=== PATIENT | female | born 1990 | race Caucasian/White ===

== ENCOUNTER 2016-11-21 14:09 | Emergency (ER) | payer OTHER ==
[~2016-11-21] VITALS: Ht 162.6 cm; Wt 59.0 kg
[~2016-11-21 14:09] MED LIST: CLIN1CAP6 PO; Hydrocodone/Acetaminophen PO; TYLE500T PO
[2016-11-21 14:12] VITALS: BP 118/70; PULSE 90; RESP 16; TEMP 97.9; O2SAT 98
--- NOTE | 2016-11-21 15:43 | PD ---
HPI Chief Complaint: [employer]viculture [employer]ster Problem/Complaint Time Seen by Provider: 15:13 Travel History International Travel<30 days: No Contact w/Intl Traveler<30days: No Traveled to known affect area: No History of Present Illness HPI The patient is a 26-year-old female who presents to the emergency department for evaluation of heart tones. The patient states she is currently , is unsure of the exact date of her last menstrual cycle as she has a history of irregular menstrual cycles. The patient denies any abdominal pain, nausea, vomiting, vaginal bleeding, or vaginal discharge. She does complain of pain located over the left aspect of the jaw with minimal swelling, but denies any fever, chills, or sweats. The patient is concerned because she uses Dilaudid and crack cocaine, is concerned about the health of her fetus. The patient denies any current physical complaints except for left jaw pain. PFSH Past Medical History Autoimmune Disease: No Blood Disorders: No Anxiety: Yes Depression: No Heart Rhythm Problems: No Cancer: No Cardiovascular Problems: No High Cholesterol: No Chest Pain: No Congestive Heart Failure: No Diminished Hearing: No Endocrine: No Gastrointestinal Disorders: No (FREQUENT UTI'S) Genitourinary: No Hypertension: No Immune Disorder: No Implanted Vascular Access Dvce: No Musculoskeletal: No Neurologic: No Psychiatric: Yes Reproductive: No Respiratory: No Immunizations Current: No ?: : 2 Para: 1 : 1 Past Surgical History AICD: No Arteriovenous Shunt: No Gynecologic Surgery: Yes () Insulin Pump: No Joint Replacement: No Pacemaker: No Other Surgery: Yes (cellulitis) Social History Alcohol Use: Yes (SOCIALLY) Tobacco Use: Yes (1PPD) Substance Use: Yes (dilaudid) Allergies-Medications (Allergen,Severity, Reaction): Coded Allergies: Penicillin (Verified Allergy, Intermediate, hives, 11/19/14) *MDRO Multi-Drug Resistant Organism (Verified Adverse Reaction, Unknown, ) MRSA (breast wound) - 04/30/16 Reported Meds & Prescriptions Reported Meds & Active Scripts Active Clindamycin Hcl (Clindamycin HCl) 300 Mg Cap 300 Mg PO Q8HR [Hydrocodone/Acetaminophen] 1 TAB Tab 1 Tab PO Q6H PRN Acetaminophen 500 Mg Cplt 500 Mg PO Q6H PRN 30 Days Review of Systems Except as stated in HPI: all other systems reviewed are Neg General / Constitutional: No: Fever HENT: Positive: Other, No: Lightheadedness Cardiovascular: No: Chest Pain or Discomfort Respiratory: No: Shortness of Breath Gastrointestinal: No: Nausea, Vomiting, Abdominal Pain Genitourinary: Positive: Other (), No: Urgency, Frequency, Dysuria, Hematuria, Pelvic Pain, Flank Pain, Discharge, Vaginal Bleeding Neurologic: No: Dizziness Physical Exam Narrative GENERAL: Awake, alert, nontoxic-appearing 26-year-old female who appears her stated age and is in no acute respiratory distress. SKIN: Warm and dry. HEAD: Atraumatic. Normocephalic. EYES: Pupils equal and round. No scleral icterus. No injection or drainage. ENT: No nasal bleeding or discharge. Mucous membranes pink and moist. No tenderness over the upper or lower teeth upon palpation. No palpable abscess along the upper or lower gumline. Left tympanic membranes translucent and left EAC has small amount of wax, otherwise unremarkable. Patient has tenderness over the left TMJ. NECK: Trachea midline. No JVD. CARDIOVASCULAR: Regular rate and rhythm. No murmur appreciated. RESPIRATORY: No accessory muscle use. Clear to auscultation. Breath sounds equal bilaterally. GASTROINTESTINAL: Abdomen soft, gravid inferior to the umbilicus. No rebound tenderness. MUSCULOSKELETAL: No obvious deformities. No clubbing. No cyanosis. No edema. NEUROLOGICAL: Awake and alert. No obvious cranial nerve deficits. Motor grossly within normal limits. Normal speech. PSYCHIATRIC: Appropriate mood and affect; insight and judgment normal. Data Data Last Documented VS Vital Signs Date Time Temp Pulse Resp B/P Pulse Ox O2 Delivery O2 Flow Rate FiO2 11/21/16 14:12 97.9 90 16 118/70 98 Orders Ed Poc Ultrasound (11/21/16 ) [facility] Medical Decision Making Medical Screen Exam Complete: Yes Emergency Medical Condition: Yes Medical Record Reviewed: Yes Differential Diagnosis Differential diagnosis includes , UTI, polysubstance abuse, TMJ, otitis media, serous otitis, dental abscess, odontalgia. Narrative Course The patient's physical examination is consistent with TMJ, she has tenderness over the left TMJ. No evidence of inflammation of the parotid gland or gingival abscess. No infection within the external ear canal or otitis media. Bedside ultrasound was performed which reveals a fetus within the uterus with positive heart tones. The patient was shown the ultrasound was performed real-time. The patient is advised to abstain from Dilaudid and crack and a follow-up with an head screen worker. She is also advised to take her vitamin daily. Return if symptoms worsen or progress. Diagnosis Primary Impression: Intrauterine Additional Impression: Substance abuse Patient Instructions: General Instructions Additional Instructions: Follow-up with an head screen worker. Take her vitamin daily. Stop using Dilaudid and crack cocaine. Drink plenty of fluids to stay hydrated. Return if symptoms worsen or progress. Med/Other Pt SpecificInfo: Other (take a vitamin daily) Disposition: 01 DISCHARGE HOME Condition: Stable Robinson Kraus MD Nov 21, 2016 15:43
[2016-11-21] MEDS ORDERED: BUPR100CR PO (15:47)
== END 2016-11-21 16:16 | disposition home or self-care (01) ==
LOC: NEPE 14:09
DX: O99.331 Smoking (tobacco) complicating pregnancy, first trimester (principal); F17.210 Nicotine dependence, cigarettes, uncomplicated; F19.10 Other psychoactive substance abuse, uncomplicated
CPT/HCPCS: 99283

== ENCOUNTER 2017-03-06 01:34 | Inpatient (IN) | payer OTHER, MEDICAID ==
[~2017-03-06] VITALS: Ht 162.6 cm; Wt 50.0 kg
[2017-03-06] VITALS (114 sets, daily range): BP systolic 50–108; BP diastolic 20–83; PULSE 42–151; RESP 16–31; TEMP 97.6–98.4; O2SAT 89–100
[~2017-03-06 01:34] MED LIST changes: +BUPR100CR PO; -CLIN1CAP6 PO; -Hydrocodone/Acetaminophen PO; -TYLE500T PO
[2017-03-06] MEDS ORDERED: MAGNESIUM SULFATE 40 GM PREMIX 1,000 ML ONE (02:45)
[2017-03-06] MEDS ORDERED: MAGNESIUM SULFATE 40 GM PREMIX 1,000 ML IV SCH (02:49)
[2017-03-06] MEDS ORDERED: TERBUTALINE INJ 1 MG/ML AMP ONE (02:58)
[2017-03-06] MEDS ORDERED: CALCIUM GLUCONATE 10% 1 GM/10 ML VIAL IV PRN (03:00)
[2017-03-06] MEDS ORDERED: MAGNESIUM SULFATE 4 GM PREMIX 100 ML IV ONE (03:00)
[2017-03-06] MEDS ORDERED: TERBUTALINE INJ 1 MG/ML AMP SQ PRN (03:00)
[2017-03-06] MEDS ORDERED: SODIUM CHLORIDE 0.9% FLUSH 10 ML FLUSH IV FLUSH PRN ×2 (03:00→08:15)
[2017-03-06 03:10] LABS: AUTOMATED NEUTROPHIL # 10.7 TH/MM3 (1.8-7.7); BASOPHIL % 0.1 % (0.0-2.0); EOSINOPHIL # 0.2 TH/MM3 (0-0.4); EOSINOPHIL % 1.4 % (0.0-4.0); LYMPH % 10.6 % (9.0-44.0); LYMPHOCYTE # 1.4 TH/MM3 (1.0-4.8); MEAN CELL VOLUME 85.4 FL (80.0-100.0); MEAN CORPUSCULAR HEMOGLOBIN 28.9 PG (27.0-34.0); MEAN CORPUSCULAR HGB CONC 33.8 % (32.0-36.0); MONO % 4.6 % (0.0-8.0); NEUT % 83.3 % (16.0-70.0); PLATELET COUNT 41 TH/MM3 (150-450); RED BLOOD COUNT 2.42 MIL/MM3 (4.00-5.30); WHITE BLOOD COUNT 12.9 TH/MM3 (4.0-11.0)
[2017-03-06] MEDS: LACTATED RINGER'S 1000 ML INJ 1,000 ML IV SCH ×2 (03:17→10:49)
[2017-03-06 03:18] LABS: HEMO FLAGS AUTO DIFF
[2017-03-06] MEDS: VANCOMYCIN INJ 1,000 MG in SODIUM CHLOR 0.9% 250 ML INJ 250 ML IV SCH (03:18)
[2017-03-06] MEDS: BETAMETHASONE SOD PHOS/ACETATE SUSP 30 MG/5 ML VIAL IM SCH ×2 (03:18→11:31)
[2017-03-06 03:19] LABS: HEMATOCRIT 20.7 % (35.0-46.0)
--- NOTE | 2017-03-06 03:21 | PD ---
HPI Chief Complaint Pain Date Seen: Mar 06, 2017 Time Seen: 02:30 Travel History International Travel<30 Days: No Contact w/Intl Traveler<30Days: No Known Affected Area: No History of Present Illness HPI 26-year-old 3 para 1 AB 1 at 32-5/7 week gestation with an EDC of 04/28 that she claims was given based on an ultrasound in the local obstetrical office approximately one month ago. She does not have any recollection of her last menstrual period. She has had no care other than the physical ultrasound was obtained. She was to follow up in another office and failed to keep that appointment. The patient reports tonight with generalized discomfort and swelling of her legs for the past 5 days. She reports having used 4 mg of Suboxone at 11:30 PM. She also admits to 8 mg of Dilaudid per day and proximally $20 of cocaine per day with the most recent use of both of these in the last 12 hours. She reports that her legs began to swell proximal 5 days ago. She denies any headache, visual changes or abdominal pain until this evening. She now has intermittent abdominal pain coinciding with contractions on the monitor. Para: 1 : 3 Miscarriage: 1 History Past Medical History Narrative Medical Penicillin allergy which leads to hives Polysubstance abuse with opiates, cocaine and tobacco. History of MRSA skin abscess earlier this year. Obstetric History Obstetric History One prior term vaginal delivery 4 years ago. One prior miscarriage Past Surgical History Narrative Surgical Skin abscesses Family History Family History: Negative Social History Alcohol Use: Yes Tobacco Use: Yes Substance Abuse: Yes (cocaine, Dilaudid, Suboxone) Allergies-Medications (Allergen,Severity, Reaction): Coded Allergies: Penicillin (Verified Allergy, Intermediate, hives, 11/21/16) *MDRO Multi-Drug Resistant Organism (Verified Adverse Reaction, Unknown, ) MRSA (breast wound) - 04/30/16 Home Meds Discontinued Reported Medications Bupropion HCl ER 12 HR (Wellbutrin SR 12 HR)100 Mg [id number] Mg PO Q12HR Ref 0 11/21/16 Review of Systems ROS Limitations: Intoxication, Altered Mental Status Except as stated in HPI: all other systems reviewed are Neg Physical Exam Narrative GENERAL: Sluggish, intoxicated, then white female, well-developed patient. SKIN: Clammy. HEAD: Normocephalic and atraumatic. EYES: No scleral icterus. No injection or drainage. Contracted pupils ENT: No nasal drainage noted. Mucous membranes pink. Airway patent. NECK: Supple, trachea midline. No JVD. CARDIOVASCULAR: Regular rate and rhythm without murmurs, gallops, or rubs. RESPIRATORY: Breath sounds equal bilaterally. No accessory muscle use. ABDOMEN/GI: Abdomen soft, non-tender, bowel sounds present, no rebound, no guarding Gravid to [-] weeks size Fundal Height: [28-] GENITOURINARY: External Genitalia: intact and normal in appearance BUS glands: [-Negative] Cervix: [Clean-] Dilatation: [-2] Effacement: [100-] Station: [+1-] Presentation: [Vertex-] Membranes: [intact ] Uterine Contractions: [Every 5-] FHT's: Category: [2-] Baseline: [-140] Reactive: [-] Variability: [Moderate-] Decels: [Variable-] EXTREMITIES: No cyanosis, 2+ lower extremity edema without tenderness or cords BACK: Nontender without obvious deformity. No CVA tenderness. NEUROLOGICAL: Awake and sluggish. Motor and sensory grossly within normal limits. Five out of 5 muscle strength in all muscle groups. Slurred speech. Data Data Orders Ob (2e) Additional Admit Info (03/06/17 02:45) Magnesium Sulfate 40 Gm Premix (Magnesiu (03/06/17 02:45) Rubella Immune Status (03/06/17 02:49) Hepatitis Profile (03/06/17 02:49) Rapid Plasma Regin (Rpr) W Ttr (03/06/17 02:49) Type And Screen (03/06/17 02:49) Complete Blood Count With Diff (03/06/17 02:49) No Care Spec Serology (03/06/17 02:49) Special Serology (03/06/17 02:49) Admit To Inpatient (03/06/17 ) Vital Signs (Adult) Q4H (03/06/17 02:49) Activity Bed Rest (03/06/17 02:49) Intake + Output VALERY.QSHIFT (03/06/17 02:49) Heart CONTINUOUS (03/06/17 02:49) Lactated Ringer's 1000 Ml Inj (Lr 1000 M (03/06/17 02:49) Sodium Chloride 0.9% Flush (Ns Flush) (03/06/17 03:00) Sodium Chloride 0.9% Flush (Ns Flush) (03/06/17 09:00) Magnesium Sulfate 40 Gm Premix (Magnesiu (03/06/17 02:49) Betamethasone Inj (Celestone Soluspan In (03/06/17 03:00) Calcium Gluconate Inj (Calcium Gluconate (03/06/17 03:00) Magnesium Sulfate 4 Gm Premix (Magnesium (03/06/17 03:00) Drug Screen, Random Urine (03/06/17 02:49) Vancomycin Inj (Vancomycin Inj) (03/06/17 03:00) Terbutaline Inj (Brethine Inj) (03/06/17 03:00) Inpatient Certification (03/06/17 ) Terbutaline Inj (Brethine Inj) (03/06/17 02:58) Vital Signs (Adult) .ON ADMISSION (03/06/17 03:03) ^ Labor Status (03/06/17 03:03) Urinalysis - C+S If Indicated (03/06/17 03:03) Comprehensive Metabolic Panel (03/06/17 03:03) Fibronectin (03/06/17 03:03) Wet Prep Profile (03/06/17 03:03) Gc And Chlamydia Pcr (03/06/17 03:03) Group B Beta Strep Scrn (Gbs) (03/06/17 03:03) Specimen To Be Collected PRN (03/06/17 03:03) Hiv Antibody Screen (03/06/17 03:03) MDM Medical Record Reviewed: Yes Narrative Course / MDM Assessment: 26-year-old female reportedly at 32-5/7 week gestation with no care who presents in labor complicated by polysubstance abuse. Admission laboratory analysis results are remarkable for platelets of 47,000 and hematocrit of 20%. Plan: labs Terbutaline for labor. Due to maternal hypotension I'm unable to administer Procardia. Magnesium sulfate for neuro protection and betamethasone. Transfusion of packed red blood cells and platelets. Further laboratory results are pending regarding possibility of underlying evidence of preeclampsia. Patient has significant lower extremity edema but none elsewhere and her blood pressure is low. Vancomycin 1 g is GBS prophylaxis due to severe penicillin allergy. MRSA swab. Neel Schumacher MD Mar 06, 2017 03:20
--- NOTE | 2017-03-06 03:39 | HHI.HP ---
History & Physical H&P Patient Name: Blossom Moreno Unit Number: [id number] Date of : 1990 Patient Status: Admitted Inpatient Attending Doctor: Neel Schumacher MD HPI HPI Chief Complaint Pain Date Seen: Mar 06, 2017 Time Seen: 02:30 Travel History International Travel<30 Days: No Contact w/Intl Traveler<30Days: No Known Affected Area: No History of Present Illness HPI 26-year-old 3 para 1 AB 1 at 32-5/7 week gestation with an EDC of 04/28 that she claims was given based on an ultrasound in the local obstetrical office approximately one month ago. She does not have any recollection of her last menstrual period. She has had no care other than the physical ultrasound was obtained. She was to follow up in another office and failed to keep that appointment. The patient reports tonight with generalized discomfort and swelling of her legs for the past 5 days. She reports having used 4 mg of Suboxone at 11:30 PM. She also admits to 8 mg of Dilaudid per day and proximally $20 of cocaine per day with the most recent use of both of these in the last 12 hours. She reports that her legs began to swell proximal 5 days ago. She denies any headache, visual changes or abdominal pain until this evening. She now has intermittent abdominal pain coinciding with contractions on the monitor. Para: 1 : 3 Miscarriage: 1 History (Limited) History Past Medical History Narrative Medical Penicillin allergy which leads to hives Polysubstance abuse with opiates, cocaine and tobacco. History of MRSA skin abscess earlier this year. History of hepatitis C Obstetric History Obstetric History One prior term vaginal delivery 4 years ago. One prior miscarriage Past Surgical History Narrative Surgical Skin abscesses Family History Family History: Negative Social History Alcohol Use: Yes Tobacco Use: Yes Substance Abuse: Yes (cocaine, Dilaudid, Suboxone) Allergies-Medications Allergies-Medications (Allergen,Severity, Reaction): Coded Allergies: Penicillin (Verified Allergy, Intermediate, hives, 11/21/16) *MDRO Multi-Drug Resistant Organism (Verified Adverse Reaction, Unknown, ) MRSA (breast wound) - 04/30/16 Home Meds Discontinued Reported Medications Bupropion HCl ER 12 HR (Wellbutrin SR 12 HR)100 Mg [id number] Mg PO Q12HR Ref 0 11/21/16 ROS Review of Systems ROS Limitations: Intoxication, Altered Mental Status Except as stated in HPI: all other systems reviewed are Neg Physical Exam Physical Exam Narrative GENERAL: Sluggish, intoxicated, then white female, well-developed patient. SKIN: Clammy. HEAD: Normocephalic and atraumatic. EYES: No scleral icterus. No injection or drainage. Contracted pupils ENT: No nasal drainage noted. Mucous membranes pink. Airway patent. NECK: Supple, trachea midline. No JVD. CARDIOVASCULAR: Regular rate and rhythm without murmurs, gallops, or rubs. RESPIRATORY: Breath sounds equal bilaterally. No accessory muscle use. ABDOMEN/GI: Abdomen soft, non-tender, bowel sounds present, no rebound, no guarding Gravid to [-] weeks size Fundal Height: [28-] GENITOURINARY: External Genitalia: intact and normal in appearance BUS glands: [-Negative] Cervix: [Clean-] Dilatation: [-2] Effacement: [100-] Station: [+1-] Presentation: [Vertex-] Membranes: [intact ] Uterine Contractions: [Every 5-] FHT's: Category: [2-] Baseline: [-140] Reactive: [-] Variability: [Moderate-] Decels: [Variable-] EXTREMITIES: No cyanosis, 2+ lower extremity edema without tenderness or cords BACK: Nontender without obvious deformity. No CVA tenderness. NEUROLOGICAL: Awake and sluggish. Motor and sensory grossly within normal limits. Five out of 5 muscle strength in all muscle groups. Slurred speech. Data Data Data Orders Ob (2e) Additional Admit Info (03/06/17 02:45) Magnesium Sulfate 40 Gm Premix (Magnesiu (03/06/17 02:45) Rubella Immune Status (03/06/17 02:49) Hepatitis Profile (03/06/17 02:49) Rapid Plasma Regin (Rpr) W Ttr (03/06/17 02:49) Type And Screen (03/06/17 02:49) Complete Blood Count With Diff (03/06/17 02:49) No Care Spec Serology (03/06/17 02:49) Special Serology (03/06/17 02:49) Admit To Inpatient (03/06/17 ) Vital Signs (Adult) Q4H (03/06/17 02:49) Activity Bed Rest (03/06/17 02:49) Intake + Output VALERY.QSHIFT (03/06/17 02:49) Heart CONTINUOUS (03/06/17 02:49) Lactated Ringer's 1000 Ml Inj (Lr 1000 M (03/06/17 02:49) Sodium Chloride 0.9% Flush (Ns Flush) (03/06/17 03:00) Sodium Chloride 0.9% Flush (Ns Flush) (03/06/17 09:00) Magnesium Sulfate 40 Gm Premix (Magnesiu (03/06/17 02:49) Betamethasone Inj (Celestone Soluspan In (03/06/17 03:00) Calcium Gluconate Inj (Calcium Gluconate (03/06/17 03:00) Magnesium Sulfate 4 Gm Premix (Magnesium (03/06/17 03:00) Drug Screen, Random Urine (03/06/17 02:49) Vancomycin Inj (Vancomycin Inj) (03/06/17 03:00) Terbutaline Inj (Brethine Inj) (03/06/17 03:00) Inpatient Certification (03/06/17 ) Terbutaline Inj (Brethine Inj) (03/06/17 02:58) Vital Signs (Adult) .ON ADMISSION (03/06/17 03:03) ^ Labor Status (03/06/17 03:03) Urinalysis - C+S If Indicated (03/06/17 03:03) Comprehensive Metabolic Panel (03/06/17 03:03) Fibronectin (03/06/17 03:03) Wet Prep Profile (03/06/17 03:03) Gc And Chlamydia Pcr (03/06/17 03:03) Group B Beta Strep Scrn (Gbs) (03/06/17 03:03) Specimen To Be Collected PRN (03/06/17 03:03) Hiv Antibody Screen (03/06/17 03:03) MDM MDM Medical Record Reviewed: Yes Narrative Course / MDM Assessment: 26-year-old female reportedly at 32-5/7 week gestation with no care who presents in labor complicated by polysubstance abuse. Admission laboratory analysis results are remarkable for platelets of 47,000 and hematocrit of 20%. Plan: labs Terbutaline for labor. Due to maternal hypotension I'm unable to administer Procardia. Magnesium sulfate for neuro protection and betamethasone. Transfusion of packed red blood cells and platelets. Further laboratory results are pending regarding possibility of underlying evidence of preeclampsia. Patient has significant lower extremity edema but none elsewhere and her blood pressure is low. Vancomycin 1 g is GBS prophylaxis due to severe penicillin allergy. MRSA swab. Neel Schumacher MD Mar 06, 2017 03:20 Neel Schumacher MD Mar 06, 2017 03:38
[2017-03-06 03:46] LABS: RUBELLA IGG ANTIBODY 161.1 IU/mL (10.0-500.0); RUBELLA STATUS IMMUNE (IMMUNE)
[2017-03-06] MEDS ORDERED: LIDOCAINE 2% JELLY 30 ML TUBE ONE (03:49)
[2017-03-06 03:50] LABS: BANDS 17 % (0-6); CORRECTED NUCLEATED RBC 1 /100 WBC (0-0); METAMYELOCYTES 3 % (0-1); NEUTROPHIL # MANUAL DIFF 11.7 TH/MM3 (1.8-7.7); POLYS (SEG NEUTROPHILS) 71 % (16-70); WBC DIFF SAMPLE 100
[2017-03-06 03:52] LABS: PLATELET ESTIMATE SMEAR LOW (NORMAL); PLATELET MORPHOLOGY NORMAL (NORMAL); SCAN/DIFF FINAL DIFF MANUAL
[2017-03-06 03:55] LABS: ALKALINE PHOSPHATASE 190 U/L (45-117); ALT (GPT) 9 U/L (10-53); TOTAL BILIRUBIN ADULT 0.6 MG/DL (0.2-1.0)
[2017-03-06 04:04] LABS: ANION GAP 12 MEQ/L (5-15); AST (GOT) 36 U/L (15-37); BICARBONATE 24.2 MEQ/L (21.0-32.0); BLOOD UREA NITROGEN 27 MG/DL (7-18); CHLORIDE 98 MEQ/L (98-107); GLOMERULAR FILTRATION RATE 45 ML/MIN (>89); SODIUM (NA) 134 MEQ/L (136-145)
[2017-03-06 04:07] LABS: POTASSIUM 3.1 MEQ/L (3.5-5.1)
[2017-03-06 04:09] LABS: AMPHETAMINE, URINE NEG (NEG); BARBITURATES, URINE NEG (NEG)
[2017-03-06 04:14] LABS: BACTERIA, URINE MANY /hpf; BLOOD, URINE MOD (NEG); COCAINE, URINE POS (NEG); GLUCOSE,URINE NEG (NEG); HYALINE CAST, URINE 25 /lpf (RARE); KETONE, URINE NEG (NEG); MUCUS URINE FEW /lpf (OCC); NITRITE,URINE NEG (NEG); SQUAMOUS EPITHELIAL CELL URINE 21 /hpf (0-5); URINE COLOR DARK-YELLOW (YELLW/STRAW)
[2017-03-06 04:16] LABS: COMMENT (UR) CULTURE INDICATED; CULTURE IF INDICATED CULTURE INDICATED
--- NOTE | 2017-03-06 05:00 | PD.LABORPN ---
Subjective Subjective The patient reports continued contractions. Notes leakage of vaginal fluid. Objective Objective Pelvic Exam: Cervix: [-] Dilatation: [3-] Effacement: [-100] Station: [+1-] Presentation: [-Vertex] Membranes: [ruptured] Uterine Contractions: [Irregular-] FHT's: Category: [2] Baseline: [140s-] Reactive: [-] Variability: [Moderate-] Decels: [Variable-] Examination consistent with rupture membranes Laboratory analysis demonstrates a protein creatinine ratio 0.47 Assessment/Plan Assessment and Plan Assessment: 32+ week intrauterine , labor with now rupture membranes, thrombocytopenia with proteinuria, significant anemia Plan: 1 unit of platelets, 2 units packed red blood cells Discontinue terbutaline Continue magnesium for neuro protection due to uncertain estimated gestational age and also possible atypical preeclampsia in this patient with significant edema, thrombocytopenia and proteinuria Neel Schumacher MD Mar 06, 2017 05:00
[2017-03-06 05:16] LABS: MRSA PCR NEGATIVE (NEGATIVE); STAPH AUREUS PCR NEGATIVE (NEGATIVE)
[2017-03-06 05:39] LABS: CHLAMYDIA PCR NOT DETECTED (NOT DETECT); NEISSERIA PCR NOT DETECTED (NOT DETECT)
[2017-03-06] MEDS ORDERED: OXYTOCIN 30 UNITS-500ML PREMIX 500 ML ONE (08:01)
[2017-03-06] MEDS ORDERED: BENZOCAINE 20% TOPICAL SPRAY 60 ML CAN TOPICAL PRN (08:15)
[2017-03-06] MEDS ORDERED: ONDANSETRON ODT 4 MG TAB PO PRN (08:15)
[2017-03-06] MEDS ORDERED: WITCH HAZEL 50%/GLYCERIN 12.5% 40 PAD JAR TOPICAL PRN (08:15)
[2017-03-06] MEDS ORDERED: ALUMINUM/MAGNESIUM/SIMETH 30 ML CUP PO PRN (08:15)
[2017-03-06] MEDS ORDERED: IBUPROFEN 600 MG TAB PO PRN (08:15)
[2017-03-06] MEDS ORDERED: DOCUSATE SODIUM 50 MG/SENNA 8.6 MG TAB PO PRN (08:15)
[2017-03-06] MEDS ORDERED: ZOLPIDEM TARTRATE 5 MG TAB PO PRN (08:15)
--- NOTE | 2017-03-06 08:34 | PD.OB.DELI ---
Delivery Date: Mar 06, 2017 Anesthesia: None Episiotomy: None Vaginal Delivery: Normal Presentation: Occiput anterior Nuchal Cord: None Delayed cord clamping (45 sec): Yes : Female One Minute : 8 Five Minute : 9 Weight: 1600g Placenta: Spontaneous delivery, Intact, 3 vessel cord, Other (Evidence of chronic abruption with dark adherent clot. ) Additional Information Delivery performed by Dr. Porter, supervised by Dr. Schumacher EBL 250cc (Génesis Cornejo MD R2) Additional Information I personally attended and assisted with this delivery. (Neel Schumacher MD) Génesis Cornejo MD R2 Mar 06, 2017 08:34 Neel Schumacher MD Mar 06, 2017 08:39
[2017-03-06] MEDS ORDERED: BISACODYL 10 MG SUPP RECTAL PRN ×2 (09:00→13:30)
[2017-03-06] MEDS ORDERED: SODIUM CHLORIDE 0.9% FLUSH 10 ML FLUSH IV FLUSH SCH ×2 (09:00)
[2017-03-06 09:16] LABS: BLOOD GAS BASE EXCESS -3.1 mmol/L (-2-2); BLOOD GAS O2 HGB SATURATION 17 % (90-100); CORD BLOOD GAS HCO3 23 mmol/L (21-29); CORD BLOOD GAS PCO2 58 mmHG (34-78); CORD BLOOD GAS PH 7.23 (7.14-7.42)
[2017-03-06 09:17] LABS: CORD BLOOD GAS PO2 13 mmHG (3.0-40.0); DRAW SITE CORD BLOOD; STAT NO
--- NOTE | 2017-03-06 10:08 | RADRPT ---
EXAM DATE/TIME: 03/06/2017 09:09 [facility] COMPARISON: No previous studies available for comparison. INDICATIONS : Bilateral leg pain and pitting edema. MEDICAL HISTORY : Hepatitis C. MRSA. Substance use. SURGICAL HISTORY : Skin abscesses. ENCOUNTER: Initial ACUITY: 4 - 6 days PAIN SCORE: 9/10 LOCATION: Bilateral legs. TECHNIQUE: Venous ultrasound of the left and right leg was performed from the inguinal ligament to the proximal calf. Real-time, color Doppler and spectral tracing, compression and augmentation techniques were us ed. FINDINGS: RIGHT LEG: There is normal compressibility of the deep venous system from the inguinal region to the proximal ca lf. No echogenic clot is seen in the lumen of the common femoral, femoral, popliteal, and posterior tibial veins. There is a normal response of the venous system to proximal and distal augmentation an d respiration. LEFT LEG: There is normal compressibility of the deep venous system from the inguinal region to the proximal ca lf. No echogenic clot is seen in the lumen of the common femoral, femoral, popliteal, and posterior tibial veins. There is a normal response of the venous system to proximal and distal augmentation an d respiration. CONCLUSION: Normal examination. Eddie Boykin MD on March 06, 2017 at 10:06 Board Certified Radiologist. This report was verified electronically.
[2017-03-06] MEDS ORDERED: SODIUM PHOSPHATE INJ 30 MMOL in SODIUM CHLOR 0.9% 250 ML INJ 240 ML IV PRN ×2 (11:00→13:30)
[2017-03-06] MEDS ORDERED: POTASSIUM PHOSPHATE MONOBASIC 500 MG TAB PO/TUBE PRN ×2 (11:00→13:30)
[2017-03-06] MEDS ORDERED: POTASSIUM CHLOR 20 MEQ PREMIX 100 ML IV PRN ×3 (11:00→13:30)
[2017-03-06] MEDS ORDERED: MAGNESIUM SULFATE INJ 4 GM in SODIUM CHLORIDE 0.9% INJ 92 ML IV PRN ×2 (11:00→13:30)
[2017-03-06] MEDS ORDERED: POTASSIUM PHOSPHATE MONOBASIC 500 MG TAB PO PRN ×2 (11:00→13:30)
[2017-03-06] MEDS ORDERED: POTASSIUM CHLOR 40 MEQ PREMIX 100 ML IV PRN ×4 (11:00→13:30)
[2017-03-06] MEDS ORDERED: POTASSIUM CHLORIDE 25 MEQ EFFERVESCENT TAB PO PRN ×2 (11:00→13:30)
[2017-03-06] MEDS ORDERED: Vancomycin Consult Pharmacy 1 EA OTHER SCH (11:00)
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
--- NOTE | 2017-03-06 11:30 | RADRPT ---
EXAM DATE/TIME: 03/06/2017 11:00 [place] COMPARISON: CHEST SINGLE AP, November 20, 2014, 4:33. INDICATIONS : Shortness of breath and whole body pain. MEDICAL HISTORY : Hepatitis C. MRSA. Substance use. SURGICAL HISTORY : Skin abcesses. ENCOUNTER: Initial ACUITY: 1 day PAIN SCORE: 10/10 LOCATION: Bilateral chest FINDINGS: There is patchy bilateral airspace disease and cardiomegaly. This is increased from previous. No effu sions. Osseous structures are intact. CONCLUSION: Bilateral airspace disease and cardiomegaly. Eddie Boykin MD on March 06, 2017 at 11:28 Board Certified Radiologist. This report was verified electronically.
[2017-03-06] MEDS: SODIUM CHLOR 0.9% 1000 ML INJ 1,000 ML IV SCH (13:29)
[2017-03-06] MEDS ORDERED: MISCELLANEOUS NURSING INFORMATION XX SCH (13:30)
[2017-03-06] MEDS ORDERED: SENNOSIDES 8.6 MG TAB PO PRN (13:30)
[2017-03-06] MEDS ORDERED: MAGNESIUM OXIDE 400 MG TAB PO PRN (13:30)
[2017-03-06] MEDS ORDERED: MAGNESIUM SULFATE INJ 2 GM in SODIUM CHLORIDE 0.9% INJ 96 ML IV PRN (13:30)
[2017-03-06] MEDS ORDERED: ONDANSETRON HCL 4 MG/2 ML VIAL IV PRN (13:30)
[2017-03-06] MEDS ORDERED: CHLORHEXIDINE GLUCONATE 2 % 1 PACK (2 CLOTHS) TOP PRN (13:30)
[2017-03-06] MEDS: oxyCODONE/ACETAMINOPHEN 5 MG/325 MG TAB PO PRN (13:34)
[2017-03-06] MEDS: PIPERACIL-TAZO 3.375 GM PREMIX 50 ML IV SCH ×3 (13:37→22:55)
[2017-03-06] MEDS: AZTREONAM INJ 2,000 MG in SODIUM CHLORIDE 0.9% INJ 100 ML IV SCH ×2 (14:05→20:10)
[2017-03-06] MEDS: ACETAMINOPHEN 1000 MG/100 ML VIAL IV SCH ×2 (14:58→20:10)
[2017-03-06] MEDS ORDERED: PILL SPLITTER OTHER PRN (15:00)
--- NOTE | 2017-03-06 15:13 | PD.CONS ---
[facility] Service Critical Care Medicine Consult Requested By Neel Hampton M.D. OB-ACOUSTICS TEACHER Reason for Consult Sepsis Primary Care Physician Nita Dawn MD History of Present Illness 26-year-old 3 para 1 AB 1 at 32-5/7 week gestation with an EDC of 04/28 that she claims was given based on an ultrasound in the local obstetrical office approximately one month ago. She does not have any recollection of her last menstrual period. She has had no care other than the physical ultrasound was obtained. She was to follow up in another office and failed to keep that appointment. The patient reports tonight with generalized discomfort and swelling of her legs for the past 5 days. She reports having used 4 mg of Suboxone at 11:30 PM on 02/02/17. She also admits to 8 mg of Dilaudid per day and proximally $20 of cocaine per day with the most recent use of both of these in the last 12 hours prior to admission to the hospital.She reports that her legs began to swell proximal 5 days ago. She denies any headache, visual changes or abdominal pain. The patient was noted to be in preeclampsia with a protein creatinine ratio 0.47, urine protein 117. The patient was also noted to have leukocytosis , and febrile. The patient was placed on a magnesium infusion. The patient subsequently had a spontaneous vaginal delivery without general or regional anesthesia. Critical care medicine was consulted for management. Upon entering the room the patient was noted to be writhing in pain complaining of left hip left leg pain, BP 90/68 with magnesium infusing. Para: 1 : 3 Miscarriage: 1 History (Limited) History Past Medical History Narrative Medical Penicillin allergy which leads to hives Polysubstance abuse with opiates, cocaine and tobacco. History of MRSA skin abscess earlier this year. History of hepatitis C Obstetric History Obstetric History One prior term vaginal delivery 4 years ago. One prior miscarriage Past Surgical History Narrative Surgical Skin abscesses Family History Family History: Negative Social History Alcohol Use: Yes Tobacco Use: Yes Substance Abuse: Yes (cocaine, Dilaudid, Suboxone) Allergies-Medications Allergies-Medications (Allergen,Severity, Reaction): Coded Allergies: Penicillin (Verified Allergy, Intermediate, hives, 11/21/16) *MDRO Multi-Drug Resistant Organism (Verified Adverse Reaction, Unknown, ) MRSA (breast wound) - 04/30/16 Home Meds Discontinued Reported Medications Bupropion HCl ER 12 HR (Wellbutrin SR 12 HR)100 Mg [id number] Mg PO Q12HR Ref 0 11/21/16 ROS Review of Systems ROS Limitations: Intoxication, Altered Mental Status Except as stated in HPI: all other systems reviewed are Neg Physical Exam Vital Signs Vital Signs Date Time Temp Pulse Resp B/P Pulse Ox O2 Delivery O2 Flow Rate FiO2 03/06/17 12:25 79 100 03/06/17 12:20 82 100 03/06/17 12:15 81 03/06/17 12:15 82 101/64 100 03/06/17 12:10 81 99 03/06/17 12:05 82 100 03/06/17 12:00 83 94/61 99 03/06/17 12:00 83 03/06/17 11:55 82 99 03/06/17 11:50 83 98 03/06/17 11:45 81 95/62 98 03/06/17 11:45 81 03/06/17 11:40 81 98 03/06/17 11:35 78 99 03/06/17 11:30 79 03/06/17 11:30 81 17 93/58 98 03/06/17 11:25 83 99 03/06/17 11:20 87 94 03/06/17 11:15 83 17 95 03/06/17 11:10 82 03/06/17 11:10 81 96/59 98 03/06/17 11:05 81 91/58 99 03/06/17 11:05 80 03/06/17 11:00 18 03/06/17 11:00 82 03/06/17 11:00 80 95/53 98 03/06/17 10:55 81 103/57 03/06/17 10:55 79 03/06/17 10:55 99 03/06/17 10:50 82 87/60 03/06/17 10:50 100 03/06/17 10:50 81 03/06/17 10:45 79 91/59 03/06/17 10:45 82 03/06/17 10:45 100 03/06/17 10:40 80 97/57 99 03/06/17 10:40 80 03/06/17 10:35 80 94/60 99 03/06/17 10:35 81 03/06/17 10:30 81 03/06/17 10:30 79 96/58 100 03/06/17 10:30 17 03/06/17 10:25 85 03/06/17 10:25 83 108/83 99 03/06/17 10:20 77 03/06/17 10:20 81 100/65 100 03/06/17 10:15 81 89/60 03/06/17 10:10 82 90/70 03/06/17 10:05 81 100 03/06/17 10:05 82 17 91/66 03/06/17 10:00 85 87/73 03/06/17 09:55 97.8 79 16 91/51 100 03/06/17 09:55 84 03/06/17 09:50 78 88/53 100 03/06/17 09:50 79 03/06/17 09:45 80 03/06/17 09:45 79 85/51 100 03/06/17 09:44 98.0 03/06/17 09:44 17 03/06/17 09:42 79 78/34 03/06/17 09:41 77 52/35 03/06/17 09:40 95 97 03/06/17 09:35 78 03/06/17 09:35 80 90/50 96 03/06/17 09:33 77 85/48 03/06/17 09:30 79 82/44 100 03/06/17 09:30 78 03/06/17 09:30 98.0 18 03/06/17 09:25 80 100 03/06/17 09:20 96 91 03/06/17 09:15 78 03/06/17 09:15 80 98/60 100 03/06/17 09:10 87 89 03/06/17 09:05 80 100 03/06/17 09:00 17 03/06/17 09:00 76 03/06/17 09:00 77 84/50 100 03/06/17 08:55 77 100 03/06/17 08:50 77 100 03/06/17 08:45 89 82/67 03/06/17 08:30 83 108/72 03/06/17 08:20 100 03/06/17 08:20 82 03/06/17 08:16 87 93/76 03/06/17 08:15 18 03/06/17 08:10 90 96 03/06/17 08:10 52 03/06/17 08:05 88 100 03/06/17 08:05 90 03/06/17 08:00 71 03/06/17 08:00 92 03/06/17 08:00 93 107/69 97 03/06/17 07:55 151 03/06/17 07:50 63 03/06/17 07:45 87 93/56 100 03/06/17 07:45 61 03/06/17 07:45 87 03/06/17 07:40 100 03/06/17 07:40 85 03/06/17 07:40 84 03/06/17 07:35 85 03/06/17 07:35 43 03/06/17 07:35 100 03/06/17 07:31 90 89/55 03/06/17 07:30 100 03/06/17 07:30 87 03/06/17 07:30 86 03/06/17 07:29 87 82/45 03/06/17 07:25 52 03/06/17 07:20 47 03/06/17 07:15 82 03/06/17 07:05 94 03/06/17 07:02 94 102/52 03/06/17 07:01 94 69/41 03/06/17 07:00 94 03/06/17 06:40 91 03/06/17 06:35 53 03/06/17 06:30 93 94/50 03/06/17 06:30 92 03/06/17 06:30 20 03/06/17 06:25 47 03/06/17 06:21 95 73/39 03/06/17 06:20 95 03/06/17 06:15 94 96/39 03/06/17 06:15 94 03/06/17 06:05 94 95/49 03/06/17 06:05 92 03/06/17 06:00 97.8 95 20 98/53 03/06/17 06:00 116 03/06/17 05:55 94 03/06/17 05:55 94 95/51 03/06/17 05:52 93 96/51 03/06/17 05:50 93 03/06/17 05:45 94 03/06/17 05:10 93 03/06/17 05:05 92 03/06/17 05:04 95 91/47 03/06/17 05:00 94 03/06/17 05:00 96 90/49 03/06/17 04:56 93 94/47 03/06/17 04:55 96 03/06/17 04:50 94 03/06/17 04:45 51 03/06/17 04:15 20 03/06/17 04:10 42 03/06/17 04:05 98 03/06/17 04:02 75 88/20 03/06/17 04:01 123 50/31 03/06/17 04:00 98 03/06/17 03:25 52 03/06/17 03:20 101 03/06/17 03:16 102 85/48 03/06/17 03:15 103 03/06/17 03:11 90 89/63 03/06/17 03:10 100 03/06/17 03:07 99 93/32 03/06/17 03:05 97 03/06/17 03:00 104 76/59 03/06/17 03:00 99 03/06/17 02:57 104 79/40 03/06/17 02:55 107 Physical Exam GENERAL: Medically ill-appearing young female in severe distress, complaints of pain, status post . SKIN: Warm and dry. HEAD: Atraumatic. Normocephalic. EYES: Pupils equal and round. No scleral icterus. No injection or drainage. ENT: No nasal bleeding or discharge. Mucous membranes pink and moist. Airway patent. Uvula midline , currently on nasal cannula NECK: Trachea midline. No JVD. CARDIOVASCULAR: Normal rate, regular rhythm. RESPIRATORY: No accessory muscle use. Clear to auscultation. Breath sounds equal bilaterally. GASTROINTESTINAL: Abdomen soft, non-tender, nondistended. No guarding. Fundal height at the level of T10 MUSCULOSKELETAL: Extremities without clubbing, or cyanosis. No obvious deformities. Peripheral edema bilateral extremities NEUROLOGICAL: Awake and alert. RASS 0. No gross focal/sensory deficits. Follows commands in all 4 extremities. Laboratory Laboratory Tests Test 03/06/17 03/06/17 03/06/17 03/06/17 02:00 02:40 02:45 03:20 Urine Color DARK-YELLOW Urine Turbidity CLOUDY Urine pH 5.0 Urine Specific Amonate 1.030 Urine Protein 30 Urine Glucose (UA) NEG Urine Ketones NEG Urine Occult Blood MOD Urine Nitrite NEG Urine Bilirubin NEG Urine Urobilinogen 4.0 Urine Leukocyte Esterase SMALL Urine RBC 5 Urine WBC 19 Urine Squamous Epithelial 21 Cells Urine Bacteria MANY Urine Hyaline Casts 25 Urine Mucus FEW Microscopic Urinalysis Comment CULTURE INDICATED Urine Random Creatinine 250 Urine Random Total Protein 117 Urine Protein/Creatinine Ratio 0.47 Urine Opiates Screen POS Urine Barbiturates Screen NEG Urine Amphetamines Screen NEG Urine Benzodiazepines Screen POS Urine Cocaine Screen POS Urine Cannabinoids Screen NEG Chlamydia trachomatis DNA NOT DETECTED (PCR) Neisseria gonorrhoeae DNA NOT DETECTED (PCR) White Blood Count 12.9 Red Blood Count 2.42 Hemoglobin 7.0 Hematocrit 20.7 Mean Corpuscular Volume 85.4 Mean Corpuscular Hemoglobin 28.9 Mean Corpuscular Hemoglobin 33.8 Concent Red Cell Distribution Width 15.0 Platelet Count 41 Mean Platelet Volume 8.8 Neutrophils (%) (Auto) 83.3 Lymphocytes (%) (Auto) 10.6 Monocytes (%) (Auto) 4.6 Eosinophils (%) (Auto) 1.4 Basophils (%) (Auto) 0.1 Neutrophils # (Auto) 10.7 Lymphocytes # (Auto) 1.4 Monocytes # (Auto) 0.6 Eosinophils # (Auto) 0.2 Basophils # (Auto) 0.0 CBC Comment AUTO DIFF Differential Total Cells 100 Counted Neutrophils % (Manual) 71 Band Neutrophils % 17 Lymphocytes % 5 Monocytes % 4 Neutrophils # (Manual) 11.7 Metamyelocytes 3 Nucleated Red Blood Cells 1 Differential Comment FINAL DIFF MANUAL Atypical Lymphocytes Platelet Estimate LOW Platelet Morphology Comment NORMAL Blood Smear Pathologist Review Fibronectin POSITIVE Sodium Level 134 Potassium Level 3.1 Chloride Level 98 Carbon Dioxide Level 24.2 Anion Gap 12 Blood Urea Nitrogen 27 Creatinine 1.43 Estimat Glomerular Filtration 45 Rate Random Glucose 93 Calcium Level 7.9 Total Bilirubin 0.6 Aspartate Amino Transf 36 (AST/SGOT) Alanine Aminotransferase 9 (ALT/SGPT) Alkaline Phosphatase 190 Total Protein 6.8 Albumin 1.7 HIV (1&2) Antibody NEGATIVE Rubella Immunity Screen IMMUNE Rubella Antibody, Quantitative 161.1 Blood Type O POSITIVE Antibody Screen NEGATIVE Group B Streptococcus (PCR) NEGATIVE Clue Cells (Wet Prep) NONE SEEN Vaginal Trichomonas (Wet Prep) NONE SEEN Vaginal Yeast (Wet Prep) NONE SEEN Test 4/03/06/17 03/06/17 03:45 04:06 08:00 Nasal Screen MRSA (PCR) NEGATIVE Staphylococcus aureus NEGATIVE (PCR)(LAB) Crossmatch Leukocyte-Reduced Red Blood Cells Blood Bank Comment Blood Gas Puncture Site CORD BLOOD Blood Gas Base Excess -3.1 Blood Gas Oxygen Saturation 17 Cord Blood HCO3 23 Cord Arterial Blood pH 7.23 Cord Arterial Blood PCO2 58 Cord Arterial Blood PO2 13 Date/Time Procedure Status Source Growth 03/06/17 02:45 Group B Streptococcus Screen Received Genital Genital Region Pending 03/06/17 02:45 Cancelled Genital Genital Region 03/06/17 02:00 Urine Culture Received Urine Clean Catch Pending Result Diagram: 03/06/17 0240 03/06/17 0240 Imaging Last 24 hours Impressions Lower Extremity Ultrasound 03/06/17 0849 Signed Impressions: Service Date/Time: Monday, March 06, 2017 09:09 - CONCLUSION: Normal examination. Eddie Boykin MD Chest X-Ray 03/06/17 0000 Signed Impressions: Service Date/Time: Monday, March 06, 2017 11:00 - CONCLUSION: Bilateral airspace disease and cardiomegaly. Eddie Boykin MD Septic Shock Reassessment Heart: Regular rate and rhythm Skin: Warm, Moist Peripheral Pulses: Bounding Right Radial Bounding Left Radial Bounding Right Dorsalis Pedis Bounding Left Dorsalis Pedis Capillary Refill: Brisk Assessment and Plan Assessment and Plan Plan by systems: Neurologic: Pain IVDA Benzodiazepine dependence Metabolic encephalopathy Upon admission to hospital positive urine tox screen-opiates, benzodiazepines, cocaine Neurochecks every 2 hours per ICU protocol Ativan 1 mg every 4 hours PRN Seizure precautions-in the setting of preeclampsia, and benzodiazepine dependence Dr. Erica Pérez consulted for Suboxone management-Suboxone for 4mg SL every 6 hrs scheduled Monitor magnesium levels every 6 hours-avoid mag toxicity, maintain level 6-7 , monitor deep tendon reflexes, visual changes Dilaudid 1 mg every 4 hours when necessary for pain Respiratory: Tobaccoism Maintain O2 sat greater than 92%, O2 via nasal cannula 14 liters, wean as tolerated Incentive spirometry, encourage use every hour while awake Consider nicotine patch medium dose Patient counseled on smoking cessation Bronchodilators every 4 hours when necessary Cardiovascular: Hypertension secondary to Preeclampsia Obtain baseline EKG Maintain MAP greater than 65 mmHg Metoprolol 2.5 mg every 6 hours when necessary for systolic blood pressure greater than 160 mmHg Renal: Renal insufficiency , proteinuria secondary to preeclampsia Maintain Felix Creatinine 1.4 Protein creatinine ratio 0.47, urine protein 117-continue to monitor -- Strict I/Os FEN/GI: Hepatitis C HELLP syndrome Hyponatremia Hypokalemia Normal saline at 84 cc/hour Obtain repeat BMP-initial sodium level 134 Monitor magnesium levels every 6 hours Maintain nothing by mouth status for now, will advance to clear liquid diet if tolerated Follow-up hepatitis panel Heme/ID: Thrombocytopenia secondary to HELLP syndrome Anemia secondary to acute blood loss Bandemia Sepsis Initial platelet count 41, hemoglobin 7.3-patient received 2 units of packed cells, and 1 unit of platelets prior to delivery Repeat CBC postdelivery every 6 hours-transfuse for platelet count less than 50, 000 Consider liver ultrasound if hemoglobin continues to decrease, rule out hepatic rupture Obtain PT/INR, CMP Obtain blood cultures Follow-up RPR, cultures Follow up lactate level Empiric antibiotics initiated- Zosyn, vancomycin, Atrezonam Endocrine: Glucose monitoring per ICU protocol -- SSI Prophylaxis: GI Prophylaxis Protonix DVT Prophylaxis -- SCDs No pharmacological DVT prophylaxis in the setting of thrombocytopenia and elevated INR Lines: Peripheral IVs 2 Dispo: This patient remains critically ill with one or more organ systems which are or may become a threat to life. I have spent in excess of 60 minutes discontinuously in the care and management of this patient. This time is exclusive of procedures, and includes, but is not limited to, evaluation of the patient, review of the medical record, discussions with family, consultants, nursing staff, or respiratory therapy, and documentation in the medical record. Code Status Full Discussed Condition With Dr. Mireles and SURVEY COMPILER at bedside. Andree Moore MD Mar 06, 2017 15:13
[2017-03-06] MEDS ORDERED: METOPROLOL TARTRATE 5 MG/5 ML VIAL IV PUSH PRN (15:15)
[2017-03-06 15:22] LABS: AUTOMATED NEUTROPHIL # 16.2 TH/MM3 (1.8-7.7); BASOPHIL # 0.1 TH/MM3 (0-0.2); BASOPHIL % 0.3 % (0.0-2.0); EOSINOPHIL # 0.1 TH/MM3 (0-0.4); EOSINOPHIL % 0.8 % (0.0-4.0); HEMATOCRIT 23.7 % (35.0-46.0); LYMPH % 11.1 % (9.0-44.0); LYMPHOCYTE # 2.1 TH/MM3 (1.0-4.8); MEAN CELL VOLUME 84.5 FL (80.0-100.0); MEAN CORPUSCULAR HEMOGLOBIN 28.4 PG (27.0-34.0); MEAN CORPUSCULAR HGB CONC 33.6 % (32.0-36.0); MONO % 2.8 % (0.0-8.0); PLATELET COUNT 37 TH/MM3 (150-450); RED BLOOD COUNT 2.81 MIL/MM3 (4.00-5.30); RED CELL DISTRIBUTION WIDTH 15.1 % (11.6-17.2); WHITE BLOOD COUNT 19.1 TH/MM3 (4.0-11.0)
[2017-03-06 15:26] LABS: HEMO FLAGS AUTO DIFF
[2017-03-06 15:31] LABS: APTT (PATIENT) 29.4 SEC (24.3-30.1); PROTHROMBIN TIME - PATIENT 11.1 SEC (9.8-11.6)
[2017-03-06] MEDS ORDERED: DIPHTH/TETANUS/ACEL PERTUSSIS (BOOSTER) 0.5 ML VIAL/PFS IM ONE (16:00)
[2017-03-06] MEDS ORDERED: MEASLES, MUMPS, RUBELLA VACCINE 0.5 ML VIAL SQ ONE (16:00)
[2017-03-06 16:02] LABS: BANDS 20 % (0-6); METAMYELOCYTES 2 % (0-1); MYELOCYTES 3 % (0-0); NEUTROPHIL # MANUAL DIFF 17.2 TH/MM3 (1.8-7.7); POLYS (SEG NEUTROPHILS) 65 % (16-70); WBC DIFF SAMPLE 100
[2017-03-06 16:03] LABS: PLATELET ESTIMATE SMEAR LOW (NORMAL); PLATELET MORPHOLOGY NORMAL (NORMAL); SCAN/DIFF FINAL DIFF MANUAL
[2017-03-06 16:04] LABS: BICARBONATE 23.4 MEQ/L (21.0-32.0); CALCIUM-PROTEIN CORRECTED 7.7 MG/DL (8.5-10.1); POTASSIUM 3.2 MEQ/L (3.5-5.1); TOTAL BILIRUBIN ADULT 0.5 MG/DL (0.2-1.0)
[2017-03-06] MEDS: HYDROmorphone HCL PF 1 MG/ML VIAL IV PRN ×2 (16:41→20:44)
[2017-03-06 17:11] LABS: LACTIC ACID GHOST NOT REPORTABLE
[2017-03-06] MEDS: BUPRENORPHINE HCL 8 MG SUBLINGUAL TAB SL SCH ×2 (17:56→22:54)
[2017-03-06 18:58] LABS: PROTHROMBIN TIME - PATIENT 11.1 SEC (9.8-11.6)
--- NOTE | 2017-03-06 19:35 | EKG ---
Date Performed: 03/06/2017 Time Performed: 15:50:09 PTAGE: 26 years EKG: Sinus rhythm NORMAL ECG PREVIOUS TRACING : 11/20/2014 05.19 Compared to prior tracing no significant change DOCTOR: Kyler Baker Interpretating Date/Time 03/06/2017 19:35:11
[2017-03-06] MEDS: POTASSIUM CHLOR 20 MEQ PREMIX 100 ML IV PRN ×2 (20:11→20:13)
[2017-03-06] MEDS: SODIUM CHLORIDE 0.9% FLUSH 10 ML FLUSH IV FLUSH SCH (20:12)
[2017-03-06] MEDS: DOCUSATE SODIUM 50 MG/SENNA 8.6 MG TAB PO SCH (20:12)
[2017-03-07] VITALS (18 sets, daily range): BP systolic 96–121; BP diastolic 50–78; PULSE 86–108; RESP 22–41; TEMP 97.6–98.7; O2SAT 89–99
[2017-03-07] MEDS: HYDROmorphone HCL PF 1 MG/ML VIAL IV PRN ×2 (00:58→06:24)
[2017-03-07] MEDS: ACETAMINOPHEN 1000 MG/100 ML VIAL IV SCH ×3 (00:58→13:56)
[2017-03-07] MEDS: VANCOMYCIN INJ 1,000 MG in SODIUM CHLOR 0.9% 250 ML INJ 250 ML IV SCH (02:49)
[2017-03-07 03:04] LABS: HEMATOCRIT 22.9 % (35.0-46.0); MEAN CELL VOLUME 83.5 FL (80.0-100.0); MEAN CORPUSCULAR HEMOGLOBIN 28.9 PG (27.0-34.0); MEAN CORPUSCULAR HGB CONC 34.6 % (32.0-36.0); PLATELET COUNT 30 TH/MM3 (150-450); RED BLOOD COUNT 2.75 MIL/MM3 (4.00-5.30); RED CELL DISTRIBUTION WIDTH 15.2 % (11.6-17.2); WHITE BLOOD COUNT 12.5 TH/MM3 (4.0-11.0)
[2017-03-07 03:08] LABS: REVIEW FLAG FINAL
[2017-03-07 03:13] LABS: PROTHROMBIN TIME - PATIENT 10.9 SEC (9.8-11.6)
[2017-03-07] MEDS: CHLORHEXIDINE GLUCONATE 2 % 1 PACK (2 CLOTHS) TOP SCH (04:00)
[2017-03-07] MEDS: AZTREONAM INJ 2,000 MG in SODIUM CHLORIDE 0.9% INJ 100 ML IV SCH ×3 (04:06→20:43)
[2017-03-07] MEDS: SODIUM CHLOR 0.9% 1000 ML INJ 1,000 ML IV SCH ×2 (05:00→20:46)
[2017-03-07] MEDS: BUPRENORPHINE HCL 8 MG SUBLINGUAL TAB SL SCH ×3 (05:01→18:00)
[2017-03-07] MEDS: PIPERACIL-TAZO 3.375 GM PREMIX 50 ML IV SCH ×3 (05:01→18:35)
[2017-03-07] MEDS ORDERED: SODIUM CHLOR 0.9% 250 ML INJ 250 ML IV ONE ×2 (08:15→08:30)
[2017-03-07] MEDS: SODIUM CHLORIDE 0.9% FLUSH 10 ML FLUSH IV FLUSH SCH ×2 (08:23→20:44)
[2017-03-07] MEDS: PANTOPRAZOLE SODIUM 40 MG VIAL IV SCH (08:23)
--- NOTE | 2017-03-07 08:46 | HHI.OB ---
Subjective Post Day: 1 Remarks Ms. Moreno was tachypneic to RR 38 and required placement on nonrebreather to maintain saturations overnight; other vitals stable. Patient reports significant abdominal pain and persistent shortness of breath today; she requests pain medication. Patient denies vaginal bleeding overnight. (Daniel Porter MD R2) Remarks Patient seen and evaluated with resident under direct supervision, agree with assessment and plan. (Neel Schumacher MD) Objective Vitals/I&O Vital Signs Date Time Temp Pulse Resp B/P Pulse Ox O2 Delivery O2 Flow Rate FiO2 03/07/17 06:00 102 03/07/17 05:00 93 Non-Rebreather 03/07/17 04:45 94 Non-Rebreather 15.00 100 03/07/17 04:00 98.7 100 41 111/60 89 03/07/17 04:00 100 03/07/17 02:00 108 03/07/17 00:00 98.7 88 22 109/73 93 03/07/17 00:00 88 03/06/17 23:00 91 Nasal Cannula 4.00 03/06/17 20:04 93 Nasal Cannula 4.00 03/06/17 20:00 98.4 78 28 100/59 93 03/06/17 20:00 82 03/06/17 19:00 91 Nasal Cannula 3.00 03/06/17 18:00 80 03/06/17 16:00 89 03/06/17 16:00 97.6 84 31 104/63 92 03/06/17 14:00 86 03/06/17 12:25 79 100 03/06/17 12:20 82 100 03/06/17 12:15 81 03/06/17 12:15 82 101/64 100 03/06/17 12:10 81 99 03/06/17 12:05 82 100 03/06/17 12:00 83 94/61 99 03/06/17 12:00 83 03/06/17 11:55 82 99 03/06/17 11:50 83 98 03/06/17 11:45 81 95/62 98 03/06/17 11:45 81 03/06/17 11:40 81 98 03/06/17 11:35 78 99 03/06/17 11:30 79 03/06/17 11:30 81 17 93/58 98 03/06/17 11:25 83 99 03/06/17 11:20 87 94 03/06/17 11:15 83 17 95 03/06/17 11:10 82 03/06/17 11:10 81 96/59 98 03/06/17 11:05 81 91/58 99 03/06/17 11:05 80 03/06/17 11:00 18 03/06/17 11:00 82 03/06/17 11:00 80 95/53 98 03/06/17 10:55 81 103/57 03/06/17 10:55 79 03/06/17 10:55 99 03/06/17 10:50 82 87/60 03/06/17 10:50 100 03/06/17 10:50 81 03/06/17 10:45 79 91/59 03/06/17 10:45 82 03/06/17 10:45 100 03/06/17 10:40 80 97/57 99 03/06/17 10:40 80 03/06/17 10:35 80 94/60 99 03/06/17 10:35 81 03/06/17 10:30 81 03/06/17 10:30 79 96/58 100 03/06/17 10:30 17 03/06/17 10:25 85 03/06/17 10:25 83 108/83 99 03/06/17 10:20 77 03/06/17 10:20 81 100/65 100 03/06/17 10:15 81 89/60 03/06/17 10:10 82 90/70 03/06/17 10:05 81 100 03/06/17 10:05 82 17 91/66 03/06/17 10:00 85 87/73 03/06/17 09:55 97.8 79 16 91/51 100 03/06/17 09:55 84 03/06/17 09:50 78 88/53 100 03/06/17 09:50 79 03/06/17 09:45 80 03/06/17 09:45 79 85/51 100 03/06/17 09:44 98.0 03/06/17 09:44 17 03/06/17 09:42 79 78/34 03/06/17 09:41 77 52/35 03/06/17 09:40 95 97 4/29/17 09:35 78 03/06/17 09:35 80 90/50 96 03/06/17 09:33 77 85/48 03/06/17 09:30 79 82/44 100 03/06/17 09:30 78 03/06/17 09:30 98.0 18 03/06/17 09:25 80 100 03/06/17 09:20 96 91 03/06/17 09:15 78 03/06/17 09:15 80 98/60 100 03/06/17 09:10 87 89 03/06/17 09:05 80 100 03/06/17 09:00 17 03/06/17 09:00 76 03/06/17 09:00 77 84/50 100 03/06/17 08:55 77 100 03/06/17 08:50 77 100 03/06/17 08:45 89 82/67 03/06/17 08:30 83 108/72 Intake & Output 03/07/17 03/07/17 07:00 19:00 Intake Total 3033 ml Output Total 1450 ml Balance 1583 ml Intake Oral 480 ml IV Total 2553 ml Output Urine Total 1450 ml Stool Total 0 ml # Sanitary Pads 1 Pads 0 Pads 1 Pads Objective Remarks GENERAL:Patient appears to be in mild distress in regards to resp Skin: pale. nails pained. Tattoos CARDIOVASCULAR: Regular rate and rhythm; no audible murmur RESPIRATORY: Tachypneic. Clear bilaterally. On nonrebreather ABDOMEN/GI: Uterus firm at umbilicus. Distension and tenderness of abdomen, but no obvious rebound tenderness. GENITOURINARY: Light to moderate bleeding. EXTREMITIES: Bilateral extensive pitting LE edema; no upper extremity edema NEURO: Patient awake, alert. Grossly normal CN and motor/sensory function. DTR' s not assessed Medications and IVs Current Medications Medications (Trade) Dose Ordered Sig/Benitez Route Start Time Stop Time Status Last Admin (Magnesium Sulfate 40 Gm Premix) 1,000 ml @ 25 mls/hr Q24H IV 03/06/17 02:49 03/06/17 02:49 Calcium Gluconate 1 gm 1 gm ONCE PRN IV 03/06/17 03:00 (Vancomycin Inj/ NS 250 ml Inj) 250 ml @ 250 mls/hr Q24H IV 03/06/17 03:00 03/07/17 02:49 (Brethine Inj) 0.25 mg ONCE PRN SQ 03/06/17 03:00 (Tylenol) 650 mg Q4H PRN PO 03/06/17 08:15 (Percocet 5-325 Mg) 1 tab Q4H PRN PO 03/06/17 08:15 03/06/17 13:34 (Percocet 5-325 Mg) 2 tab Q4H PRN PO 03/06/17 08:15 (Americaine 20% Top Spr) 1 spray Q4H PRN TOPICAL 03/06/17 08:15 (Tucks Pads) 1 applic QID PRN TOPICAL 03/06/17 08:15 (Ambien) 5 mg HS PRN PO 03/06/17 08:15 03/06/17 22:36 Al Hydrox/Mg Hydrox/ Simethicone 15 ml 15 ml Q8H PRN PO 03/06/17 08:15 Piperacillin Sod/ Tazobactam Sod 50 ml @ 100 mls/hr Q6H IV 03/06/17 12:00 03/07/17 05:01 Pharmacy Profile Note 0 ml @ 0 mls/hr UNSCH OTHER 03/06/17 11:00 Aztreonam 2000 mg/ Sodium Chloride 100 ml @ 200 mls/hr Q8H IV 03/06/17 12:00 03/07/17 04:06 (NS 1000 ml Inj) 1,000 ml @ 84 mls/hr [id number] IV 03/06/17 13:29 03/07/17 05:00 (NS Flush) 2 ml UNSCH PRN IV FLUSH 03/06/17 13:30 (NS Flush) 2 ml BID IV FLUSH 03/06/17 21:00 03/07/17 08:23 (Dilaudid Pf Inj) 1 mg Q4H PRN IV 03/06/17 13:30 03/07/17 06:24 (Protonix Inj) 40 mg DAILY IV 03/07/17 09:00 03/07/17 08:23 (Zofran Inj) 4 mg Q6H PRN IV 03/06/17 13:30 (Latosha-Colace) 2 tab BID PO 03/06/17 21:00 03/06/17 20:12 (Dulcolax Supp) 10 mg DAILY PRN RECTAL 03/06/17 13:30 (Senokot) 17.2 mg Q12H PRN PO 03/06/17 13:30 Miscellaneous Information 1 Q361D XX 03/06/17 13:30 (Chlorhexidine 2% Cloth) 3 pack Taper DAILY@04 TOP 03/07/17 04:00 03/03/18 03:59 03/07/17 04:00 Chlorhexidine Gluconate 3 pack 3 pack UNSCH PRN TOP 03/06/17 13:30 Potassium Chloride 100 ml @ 50 mls/hr Q2H PRN IV 03/06/17 13:30 (KCl 20 Meq Premix Inj) 100 ml @ 50 mls/hr Q2H PRN IV 03/06/17 13:30 03/06/17 20:13 Potassium Bicarb/ Potassium Chloride 50 meq 50 meq UNSCH PRN PO 03/06/17 13:30 Potassium Chloride 100 ml @ 25 mls/hr UNSCH PRN IV 03/06/17 13:30 Potassium Chloride 100 ml @ 50 mls/hr Q2H PRN IV 03/06/17 13:30 (Magnesium Sulfate Inj/NS Inj) 100 ml @ 50 mls/hr UNSCH PRN IV 03/06/17 13:30 Magnesium Oxide 800 mg 800 mg UNSCH PRN PO 03/06/17 13:30 (Magnesium Sulfate Inj/NS Inj) 100 ml @ 50 mls/hr UNSCH PRN IV 03/06/17 13:30 Potassium Phosphate 2000 mg 2,000 mg Q4H PRN PO 03/06/17 13:30 (Sodium Phosphate Inj/NS 250 ml Inj) 250 ml @ 42 mls/hr UNSCH PRN IV 03/06/17 13:30 (K-Phos) 2,000 mg UNSCH PRN PO/TUBE 03/06/17 13:30 (Ofirmev Inj) 1,000 mg Q6H IV 03/06/17 14:00 03/07/17 14:00 03/07/17 08:23 (Buprenorphine) 4 mg Q6HR SL 03/06/17 18:00 03/06/17 17:56 (Pill Splitter) 1 ea UNSCH PRN OTHER 03/06/17 15:00 Miscellaneous Information SPECIFIC LAB TO BE KLEVER... ONCE ONCE .XX 03/09/17 02:45 03/09/17 02:46 (Ativan Inj) 1 mg Q4H PRN IV PUSH 03/06/17 15:15 Metoprolol Tartrate 2.5 mg 2.5 mg Q6H PRN IV PUSH 03/06/17 15:15 Sodium Chloride 250 ml @ 15 mls/hr ONCE ONCE IV 03/07/17 08:15 03/08/17 00:54 (NS 250 ml Inj) 250 ml @ 15 mls/hr ONCE ONCE IV 03/07/17 08:30 03/08/17 01:09 (Daniel Porter MD R2) Assessment/Plan Problem List: (1) Renal injury (2) Hypoxia (3) Thrombocytopenia (4) Anemia (5) care and examination (6) Substance abuse (7) IV drug abuse Assessment and Plan 26 yo F who is PPD1 from vaginal delivery 03/06: Heme: Anemia Impression: Stable; Hgb 7.9 (03/07) after receiving 2 U pRBC. Mild vaginal bleeding on exam. Unclear etiology. Normocytic. Seemingly acute as 11.8 in 2016 -Monitor vaginal bleeding -Will plan to order additional 2 U pRBC to have available as anticipate need for further transfusion Thrombocytopenia Impression: PLT count 30 (03/07) <- 41 (03/06). S/P 1 U PLT 03/06. BILI <1.2, AST not elevated; HELLP unlikely. Patient with IVDU. Fibrinogen, Coag profile wnl -Will transfuse 2 U PLT stat per Dr. Moore -Coagulation profile and fibrinogen ordered -Continue to monitor for blood loss ID Impression: Reported recent fevers. MAP 70's, with strong concern for sepsis. Regarding patient's hypoxia, concern for septic emboli present due to IVDU. Also, UA demonstrated strong suspicion for UTI. Lactic acid 2.5 -Blood cultures pending -Urine culture pending -Continue empiric antibiotics -Zosyn -Vancomycin -Aztreonam Respiratory Impression: Persistent hypoxia; currently tachypneic on nonrebreather. IVDU history. Leg swelling; US w/o evidence of DVT. CXR 03/06 with bilateral airspace disease and cardiomegaly -Will repeat CXR -Titrate saturations as needed -Intubation if needed -Ativan for anxiety -Albuterol nebs -ABG pending -Recommend CT chest assuming Cr improvement Cardiovascular Impression: No evidence of murmur on exam. MAP in 70's -Continue maintenance NS -Recommend echo when stable Renal Impression: Cr 1.4 on admission; suspect acute etiology. In association with bilateral leg swelling. UA with 30 protein. Protein/Cr ratio 0.47 -Will continue IVF -Will recheck Cr -Continue to monitor output with Felix Recent -Will continue Mg for 24 hours for possible PREE -Fundus appears at umbilicus and firm. Abdomen distended; suspect ascites (Daniel Porter MD R2) Remarks ABG this morning demonstrated pH 7.43. Due to RR elevation despite nonrebreather , suspect impending respiratory decompensation as patient fatigues -Patient intubated; CXR subsequently confirmed adequate placement Per discussion between CC and with OB attendings, Mg discontinued this morning ( Daniel Porter MD R2) Daniel Porter MD R2 Mar 07, 2017 08:46 Neel Schumacher MD March 08, 2017 09:15
[2017-03-07 09:01] LABS: BLOOD GAS BASE EXCESS 0.2 mmol/L (-2-2); BLOOD GAS CARBOXYHEMOGLOBIN 1.5 % (0-4); BLOOD GAS HCO3 24 mmol/L (22-26); BLOOD GAS METHEMOGLOBIN 0.8 % (0-2); BLOOD GAS O2 HGB SATURATION 96 % (90-100); BLOOD GAS OXYGEN CONTENT 13.2 Vol % (12.0-20.0); BLOOD GAS PCO2 37 mmHg (38-42); BLOOD GAS PO2 129 mmHg (61-120); BLOOD GAS TOTAL HGB 9.6 G/DL (12.0-16.0); CRITICAL VALUE NO; DRAW SITE RT RADIAL; FIO2 100 %; LITER FLOW 15 L/M; NUMBER OF ARTERIAL PUNCTURES 1; OXYGEN DEVICE NRB MASK; STAT YES; TEMP CORR TO 98.6; ULNAR PULSE PRESENT
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
[2017-03-07] MEDS ORDERED: PROPOFOL 1000 MG/100 ML INJ 100 ML IV SCH (09:45)
[2017-03-07] MEDS ORDERED: PROPOFOL 200 MG/20 ML AMP IV ONE (09:45)
[2017-03-07] MEDS ORDERED: ROCURONIUM INJ 50 MG/5 ML VIAL IV ONE (09:45)
[2017-03-07] MEDS ORDERED: fentaNYL CITRATE 250 MCG/5 ML AMP IV PUSH ONE (10:00)
--- NOTE | 2017-03-07 10:00 | RADRPT ---
EXAM DATE/TIME: 03/07/2017 09:02 [facility] COMPARISON: CHEST SINGLE AP, March 06, 2017, 11:00. INDICATIONS : Shortness of breath. MEDICAL HISTORY : None. SURGICAL HISTORY : None. ENCOUNTER: Initial ACUITY: 1 day PAIN SCORE: Non-responsive. LOCATION: Bilateral chest FINDINGS: Single AP view of the chest. Moderate severity symmetric bilateral pulmonary parenchymal opacity with lower lung zone predominance. Cardiac silhouette enlargement unchanged. No evidence of pleural effus ion or pneumothorax. CONCLUSION: No significant interval change with persistent symmetric bilateral pulmonary parenchymal opacity. Cole Witt MD on March 07, 2017 at 9:58 Board Certified Radiologist. This report was verified electronically.
[2017-03-07] MEDS ORDERED: RESP: ALBUTEROL 2.5 MG/IPRATROPIUM 0.5 MG NEB (PRN) NEB (10:30)
--- NOTE | 2017-03-07 10:39 | PD.PROCEDR ---
Procedure Note Procedure Endotracheal Intubation Diagnosis: Respiratory failure, sepsis Indications: Same Consent: Emergent Anesthesia: see MAR Description of the Procedure: The patient was positioned in the sniffing position. Pre-oxygenation was performed using a BVM 100%. Anesthesia was induced via rapid sequence. A Glidescope 3was used for laryngoscopy and a Grade 1 view was obtained. A 7.5 cuffed endotracheal tube was inserted atraumatically through the vocal cords. Confirmation of correct endotracheal tube placement was made by equal and bilateral breath sounds and colorimetric CO2 detection. The endotracheal tube was secured at 23 cm at the teeth. There were no immediate complications noted. The patient remained hemodynamically stable throughout the procedure. A chest x-ray has been ordered. I personally performed the procedure. Andere Moore MD Mar 07, 2017 10:38
[2017-03-07 11:27] LABS: HEMATOCRIT 25.3 % (35.0-46.0)
[2017-03-07 11:33] LABS: PROTHROMBIN TIME - PATIENT 10.9 SEC (9.8-11.6)
[2017-03-07 11:37] LABS: REVIEW FLAG FINAL
[2017-03-07] MEDS: fentaNYL DRIP 250 ML IV SCH ×2 (11:45→22:05)
[2017-03-07 11:55] LABS: BICARBONATE 24.9 MEQ/L (21.0-32.0); POTASSIUM 4.2 MEQ/L (3.5-5.1); TOTAL BILIRUBIN ADULT 0.6 MG/DL (0.2-1.0)
--- NOTE | 2017-03-07 12:05 | RADRPT ---
EXAM DATE/TIME: 03/07/2017 10:58 [facility] COMPARISON: CHEST SINGLE AP, March 07, 2017, 9:02. INDICATIONS : Intubation. MEDICAL HISTORY : None. SURGICAL HISTORY : None. ENCOUNTER: Subsequent ACUITY: 1 day PAIN SCORE: 0/10 LOCATION: Bilateral chest FINDINGS: Single AP view of the chest. Endotracheal tube is in place with the tip 1.7 cm above the jose l. Naso gastric tube is in place with the tip below the field of view of the radiograph. Bilateral diffuse pu lmonary opacity with lower lung zone predominance unchanged. No evidence of pleural effusion or pneum othorax. CONCLUSION: 1. Persistent prominent bilateral diffuse pulmonary opacity. Differential diagnosis is pulmonary jerod a versus infection. 2. Endotracheal tube and nasogastric tube now in place. Cole Witt MD on March 07, 2017 at 12:02 Board Certified Radiologist. This report was verified electronically.
[2017-03-07 12:35] LABS: BLOOD GAS CARBOXYHEMOGLOBIN 1.2 % (0-4); BLOOD GAS HCO3 24 mmol/L (22-26); BLOOD GAS METHEMOGLOBIN 0.9 % (0-2); BLOOD GAS O2 HGB SATURATION 97 % (90-100); BLOOD GAS OXYGEN CONTENT 15.9 Vol % (12.0-20.0); BLOOD GAS PCO2 41 mmHg (38-42); BLOOD GAS PO2 146 mmHg (61-120); BLOOD GAS TOTAL HGB 11.5 G/DL (12.0-16.0); CRITICAL VALUE NO; DRAW SITE RT RADIAL; FIO2 100 %; NUMBER OF ARTERIAL PUNCTURES 1; OXYGEN DEVICE VENTILATOR; STAT NO; TEMP CORR TO 98.6; ULNAR PULSE PRESENT; VENT SETTINGS PRVC/AC
[2017-03-07 13:15] LABS: LACTIC ACID GHOST NOT REPORTABLE
--- NOTE | 2017-03-07 13:20 | PD.PROCEDR ---
Central Line Procedure REASON FOR PROCEDURE Central venous access PROCEDURE PERFORMED Central line placement: Left Subclavian CONSENT Informed consent for procedure was obtained mother Arabella Guerrero. The risks and benefits of the procedure were discussed to include but limited to bleeding, clot formation, infection, and even . ANESTHESIA Local injection of 1% Lidocaine DESCRIPTION OF THE PROCEDURE The patient was placed in supine, mild Trendelenburg position. The area was exposed and cleansed with ChloraPrep, times two. Large sterile drape was used to cover the patient, with the site exposed, under sterile conditions including cap, face mask, sterile gown, and sterile gloves. On single attempt, the introducer needle was inserted with negative pressure in syringe and venous flash was obtained. The guide wire was then advanced without any restriction and the needle was removed. The dilator was used without any complications. Using Seldinger technique the 7F catheter was advanced over the guide wire to a depth of 19centimeters. The guide wire was removed. All ports were aspirated with dark venous blood return and flushed easily with sterile saline. All ports were capped. Antibiotic disc was placed around central line at puncture site. The central line was secured to the skin with two interrupted 2.0 silk sutures. The area was bandaged with sterile see-through central line bandage. COMPLICATIONS: No apparent complications ESTIMATED BLOOD LOSS: Less than 1 cc. Andree Moore MD Mar 07, 2017 13:20
[2017-03-07] MEDS: MIDAZOLAM 100 MG/ML INJ 100 ML IV SCH (13:57)
[2017-03-07] MEDS ORDERED: CALCIUM GLUCONATE INJ 2 GM in DEXTROSE 5% IN WATER 100ML INJ 100 ML IV ONE ×2 (14:00)
--- NOTE | 2017-03-07 14:28 | RADRPT ---
EXAM DATE/TIME: 03/07/2017 13:27 [facility] COMPARISON: CHEST SINGLE AP, March 07, 2017, 10:58. INDICATIONS : Central line placement and ET tube reposition. MEDICAL HISTORY : None. SURGICAL HISTORY : None. ENCOUNTER: Initial ACUITY: 1 day PAIN SCORE: Non-responsive. LOCATION: Bilateral chest FINDINGS: Single AP view of the chest. Endotracheal tube tip is 4 cm above the jose l. Nasogastric tube remains in place. Left subclavian central venous catheter is in place with the tip at the cavoatrial junctio n. No evidence of pneumothorax. Diffuse bilateral pulmonary opacity unchanged. CONCLUSION: No change in bilateral diffuse pulmonary opacity. Left subclavian central venous catheter now in plac e with the tip at the cavoatrial junction. No evidence of pneumothorax. Endotracheal tube tip now 4 c m above the jose l. Cole Witt MD on March 07, 2017 at 14:24 Board Certified Radiologist. This report was verified electronically.
--- NOTE | 2017-03-07 17:31 | PD.CONS ---
HPI Service Cardiology Consult Requested By ICU Reason for Consult IE Primary Care Physician Nita Dawn MD History of Present Illness 26-year-old pmx significant for gravid and polysubstance abuse with opiates, cocaine and tobacco, that presented to the hospital with generalized discomfort and swelling of her legs for the past 5 days. She was found to be in preeclampsia, leukocytosis, and febrile. The patient was placed on a magnesium infusion. She had a spontaneous vaginal delivery. Today blood cultures revealed gram-positive cocci and in AM she became tachypnic for which she was emergently intubated. Echocardiogram reveals a hyperdynamic LV, mitral valve vegetation and an echogenic mass in the RV suggestive of a thrombus. Cardiology has been consulted for LAURIE. Review of Systems ROS Limitations: Intubated, Unresponsive Past Family Social History Allergies: Coded Allergies: Penicillin (Verified Allergy, Intermediate, hives, 11/21/16) *MDRO Multi-Drug Resistant Organism (Verified Adverse Reaction, Unknown, ) ESBL (urine)-03/17/17 MRSA (breast wound) - 04/30/16 MRSA screens NEGATIVE 03/06/17 & 03/13/17 Past Medical History Polysubstance abuse with opiates, cocaine and tobacco. History of MRSA skin abscess earlier this year. History of hepatitis C Skin abscesses Reported Medications Reported Meds & Active Scripts Active Active Ordered Medications Current Medications Medications (Trade) Dose Ordered Sig/Benitez Route Start Time Stop Time Status Last Admin (Vancomycin Inj/ NS 250 ml Inj) 250 ml @ 250 mls/hr Q24H IV 03/06/17 03:00 03/07/17 02:49 (Brethine Inj) 0.25 mg ONCE PRN SQ 03/06/17 03:00 (Tylenol) 650 mg Q4H PRN PO 03/06/17 08:15 (Percocet 5-325 Mg) 1 tab Q4H PRN PO 03/06/17 08:15 03/06/17 13:34 (Percocet 5-325 Mg) 2 tab Q4H PRN PO 03/06/17 08:15 (Americaine 20% Top Spr) 1 spray Q4H PRN TOPICAL 03/06/17 08:15 (Tucks Pads) 1 applic QID PRN TOPICAL 03/06/17 08:15 Al Hydrox/Mg Hydrox/ Simethicone 15 ml 15 ml Q8H PRN PO 03/06/17 08:15 Piperacillin Sod/ Tazobactam Sod 50 ml @ 100 mls/hr Q6H IV 03/06/17 12:00 03/07/17 11:46 Pharmacy Profile Note 0 ml @ 0 mls/hr UNSCH OTHER 03/06/17 11:00 Aztreonam 2000 mg/ Sodium Chloride 100 ml @ 200 mls/hr Q8H IV 03/06/17 12:00 03/07/17 11:45 (NS 1000 ml Inj) 1,000 ml @ 30 mls/hr Q24H IV 03/06/17 13:29 03/07/17 05:00 (NS Flush) 2 ml UNSCH PRN IV FLUSH 03/06/17 13:30 (NS Flush) 2 ml BID IV FLUSH 03/06/17 21:00 03/07/17 08:23 (Dilaudid Pf Inj) 1 mg Q4H PRN IV 03/06/17 13:30 03/07/17 06:24 (Protonix Inj) 40 mg DAILY IV 03/07/17 09:00 03/07/17 08:23 (Zofran Inj) 4 mg Q6H PRN IV 03/06/17 13:30 (Latosha-Colace) 2 tab BID PO 03/06/17 21:00 03/06/17 20:12 (Dulcolax Supp) 10 mg DAILY PRN RECTAL 03/06/17 13:30 (Senokot) 17.2 mg Q12H PRN PO 03/06/17 13:30 Miscellaneous Information 1 Q361D XX 03/06/17 13:30 (Chlorhexidine 2% Cloth) 3 pack Taper DAILY@04 TOP 03/07/17 04:00 03/03/18 03:59 03/07/17 04:00 Chlorhexidine Gluconate 3 pack 3 pack UNSCH PRN TOP 03/06/17 13:30 Potassium Chloride 100 ml @ 50 mls/hr Q2H PRN IV 03/06/17 13:30 (KCl 20 Meq Premix Inj) 100 ml @ 50 mls/hr Q2H PRN IV 03/06/17 13:30 03/06/17 20:13 Potassium Bicarb/ Potassium Chloride 50 meq 50 meq UNSCH PRN PO 03/06/17 13:30 Potassium Chloride 100 ml @ 25 mls/hr UNSCH PRN IV 03/06/17 13:30 Potassium Chloride 100 ml @ 50 mls/hr Q2H PRN IV 03/06/17 13:30 (Magnesium Sulfate Inj/NS Inj) 100 ml @ 50 mls/hr UNSCH PRN IV 03/06/17 13:30 Magnesium Oxide 800 mg 800 mg UNSCH PRN PO 03/06/17 13:30 (Magnesium Sulfate Inj/NS Inj) 100 ml @ 50 mls/hr UNSCH PRN IV 03/06/17 13:30 Potassium Phosphate 2000 mg 2,000 mg Q4H PRN PO 03/06/17 13:30 (Sodium Phosphate Inj/NS 250 ml Inj) 250 ml @ 42 mls/hr UNSCH PRN IV 03/06/17 13:30 (K-Phos) 2,000 mg UNSCH PRN PO/TUBE 03/06/17 13:30 (Buprenorphine) 4 mg Q6HR SL 03/06/17 18:00 03/06/17 17:56 (Pill Splitter) 1 ea UNSCH PRN OTHER 03/06/17 15:00 Miscellaneous Information SPECIFIC LAB TO BE KLEVER... ONCE ONCE .XX 03/09/17 02:45 03/09/17 02:46 (Ativan Inj) 1 mg Q4H PRN IV PUSH 03/06/17 15:15 Metoprolol Tartrate 2.5 mg 2.5 mg Q6H PRN IV PUSH 03/06/17 15:15 Sodium Chloride 250 ml @ 15 mls/hr ONCE ONCE IV 03/07/17 08:15 03/08/17 00:54 Sodium Chloride 250 ml @ 15 mls/hr ONCE ONCE IV 03/07/17 08:30 03/08/17 01:09 (fentaNYL DRIP) 250 ml @ 0 mls/hr TITRATE IV 03/07/17 10:30 03/07/17 11:45 Chlorhexidine Gluconate 15 ml 15 ml BID@08,20 MT 03/07/17 20:00 (Versed Inj) 100 ml @ 0 mls/hr TITRATE IV 03/07/17 13:30 03/07/17 13:57 Family History Noncontributory Social History Alcohol Use: Yes Tobacco Use: Yes Substance Abuse: Yes (cocaine, Dilaudid, Suboxone) Physical Exam Vital Signs Vital Signs Date Time Temp Pulse Resp B/P Pulse Ox O2 Delivery O2 Flow Rate FiO2 03/07/17 14:00 86 03/07/17 12:00 100 03/07/17 12:00 97.6 100 25 121/78 98 03/07/17 10:20 98 100 03/07/17 10:00 98 03/07/17 08:00 98 03/07/17 08:00 97.6 98 38 116/70 97 03/07/17 07:00 97 Non-Rebreather 03/07/17 06:00 102 03/07/17 05:00 93 Non-Rebreather 03/07/17 04:45 94 Non-Rebreather 15.00 100 03/07/17 04:00 98.7 100 41 111/60 89 03/07/17 04:00 100 03/07/17 02:00 108 03/07/17 00:00 98.7 88 22 109/73 93 03/07/17 00:00 88 03/06/17 23:00 91 Nasal Cannula 4.00 03/06/17 20:04 93 Nasal Cannula 4.00 03/06/17 20:00 98.4 78 28 100/59 93 03/06/17 20:00 82 03/06/17 19:00 91 Nasal Cannula 3.00 03/06/17 18:00 80 Physical Exam GENERAL: Sedated, intubated SKIN: Warm and dry. HEAD: Normocephalic. EYES: No scleral icterus. No injection or drainage. NECK: Supple, trachea midline. No JVD or lymphadenopathy. CARDIOVASCULAR: Tachycardic no murmurs, gallops, or rubs. RESPIRATORY: Vented, poor inspiratory effort GASTROINTESTINAL: Distended. EXTREMITIES: No cyanosis, or +2 edema. Laboratory Laboratory Tests Test 03/06/17 03/06/17 03/06/17 03/07/17 17:34 18:21 19:44 02:43 Lactic Acid Level 2.5 Prothrombin Time 11.1 10.9 Prothromb Time International 1.0 1.0 Ratio Magnesium Level 6.9 6.2 White Blood Count 12.5 Red Blood Count 2.75 Hemoglobin 7.9 Hematocrit 22.9 Mean Corpuscular Volume 83.5 Mean Corpuscular Hemoglobin 28.9 Mean Corpuscular Hemoglobin 34.6 Concent Red Cell Distribution Width 15.2 Platelet Count 30 Mean Platelet Volume 8.3 Test 03/07/17 03/07/17 03/07/17 03/07/17 08:28 08:45 11:00 12:22 Blood Bank Comment Blood Gas Puncture Site RT RADIAL RT RADIAL Blood Gas Patient Temperature 98.6 98.6 Blood Gas HCO3 24 24 Blood Gas Base Excess 0.2 -1.0 Blood Gas Oxygen Saturation 96 97 Arterial Blood pH 7.43 7.38 Arterial Blood Partial 37 41 Pressure CO2 Arterial Blood Partial 129 146 Pressure O2 Arterial Blood Oxygen Content 13.2 15.9 Arterial Blood 1.5 1.2 Carboxyhemoglobin Arterial Blood Methemoglobin 0.8 0.9 Blood Gas Hemoglobin 9.6 11.5 Oxygen Delivery Device NRB MASK VENTILATOR Blood Gas Liter Flow 15 Blood Gas Inspired Oxygen 100 100 Hemoglobin 8.3 Hematocrit 25.3 Prothrombin Time 10.9 Prothromb Time International 1.0 Ratio Sodium Level 132 Potassium Level 4.2 Chloride Level 100 Carbon Dioxide Level 24.9 Anion Gap 7 Blood Urea Nitrogen 21 Creatinine 0.85 Estimat Glomerular Filtration 82 Rate Random Glucose 120 Lactic Acid Level 2.2 Calcium Level 6.6 Protein Corrected Calcium 7.0 Magnesium Level 6.6 Total Bilirubin 0.6 Aspartate Amino Transf 32 (AST/SGOT) Alanine Aminotransferase 11 (ALT/SGPT) Alkaline Phosphatase 250 Total Protein 6.3 Albumin 1.6 Blood Gas Ventilator Setting PRVC/AC Date/Time Procedure Status Source Growth 03/06/17 14:59 Aerobic Blood Culture - Preliminary Resulted Blood Peripheral Gram Positive Cocci 03/06/17 14:59 Anaerobic Blood Culture - Preliminary Resulted Blood Peripheral NO GROWTH IN 1 DAY 03/06/17 02:45 Group B Streptococcus Screen - Preliminary Resulted Genital Genital Region RESULTS PENDING 03/06/17 02:45 Cancelled Genital Genital Region 03/06/17 02:00 Urine Culture - Preliminary Resulted Urine Clean Catch IMMATURE GROWTH - REINCUBATE 03/06/17 02:00 Cancelled Urine Catheterized Urine Result Diagram: 03/07/17 1100 03/07/17 1100 Imaging Last Impressions Chest X-Ray 03/07/17 0000 Signed Impressions: Service Date/Time: Tuesday, March 07, 2017 13:27 - CONCLUSION: No change in bilateral diffuse pulmonary opacity. Left subclavian central venous catheter now in place with the tip at the cavoatrial junction. No evidence of pneumothorax. Endotracheal tube tip now 4 cm above the jose l. Cole Witt MD Lower Extremity Ultrasound 03/06/17 0849 Signed Impressions: Service Date/Time: Monday, March 06, 2017 09:09 - CONCLUSION: Normal examination. Eddie Boykin MD Assessment and Plan Problem List: (1) Infective endocarditis Assessment and Plan: 26 y/o lady critically ill with bacteremia, IE, RV thrombus and acute respiratory failure in the setting of polysubstance abuse and recent . Echocardiogram, reviewed by me, reveals an echogenic mobile mass in the mitral valve consistent with a vegetation. Also there is thrombus in the right ventricle. Preserved LV systolic function. Given TTE findings there is no need to pursue a LAURIE, which would not exchange mechanic. Recommendations: 1. Continue supportive therapy 2. ID consult 3. CT surgery consult 4. Telemetry monitoring 5. IV Anticoagulation 6. Consider Chest CTA Thank you for the opportunity to participate in the care of this patient Case discuss with Dr. Moore and Family (2) IV drug user (3) Hypoxia (4) Substance abuse Nik Rodriguez MD Mar 07, 2017 17:31
[2017-03-07 18:11] LABS: HEMATOCRIT 24.9 % (35.0-46.0)
[2017-03-07 18:12] LABS: REVIEW FLAG FINAL
[2017-03-07] MEDS ORDERED: HEPARIN-D5W INJ 250 ML IV SCH (18:45)
[2017-03-07] MEDS ORDERED: MISCELLANEOUS PHARMACY INFORMATION XX ONE (19:00)
--- NOTE | 2017-03-07 19:02 | EC ---
Study Study Date:03/07/2017 STUDY CONCLUSIONS SUMMARY - Left ventricle: The cavity size was normal. Wall thickness was normal. Systolic function was at the lower limits of normal. The estimated ejection fraction was 50%. Wall motion was normal; there were no regional wall motion abnormalities. - Mitral valve: Mild regurgitation. - Right ventricle: The cavity size was dilated. Large densityfilling the distal RV cavity, cannot exclude large RV thrombus. - Tricuspid valve: Moderate regurgitation. - Pulmonary arteries: Systolic pressure was mildly increased. PA peak pressure: 41mm Hg (S). If LV function is below 40, please consider prescribing an ACEI or ARB or document rationale for non-use. PROCEDURE DATA STUDY STATUS: Elective. Procedure: Transthoracic echocardiography. Image quality was good. Scanning was performed from the parasternal, apical, and subcostal acoustic windows. Study completion: The patient tolerated the procedure well. Transthoracic echocardiography. M-mode, complete 2D, complete spectral Doppler, and color Doppler. Patient status: Inpatient. CARDIAC ANATOMY LEFT VENTRICLE: The cavity size was normal. Wall thickness was normal. Systolic function was at the lower limits of normal. The estimated ejection fraction was 50%. Wall motion was normal; there were no regional wall motion abnormalities. AORTIC VALVE: Trileaflet; normal thickness leaflets. Doppler: Transvalvular velocity was within the normal range. There was no stenosis. No regurgitation. AORTA: Aortic root: The aortic root was normal in size. MITRAL VALVE: Structurally normal valve. Doppler: Transvalvular velocity was within the normal range. There was no evidence for stenosis. Mild regurgitation. LEFT ATRIUM: The atrium was normal in size. RIGHT VENTRICLE: The cavity size was dilated. Large densityfilling the distal RV cavity, cannot exclude large RV thrombus. PULMONIC VALVE: Doppler: Transvalvular velocity was within the normal range. There was no evidence for stenosis. No regurgitation. TRICUSPID VALVE: Structurally normal valve. Doppler: Transvalvular velocity was within the normal range. Moderate regurgitation. PULMONARY ARTERY: The main pulmonary artery was normal-sized. Systolic pressure was mildly increased. RIGHT ATRIUM: The atrium was normal in size. PERICARDIUM: There was no pericardial effusion. SYSTEMIC VEINS: Inferior vena cava: The vessel was normal in size. BASIC MEASUREMENTS ADULT NORMAL Left ventricle LV internal dimension, ED, chordal level, 47.4 mm 43-52 PLAX LV internal dimension, ES, chordal level, 37 mm 23-38 PLAX Fractional shortening, chordal level, PLAX *22 % >29 LV posterior wall thickness, ED 8.16 mm IVS/LVPW ratio, ED 0.86 <1.3 Ventricular septum Septal thickness, ED 7.02 mm Aorta Root diameter, ED 20 mm Left atrium Anterior-posterior dimension 22 mm Right ventricle RV internal dimension, ED, PLAX 23.9 mm 19-38 DOPPLER MEASUREMENTS ADULT NORMAL Main pulmonary artery Pressure, S *41 mm Hg =30 Tricuspid valve Regurgitant peak velocity 278 cm/s Peak RV-RA gradient, S 31 mm Hg Maximal regurgitant velocity 278 cm/s Systemic veins Estimated CVP 10 mm Hg Right ventricle RV pressure, S *41 mm Hg <30 LEGEND: Mean values are shown as u=mean value. Asterisk (*) díaz values outside specified normal range. Prepared and signed by Kyler Baker [id number]
--- NOTE | 2017-03-07 19:03 | HHI.PR ---
Subjective Remarks Patient has a large RV thrombus and requires full anticoagulation. Due to risks associated with using heparin in face of thrombocytopenia, I will start argatroban therapy. Liver function is acceptable. I will use the standard argatroban algorithm. Simon Hamm M.D. Track Service Person Objective Vital Signs Date Time Temp Pulse Resp B/P Pulse Ox O2 Delivery O2 Flow Rate FiO2 03/07/17 18:14 97.6 100 25 121/78 98 03/07/17 18:11 97.6 95 36 109/61 98 03/07/17 18:00 101 03/07/17 17:30 100 03/07/17 16:00 97.7 100 32 116/69 94 03/07/17 16:00 60 03/07/17 16:00 100 03/07/17 14:00 86 03/07/17 12:00 60 03/07/17 12:00 100 03/07/17 12:00 97.6 100 25 121/78 98 03/07/17 10:20 98 100 03/07/17 10:20 100 03/07/17 10:00 98 03/07/17 08:00 98 03/07/17 08:00 97.6 98 38 116/70 97 03/07/17 07:00 97 Non-Rebreather 03/07/17 06:00 102 03/07/17 05:00 93 Non-Rebreather 03/07/17 04:45 94 Non-Rebreather 15.00 100 03/07/17 04:00 98.7 100 41 111/60 89 03/07/17 04:00 100 03/07/17 02:00 108 03/07/17 00:00 98.7 88 22 109/73 93 03/07/17 00:00 88 03/06/17 23:00 91 Nasal Cannula 4.00 03/06/17 20:04 93 Nasal Cannula 4.00 03/06/17 20:00 98.4 78 28 100/59 93 03/06/17 20:00 82 I/O 03/06/17 03/06/17 03/06/17 03/07/17 03/07/17 03/07/17 07:00 15:00 23:00 07:00 15:00 23:00 Intake Total 1387 ml 1646 ml 1707 ml Output Total 375 ml 800 ml 650 ml 500 ml Balance -375 ml 587 ml 996 ml 1207 ml Intake Oral 240 ml 240 ml 0 ml IV Total 1147 ml 1406 ml 1132 ml Platelets 575 ml Output Urine Total 375 ml 800 ml 650 ml 500 ml Stool Total 0 ml 0 ml # Sanitary Pads 2 Pads 2 Pads 1 Pads 0 Pads 0 Pads 2 Pads 0 Pads 0 Pads 0 Pads 1 Pads 0 Pads 0 Pads 0 Pads 0 Pads 0 Pads Result Diagram: 03/07/17 1736 03/07/17 1100 Lj Hamm MD Mar 07, 2017 19:03
[2017-03-07 19:34] LABS: APTT (PATIENT) 27.4 SEC (24.3-30.1)
[2017-03-07] MEDS: CHLORHEXIDINE 0.12% (ORAL KIT) 15 ML CUP MT SCH (20:43)
[2017-03-07] MEDS: DOCUSATE SODIUM 50 MG/SENNA 8.6 MG TAB PO SCH (20:43)
[2017-03-07] MEDS ORDERED: NS IV SCH (21:00)
[2017-03-07] MEDS ORDERED: ARGATROBAN IV SCH (21:00)
[2017-03-07] MEDS: ARGATROBAN INJ 250 MG in SODIUM CHLOR 0.9% 250 ML INJ 250 ML IV SCH (21:43)
[2017-03-07] MEDS: RESP: ALBUTEROL 2.5 MG/IPRATROPIUM 0.5 MG NEB (SCH) NEB (22:25)
[2017-03-07 22:31] LABS: APTT (PATIENT) 35.9 SEC (24.3-30.1)
[2017-03-07] MEDS ORDERED: IOHEXOL 350 MG/ML 10 ML VIAL (for RAD DIAG) IV ONE (22:56)
--- NOTE | 2017-03-07 23:09 | RADRPT ---
EXAM DATE/TIME: 03/07/2017 22:54 [facility] COMPARISON: No previous studies available for comparison. INDICATIONS : Respiratory distress. Evaluate for embolism. IV CONTRAST: 75 cc Omnipaque 350 (iohexol) IV RADIATION DOSE: 4.70 CTDIvol (mGy) MEDICAL HISTORY : Substance abuse. SURGICAL HISTORY : None. ENCOUNTER: Initial ACUITY: 1 day PAIN SCALE: Non-responsive LOCATION: chest TECHNIQUE: Volumetric scanning of the chest was performed using a pulmonary embolism protocol MIP images were re constructed. Using automated exposure control and adjustment of the mA and/or kV according to patien t size, radiation dose was kept as low as reasonably achievable to obtain optimal diagnostic quality images. FINDINGS: Examination of the pulmonary vasculature demonstrates good filling of the main, lobar and segmental b ranches. There are no filling defects to suggest pulmonary embolism. Multiplanar reconstructions are also unremarkable. There is patchy alveolar disease bilaterally compatible with edema or pneumonia. There are also nodul ar densities demonstrating cavitation bilaterally which may reflect septic emboli. Small effusions an d bibasilar atelectasis is present. CONCLUSION: 1. No evidence of pulmonary embolism. 2. Diffuse alveolar disease as well as cavitary nodules which may reflect septic emboli. Bertrand Adhikari MD on March 07, 2017 at 23:03 Board Certified Radiologist. This report was verified electronically.
[2017-03-08] VITALS (22 sets, daily range): BP systolic 89–109; BP diastolic 51–60; PULSE 86–106; RESP 26–30; TEMP 98.3–99.8; O2SAT 92–100
[2017-03-08] MEDS: MIDAZOLAM 100 MG/ML INJ 100 ML IV SCH ×2 (00:50→15:48)
[2017-03-08] MEDS: PIPERACIL-TAZO 3.375 GM PREMIX 50 ML IV SCH ×2 (00:51→06:06)
[2017-03-08] MEDS: SODIUM CHLOR 0.9% 1000 ML INJ 1,000 ML IV SCH ×2 (00:51→10:26)
[2017-03-08 01:01] LABS: APTT (PATIENT) 55.5 SEC (24.3-30.1)
--- NOTE | 2017-03-08 03:14 | RADRPT ---
EXAM DATE/TIME: 03/08/2017 02:07 [facility] COMPARISON: CHEST SINGLE AP, March 07, 2017, 13:27. INDICATIONS : Shortness of breath, possible pulmonary disease. MEDICAL HISTORY : Substance abuse SURGICAL HISTORY : None. ENCOUNTER: Subsequent ACUITY: 2 days PAIN SCORE: Non-responsive. LOCATION: Bilateral chest FINDINGS: The cardiac silhouette is enlarged in transverse diameter. Support lines and tubes are in satisfactor y position. There is patchy alveolar disease bilaterally compatible with edema or pneumonia. CONCLUSION: 1. Patchy alveolar disease characteristic of edema or pneumonia. There has been no significant jimenez e when compared to the prior exam. Bertrand Adhikari MD on March 08, 2017 at 3:12 Board Certified Radiologist. This report was verified electronically.
[2017-03-08] MEDS: VANCOMYCIN INJ 1,000 MG in SODIUM CHLOR 0.9% 250 ML INJ 250 ML IV SCH (03:50)
[2017-03-08] MEDS: RESP: ALBUTEROL 2.5 MG/IPRATROPIUM 0.5 MG NEB (SCH) NEB ×4 (04:42→21:37)
[2017-03-08] MEDS ORDERED: FUROSEMIDE 20 MG/2 ML VIAL IV PUSH ONE (04:45)
[2017-03-08] MEDS: AZTREONAM INJ 2,000 MG in SODIUM CHLORIDE 0.9% INJ 100 ML IV SCH (04:53)
[2017-03-08] MEDS: CHLORHEXIDINE GLUCONATE 2 % 1 PACK (2 CLOTHS) TOP SCH (04:53)
[2017-03-08] MEDS ORDERED: TERBUTALINE INJ 1 MG/ML AMP SQ PRN (05:15)
[2017-03-08 05:23] LABS: AUTOMATED NEUTROPHIL # 10.8 TH/MM3 (1.8-7.7); BASOPHIL % 0.2 % (0.0-2.0); EOSINOPHIL % 0.3 % (0.0-4.0); HEMATOCRIT 21.1 % (35.0-46.0); LYMPH % 13.7 % (9.0-44.0); LYMPHOCYTE # 1.8 TH/MM3 (1.0-4.8); MEAN CELL VOLUME 85.5 FL (80.0-100.0); MEAN CORPUSCULAR HEMOGLOBIN 27.8 PG (27.0-34.0); MEAN CORPUSCULAR HGB CONC 32.6 % (32.0-36.0); MONO % 3.8 % (0.0-8.0); PLATELET COUNT 42 TH/MM3 (150-450); RED BLOOD COUNT 2.47 MIL/MM3 (4.00-5.30); RED CELL DISTRIBUTION WIDTH 15.4 % (11.6-17.2); WHITE BLOOD COUNT 13.2 TH/MM3 (4.0-11.0)
[2017-03-08 05:23] LABS: BLOOD GAS BASE EXCESS -0.9 mmol/L (-2-2); BLOOD GAS CARBOXYHEMOGLOBIN 1.5 % (0-4); BLOOD GAS HCO3 23 mmol/L (22-26); BLOOD GAS O2 HGB SATURATION 94 % (90-100); BLOOD GAS PCO2 37 mmHg (38-42); BLOOD GAS PO2 88 mmHg (61-120); BLOOD GAS TOTAL HGB 7.4 G/DL (12.0-16.0); CRITICAL VALUE NO; OXYGEN DEVICE VENTILATOR; TEMP CORR TO 98.6
[2017-03-08 05:24] LABS: HEMO FLAGS AUTO DIFF
[2017-03-08 05:24] LABS: DRAW SITE RT PEDAL; FIO2 50 %; NUMBER OF ARTERIAL PUNCTURES 1; STAT NO; VENT SETTINGS PRVC/AC
[2017-03-08 05:49] LABS: APTT (PATIENT) 81.4 SEC (24.3-30.1)
[2017-03-08 05:55] LABS: BICARBONATE 25.5 MEQ/L (21.0-32.0); MAGNESIUM 4.6 MG/DL (1.5-2.5); POTASSIUM 4.3 MEQ/L (3.5-5.1)
[2017-03-08] MEDS: BUPRENORPHINE HCL 8 MG SUBLINGUAL TAB SL SCH ×5 (06:00→22:12)
[2017-03-08] MEDS ORDERED: PHENYLEPHRINE INJ 40 MG in DEXTROSE 5% IN WATE 500 ML INJ 496 ML IV SCH ×2 (06:15)
[2017-03-08 06:18] LABS: CALCIUM-PROTEIN CORRECTED 7.3 MG/DL (8.5-10.1)
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
[2017-03-08] MEDS ORDERED: CALCIUM GLUCONATE INJ 2 GM in DEXTROSE 5% IN WATER 100ML INJ 100 ML IV ONE ×2 (06:45)
[2017-03-08 07:01] LABS: BANDS 11 % (0-6); EOSINOPHILS 2 % (0-4); METAMYELOCYTES 3 % (0-1); NEUTROPHIL # MANUAL DIFF 11.7 TH/MM3 (1.8-7.7); PLATELET ESTIMATE SMEAR LOW (NORMAL); PLATELET MORPHOLOGY NORMAL (NORMAL); POLYS (SEG NEUTROPHILS) 74 % (16-70); PROMYELOCYTES 1 % (0-0); SCAN/DIFF FINAL DIFF MANUAL; WBC DIFF SAMPLE 100
[2017-03-08 07:02] LABS: DOHLE BODIES PRESENT (NONE SEEN)
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
[2017-03-08 09:30] LABS: RAPID PLASMA REAGIN SCREEN NON-REACTIVE (NON-REACTVE)
--- NOTE | 2017-03-08 09:44 | RADRPT ---
EXAM DATE/TIME: 03/08/2017 08:41 [facility] COMPARISON: No previous studies available for comparison. INDICATIONS : Abnormal labs. MEDICAL HISTORY : Severe preeclampsia. Substance use. SURGICAL HISTORY : . ENCOUNTER: Initial ACUITY: 1 day PAIN SCORE: Nonresponsive. LOCATION: Bilateral upper quadrant MEASUREMENTS: LIVER: 24.1 cm length COMMON DUCT: 2 mm RIGHT KIDNEY: 12.8 x 4.0 x 6.9 cm SPLEEN: 19.6 cm length FINDINGS: LIVER: Moderately enlarged. No evidence of mass or biliary ductal dilatation. COMMON DUCT: No intraluminal mass or stone visualized. GALLBLADDER: Mild diffuse wall thickening. Filled with sludge. Minimal pericholecystic fluid PANCREAS: The visualized portions are within normal limits. RIGHT KIDNEY: Slight perinephric fluid. No hydronephrosis mass or stone SPLEEN: Markedly enlarged without focal mass CONCLUSION: Hepatosplenomegaly. Gallbladder filled with sludge. Mild wall thickening and pericholecystic fluid. Minimal nonspecific perinephric fluid on the right Ricky Wilson MD on March 08, 2017 at 9:39 Board Certified Radiologist. This report was verified electronically.
[2017-03-08 10:08] LABS: BASOPHIL % 0.2 % (0.0-2.0); EOSINOPHIL # 0.1 TH/MM3 (0-0.4); EOSINOPHIL % 0.4 % (0.0-4.0); HEMATOCRIT 22.8 % (35.0-46.0); LYMPH % 14.2 % (9.0-44.0); LYMPHOCYTE # 2.1 TH/MM3 (1.0-4.8); MEAN CELL VOLUME 85.7 FL (80.0-100.0); MEAN CORPUSCULAR HGB CONC 33.8 % (32.0-36.0); MONO % 3.2 % (0.0-8.0); PLATELET COUNT 49 TH/MM3 (150-450); RED BLOOD COUNT 2.66 MIL/MM3 (4.00-5.30); RED CELL DISTRIBUTION WIDTH 15.6 % (11.6-17.2); WHITE BLOOD COUNT 14.6 TH/MM3 (4.0-11.0)
[2017-03-08] MEDS: fentaNYL DRIP 250 ML IV SCH ×2 (10:09→22:12)
[2017-03-08 10:11] LABS: HEMO FLAGS AUTO DIFF
[2017-03-08 10:19] LABS: APTT (PATIENT) 67.1 SEC (24.3-30.1)
[2017-03-08] MEDS: PANTOPRAZOLE SODIUM 40 MG VIAL IV SCH (10:25)
[2017-03-08] MEDS: DOCUSATE SODIUM 50 MG/SENNA 8.6 MG TAB PO SCH ×2 (10:25→21:14)
[2017-03-08] MEDS: SODIUM CHLORIDE 0.9% FLUSH 10 ML FLUSH IV FLUSH SCH ×2 (10:25→21:13)
[2017-03-08] MEDS: CHLORHEXIDINE 0.12% (ORAL KIT) 15 ML CUP MT SCH ×2 (10:26→21:13)
[2017-03-08 10:42] LABS: BANDS 21 % (0-6); CORRECTED NUCLEATED RBC 2 /100 WBC (0-0); EOSINOPHILS 1 % (0-4); NEUTROPHIL # MANUAL DIFF 13.6 TH/MM3 (1.8-7.7); PLATELET ESTIMATE SMEAR LOW (NORMAL); PLATELET MORPHOLOGY NORMAL (NORMAL); POLYS (SEG NEUTROPHILS) 72 % (16-70); SCAN/DIFF FINAL DIFF MANUAL; WBC DIFF SAMPLE 100
[2017-03-08 10:45] LABS: TOXIC VACUOLATION PRESENT (NONE SEEN)
--- NOTE | 2017-03-08 10:45 | PD.ID.CON ---
History of Present Illness Service ID Consult Requested By Reason for Consult Evaluation and Mment of staph endocarditis Primary Care Physician Nita Dawn MD Diagnoses: History of Present Illness is a 26-year-old 3 para 1 AB 1 at 32-5/7 week gestation with an EDC of 04/28 but was delivered prematurely due to PROM per Ob notes on . Patients mom was in the room at time of my visit and provided me with history and Dad confirmed these findings. 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 Patient admitted to use of Dilaudid and Cocaine per day. The patient incidentally was found to have this . She has had a miscarriage before. Patient currently has 2 active boyfriends according to Mom. She is the only child. 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 She denied any headache, visual changes or abdominal pain. The patient was noted to be in preeclampsia with a protein creatinine ratio 0.47, urine protein 117. The patient was also noted to have leukocytosis, and febrile. The patient was placed on a magnesium infusion. 03/07: Afebrile. Noted bacteremia showing gram-positive cocci. On 03/07/17 patient become tachypneic with respiratory rate high 30s-40, on nonrebreather . Chest x-ray was performed, and ABG showing hypoxemia, PaO2 129 on 100%. Plan for emergent intubation. Suboxone was initiated yesterday, magnesium level has been titrated to parameter of 6-7. The patient was noted to be thrombocytopenic today secondary to HELLP syndrome. The patient was emergently intubated for hypoxemia on 03/07/2017. Of note the patient also has a history of a chemical lung injury and had been seen intermittently by hot metal charger. An echo was performed showing mitral valve vegetation, and a large thrombus in the right ventricle, and full anticoagulation was initiated last night with Argatroban in the setting of thrombocytopenia. CVT has been consulted and recommends medical management. The patient was placed on empiric antibiotics,WBC count increasing, ID was consulted for Sepsis and Staph endocarditis. Review of Systems ROS Limitations: Intubated Past Family Social History Allergies: Coded Allergies: Penicillin (Verified Allergy, Intermediate, hives, 11/21/16) *MDRO Multi-Drug Resistant Organism (Verified Adverse Reaction, Unknown, ) MRSA (breast wound) - 04/30/16 Past Medical History MRSA abscesses by history Prior miscarriage Drug abuse history History of inpatient rehab. Past Surgical History Abscesses drained. Reported Medications Reported Meds & Active Scripts Active Active Ordered Medications Current Medications Medications (Trade) Dose Ordered Sig/Benitez Route Start Time Stop Time Status Last Admin (Vancomycin Inj/ NS 250 ml Inj) 250 ml @ 250 mls/hr Q24H IV 03/06/17 03:00 03/08/17 03:50 (Brethine Inj) 0.25 mg ONCE PRN SQ 03/06/17 03:00 (Tylenol) 650 mg Q4H PRN PO 03/06/17 08:15 (Percocet 5-325 Mg) 1 tab Q4H PRN PO 03/06/17 08:15 03/06/17 13:34 (Percocet 5-325 Mg) 2 tab Q4H PRN PO 03/06/17 08:15 (Americaine 20% Top Spr) 1 spray Q4H PRN TOPICAL 03/06/17 08:15 (Tucks Pads) 1 applic QID PRN TOPICAL 03/06/17 08:15 Al Hydrox/Mg Hydrox/ Simethicone 15 ml 15 ml Q8H PRN PO 03/06/17 08:15 Pharmacy Profile Note 0 ml @ 0 mls/hr UNSCH OTHER 03/06/17 11:00 (NS 1000 ml Inj) 1,000 ml @ 84 mls/hr [id number] IV 03/06/17 13:29 03/08/17 10:26 (NS Flush) 2 ml UNSCH PRN IV FLUSH 03/06/17 13:30 (NS Flush) 2 ml BID IV FLUSH 03/06/17 21:00 03/08/17 10:25 (Dilaudid Pf Inj) 1 mg Q4H PRN IV 03/06/17 13:30 03/07/17 06:24 (Protonix Inj) 40 mg DAILY IV 03/07/17 09:00 03/08/17 10:25 (Zofran Inj) 4 mg Q6H PRN IV 03/06/17 13:30 (Latosha-Colace) 2 tab BID PO 03/06/17 21:00 03/08/17 10:25 (Dulcolax Supp) 10 mg DAILY PRN RECTAL 03/06/17 13:30 (Senokot) 17.2 mg Q12H PRN PO 03/06/17 13:30 Miscellaneous Information 1 Q361D XX 03/06/17 13:30 03/07/17 20:46 (Chlorhexidine 2% Cloth) 3 pack Taper DAILY@04 TOP 03/07/17 04:00 03/03/18 03:59 03/08/17 04:53 Chlorhexidine Gluconate 3 pack 3 pack UNSCH PRN TOP 03/06/17 13:30 Potassium Chloride 100 ml @ 50 mls/hr Q2H PRN IV 03/06/17 13:30 (KCl 20 Meq Premix Inj) 100 ml @ 50 mls/hr Q2H PRN IV 03/06/17 13:30 03/06/17 20:13 Potassium Bicarb/ Potassium Chloride 50 meq 50 meq UNSCH PRN PO 03/06/17 13:30 Potassium Chloride 100 ml @ 25 mls/hr UNSCH PRN IV 03/06/17 13:30 Potassium Chloride 100 ml @ 50 mls/hr Q2H PRN IV 03/06/17 13:30 (Magnesium Sulfate Inj/NS Inj) 100 ml @ 50 mls/hr UNSCH PRN IV 03/06/17 13:30 Magnesium Oxide 800 mg 800 mg UNSCH PRN PO 03/06/17 13:30 (Magnesium Sulfate Inj/NS Inj) 100 ml @ 50 mls/hr UNSCH PRN IV 03/06/17 13:30 Potassium Phosphate 2000 mg 2,000 mg Q4H PRN PO 03/06/17 13:30 (Sodium Phosphate Inj/NS 250 ml Inj) 250 ml @ 42 mls/hr UNSCH PRN IV 03/06/17 13:30 (K-Phos) 2,000 mg UNSCH PRN PO/TUBE 03/06/17 13:30 (Buprenorphine) 4 mg Q6HR SL 03/06/17 18:00 03/08/17 11:13 (Pill Splitter) 1 ea UNSCH PRN OTHER 03/06/17 15:00 Miscellaneous Information SPECIFIC LAB TO BE KLEVER... ONCE ONCE .XX 03/09/17 02:45 03/09/17 02:46 (Ativan Inj) 1 mg Q4H PRN IV PUSH 03/06/17 15:15 Metoprolol Tartrate 2.5 mg 2.5 mg Q6H PRN IV PUSH 03/06/17 15:15 (fentaNYL DRIP) 250 ml @ 0 mls/hr TITRATE IV 03/07/17 10:30 03/08/17 10:09 Chlorhexidine Gluconate 15 ml 15 ml BID@08,20 MT 03/07/17 20:00 03/08/17 10:26 Midazolam HCl 100 ml @ 0 mls/hr TITRATE IV 03/07/17 13:30 03/08/17 15:48 Argatroban 250 mg/ Sodium Chloride 252.5 ml @ 0 mls/hr TITRATE IV 03/07/17 21:00 03/07/17 21:43 (Neosynephrine Inj/D5W 500 ml Inj) 500 ml @ 0 mls/hr TITRATE IV 03/08/17 06:15 Terbutaline Sulfate 1 mg 1 mg UNSCH PRN SQ 03/08/17 05:15 (Ancef 2 Gm Premix) 50 ml @ 100 mls/hr Q8H IV 03/08/17 11:00 03/08/17 11:14 Family History Reviewed. All members of family had exposure to chlorine gas used for pools in an accident of a pool [facility] in past. Social History reviewed. IVDA 2 boyfriends Uses cocaine, dilaudid. Physical Exam Vital Signs Vital Signs Date Time Temp Pulse Resp B/P Pulse Ox O2 Delivery O2 Flow Rate FiO2 03/08/17 08:28 99 50 03/08/17 08:00 50 03/08/17 08:00 86 03/08/17 08:00 98.5 86 30 100/60 97 03/08/17 07:00 97 Mechanical Ventilator 50 03/08/17 07:00 99.1 86 26 96/54 97 03/08/17 06:42 96 50 03/08/17 06:30 99.1 86 26 96/54 97 03/08/17 06:15 99.1 88 29 94/53 97 03/08/17 06:15 99.1 88 29 94/53 97 03/08/17 06:00 88 03/08/17 04:42 98 50 03/08/17 04:00 80 03/08/17 04:00 94 03/08/17 04:00 98.3 93 26 92/54 98 03/08/17 02:21 100 80 03/08/17 02:00 95 03/08/17 00:00 99.0 102 30 89/53 100 03/08/17 00:00 102 03/08/17 00:00 80 03/07/17 22:40 98 100 03/07/17 22:25 98 80 03/07/17 22:00 106 03/07/17 20:00 104 03/07/17 20:00 98.4 104 34 96/50 99 03/07/17 20:00 100 03/07/17 19:00 99 Mechanical Ventilator 100 03/07/17 18:14 97.6 100 25 121/78 98 03/07/17 18:11 97.6 95 36 109/61 98 03/07/17 18:00 101 03/07/17 17:30 100 03/07/17 16:00 97.7 100 32 116/69 94 03/07/17 16:00 60 03/07/17 16:00 100 03/07/17 14:00 86 03/07/17 12:00 60 03/07/17 12:00 100 03/07/17 12:00 97.6 100 25 121/78 98 Physical Exam GENERAL: This is a well-nourished, well-developed patient, in no apparent distress. SKIN: No rashes, ecchymoses or lesions. Cool and dry. HEAD: Atraumatic. Normocephalic. No temporal or scalp tenderness. EYES: Pupils equal round and reactive. Extraocular motions intact. No scleral icterus. No injection or drainage. ENT: Intubated. NECK: Trachea midline.Supple, nontender, no meningeal signs. CARDIOVASCULAR: RRR, ? systolic murmur. RESPIRATORY: Clear to auscultation. Breath sounds equal bilaterally. No wheezes , rales, or rhonchi. GASTROINTESTINAL: Abdomen soft, non-tender, nondistended. MUSCULOSKELETAL: Extremities without clubbing, cyanosis. 2-3 plus pedal edema. NEUROLOGICAL: Sedated gets agitated off sedation easily. Psych: could not be assessed. Laboratory Laboratory Tests Test 03/07/17 03/07/17 03/07/17/30/17 11:00 12:22 17:36 17:46 Hemoglobin 8.3 8.1 Hematocrit 25.3 24.9 Prothrombin Time 10.9 11.0 Prothromb Time International 1.0 1.0 Ratio Sodium Level 132 Potassium Level 4.2 Chloride Level 100 Carbon Dioxide Level 24.9 Anion Gap 7 Blood Urea Nitrogen 21 Creatinine 0.85 Estimat Glomerular Filtration 82 Rate Random Glucose 120 Lactic Acid Level 2.2 3.3 Calcium Level 6.6 Protein Corrected Calcium 7.0 Magnesium Level 6.6 5.4 Total Bilirubin 0.6 Aspartate Amino Transf 32 (AST/SGOT) Alanine Aminotransferase 11 (ALT/SGPT) Alkaline Phosphatase 250 Total Protein 6.3 Albumin 1.6 Blood Gas Puncture Site RT RADIAL Blood Gas Patient Temperature 98.6 Blood Gas HCO3 24 Blood Gas Base Excess -1.0 Blood Gas Oxygen Saturation 97 Arterial Blood pH 7.38 Arterial Blood Partial 41 Pressure CO2 Arterial Blood Partial 146 Pressure O2 Arterial Blood Oxygen Content 15.9 Arterial Blood 1.2 Carboxyhemoglobin Arterial Blood Methemoglobin 0.9 Blood Gas Hemoglobin 11.5 Oxygen Delivery Device VENTILATOR Blood Gas Ventilator Setting PRVC/AC Blood Gas Inspired Oxygen 100 Test 03/07/17 03/07/17 03/08/17 03/08/17 18:55 22:11 00:30 05:00 Platelet Count 55 42 Activated Partial 27.4 35.9 55.5 81.4 Thromboplast Time White Blood Count 13.2 Red Blood Count 2.47 Hemoglobin 6.9 Hematocrit 21.1 Mean Corpuscular Volume 85.5 Mean Corpuscular Hemoglobin 27.8 Mean Corpuscular Hemoglobin 32.6 Concent Red Cell Distribution Width 15.4 Mean Platelet Volume 9.2 Neutrophils (%) (Auto) 82.0 Lymphocytes (%) (Auto) 13.7 Monocytes (%) (Auto) 3.8 Eosinophils (%) (Auto) 0.3 Basophils (%) (Auto) 0.2 Neutrophils # (Auto) 10.8 Lymphocytes # (Auto) 1.8 Monocytes # (Auto) 0.5 Eosinophils # (Auto) 0.0 Basophils # (Auto) 0.0 CBC Comment AUTO DIFF Differential Total Cells 100 Counted Neutrophils % (Manual) 74 Band Neutrophils % 11 Lymphocytes % 6 Monocytes % 3 Eosinophils % 2 Neutrophils # (Manual) 11.7 Metamyelocytes 3 Promyelocytes 1 Differential Comment FINAL DIFF MANUAL Dohle Bodies PRESENT Platelet Estimate LOW Platelet Morphology Comment NORMAL Fibrinogen 179 Sodium Level 136 Potassium Level 4.3 Chloride Level 102 Carbon Dioxide Level 25.5 Anion Gap 9 Blood Urea Nitrogen 33 Creatinine 1.11 Estimat Glomerular Filtration 60 Rate Random Glucose 81 Calcium Level 6.8 Protein Corrected Calcium 7.3 Phosphorus Level 5.4 Magnesium Level 4.6 Total Protein 6.1 Test 03/08/17 03/08/17 03/08/17 05:14 05:38 09:50 Blood Gas Puncture Site RT PEDAL Blood Gas Patient Temperature 98.6 Blood Gas HCO3 23 Blood Gas Base Excess -0.9 Blood Gas Oxygen Saturation 94 Arterial Blood pH 7.41 Arterial Blood Partial 37 Pressure CO2 Arterial Blood Partial 88 Pressure O2 Arterial Blood Oxygen Content 10.0 Arterial Blood 1.5 Carboxyhemoglobin Arterial Blood Methemoglobin 1.0 Blood Gas Hemoglobin 7.4 Oxygen Delivery Device VENTILATOR Blood Gas Ventilator Setting PRVC/AC Blood Gas Inspired Oxygen 50 Blood Type O POSITIVE Crossmatch Leukocyte-Reduced Red Blood Cells Blood Bank Comment White Blood Count 14.6 Red Blood Count 2.66 Hemoglobin 7.7 Hematocrit 22.8 Mean Corpuscular Volume 85.7 Mean Corpuscular Hemoglobin 29.0 Mean Corpuscular Hemoglobin 33.8 Concent Red Cell Distribution Width 15.6 Platelet Count 49 Mean Platelet Volume 9.0 Neutrophils (%) (Auto) 82.0 Lymphocytes (%) (Auto) 14.2 Monocytes (%) (Auto) 3.2 Eosinophils (%) (Auto) 0.4 Basophils (%) (Auto) 0.2 Neutrophils # (Auto) 12.0 Lymphocytes # (Auto) 2.1 Monocytes # (Auto) 0.5 Eosinophils # (Auto) 0.1 Basophils # (Auto) 0.0 CBC Comment AUTO DIFF Activated Partial 67.1 Thromboplast Time Date/Time Procedure Status Source Growth 03/06/17 14:59 Aerobic Blood Culture - Final Resulted Blood Peripheral Staphylococcus Aureus 03/06/17 14:59 Anaerobic Blood Culture - Preliminary Resulted Blood Peripheral NO GROWTH IN 1 DAY 03/06/17 14:52 Aerobic Blood Culture - Preliminary Resulted Blood Peripheral Staphylococcus Aureus 03/06/17 14:52 Anaerobic Blood Culture - Preliminary Resulted Blood Peripheral NO GROWTH IN 1 DAY 03/06/17 02:45 Group B Streptococcus Screen - Preliminary Resulted Genital Genital Region RESULTS PENDING 03/06/17 02:45 Cancelled Genital Genital Region 03/06/17 02:00 Urine Culture - Final Complete Urine Clean Catch 50-100,000 CFU/ML MIXED GRAM POSITIVE... 03/06/17 02:00 Cancelled Urine Catheterized Urine Result Diagram: 03/08/17 0950 03/08/17 0500 Imaging Last Impressions Chest X-Ray 03/08/17 0600 Signed Impressions: Service Date/Time: Wednesday, March 08, 2017 02:07 - CONCLUSION: 1. Patchy alveolar disease characteristic of edema or pneumonia. There has been no significant change when compared to the prior exam. Bertrand Adhikari MD Liver Ultrasound 03/08/17 0000 Signed Impressions: Service Date/Time: Wednesday, March 08, 2017 08:41 - CONCLUSION: Hepatosplenomegaly. Gallbladder filled with sludge. Mild wall thickening and pericholecystic fluid. Minimal nonspecific perinephric fluid on the right Ricky Wilson MD CT Angiography 03/07/17 0000 Signed Impressions: Service Date/Time: Tuesday, March 07, 2017 22:54 - CONCLUSION: 1. No evidence of pulmonary embolism. 2. Diffuse alveolar disease as well as cavitary nodules which may reflect septic emboli. Bertrand Adhikari MD Lower Extremity Ultrasound 03/06/17 0849 Signed Impressions: Service Date/Time: Monday, March 06, 2017 09:09 - CONCLUSION: Normal examination. Eddie Boykin MD Assessment and Plan Assessment and Plan Severe Sepsis Gram positive bacteremia Mitral valve endocarditis, Atrial large thrombus. Pulm Septic emboli. Fetus at risk for infection: recommend sepsis workup in child. Acute metabolic encephalopathy: sepsis, medication withdrawal, at risk for meningitis (will reassess based on follow up clinical exam) ? HELLP syndrome. Platelets could have been low from Sepsis, hep C as well. Post at risk for endometritis. Hepatitis C positive. Recs DC Zosyn IV DC Azactam IV Start Ancef IV Continue Vanco IV (target 15-20. At present only verigene showing possible MSSA , pt in severe sepsis will wait another day before deescalating) Await CTS recs/ If persistent bacteremia despite change in regimen may need 2nd agent such as Genta. Allergies reviewed with family: PCN allergy as child had ? hives. Has tolerated Keflex in past. d.w refurbish technician Dr.John carmen. Nicky Rios MD March 08, 2017 10:45
[2017-03-08] MEDS: ceFAZolin 2 GM PREMIX 50 ML IV SCH ×2 (11:14→18:02)
[2017-03-08] MEDS ORDERED: ROCURONIUM INJ 50 MG/5 ML VIAL ONE (13:04)
--- NOTE | 2017-03-08 16:04 | MB ---
cc: WLILARD PAULSON MD, SOHIT K. MD DATE OF CONSULTATION: 03/08/2017 DATE OF : 1990 HISTORY OF PRESENT ILLNESS A 26-year-old female, 3, para 1, AB 1 at 32 weeks gestation with estimated date of confinement 04/28/2017. No prior care, who presented to the emergency room with generalized discomfort and swelling of her legs for five days prior. She has a history of IV drug use. Apparent per the ED notes admitted to 8 mg of Dilaudid per day, 20 dollars worth of cocaine per day, and was recent within 12 hours of admissions. She was noted to have preeclampsia with a protein ratio 0.47, urine protein 117, also leukocytosis. She subsequently had a spontaneous vaginal delivery of a female, five minute of 9. On 03/07/2016 the patient's blood culture showed some bacteremia, gram-positive cocci. The patient then became very tachypneic and high respiratory rate in the 30s to 40s on a non-rebreather. She had a PO2 of 129 and 100%. She was admitted emergently, intubated and started on Suboxone the day before secondary to her long-term IV drug use, and also was on magnesium drip. The patient was found also to be significantly thrombocytopenic secondary to HELLP syndrome and had two units of platelets infused. The patient had an echocardiogram which revealed hyperdynamic left ventricle, mitral valve vegetation and an echogenic mass on the right ventricle suggestive of thrombus. We were consulted due to this echogenic mobile mass and mitral valve possible vegetation. PAST MEDICAL HISTORY 1. 3, para 2, miscarriage 1. 2. Polysubstance abuse with opiates and cocaine. 3. History of MRSA skin abscess. 4. History of hepatitis C. PAST SURGICAL HISTORY No past surgical history. ALLERGIES PENICILLIN. MEDICATIONS Home medications include Wellbutrin 100 q.12h. FAMILY HISTORY Noncontributory. SOCIAL HISTORY Positive for drug abuse. Lives with her mother and 4-year-old at home. REVIEW OF SYSTEMS Unobtainable. PHYSICAL EXAMINATION GENERAL: A very ill-appearing female. VITAL SIGNS: Blood pressure 100/60, heart rate 86. She is on 50% FIO2 on the ventilator. She is orally intubated. She is sedated on Versed and fentanyl. HEENT: Pupils are approximately 2 mm, midline, sluggish. Orally intubated. NECK: Supple. No JVD. HEART: Heart sounds S1, S2. Regular rate and rhythm. No audible rubs, murmurs or gallops. LUNGS: She has some coarse breath sounds on the right and the left upper chest wall. ABDOMEN: Slightly distended. Positive bowel sounds. She has an NG tube in place. EXTREMITIES: Pitting edema of both lower extremities. No edema in the upper extremities. LABORATORY Hemoglobin 7.7, hematocrit 23, white cell count 14,000, platelet count 49. Sodium 136, potassium 4.3, BUN 33, creatinine 1.1, protein corrected calcium 7.3, magnesium 4.6. CRP 16. INR 67. Fibrinogen 179. Urine drug screen positive for opiates, benzos, cocaine. MRSA screen negative. Hepatitis C reactive positive. Hepatitis B negative. Microbiology shows Staphylococcus aureus in both aerobic blood cultures. IMAGING CTA of the chest showed no evidence of pulmonary emboli, however, diffuse alveolar disease, cavitary nodule, concern for septic emboli. IMPRESSION 1. IV drug abuse, benzodiazepine dependence. 2. Acute hypoxic respiratory failure, possible multilobar pneumonia versus septic emboli. 3. Infective mitral valve endocarditis, right ventricular thrombus. RECOMMENDATIONS At this time no surgical intervention is warranted with her active drug use. Recommend continued treatment with antibiotic therapy, ventilator assistance, critical care management. Further discussion or plan per Dr. Aliza Silvestre. Dictated by: FLORENCE Watson Tito GOLDSTEIN /2:43 PM /4:01 PM
[2017-03-08 16:53] LABS: APTT (PATIENT) 57.8 SEC (24.3-30.1)
--- NOTE | 2017-03-08 22:41 | EKG ---
Date Performed: 03/08/2017 Time Performed: 05:36:04 PTAGE: 26 years EKG: Sinus tachycardia. rSr'(V1) - probable normal variant Anteroseptal T wave changes are nonsp ecific Borderline ECG PREVIOUS TRACING : 03/06/2017 15.50 Compared to prior tracing no significant change DOCTOR: Antoni Baird Interpretating Date/Time 03/08/2017 22:40:55
[2017-03-09] VITALS (18 sets, daily range): BP systolic 110–132; BP diastolic 57–83; PULSE 88–122; RESP 26–32; TEMP 98.8–101.4; O2SAT 95–100
[2017-03-09] MEDS: SODIUM CHLOR 0.9% 1000 ML INJ 1,000 ML IV SCH ×3 (01:15→23:49)
[2017-03-09] MEDS: MIDAZOLAM 100 MG/ML INJ 100 ML IV SCH ×3 (01:37→20:35)
[2017-03-09] MEDS: ceFAZolin 2 GM PREMIX 50 ML IV SCH ×3 (01:38→20:35)
[2017-03-09] MEDS ORDERED: PHARMACY ORDERED LAB ONE (02:45)
[2017-03-09 03:27] LABS: BASOPHIL % 0.3 % (0.0-2.0); EOSINOPHIL % 0.3 % (0.0-4.0); LYMPH % 13.9 % (9.0-44.0); LYMPHOCYTE # 2.2 TH/MM3 (1.0-4.8); MEAN CELL VOLUME 85.7 FL (80.0-100.0); MEAN CORPUSCULAR HEMOGLOBIN 28.6 PG (27.0-34.0); MEAN CORPUSCULAR HGB CONC 33.4 % (32.0-36.0); NEUT % 80.5 % (16.0-70.0); PLATELET COUNT 74 TH/MM3 (150-450); RED BLOOD COUNT 2.32 MIL/MM3 (4.00-5.30); RED CELL DISTRIBUTION WIDTH 15.3 % (11.6-17.2); WHITE BLOOD COUNT 16.1 TH/MM3 (4.0-11.0)
[2017-03-09 03:33] LABS: HEMO FLAGS AUTO DIFF
[2017-03-09 03:38] LABS: HEMATOCRIT 19.9 % (35.0-46.0)
[2017-03-09 03:41] LABS: APTT (PATIENT) 55.6 SEC (24.3-30.1)
[2017-03-09 04:05] LABS: BANDS 3 % (0-6); CORRECTED NUCLEATED RBC 1 /100 WBC (0-0); MYELOCYTES 2 % (0-0); PLATELET ESTIMATE SMEAR LOW (NORMAL); PLATELET MORPHOLOGY NORMAL (NORMAL); POLYS (SEG NEUTROPHILS) 76 % (16-70); SCAN/DIFF FINAL DIFF MANUAL; WBC DIFF SAMPLE 100
[2017-03-09 04:08] LABS: DOHLE BODIES PRESENT (NONE SEEN)
[2017-03-09 04:13] LABS: ACANTHOCYTES OCC (NORMAL)
[2017-03-09 04:17] LABS: BICARBONATE 25.3 MEQ/L (21.0-32.0); CALCIUM-PROTEIN CORRECTED 7.5 MG/DL (8.5-10.1); INDIRECT BILIRUBIN 0.4 MG/DL (0.0-0.8); MAGNESIUM 3.5 MG/DL (1.5-2.5); POTASSIUM 4.1 MEQ/L (3.5-5.1); TOTAL BILIRUBIN ADULT 0.8 MG/DL (0.2-1.0)
[2017-03-09 04:36] LABS: VANCOMYCIN TROUGH 4.4 MCG/ML (5.0-10.0)
[2017-03-09] MEDS: CHLORHEXIDINE GLUCONATE 2 % 1 PACK (2 CLOTHS) TOP SCH (04:44)
[2017-03-09] MEDS: BUPRENORPHINE HCL 8 MG SUBLINGUAL TAB SL SCH ×4 (04:44→23:48)
[2017-03-09] MEDS: VANCOMYCIN INJ 1,000 MG in SODIUM CHLOR 0.9% 250 ML INJ 250 ML IV SCH (04:44)
[2017-03-09] MEDS ORDERED: ACETAMINOPHEN 1000 MG/100 ML VIAL IV PRN (05:00)
--- NOTE | 2017-03-09 06:28 | RADRPT ---
EXAM DATE/TIME: 03/09/2017 04:42 [facility] COMPARISON: CHEST SINGLE AP, March 08, 2017, 2:07. INDICATIONS : Shortness of breath. MEDICAL HISTORY : Substance abuse. SURGICAL HISTORY : None. ENCOUNTER: Subsequent ACUITY: 3 days PAIN SCORE: Non-responsive. LOCATION: Bilateral chest FINDINGS: The cardiac silhouette is enlarged in transverse diameter. Support lines and tubes are in satisfactor y position. There is patchy alveolar disease bilaterally compatible with edema or pneumonia. The find ings are improved when compared with the prior exam. CONCLUSION: 1. Improving diffuse edema versus pneumonia Bertrand Adhikari MD on March 09, 2017 at 6:26 Board Certified Radiologist. This report was verified electronically.
[2017-03-09 06:34] LABS: BLOOD GAS BASE EXCESS -3.3 mmol/L (-2-2); BLOOD GAS HCO3 21 mmol/L (22-26); BLOOD GAS METHEMOGLOBIN 1.1 % (0-2); BLOOD GAS O2 HGB SATURATION 95 % (90-100); BLOOD GAS OXYGEN CONTENT 7.4 Vol % (12.0-20.0); BLOOD GAS PCO2 35 mmHg (38-42); BLOOD GAS PO2 103 mmHg (61-120); BLOOD GAS TOTAL HGB 5.4 G/DL (12.0-16.0); TEMP CORR TO 98.6
[2017-03-09 06:36] LABS: CRITICAL VALUE YES; OXYGEN DEVICE VENTILATOR
[2017-03-09 06:38] LABS: DRAW SITE RT RADIAL; FIO2 50 %; NUMBER OF ARTERIAL PUNCTURES 1; STAT NO; ULNAR PULSE PRESENT; VENT SETTINGS PRVC
--- NOTE | 2017-03-09 07:28 | MB ---
cc: RAFFI BERGMAN DATE OF CONSULTATION March 08, 2017 DATE OF 1990. REASON FOR CONSULTATION The patient with acute thrombocytopenia and anemia. CHIEF COMPLAINT The patient is currently intubated and on mechanical ventilation. HISTORY OF PRESENT ILLNESS Ms. Moreno is a 26-year-old female who is 3, para 1, AB 1 who was at 32.5 weeks gestation with expected delivery of April 28 but delivered prematurely on 03/06/2017. After delivery the patient decompensated and became hypoxic and went into respiratory failure. She was intubated and is currently in the intensive care unit. The patient has a known history of IV drug abuse. Her UDS was positive for opiates, benzodiazepine and cocaine. The patient is currently on IV antibiotics. She has gram-positive cocci bacteriemia. She had an echocardiogram which revealed a hyperdynamic dynamic left ventricle, mitral valve vegetation and echogenic mass in the right ventricle suggestive of a thrombus. She is currently being seen by Infectious Disease and Cardiology. The patient had a CT angiogram on 03/07/2017 which did not show any evidence of pulmonary embolism. There was diffuse alveolar disease as well as cavitary nodules reflecting septic emboli. She has had a liver ultrasound which shows hepatosplenomegaly. The liver is moderately enlarged and the spleen size is 19.6 cm. She had Doppler ultrasound of lower extremities which did not show any DVT. On admission the patient was found to be anemic with a hemoglobin of 7. She had a platelet count of 41,000. She has required blood and platelet transfusions during the course of her admission. A total of 2 units of packed red blood cells and 3 units of platelets have been given to the patient. Her liver function tests have been normal. Her kidney functions were normal on admission. I have been consulted to make recommendations in this patient who has severe anemia and thrombocytopenia in the setting of a recent . REVIEW OF SYSTEMS Unable to be obtained due to the patient's clinical status. She is currently intubated and sedated. PAST MEDICAL HISTORY 1. History of IV drug abuse. 2. History of MRSA skin abscesses. 3. History of hepatitis C. PAST SURGICAL HISTORY Skin abscesses requiring I&D. FAMILY HISTORY Unable to be obtained. SOCIAL HISTORY History of cocaine abuse. Tobacco abuse. Alcohol abuse. Taking Dilaudid MEDICATIONS Reviewed in the EMR. ALLERGIES She is allergic to PENICILLIN. PHYSICAL EXAMINATION VITAL SIGNS: The patient is currently on mechanical ventilation. Blood pressure is 109/56, pulse is 100, respiratory rate is 26, temperature is 99.8, O2 sats are 98%. GENERAL: Critically ill patient, appears to be thin and cachectic. HEENT: Pupils are pinpoint and sluggish. NECK: Without any lymphadenopathy. CHEST: Bilateral coarse sounds. CARDIAC: S1-S2. Regular rate and rhythm. ABDOMEN: Soft, nondistended. Bowel sounds are absent. EXTREMITIES: Without any edema, erythema or cyanosis. SKIN: Without any petechiae, lesion or bruises. NEURO: Currently sedated. LABORATORY DATA WBCs 12.5, hemoglobin is 7.9, MCV is 83.5, platelet count is 30. Serum chemistries show sodium of 136, potassium 4.3, chloride 102, CO2 25.5, BUN is 33, creatinine is 1.11, phosphorus 5.4, magnesium is 4.6, C-reactive protein is 16.5. Coags show PTT of 57.8. Fibrinogen is 179. Hepatitis C antibody is positive. IMAGING STUDIES Reviewed in the EMR. ASSESSMENT AND PLAN This is a 26-year-old female who is and is acutely ill with respiratory failure. She has anemia and thrombocytopenia. I have been consulted to make further recommendations. 1. Acute thrombocytopenia in a patient who is . She is septic and has acute respiratory failure. She has splenomegaly and history of Hep C. Differential diagnosis also includes HELLP syndrome, although this is questionable since her liver functions are normal and total bilirubin level was not elevated. Other possibilities include TTP and hemolytic/uremic syndrome. There is a strong possibility of DIC as well. This does not appear to be HIT. Obtain HIT antibodies. avoid heparin products. If HIT positive, will need confirmation with a DAVE. We will obtain hemolysis lab workup including LDH and haptoglobin. heck direct Micky test and fibrinogen. Transfuse cryoprecipitate to keep fibrinogen greater than 150. I will review her peripheral smear to evaluate for microangiopathy/schistocytes, . Transfuse to keep platelet count greater than 30,000 in this acutely ill patient, who is also on anti-coagulation. 2. Anemia. Rule out hemolysis as stated above. Transfuse to keep hemoglobin greater than 7. Obtain stool heme-occult. 3. Right ventricular thrombus/spetic emboli/ Infective endocarditis with mitral valve vegetation. Antibiotics per Infectious Disease. 5. Acute respiratory failure. Thank you for allowing me to participate in the care of this patient. I will continue to follow this patient along. MD PANDA Reese/KHALIF /1:20 AM /7:08 AM [facility]ODRI
[2017-03-09] MEDS: fentaNYL DRIP 250 ML IV SCH ×3 (07:34→20:35)
[2017-03-09] MEDS: PANTOPRAZOLE SODIUM 40 MG VIAL IV SCH (08:14)
[2017-03-09] MEDS: CHLORHEXIDINE 0.12% (ORAL KIT) 15 ML CUP MT SCH ×2 (08:14→20:35)
[2017-03-09] MEDS: SODIUM CHLORIDE 0.9% FLUSH 10 ML FLUSH IV FLUSH SCH ×2 (08:14→20:35)
[2017-03-09] MEDS: DOCUSATE SODIUM 50 MG/SENNA 8.6 MG TAB PO SCH ×2 (08:14→20:35)
[2017-03-09] MEDS: RESP: ALBUTEROL 2.5 MG/IPRATROPIUM 0.5 MG NEB (SCH) NEB ×3 (08:25→21:19)
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
[2017-03-09 10:45] LABS: HEMATOCRIT 25.1 % (35.0-46.0); MEAN CELL VOLUME 87.5 FL (80.0-100.0); MEAN CORPUSCULAR HEMOGLOBIN 28.7 PG (27.0-34.0); MEAN CORPUSCULAR HGB CONC 32.8 % (32.0-36.0); PLATELET COUNT 67 TH/MM3 (150-450); RED BLOOD COUNT 2.87 MIL/MM3 (4.00-5.30); RED CELL DISTRIBUTION WIDTH 15.2 % (11.6-17.2); WHITE BLOOD COUNT 16.7 TH/MM3 (4.0-11.0)
[2017-03-09 10:48] LABS: REVIEW FLAG FINAL
[2017-03-09] MEDS ORDERED: VANCOMYCIN INJ 1,000 MG in SODIUM CHLOR 0.9% 250 ML INJ 250 ML IV SCH (12:00)
--- NOTE | 2017-03-09 12:46 | PD.ONC.PN ---
Subjective Subjective Remarks Tmax 101.4 this am. No family members at bedside. Patient intubated and sedated. Objective Data Date Time Temp Pulse Resp B/P Pulse Ox O2 Delivery O2 Flow Rate FiO2 03/09/17 12:12 99 50 03/09/17 12:07 50 03/09/17 10:00 88 03/09/17 08:25 96 50 03/09/17 08:00 50 03/09/17 08:00 95 03/09/17 08:00 98.8 95 28 132/83 95 03/09/17 07:00 97 Mechanical Ventilator 50 03/09/17 06:00 99 03/09/17 05:30 100.5 105 29 110/57 97 03/09/17 04:00 109 03/09/17 04:00 101.4 109 26 119/68 97 03/09/17 04:00 50 03/09/17 02:00 108 03/09/17 01:40 97 50 03/09/17 00:00 50 03/09/17 00:00 104 03/09/17 00:00 99.2 104 29 117/57 97 03/08/17 22:00 102 03/08/17 21:35 98 50 03/08/17 20:00 50 03/08/17 20:00 99.8 101 26 109/56 98 03/08/17 20:00 100 03/08/17 19:00 98 Mechanical Ventilator 50 03/08/17 18:00 104 03/08/17 16:29 97 50 03/08/17 16:00 99.2 105 29 100/52 96 03/08/17 16:00 50 03/08/17 16:00 105 03/08/17 14:00 106 03/09/17 03/09/17 03/09/17 07:00 15:00 23:00 Intake Total 1137 ml Output Total 550 ml Balance 587 ml Result Diagram: 03/09/17 1010 03/09/17 0315 Laboratory Results Laboratory Tests Test 03/08/17 03/09/17 03/09/17 03/09/17 16:11 03:15 03:50 05:47 Activated Partial 57.8 SEC 55.6 SEC Thromboplast Time White Blood Count 16.1 TH/MM3 Red Blood Count 2.32 MIL/MM3 Hemoglobin 6.6 GM/DL Hematocrit 19.9 % Mean Corpuscular Volume 85.7 FL Mean Corpuscular Hemoglobin 28.6 PG Mean Corpuscular Hemoglobin 33.4 % Concent Red Cell Distribution Width 15.3 % Platelet Count 74 TH/MM3 Mean Platelet Volume 8.3 FL Neutrophils (%) (Auto) 80.5 % Lymphocytes (%) (Auto) 13.9 % Monocytes (%) (Auto) 5.0 % Eosinophils (%) (Auto) 0.3 % Basophils (%) (Auto) 0.3 % Neutrophils # (Auto) 13.0 TH/MM3 Lymphocytes # (Auto) 2.2 TH/MM3 Monocytes # (Auto) 0.8 TH/MM3 Eosinophils # (Auto) 0.0 TH/MM3 Basophils # (Auto) 0.0 TH/MM3 CBC Comment AUTO DIFF Differential Total Cells 100 Counted Neutrophils % (Manual) 76 % Band Neutrophils % 3 % Lymphocytes % 14 % Monocytes % 5 % Neutrophils # (Manual) 13.0 TH/MM3 Myelocytes 2 % Nucleated Red Blood Cells 1 /100 WBC Differential Comment FINAL DIFF MANUAL Dohle Bodies PRESENT Platelet Estimate LOW Platelet Morphology Comment NORMAL Acanthocytes OCC Blood Smear Pathologist Review Haptoglobin 122 MG/DL Fibrinogen 292 mg/dL Sodium Level 140 MEQ/L Potassium Level 4.1 MEQ/L Chloride Level 108 MEQ/L Carbon Dioxide Level 25.3 MEQ/L Anion Gap 7 MEQ/L Blood Urea Nitrogen 32 MG/DL Creatinine 0.89 MG/DL Estimat Glomerular Filtration 78 ML/MIN Rate Random Glucose 67 MG/DL Calcium Level 6.9 MG/DL Protein Corrected Calcium 7.5 MG/DL Phosphorus Level 4.5 MG/DL Magnesium Level 3.5 MG/DL Total Bilirubin 0.8 MG/DL Direct Bilirubin 0.4 MG/DL Indirect Bilirubin 0.4 MG/DL Aspartate Amino Transf 23 U/L (AST/SGOT) Alanine Aminotransferase 7 U/L (ALT/SGPT) Alkaline Phosphatase 237 U/L Lactate Dehydrogenase 349 U/L Total Protein 6.0 GM/DL Albumin 1.5 GM/DL Vancomycin Level Trough 4.4 MCG/ML Hepatitis B Surface Antigen NEGATIVE Hepatitis B Core IgM Antibody NEGATIVE Hepatitis C Antibody REACTIVE HIV (1&2) Antibody NEGATIVE Blood Type O POSITIVE Antibody Screen NEGATIVE Direct Antiglobulin Test NEGATIVE (Nicholas) Crossmatch Leukocyte-Reduced Red Blood Cells Blood Bank Comment Blood Gas Puncture Site RT RADIAL Blood Gas Patient Temperature 98.6 Blood Gas HCO3 21 mmol/L Blood Gas Base Excess -3.3 mmol/L Blood Gas Oxygen Saturation 95 % Arterial Blood pH 7.40 Arterial Blood Partial 35 mmHg Pressure CO2 Arterial Blood Partial 103 mmHg Pressure O2 Arterial Blood Oxygen Content 7.4 Vol % Arterial Blood 2.0 % Carboxyhemoglobin Arterial Blood Methemoglobin 1.1 % Blood Gas Hemoglobin 5.4 G/DL Oxygen Delivery Device VENTILATOR Blood Gas Ventilator Setting PRVC Blood Gas Inspired Oxygen 50 % Test 03/09/17 10:10 White Blood Count 16.7 TH/MM3 Red Blood Count 2.87 MIL/MM3 Hemoglobin 8.2 GM/DL Hematocrit 25.1 % Mean Corpuscular Volume 87.5 FL Mean Corpuscular Hemoglobin 28.7 PG Mean Corpuscular Hemoglobin 32.8 % Concent Red Cell Distribution Width 15.2 % Platelet Count 67 TH/MM3 Mean Platelet Volume 8.4 FL Culture Results Microbiology Date/Time Procedure Status Source Growth 03/06/17 14:52 Aerobic Blood Culture - Final Resulted Blood Peripheral Staphylococcus Aureus 03/06/17 14:52 Anaerobic Blood Culture - Preliminary Resulted Blood Peripheral NO GROWTH IN 3 DAYS 03/06/17 14:59 Aerobic Blood Culture - Final Resulted Blood Peripheral Staphylococcus Aureus 03/06/17 14:59 Anaerobic Blood Culture - Preliminary Resulted Blood Peripheral NO GROWTH IN 3 DAYS 03/08/17 13:45 Aerobic Blood Culture - Preliminary Resulted Blood Peripheral NO GROWTH IN 1 DAY 03/08/17 13:45 Anaerobic Blood Culture - Preliminary Resulted Blood Peripheral NO GROWTH IN 1 DAY 03/08/17 14:00 Aerobic Blood Culture - Preliminary Resulted Blood Peripheral NO GROWTH IN 1 DAY 03/08/17 14:00 Anaerobic Blood Culture - Preliminary Resulted Blood Peripheral NO GROWTH IN 1 DAY Imaging Studies Last 24 hours Impressions Chest X-Ray 03/09/17 0600 Signed Impressions: Service Date/Time: Thursday, March 09, 2017 04:42 - CONCLUSION: 1. Improving diffuse edema versus pneumonia Bertrand Adhikari MD Administered Medications Medications (Trade) Dose Ordered Sig/Benitez Route PRN Reason Start Time Stop Time Status Last Admin Dose Admin Oxycodone/ Acetaminophen 1 tab 1 tab Q4H PRN PO PAIN SCALE 3 TO 5 03/06/17 08:15 03/06/17 13:34 Sodium Chloride (NS 1000 ml Inj) 1,000 ml @ 84 mls/hr [id number] IV 03/06/17 13:29 03/09/17 01:15 Sodium Chloride (NS Flush) 2 ml BID IV FLUSH 03/06/17 21:00 03/09/17 08:14 Hydromorphone HCl (Dilaudid Pf Inj) 1 mg Q4H PRN IV PAIN SCALE 6 TO 10 03/06/17 13:30 03/07/17 06:24 Pantoprazole Sodium (Protonix Inj) 40 mg DAILY IV 03/07/17 09:00 03/09/17 08:14 Senna/Docusate Sodium (Latosha-Colace) 2 tab BID PO 03/06/17 21:00 03/09/17 08:14 Miscellaneous Information 1 Q361D XX 03/06/17 13:30 03/07/17 20:46 Chlorhexidine Gluconate 3 pack 3 pack Taper DAILY@04 TOP 03/07/17 04:00 03/03/18 03:59 03/09/17 04:44 Potassium Chloride (KCl 20 Meq Premix Inj) 100 ml @ 50 mls/hr Q2H PRN IV For Potassium 2.8 - 3.2 mEq/L 03/06/17 13:30 03/06/17 20:13 Buprenorphine HCl 4 mg 4 mg Q6HR SL 03/06/17 18:00 03/09/17 04:44 Fentanyl Citrate (fentaNYL DRIP) 250 ml @ 0 mls/hr TITRATE IV 03/07/17 10:30 03/09/17 07:34 Chlorhexidine Gluconate 15 ml 15 ml BID@08,20 MT 03/07/17 20:00 03/09/17 08:14 Midazolam HCl 100 ml @ 0 mls/hr TITRATE IV 03/07/17 13:30 03/09/17 10:07 Argatroban 250 mg/ Sodium Chloride 252.5 ml @ 0 mls/hr TITRATE IV 03/07/17 21:00 03/07/17 21:43 Cefazolin Sodium/ Dextrose (Ancef 2 Gm Premix) 50 ml @ 100 mls/hr Q8H IV 03/08/17 11:00 03/09/17 10:07 Objective Remarks GENERAL: Young woman, supine in bed, intubated sedated SKIN: Warm and dry. HEAD: Normocephalic. EYES: No injection or drainage. NECK: Supple, trachea midline. CARDIOVASCULAR: +S1/S2 RESPIRATORY: anterior mathews clear. on mechanical ventilation GASTROINTESTINAL: Abdomen with mild distension EXTREMITIES: No cyanosis + anasarca MUSCULOSKELETAL: Adequate muscle tone. NEUROLOGICAL: intubated, sedated Assessment/Plan Problem List: (1) Infective endocarditis Status: Acute Plan: --on IV antibiotics. --gram-positive cocci bacteremia. --echocardiogram --> hyperdynamic dynamic left ventricle, mitral valve vegetation and echogenic mass in the right ventricle suggestive of a thrombus--> currently on Argatroban --Infectious Disease and Cardiology following (2) Thrombocytopenia Status: Acute Plan: likely multifactorial due to infection+hepatosplenomegaly, h/o hep C, ? no obvious bleeding -- Differential diagnosis also includes HELLP syndrome, although this is questionable since her liver functions are normal and total bilirubin level was not elevated. Other possibilities include TTP and hemolytic/uremic syndrome. --nicholas test negative --LDH elevated, haptoglobin normal, indirect bili normal --HIT pending, but the diagnosis is not favored -- liver ultrasound shows hepatosplenomegaly. --peripheral smear review--> does not show substantial numbers of fragmented cells--microangiopathic hemolytic process unlikely. --Transfuse cryoprecipitate to keep fibrinogen greater than 150. --Transfuse to keep platelet count greater than 30,000 (3) Anemia Status: Acute Plan: --LDH slightly elevated, haptoglobin normal --Transfuse to keep hemoglobin greater than 7. --stool heme-occult pending Assessment 26y/o female, critically ill in respiratory failure in [facility] – [place]. Hematology consulted for acute thrombocytopenia and anemia. History (from initial consult) 3, para 1, AB 1 who was at 32.5 weeks gestation with expected delivery of April 28 but delivered prematurely on 2016. After delivery the patient decompensated and became hypoxic and went into respiratory failure. She was intubated and is currently in the intensive care unit. The patient has a known history of IV drug abuse. Her UDS was positive for opiates, benzodiazepine and cocaine. Plan 1. monitor CBC 2. await w/u as above 3. no transfusion needed at present 4. ok to continue Argatroban, keep platelets>30K. would switch to heparin when/ if HIT returns negative Attending Statement The exam, history, and the medical decision-making described in the above note were completed with the assistance of the mid-level provider. I reviewed and agree with the findings presented. I attest that I had a [id number] encounter with the patient on the same day, and personally performed and documented my assessment and findings in the medical record Rosemary Tovar March 09, 2017 12:46 Andrew Lazo MD March 10, 2017 23:01
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
[2017-03-09] MEDS ORDERED: MAGNESIUM SULFATE INJ 4 GM in SODIUM CHLORIDE 0.9% INJ 92 ML IV PRN (14:00)
[2017-03-09] MEDS ORDERED: POTASSIUM CHLOR 20 MEQ PREMIX 100 ML IV PRN ×2 (14:00)
[2017-03-09] MEDS ORDERED: MAGNESIUM OXIDE 400 MG TAB PO PRN (14:00)
[2017-03-09] MEDS ORDERED: POTASSIUM CHLOR 40 MEQ PREMIX 100 ML IV PRN (14:00)
[2017-03-09] MEDS ORDERED: POTASSIUM CHLORIDE 25 MEQ EFFERVESCENT TAB PO PRN (14:00)
[2017-03-09] MEDS ORDERED: SODIUM PHOSPHATE INJ 30 MMOL in SODIUM CHLOR 0.9% 250 ML INJ 240 ML IV PRN (14:00)
[2017-03-09] MEDS ORDERED: MAGNESIUM SULFATE INJ 2 GM in SODIUM CHLORIDE 0.9% INJ 96 ML IV PRN (14:00)
[2017-03-09] MEDS ORDERED: POTASSIUM PHOSPHATE MONOBASIC 500 MG TAB PO/TUBE PRN (14:00)
[2017-03-09] MEDS ORDERED: POTASSIUM PHOSPHATE MONOBASIC 500 MG TAB PO PRN (14:00)
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
[2017-03-09] MEDS: ARGATROBAN INJ 250 MG in SODIUM CHLOR 0.9% 250 ML INJ 250 ML IV SCH (16:26)
[2017-03-09] MEDS ORDERED: ROCURONIUM INJ 50 MG/5 ML VIAL IV ONE (17:15)
[2017-03-09 18:06] LABS: INTERNATIONAL NORMALIZED RATIO 2.5 RATIO
[2017-03-09 18:11] LABS: MAGNESIUM 3.1 MG/DL (1.5-2.5)
[2017-03-09] MEDS ORDERED: IOHEXOL 350 MG/ML 10 ML VIAL (for RAD DIAG) IV ONE (18:55)
--- NOTE | 2017-03-09 19:00 | ECHLIM ---
Study Study Date:03/09/2017 STUDY CONCLUSIONS SUMMARY - Procedure narrative: Limited echo - Left ventricle: The cavity size was normal. Systolic function was normal. The estimated ejection fraction was in the range of 50% to 55%. Although no diagnostic regional wall motion abnormality was identified, this possibility cannot be completely excluded on the basis of this study. - Right ventricle: There was a possible, large, multilobulated thrombus on the right ventricular septum. - Tricuspid valve: There is an echodensity noted in the short axis which appears to sit along with the presumed thrombus, unsure if the echodensity is an extension of the thrombus vs vegetation. - Systemic veins: IVC with echodensity which appears to be string-like in nature, possible thrombus Impressions: Compared to previous echocardiogram from03/06/17, no significant change. No true vegetations noted, although could have infective component on RV thrombus If LV function is below 40, please consider prescribing an ACEI or ARB or document rationale for non-use. PROCEDURE DATA STUDY STATUS: Elective. Procedure: Transthoracic echocardiography. Image quality was good. Scanning was performed from the parasternal, apical, and subcostal acoustic windows. Limeted echo for ejection fraction. Study completion: The patient tolerated the procedure well. Transthoracic echocardiography. M-mode, complete 2D, complete spectral Doppler, and color Doppler. Height: Height: 64in. Weight: Weight: 155.7lb. Body mass index: BMI: 26.8kg/m^2. Body surface area: BSA: 1.76m^2. Patient status: Inpatient. CARDIAC ANATOMY LEFT VENTRICLE: The cavity size was normal. Systolic function was normal. The estimated ejection fraction was in the range of 50% to 55%. Although no diagnostic regional wall motion abnormality was identified, this possibility cannot be completely excluded on the basis of this study. RIGHT VENTRICLE: There was a possible, large, multilobulated thrombus on the right ventricular septum. TRICUSPID VALVE: There is an echodensity noted in the short axis which appears to sit along with the presumed thrombus, unsure if the echodensity is an extension of the thrombus vs vegetation. Doppler: Peak gradient: 26mm Hg (D). SYSTEMIC VEINS: IVC with echodensity which appears to be string-like in nature, possible thrombus Patient weight: 155.7lb _Ejection fraction:_ 65-75% _Fractional shortening:_ 32% up to 5Kg 5-11.5Kg 11.6-22.9Kg 23-45Kg 45-57Kg Aortic Root 7-13 <17 13-22 17-27 17-27 LA diam 6-13 <23 24-38 33-47 37-40 RVID 10-17 7-15 7-15 7-18 8-17 LVIDd 12-22 <32 24-38 33-47 37-40 LVPW 2-4 3-6 5-7 6-8 7-8 IVS 2-4 3-6 5-7 6-8 7-8 BASIC MEASUREMENTS ADULT NORMAL Left ventricle LV internal dimension, ED, chordal level, *40 mm 43-52 PLAX LV internal dimension, ES, chordal level, 29.6 mm 23-38 PLAX Fractional shortening, chordal level, PLAX *26 % >29 LV posterior wall thickness, ED 8.29 mm IVS/LVPW ratio, ED 1.04 <1.3 Ventricular septum Septal thickness, ED 8.59 mm Right ventricle RV internal dimension, ED, PLAX 28.4 mm 19-38 DOPPLER MEASUREMENTS ADULT NORMAL Tricuspid valve Peak gradient, D 26 mm Hg Maximal inflow velocity 257 cm/s LEGEND: Mean values are shown as u=mean value. Asterisk (*) díaz values outside specified normal range. Amended Wojciech Douglas [id number]
--- NOTE | 2017-03-09 19:33 | RADRPT ---
EXAM DATE/TIME: 03/09/2017 18:38 [facility] COMPARISON: No previous studies available for comparison. INDICATIONS : Altered mental status. RADIATION DOSE: 56.70 CTDIvol (mGy) MEDICAL HISTORY : None SURGICAL HISTORY : None. ENCOUNTER: Initial ACUITY: 1 day PAIN SCALE: Non-responsive LOCATION: cranial TECHNIQUE: Multiple contiguous axial images were obtained of the head. Using automated exposure control and adj ustment of the mA and/or kV according to patient size, radiation dose was kept as low as reasonably a chievable to obtain optimal diagnostic quality images. FINDINGS: CEREBRUM: The ventricles are normal for age. No evidence of midline shift, mass lesion, hemorrhage or acute in farction. No extra-axial fluid collections are seen. POSTERIOR FOSSA: The cerebellum and brainstem are intact. The 4th ventricle is midline. The cerebellopontine angle i s unremarkable. EXTRACRANIAL: The visualized portion of the orbits is intact. SKULL: The calvaria is intact. No evidence of skull fracture. CONCLUSION: No acute disease. Ricky Rodas MD on March 09, 2017 at 19:29 Board Certified Radiologist. This report was verified electronically.
--- NOTE | 2017-03-09 19:58 | RADRPT ---
EXAM DATE/TIME: 03/09/2017 18:42 [facility] COMPARISON: CT PULMONARY ANGIOGRAM, March 07, 2017, 22:54. INDICATIONS : Evaluate for abscess. Post . IV CONTRAST: 95 cc Omnipaque 350 (iohexol) IV ORAL CONTRAST: No oral contrast ingested. RADIATION DOSE: 11.23 CTDIvol (mGy) MEDICAL HISTORY : None SURGICAL HISTORY : None. ENCOUNTER: Initial ACUITY: 1 day PAIN SCALE: Non-responsive LOCATION: Abdomen TECHNIQUE: Volumetric scanning of the abdomen and pelvis was performed. Using automated exposure control and adjustment of the mA and/or kV according to patient size, radiation dose was kept as low as reasonably achievable to obtain optimal diagnostic quality images. FINDINGS: There appears to be low density in the right ventricle concerning for thrombus in the r ight ventricle. There is increased density seen throughout the lung bases being worse posteriorly. There are minimal bilateral pleural effusions being worse on the left. The liver is enlarged. It demonstrates diffuse low density. The spleen is enlarged measuring 20 cm i n length. No definite focal hepatic or splenic lesions are seen. The pancreas, adrenal glands and k idneys appear grossly intact. The uterus is enlarged. There is low density in the central aspect of the uterus. It should be correlated if the patient is recently post . There is a mild to mod erate amount of ascites seen throughout the peroneal cavity. An NG tube is in place with its tip in the upper stomach. Significantly dilated bowel is not seen. There is a Felix catheter in a nondistended bladder. There is edema seen throughout the subcutaneous tissues of the lower chest, abdomen, and pelvis. The bony structures are grossly intact. CONCLUSION: 1. Low density seen in the right ventricle very concerning for thrombus. 2. Hepatosplenomegaly. There is low density in the liver likely representing fatty infiltration. Thi s should be correlated with underlying hepatic disease. 3. Enlarged uterus with low density. The patient is recently post . This appearance can be se en following . There is fluid in the endometrial cavity. Whether or not it is infected teresa ot be determined on a CT examination. 4. Mild to moderate amount of ascites. 5. Consolidation seen at the lung bases bilaterally. 6. Anasarca. Ricky Rdoas MD on March 09, 2017 at 19:31 Board Certified Radiologist. This report was verified electronically.
[2017-03-10] VITALS (17 sets, daily range): BP systolic 106–135; BP diastolic 56–86; PULSE 92–132; RESP 25–60; TEMP 98.3–101.5; O2SAT 91–100
[2017-03-10] MEDS: ceFAZolin 2 GM PREMIX 50 ML IV SCH ×3 (03:01→20:00)
[2017-03-10] MEDS: MIDAZOLAM 100 MG/ML INJ 100 ML IV SCH ×3 (03:02→20:01)
[2017-03-10] MEDS: RESP: ALBUTEROL 2.5 MG/IPRATROPIUM 0.5 MG NEB (SCH) NEB ×4 (03:43→20:52)
[2017-03-10] MEDS: CHLORHEXIDINE GLUCONATE 2 % 1 PACK (2 CLOTHS) TOP SCH (04:07)
[2017-03-10 04:16] LABS: AUTOMATED NEUTROPHIL # 16.6 TH/MM3 (1.8-7.7); BASOPHIL % 0.1 % (0.0-2.0); EOSINOPHIL # 0.2 TH/MM3 (0-0.4); EOSINOPHIL % 0.9 % (0.0-4.0); HEMATOCRIT 26.7 % (35.0-46.0); LYMPH % 11.6 % (9.0-44.0); LYMPHOCYTE # 2.3 TH/MM3 (1.0-4.8); MEAN CELL VOLUME 88.4 FL (80.0-100.0); MEAN CORPUSCULAR HEMOGLOBIN 29.1 PG (27.0-34.0); MEAN CORPUSCULAR HGB CONC 32.9 % (32.0-36.0); MONO % 5.2 % (0.0-8.0); NEUT % 82.2 % (16.0-70.0); PLATELET COUNT 86 TH/MM3 (150-450); RED BLOOD COUNT 3.02 MIL/MM3 (4.00-5.30); RED CELL DISTRIBUTION WIDTH 15.7 % (11.6-17.2); WHITE BLOOD COUNT 20.2 TH/MM3 (4.0-11.0)
[2017-03-10 04:20] LABS: HEMO FLAGS AUTO DIFF
[2017-03-10 04:33] LABS: BICARBONATE 23.8 MEQ/L (21.0-32.0); CALCIUM-PROTEIN CORRECTED 7.5 MG/DL (8.5-10.1); MAGNESIUM 2.9 MG/DL (1.5-2.5); POTASSIUM 4.1 MEQ/L (3.5-5.1); TOTAL BILIRUBIN ADULT 1.2 MG/DL (0.2-1.0)
[2017-03-10 04:42] LABS: APTT (PATIENT) 58.8 SEC (24.3-30.1)
[2017-03-10] MEDS: HYDROmorphone HCL PF 1 MG/ML VIAL IV PRN (05:12)
[2017-03-10] MEDS: LORazepam 2 MG/ML VIAL IV PUSH PRN (05:12)
--- NOTE | 2017-03-10 05:20 | RADRPT ---
EXAM DATE/TIME: 03/10/2017 04:31 [facility] COMPARISON: CHEST SINGLE AP, March 09, 2017, 4:42. INDICATIONS : Shortness of breath. MEDICAL HISTORY : Hepatitis C. MRSA. Substance use SURGICAL HISTORY : Skin abcesses ENCOUNTER: Subsequent ACUITY: 4 - 6 days PAIN SCORE: Non-responsive. LOCATION: Bilateral chest FINDINGS: The cardiac silhouette is enlarged in transverse diameter. Nasogastric tube has the proximal sidehole in the distal esophagus and this could be advanced at least 5 cm. There is patchy alveolar disease b ilaterally compatible with edema or pneumonia. There has been no significant change when compared to the prior exam. CONCLUSION: 1. Cardiomegaly Patchy alveolar disease characteristic of edema or pneumonia. There has been no sign ificant change when compared to the prior exam. 2. Nasogastric tube as above Bertrand Adhikari MD on March 10, 2017 at 5:17 Board Certified Radiologist. This report was verified electronically.
[2017-03-10 05:22] LABS: BANDS 9 % (0-6); CORRECTED NUCLEATED RBC 1 /100 WBC (0-0); DOHLE BODIES PRESENT (NONE SEEN); METAMYELOCYTES 3 % (0-1); MYELOCYTES 1 % (0-0); NEUTROPHIL # MANUAL DIFF 18.6 TH/MM3 (1.8-7.7); PLATELET ESTIMATE SMEAR LOW (NORMAL); PLATELET MORPHOLOGY NORMAL (NORMAL); POLYS (SEG NEUTROPHILS) 79 % (16-70); SCAN/DIFF FINAL DIFF MANUAL; TOXIC GRANULATION 1+ (NORMAL); WBC DIFF SAMPLE 100
[2017-03-10] MEDS: BUPRENORPHINE HCL 8 MG SUBLINGUAL TAB SL SCH ×4 (05:45→23:28)
[2017-03-10] MEDS: fentaNYL DRIP 250 ML IV SCH ×2 (06:16→20:01)
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
[2017-03-10] MEDS: DOCUSATE SODIUM 50 MG/SENNA 8.6 MG TAB PO SCH ×2 (09:00→20:00)
[2017-03-10] MEDS: PANTOPRAZOLE SODIUM 40 MG VIAL IV SCH (09:17)
[2017-03-10] MEDS: SODIUM CHLORIDE 0.9% FLUSH 10 ML FLUSH IV FLUSH SCH ×2 (09:17→20:00)
[2017-03-10] MEDS: CHLORHEXIDINE 0.12% (ORAL KIT) 15 ML CUP MT SCH ×2 (09:18→20:00)
[2017-03-10] MEDS ORDERED: PHARMACY ORDERED LAB ONE (11:45)
--- NOTE | 2017-03-10 11:55 | HHI.IDPN ---
Subjective Subjective Remarks is a 26-year-old 3 para 1 AB 1 at 32-5/7 week gestation with an EDC of 04/28 but was delivered prematurely due to PROM per Ob notes on . Patients mom was in the room at time of my visit and provided me with history and Dad confirmed these findings. 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 Patient admitted to use of Dilaudid and Cocaine per day. The patient incidentally was found to have this . She has had a miscarriage before. Patient currently has 2 active boyfriends according to Mom. She is the only child. 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 She denied any headache, visual changes or abdominal pain. The patient was noted to be in preeclampsia with a protein creatinine ratio 0.47, urine protein 117. The patient was also noted to have leukocytosis, and febrile. The patient was placed on a magnesium infusion. 03/07: Afebrile. Noted bacteremia showing gram-positive cocci. On 03/07/17 patient become tachypneic with respiratory rate high 30s-40, on nonrebreather . Chest x-ray was performed, and ABG showing hypoxemia, PaO2 129 on 100%. Plan for emergent intubation. Suboxone was initiated yesterday, magnesium level has been titrated to parameter of 6-7. The patient was noted to be thrombocytopenic today secondary to HELLP syndrome. The patient was emergently intubated for hypoxemia on 03/07/2017. Of note the patient also has a history of a chemical lung injury and had been seen intermittently by therapeutic strategy lead. An echo was performed showing mitral valve vegetation, and a large thrombus in the right ventricle, and full anticoagulation was initiated last night with Argatroban in the setting of thrombocytopenia. CVT has been consulted and recommends medical management. The patient was placed on empiric antibiotics,WBC count increasing, ID was consulted for Sepsis and Staph endocarditis. 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 Overnight events reviewed. Remains in ISC Extubated. Arias secretions small to moderate. UO ok. No diarrhea No rash BCX from 03/08/17 positive but was before Ancef started which is the drug of choice. Antibiotics Ancef IV Vanco IV Lines Line sites with no e.o infection. Past Medical History reviewed. Allergies: Coded Allergies: Penicillin (Verified Allergy, Intermediate, hives, 11/21/16) *MDRO Multi-Drug Resistant Organism (Verified Adverse Reaction, Unknown, ) MRSA (breast wound) - 04/30/16 Objective . Vital Signs Date Time Temp Pulse Resp B/P Pulse Ox O2 Delivery O2 Flow Rate FiO2 03/10/17 10:00 127 03/10/17 08:40 100 Non-Rebreather 100 03/10/17 08:00 132 03/10/17 08:00 101.5 132 34 135/86 93 03/10/17 08:00 40 03/10/17 07:00 97 Mechanical Ventilator 50 03/10/17 06:00 108 03/10/17 04:00 99.4 104 25 127/73 98 03/10/17 04:00 104 03/10/17 04:00 40 03/10/17 03:43 99 40 03/10/17 02:00 112 03/10/17 00:10 96 40 03/10/17 00:00 99.8 110 32 106/58 93 03/10/17 00:00 40 03/10/17 00:00 92 03/09/17 22:00 110 03/09/17 20:25 95 40 03/09/17 20:00 110 03/09/17 20:00 40 03/09/17 20:00 100.1 122 30 123/80 95 03/09/17 19:00 94 Mechanical Ventilator 40 03/09/17 18:00 111 03/09/17 16:23 97 40 03/09/17 16:00 90 03/09/17 16:00 50 03/09/17 16:00 98.8 90 32 115/62 95 03/09/17 14:00 94 03/09/17 12:12 99 50 03/09/17 12:07 50 03/09/17 12:00 99.3 94 26 110/60 100 03/09/17 12:00 94 03/09/17 12:00 50 03/09/17 03/09/17 03/10/17 15:00 23:00 07:00 Intake Total 1217 ml 1011 ml 1088 ml Output Total 475 ml 525 ml 500 ml Balance 742 ml 486 ml 588 ml IV Total 1217 ml 972 ml 1010 ml Tube Feeding 39 ml 78 ml Output Urine Total 475 ml 525 ml 500 ml Stool Total 0 ml 0 ml # Sanitary Pads 0 Pads 1 Pads 0 Pads 0 Pads 1 Pads 0 Pads 0 Pads 1 Pads 0 Pads 0 Pads 1 Pads 0 Pads . Laboratory Tests Test 03/09/17 03/09/17 03/10/17 03:15 10:10 04:00 White Blood Count 16.1 TH/MM3 16.7 TH/MM3 20.2 TH/MM3 Red Blood Count 2.32 MIL/MM3 2.87 MIL/MM3 3.02 MIL/MM3 Hemoglobin 6.6 GM/DL 8.2 GM/DL 8.8 GM/DL Hematocrit 19.9 % 25.1 % 26.7 % Mean Corpuscular Volume 85.7 FL 87.5 FL 88.4 FL Mean Corpuscular Hemoglobin 28.6 PG 28.7 PG 29.1 PG Mean Corpuscular Hemoglobin 33.4 % 32.8 % 32.9 % Concent Red Cell Distribution Width 15.3 % 15.2 % 15.7 % Platelet Count 74 TH/MM3 67 TH/MM3 86 TH/MM3 Mean Platelet Volume 8.3 FL 8.4 FL 8.2 FL Neutrophils (%) (Auto) 80.5 % 82.2 % Lymphocytes (%) (Auto) 13.9 % 11.6 % Monocytes (%) (Auto) 5.0 % 5.2 % Eosinophils (%) (Auto) 0.3 % 0.9 % Basophils (%) (Auto) 0.3 % 0.1 % Neutrophils # (Auto) 13.0 TH/MM3 16.6 TH/MM3 Lymphocytes # (Auto) 2.2 TH/MM3 2.3 TH/MM3 Monocytes # (Auto) 0.8 TH/MM3 1.1 TH/MM3 Eosinophils # (Auto) 0.0 TH/MM3 0.2 TH/MM3 Basophils # (Auto) 0.0 TH/MM3 0.0 TH/MM3 CBC Comment AUTO DIFF AUTO DIFF Differential Total Cells 100 100 Counted Neutrophils % (Manual) 76 % 79 % Band Neutrophils % 3 % 9 % Lymphocytes % 14 % 5 % Monocytes % 5 % 3 % Neutrophils # (Manual) 13.0 TH/MM3 18.6 TH/MM3 Myelocytes 2 % 1 % Nucleated Red Blood Cells 1 /100 WBC 1 /100 WBC Differential Comment FINAL DIFF FINAL DIFF MANUAL MANUAL Dohle Bodies PRESENT PRESENT Platelet Estimate LOW LOW Platelet Morphology Comment NORMAL NORMAL Acanthocytes OCC Blood Smear Pathologist Review Haptoglobin 122 MG/DL Metamyelocytes 3 % Toxic Granulation 1+ Laboratory Tests Test 03/09/17 03/09/17 03/10/17 03:15 17:25 04:00 Sodium Level 140 MEQ/L 143 MEQ/L Potassium Level 4.1 MEQ/L 4.1 MEQ/L Chloride Level 108 MEQ/L 112 MEQ/L Carbon Dioxide Level 25.3 MEQ/L 23.8 MEQ/L Anion Gap 7 MEQ/L 7 MEQ/L Blood Urea Nitrogen 32 MG/DL 18 MG/DL Creatinine 0.89 MG/DL 0.72 MG/DL Estimat Glomerular Filtration 78 ML/MIN 100 ML/MIN Rate Random Glucose 67 MG/DL 82 MG/DL Calcium Level 6.9 MG/DL 7.2 MG/DL Protein Corrected Calcium 7.5 MG/DL 7.5 MG/DL Phosphorus Level 4.5 MG/DL 3.6 MG/DL Magnesium Level 3.5 MG/DL 3.1 MG/DL 2.9 MG/DL Total Bilirubin 0.8 MG/DL 1.2 MG/DL Direct Bilirubin 0.4 MG/DL Indirect Bilirubin 0.4 MG/DL Aspartate Amino Transf 23 U/L 42 U/L (AST/SGOT) Alanine Aminotransferase 7 U/L 8 U/L (ALT/SGPT) Alkaline Phosphatase 237 U/L 278 U/L Lactate Dehydrogenase 349 U/L Total Protein 6.0 GM/DL 6.5 GM/DL Albumin 1.5 GM/DL 1.5 GM/DL Microbiology Date/Time Procedure Status Source Growth 03/08/17 13:45 Aerobic Blood Culture - Final Resulted Blood Peripheral Staphylococcus Aureus 03/08/17 13:45 Anaerobic Blood Culture - Preliminary Resulted Blood Peripheral NO GROWTH IN 2 DAYS 03/08/17 14:00 Aerobic Blood Culture - Final Resulted Blood Peripheral Staphylococcus Aureus 03/08/17 14:00 Anaerobic Blood Culture - Preliminary Resulted Blood Peripheral NO GROWTH IN 2 DAYS 03/09/17 17:36 Aerobic Blood Culture Ordered Blood Peripheral Pending 03/09/17 17:36 Anaerobic Blood Culture Ordered Blood Peripheral Pending 03/09/17 19:49 Aerobic Blood Culture - Preliminary Resulted Blood Peripheral NO GROWTH IN 1 DAY 03/09/17 19:49 Anaerobic Blood Culture - Final Resulted Blood Peripheral ONLY AEROBIC CULTURE ORDERED 03/09/17 19:59 Aerobic Blood Culture - Preliminary Resulted Blood Peripheral NO GROWTH IN 1 DAY 03/09/17 19:59 Anaerobic Blood Culture - Final Resulted Blood Peripheral QNS - SEE AEROBE REPORT Imaging Last Impressions Chest X-Ray 03/09/17 0600 Signed Impressions: Service Date/Time: Thursday, March 09, 2017 04:42 - CONCLUSION: 1. Improving diffuse edema versus pneumonia Bertrand Adhikari MD Liver Ultrasound 03/08/17 0000 Signed Impressions: Service Date/Time: Wednesday, March 08, 2017 08:41 - CONCLUSION: Hepatosplenomegaly. Gallbladder filled with sludge. Mild wall thickening and pericholecystic fluid. Minimal nonspecific perinephric fluid on the right Ricky Wilson MD CT Angiography 03/07/17 0000 Signed Impressions: Service Date/Time: Tuesday, March 07, 2017 22:54 - CONCLUSION: 1. No evidence of pulmonary embolism. 2. Diffuse alveolar disease as well as cavitary nodules which may reflect septic emboli. Bertrand Adhikari MD Lower Extremity Ultrasound 03/06/17 0849 Signed Impressions: Service Date/Time: Monday, March 06, 2017 09:09 - CONCLUSION: Normal examination. Eddie Boykin MD Physical Exam GENERAL: This is a well-nourished, well-developed patient, in no apparent distress. SKIN: No rashes, ecchymoses or lesions. Cool and dry. HEAD: Atraumatic. Normocephalic. No temporal or scalp tenderness. EYES: Pupils equal round and reactive. Extraocular motions intact. No scleral icterus. No injection or drainage. ENT: No oral thrush, dry NECK: Trachea midline.Supple, nontender, no meningeal signs. CARDIOVASCULAR: RRR, ? systolic murmur. RESPIRATORY: Clear to auscultation. Breath sounds equal bilaterally. No wheezes , rales, or rhonchi. GASTROINTESTINAL: Abdomen soft, non-tender, nondistended. MUSCULOSKELETAL: Extremities without clubbing, cyanosis. 2-3 plus pedal edema. NEUROLOGICAL: Sedated gets agitated off sedation easily. Psych: could not be assessed. Assessment & Plan Remarks Severe Sepsis MSSA bacteremia/endocarditis, Atrial large thrombus. Pulm Septic emboli. Fetus at risk for infection: recommend sepsis workup in child. Acute metabolic encephalopathy: sepsis, medication withdrawal, at risk for meningitis (will reassess based on follow up clinical exam) Thrombocytopenia: Platelets could have been low from Sepsis, DIC, hep C as well. Post at risk for endometritis. Hepatitis C positive. Recs Continue Ancef IV CTS note reviewed: non surgical Mment. Thrombus management per Primary, cards and hematology. If persistent bacteremia despite change in regimen may need 2nd agent such as Genta and need change in lines as well as further workup like LAURIE and repeat imaging. Nicky Mena RN, MD March 10, 2017 11:55
[2017-03-10 13:31] LABS: BLOOD GAS VENOUS BASE EXCESS -2.6 mmol/L (-2-2); BLOOD GAS VENOUS HCO3 22 mmol/L (22-26); BLOOD GAS VENOUS O2 CONTENT 9.9 Vol % (9.0-17.0); BLOOD GAS VENOUS O2 HGB SAT 72 % (70-76); BLOOD GAS VENOUS PCO2 36 mmHg (44-48); BLOOD GAS VENOUS PO2 41 mmHg (35-40); CRITICAL VALUE NO; DRAW SITE SWAN GANZ LINE; FIO2 100 %; OXYGEN DEVICE NRB; STAT NO; TEMP CORR TO 98.6
[2017-03-10] MEDS: SODIUM CHLOR 0.9% 1000 ML INJ 1,000 ML IV SCH ×2 (14:02→23:28)
[2017-03-10 14:41] LABS: BLOOD GAS VENOUS BASE EXCESS -2.8 mmol/L (-2-2); BLOOD GAS VENOUS HCO3 21 mmol/L (22-26); BLOOD GAS VENOUS O2 CONTENT 8.5 Vol % (9.0-17.0); BLOOD GAS VENOUS O2 HGB SAT 63 % (70-76); BLOOD GAS VENOUS PCO2 33 mmHg (44-48); BLOOD GAS VENOUS PO2 34 mmHg (35-40); BLOOD GAS VENOUS pH 7.42 (7.360-7.400)
[2017-03-10 14:42] LABS: CRITICAL VALUE NO; DRAW SITE SWAN GANZ LINE; LITER FLOW 15 L/M; OXYGEN DEVICE NRB; STAT NO
[2017-03-10] MEDS ORDERED: ROCURONIUM INJ 50 MG/5 ML VIAL ONE (17:01)
--- NOTE | 2017-03-10 17:27 | PD.PROCEDR ---
Procedure Note Procedure DX: Hypoxemic Respiratory Failure (J96.01) OP: Orotracheal Intubation (70774) Procedure: Bag mask ventilation. Fentanyl 200 mics iv, versed 10 mg iv, rocuronium 100 mg iv. Intubated orally with 7.5 tube. Position confirmed with CO2 detection, breath sounds, sats 100%. CXR ordered, will review. Lj Hamm MD March 10, 2017 17:27
[2017-03-10] MEDS ORDERED: fentaNYL DRIP 250 ML IV SCH (17:30)
[2017-03-10 18:10] LABS: HEPARIN AB OD 0.172 O.D. (0.000-0.300); HEPARIN INDUCED PLATELET AB NEGATIVE (NEGATIVE)
--- NOTE | 2017-03-10 18:22 | RADRPT ---
EXAM DATE/TIME: 03/10/2017 17:56 [facility] COMPARISON: CHEST SINGLE AP, March 10, 2017, 4:31. INDICATIONS : Status post intubation. Respiratory failure and pulmonary infiltrates. MEDICAL HISTORY : None. SURGICAL HISTORY : None. ENCOUNTER: Subsequent ACUITY: 1 day PAIN SCORE: Non-responsive. LOCATION: chest FINDINGS: A single AP semierect portable view of the chest was obtained and demonstrates an endotracheal tube i n place with the tip approximately 2 cm above the jose l. A nasogastric tube is present and is seen c oursing through the esophagus and into the stomach. There are bilateral alveolar opacities again note d which appear mildly more confluent greatest in the perihilar regions. There is no distinct effusion . The heart size appears mildly prominent. There is a left subclavian central venous line with no chris dence of pneumothorax. CONCLUSION: 1. Endotracheal tube in place with the tip 2 cm above the jose l. 2. Bilateral alveolar opacities which appear mildly more confluent most consistent with pulmonary pat ma. This may be noncardiogenic. Jorge Aguirre MD on March 10, 2017 at 18:17 Board Certified Radiologist. This report was verified electronically.
[2017-03-10 19:28] LABS: BLOOD GAS BASE EXCESS -4.8 mmol/L (-2-2); BLOOD GAS CARBOXYHEMOGLOBIN 1.7 % (0-4); BLOOD GAS HCO3 20 mmol/L (22-26); BLOOD GAS METHEMOGLOBIN 0.9 % (0-2); BLOOD GAS O2 HGB SATURATION 97 % (90-100); BLOOD GAS OXYGEN CONTENT 15.4 Vol % (12.0-20.0); BLOOD GAS PCO2 37 mmHg (38-42); BLOOD GAS PO2 176 mmHg (61-120); BLOOD GAS TOTAL HGB 11.1 G/DL (12.0-16.0); CRITICAL VALUE NO; OXYGEN DEVICE VENTILATOR; TEMP CORR TO 98.6
[2017-03-10 19:29] LABS: DRAW SITE RT BRACHIAL; FIO2 80 %; NUMBER OF ARTERIAL PUNCTURES 1; STAT NO; VENT SETTINGS PRVC/AC
[2017-03-10] MEDS: PROPOFOL 1000 MG/100 ML INJ 100 ML IV SCH (20:01)
--- NOTE | 2017-03-10 22:58 | PD.ONC.PN ---
Subjective Subjective Remarks remains intubated and [facility] ventilation difficult wean no bleeding On argatroban GTT Objective Data Date Time Temp Pulse Resp B/P Pulse Ox O2 Delivery O2 Flow Rate FiO2 03/10/17 22:00 95 03/10/17 21:30 70 03/10/17 20:00 120 03/10/17 20:00 80 03/10/17 20:00 98.9 100 30 118/56 98 03/10/17 19:00 94 Mechanical Ventilator 80 03/10/17 18:00 132 03/10/17 17:15 95 80 03/10/17 17:15 60 03/10/17 16:00 125 03/10/17 16:00 99.9 125 60 133/74 91 03/10/17 14:00 122 03/10/17 12:00 98.3 122 48 122/77 95 03/10/17 12:00 122 03/10/17 10:00 127 03/10/17 08:40 100 Non-Rebreather 100 03/10/17 08:00 132 03/10/17 08:00 101.5 132 34 135/86 93 03/10/17 08:00 40 03/10/17 07:00 97 Mechanical Ventilator 50 03/10/17 06:00 108 03/10/17 04:00 99.4 104 25 127/73 98 03/10/17 04:00 104 03/10/17 04:00 40 03/10/17 03:43 99 40 03/10/17 02:00 112 03/10/17 00:10 96 40 03/10/17 00:00 99.8 110 32 106/58 93 03/10/17 00:00 40 03/10/17 00:00 92 03/10/17 03/10/17 03/10/17 07:00 15:00 23:00 Intake Total 1088 ml 864 ml 808 ml Output Total 500 ml 450 ml 451 ml Balance 588 ml 414 ml 357 ml Result Diagram: 03/10/17 0400 03/10/17 0400 Laboratory Results Laboratory Tests Test 03/10/17 03/10/17 03/10/17 03/10/17 04:00 10:05 14:10 19:18 White Blood Count 20.2 TH/MM3 Red Blood Count 3.02 MIL/MM3 Hemoglobin 8.8 GM/DL Hematocrit 26.7 % Mean Corpuscular Volume 88.4 FL Mean Corpuscular Hemoglobin 29.1 PG Mean Corpuscular Hemoglobin 32.9 % Concent Red Cell Distribution Width 15.7 % Platelet Count 86 TH/MM3 Mean Platelet Volume 8.2 FL Neutrophils (%) (Auto) 82.2 % Lymphocytes (%) (Auto) 11.6 % Monocytes (%) (Auto) 5.2 % Eosinophils (%) (Auto) 0.9 % Basophils (%) (Auto) 0.1 % Neutrophils # (Auto) 16.6 TH/MM3 Lymphocytes # (Auto) 2.3 TH/MM3 Monocytes # (Auto) 1.1 TH/MM3 Eosinophils # (Auto) 0.2 TH/MM3 Basophils # (Auto) 0.0 TH/MM3 CBC Comment AUTO DIFF Differential Total Cells 100 Counted Neutrophils % (Manual) 79 % Band Neutrophils % 9 % Lymphocytes % 5 % Monocytes % 3 % Neutrophils # (Manual) 18.6 TH/MM3 Metamyelocytes 3 % Myelocytes 1 % Nucleated Red Blood Cells 1 /100 WBC Differential Comment FINAL DIFF MANUAL Toxic Granulation 1+ Dohle Bodies PRESENT Platelet Estimate LOW Platelet Morphology Comment NORMAL Activated Partial 58.8 SEC Thromboplast Time Sodium Level 143 MEQ/L Potassium Level 4.1 MEQ/L Chloride Level 112 MEQ/L Carbon Dioxide Level 23.8 MEQ/L Anion Gap 7 MEQ/L Blood Urea Nitrogen 18 MG/DL Creatinine 0.72 MG/DL Estimat Glomerular Filtration 100 ML/MIN Rate Random Glucose 82 MG/DL Calcium Level 7.2 MG/DL Protein Corrected Calcium 7.5 MG/DL Magnesium Level 2.9 MG/DL Total Bilirubin 1.2 MG/DL Aspartate Amino Transf 42 U/L (AST/SGOT) Alanine Aminotransferase 8 U/L (ALT/SGPT) Alkaline Phosphatase 278 U/L Total Protein 6.5 GM/DL Albumin 1.5 GM/DL Blood Gas Puncture Site SWAN ELSA LINE SWAN ELSA LINE RT BRACHIAL Blood Gas Patient Temperature 98.6 1 98.6 Venous Blood pH 7.40 7.42 Venous Blood Partial Pressure 36 mmHg 33 mmHg CO2 Venous Blood Partial Pressure 41 mmHg 34 mmHg O2 Venous Blood HCO3 22 mmol/L 21 mmol/L Venous Blood Oxygen Saturation 72 % 63 % Venous Blood Oxygen Content 9.9 Vol % 8.5 Vol % Venous Blood Base Excess -2.6 mmol/L -2.8 mmol/L Oxygen Delivery Device NRB NRB VENTILATOR Blood Gas Inspired Oxygen 100 % 80 % Blood Gas Liter Flow 15 L/M Blood Gas HCO3 20 mmol/L Blood Gas Base Excess -4.8 mmol/L Blood Gas Oxygen Saturation 97 % Arterial Blood pH 7.35 Arterial Blood Partial 37 mmHg Pressure CO2 Arterial Blood Partial 176 mmHg Pressure O2 Arterial Blood Oxygen Content 15.4 Vol % Arterial Blood 1.7 % Carboxyhemoglobin Arterial Blood Methemoglobin 0.9 % Blood Gas Hemoglobin 11.1 G/DL Blood Gas Ventilator Setting PRVC/AC Test 03/10/17 20:56 Fibrinogen 347 mg/dL Culture Results Microbiology Date/Time Procedure Status Source Growth 03/08/17 13:45 Aerobic Blood Culture - Final Resulted Blood Peripheral Staphylococcus Aureus 03/08/17 13:45 Anaerobic Blood Culture - Preliminary Resulted Blood Peripheral NO GROWTH IN 2 DAYS 03/08/17 14:00 Aerobic Blood Culture - Final Resulted Blood Peripheral Staphylococcus Aureus 03/08/17 14:00 Anaerobic Blood Culture - Preliminary Resulted Blood Peripheral NO GROWTH IN 2 DAYS 03/09/17 17:36 Aerobic Blood Culture Ordered Blood Peripheral Pending 03/09/17 17:36 Anaerobic Blood Culture Ordered Blood Peripheral Pending 03/09/17 19:49 Aerobic Blood Culture - Preliminary Resulted Blood Peripheral NO GROWTH IN 1 DAY 03/09/17 19:49 Anaerobic Blood Culture - Final Resulted Blood Peripheral ONLY AEROBIC CULTURE ORDERED 03/09/17 19:59 Aerobic Blood Culture - Preliminary Resulted Blood Peripheral NO GROWTH IN 1 DAY 03/09/17 19:59 Anaerobic Blood Culture - Final Resulted Blood Peripheral QNS - SEE AEROBE REPORT Imaging Studies Last 24 hours Impressions Chest X-Ray 03/10/17 0600 Signed Impressions: Service Date/Time: Friday, March 10, 2017 04:31 - CONCLUSION: 1. Cardiomegaly Patchy alveolar disease characteristic of edema or pneumonia. There has been no significant change when compared to the prior exam. 2. Nasogastric tube as above Bertrand Adhikari MD Chest X-Ray 03/10/17 0000 Signed Impressions: Service Date/Time: Friday, March 10, 2017 17:56 - CONCLUSION: 1. Endotracheal tube in place with the tip 2 cm above the jose l. 2. Bilateral alveolar opacities which appear mildly more confluent most consistent with pulmonary edema. This may be noncardiogenic. Jorge Aguirre MD Administered Medications Medications (Trade) Dose Ordered Sig/Benitez Route PRN Reason Start Time Stop Time Status Last Admin Dose Admin Oxycodone/ Acetaminophen 1 tab 1 tab Q4H PRN PO PAIN SCALE 3 TO 5 03/06/17 08:15 03/06/17 13:34 Sodium Chloride (NS 1000 ml Inj) 1,000 ml @ 84 mls/hr [id number] IV 03/06/17 13:29 03/10/17 14:02 Sodium Chloride (NS Flush) 2 ml BID IV FLUSH 03/06/17 21:00 03/10/17 20:00 Hydromorphone HCl (Dilaudid Pf Inj) 1 mg Q4H PRN IV PAIN SCALE 6 TO 10 03/06/17 13:30 03/10/17 05:12 Pantoprazole Sodium (Protonix Inj) 40 mg DAILY IV 03/07/17 09:00 03/10/17 09:17 Senna/Docusate Sodium (Latosha-Colace) 2 tab BID PO 03/06/17 21:00 03/10/17 20:00 Miscellaneous Information 1 [id number] XX 03/06/17 13:30 03/07/17 20:46 Chlorhexidine Gluconate 3 pack 3 pack Taper DAILY@04 TOP 03/07/17 04:00 03/03/18 03:59 03/10/17 04:07 Potassium Chloride (KCl 20 Meq Premix Inj) 100 ml @ 50 mls/hr Q2H PRN IV For Potassium 2.8 - 3.2 mEq/L 03/06/17 13:30 03/06/17 20:13 Buprenorphine HCl (Buprenorphine) 4 mg Q6HR SL 03/06/17 18:00 03/10/17 05:45 Lorazepam 1 mg 1 mg Q4H PRN IV PUSH MILD ANXIETY OR AGITATION 03/06/17 15:15 03/10/17 05:12 Midazolam HCl 100 ml @ 0 mls/hr TITRATE IV 03/07/17 13:30 03/10/17 20:01 Argatroban 250 mg/ Sodium Chloride 252.5 ml @ 0 mls/hr TITRATE IV 03/07/17 21:00 03/09/17 16:26 Cefazolin Sodium/ Dextrose (Ancef 2 Gm Premix) 50 ml @ 100 mls/hr Q8H IV 03/08/17 11:00 03/10/17 20:00 Chlorhexidine Gluconate 15 ml 15 ml BID@08,20 MT 03/10/17 20:00 03/10/17 20:00 Propofol 100 ml @ 0 mls/hr TITRATE IV 03/10/17 17:30 03/10/17 20:01 Fentanyl Citrate (fentaNYL DRIP) 250 ml @ 0 mls/hr TITRATE IV 03/10/17 17:30 03/10/17 20:01 Objective Remarks GENERAL: critically ill LYMPHATIC: No adenopathy. CARDIOVASCULAR: Regular rate and rhythm without murmurs. RESPIRATORY: Breath sounds equal bilaterally. GASTROINTESTINAL: Abdomen soft, non-tender, nondistended. EXTREMITIES: No cyanosis, or edema. Assessment/Plan Problem List: (1) Infective endocarditis Status: Acute Plan: --on IV antibiotics. --gram-positive cocci bacteremia. --echocardiogram --> hyperdynamic dynamic left ventricle, mitral valve vegetation and echogenic mass in the right ventricle suggestive of a thrombus--> currently on Argatroban --Infectious Disease and Cardiology following (2) Thrombocytopenia Status: Acute Plan: likely multifactorial due to infection+hepatosplenomegaly, h/o hep C, ? no obvious bleeding -- Differential diagnosis also includes HELLP syndrome, although this is questionable since her liver functions are normal and total bilirubin level was not elevated. Other possibilities include TTP and hemolytic/uremic syndrome. --nicholas test negative --LDH elevated, haptoglobin normal, indirect bili normal --HIT pending, but the diagnosis is not favored -- liver ultrasound shows hepatosplenomegaly. --peripheral smear review--> does not show substantial numbers of fragmented cells--microangiopathic hemolytic process unlikely. --Transfuse cryoprecipitate to keep fibrinogen greater than 150. --Transfuse to keep platelet count greater than 30,000 (3) Anemia Status: Acute Plan: --LDH slightly elevated, haptoglobin normal --Transfuse to keep hemoglobin greater than 7. --stool heme-occult pending Assessment 26y/o female, critically ill in respiratory failure in [facility]. Hematology consulted for acute thrombocytopenia and anemia. History (from initial consult) 3, para 1, AB 1 who was at 32.5 weeks gestation with expected delivery of April 28 but delivered prematurely on 2016. After delivery the patient decompensated and became hypoxic and went into respiratory failure. She was intubated and is currently in the intensive care unit. The patient has a known history of IV drug abuse. Her UDS was positive for opiates, benzodiazepine and cocaine. Plan 1. Thrombocytopenia due to sepsis/DIC/consumption: Transfuse to keep platelets greater than 30. Fibrinogen preserved at this time. Transfuse cryoprecipitate to keep Fibrinogen > 150. repeat peripheral smear review. No evidence of MAHA. HIT negative 2. Anemia-- due to multiple reason. check B12/folate/iron studies. Obtain stool heme- occult when feasible. check bilirubin fractions again in am 3. Leukocytosis due to sepsis d/w Andrew Solomon MD March 10, 2017 22:58
[2017-03-11] VITALS (20 sets, daily range): BP systolic 104–120; BP diastolic 55–69; PULSE 66–97; RESP 20–28; TEMP 94.8–100.6; O2SAT 91–100
[2017-03-11] MEDS: fentaNYL DRIP 250 ML IV SCH ×4 (00:27→19:42)
[2017-03-11] MEDS: PROPOFOL 1000 MG/100 ML INJ 100 ML IV SCH ×4 (00:27→19:42)
[2017-03-11] MEDS: ceFAZolin 2 GM PREMIX 50 ML IV SCH ×3 (02:37→17:52)
[2017-03-11] MEDS: CHLORHEXIDINE GLUCONATE 2 % 1 PACK (2 CLOTHS) TOP SCH (03:45)
[2017-03-11 04:04] LABS: AUTOMATED NEUTROPHIL # 18.2 TH/MM3 (1.8-7.7); BASOPHIL % 0.1 % (0.0-2.0); EOSINOPHIL # 0.1 TH/MM3 (0-0.4); EOSINOPHIL % 0.5 % (0.0-4.0); HEMATOCRIT 21.5 % (35.0-46.0); LYMPH % 9.3 % (9.0-44.0); MEAN CELL VOLUME 90.2 FL (80.0-100.0); MEAN CORPUSCULAR HEMOGLOBIN 28.8 PG (27.0-34.0); MONO % 3.9 % (0.0-8.0); NEUT % 86.2 % (16.0-70.0); PLATELET COUNT 83 TH/MM3 (150-450); RED BLOOD COUNT 2.38 MIL/MM3 (4.00-5.30); RED CELL DISTRIBUTION WIDTH 15.8 % (11.6-17.2); WHITE BLOOD COUNT 21.1 TH/MM3 (4.0-11.0)
[2017-03-11] MEDS: RESP: ALBUTEROL 2.5 MG/IPRATROPIUM 0.5 MG NEB (SCH) NEB ×3 (04:07→15:49)
[2017-03-11 04:25] LABS: HEMO FLAGS AUTO DIFF
[2017-03-11 04:32] LABS: APTT (PATIENT) 69.9 SEC (24.3-30.1); INTERNATIONAL NORMALIZED RATIO 3.6 RATIO; PROTHROMBIN TIME - PATIENT 42.3 SEC (9.8-11.6)
[2017-03-11 04:40] LABS: BICARBONATE 22.2 MEQ/L (21.0-32.0); INDIRECT BILIRUBIN 0.4 MG/DL (0.0-0.8); POTASSIUM 4.4 MEQ/L (3.5-5.1)
[2017-03-11 05:03] LABS: CALCIUM-PROTEIN CORRECTED 8.1 MG/DL (8.5-10.1)
[2017-03-11] MEDS: BUPRENORPHINE HCL 8 MG SUBLINGUAL TAB SL SCH ×3 (06:00→17:52)
[2017-03-11 06:59] LABS: BANDS 6 % (0-6); EOSINOPHILS 1 % (0-4); METAMYELOCYTES 3 % (0-1); MYELOCYTES 1 % (0-0); PLATELET ESTIMATE SMEAR LOW (NORMAL); PLATELET MORPHOLOGY NORMAL (NORMAL); POLYS (SEG NEUTROPHILS) 85 % (16-70); WBC DIFF SAMPLE 100
[2017-03-11 07:00] LABS: SCAN/DIFF FINAL DIFF MANUAL
--- NOTE | 2017-03-11 08:34 | HHI.CCPN ---
Subjective Remarks/Hospital Course 26-year-old 3 para 1 AB 1 at 32-5/7 week gestation with an EDC of 04/28 that she claims was given based on an ultrasound in the local obstetrical office approximately one month ago. She does not have any recollection of her last menstrual period. She has had no care other than the physical ultrasound was obtained. She was to follow up in another office and failed to keep that appointment. The patient reports tonight with generalized discomfort and swelling of her legs for the past 5 days. She reports having used 4 mg of Suboxone at 11:30 PM on 02/02/17. She also admits to 8 mg of Dilaudid per day and proximally $20 of cocaine per day with the most recent use of both of these in the last 12 hours prior to admission to the hospital.She reports that her legs began to swell proximal 5 days ago. She denies any headache, visual changes or abdominal pain. The patient was noted to be in preeclampsia with a protein creatinine ratio 0.47, urine protein 117. The patient was also noted to have leukocytosis , and febrile. The patient was placed on a magnesium infusion. The patient subsequently had a spontaneous vaginal delivery without general or regional anesthesia. Critical care medicine was consulted for management. Upon entering the room the patient was noted to be writhing in pain complaining of left hip left leg pain, BP 90/68 with magnesium infusing. Subjective: 03/07: Afebrile. Noted bacteremia showing gram-positive cocci. Early this morning the patient has become tachypnea respiratory rate high 30s-40, on nonrebreather . Chest x-ray was performed, and ABG showing hypoxemia, PaO2 129 on 100%. Plan for emergent intubation. Suboxone was initiated yesterday, magnesium level has been titrated to parameter of 6-7. The patient was noted to be thrombocytopenic today secondary to HELLP syndrome , plan for transfusion of 2 units of platelets this a.m. .The patient remains normotensive. 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 Patient 's FiO2 has been weaned down to 50% this a.m.. An echo was performed yesterday evening showing mitral valve vegetation, and a large thrombus in the right ventricle, and full anticoagulation was initiated last night with Argatroban in the setting of thrombocytopenia. CVT has been consulted. Hemoglobin results 6.9 , and platelet count 42,000. The patient will be transfused today 1 unit PRBC, 2 units of platelets. Suboxone was placed on hold, patient sedation includes Versed and fentanyl infusions for ventilator synchrony. The patient was placed on empiric antibiotics ,WBC count increasing, ID has been consulted. 03/09: Patient remains intubated heavily sedated, Remains on Argatroban for Large RV thrombus. Platelet count is 67 today. HIT screen pending. Started on Ancef yesterday, tolerating well. On lightening sedation, moves all extremities. 03/10: Having ongoing problems with agitation on ventilator. Will trial extubation (FiO2 35%), use precedex if necessary. 03/11: Required re-intubation about 5 hours after extubation yesterday. Consolidation in lungs worse. Will require at least 2-3 days additional ventilator support. Objective Vital Signs Date Time Temp Pulse Resp B/P Pulse Ox O2 Delivery O2 Flow Rate FiO2 03/11/17 06:00 84 03/11/17 05:43 50 03/11/17 05:40 96 03/11/17 04:00 98.8 24 117/64 03/10/17 19:00 Mechanical Ventilator Intake and Output 03/10/17 03/10/17 03/11/17 08:00 16:00 00:00 Intake Total 1088 ml 864 ml 808 ml Output Total 500 ml 450 ml 451 ml Balance 588 ml 414 ml 357 ml Result Diagram: 03/11/17 0355 03/11/17 0355 Other Results Laboratory Tests Test 03/10/17 03/10/17 03/10/17 10:05 14:10 19:18 Blood Gas Puncture Site SWAN ELSA LINE SWAN ELSA LINE RT BRACHIAL Blood Gas Patient Temperature 98.6 1 98.6 Venous Blood pH 7.40 7.42 (7.360-7.400) (7.360-7.400) Venous Blood Partial Pressure 36 mmHg (44-48) 33 mmHg (44-48) CO2 Venous Blood Partial Pressure 41 mmHg (35-40) 34 mmHg (35-40) O2 Venous Blood HCO3 22 mmol/L 21 mmol/L (22-26) (22-26) Venous Blood Oxygen Saturation 72 % (70-76) 63 % (70-76) Venous Blood Oxygen Content 9.9 Vol % 8.5 Vol % (9.0-17.0) (9.0-17.0) Venous Blood Base Excess -2.6 mmol/L -2.8 mmol/L (-2-2) (-2-2) Oxygen Delivery Device NRB NRB VENTILATOR Blood Gas Inspired Oxygen 100 % 80 % Blood Gas Liter Flow 15 L/M Blood Gas HCO3 20 mmol/L (22-26) Blood Gas Base Excess -4.8 mmol/L (-2-2) Blood Gas Oxygen Saturation 97 % (90-100) Arterial Blood pH 7.35 (7.380-7.420) Arterial Blood Partial 37 mmHg (38-42) Pressure CO2 Arterial Blood Partial 176 mmHg Pressure O2 (61-120) Arterial Blood Oxygen Content 15.4 Vol % (12.0-20.0) Arterial Blood 1.7 % (0-4) Carboxyhemoglobin Arterial Blood Methemoglobin 0.9 % (0-2) Blood Gas Hemoglobin 11.1 G/DL (12.0-16.0) Blood Gas Ventilator Setting PRVC/AC Imaging Last Impressions Chest X-Ray 03/08/17 0600 Signed Impressions: Service Date/Time: Wednesday, March 08, 2017 02:07 - CONCLUSION: 1. Patchy alveolar disease characteristic of edema or pneumonia. There has been no significant change when compared to the prior exam. Bertrand Adhikari MD CT Angiography 03/07/17 0000 Signed Impressions: Service Date/Time: Tuesday, March 07, 2017 22:54 - CONCLUSION: 1. No evidence of pulmonary embolism. 2. Diffuse alveolar disease as well as cavitary nodules which may reflect septic emboli. Bertrand Adhikari MD Lower Extremity Ultrasound 03/06/17 0849 Signed Impressions: Service Date/Time: Monday, March 06, 2017 09:09 - CONCLUSION: Normal examination. Eddie Boykin MD Last 24 hours Impressions Lower Extremity Ultrasound 03/06/17 0849 Signed Impressions: Service Date/Time: Monday, March 06, 2017 09:09 - CONCLUSION: Normal examination. Eddie Boykin MD Chest X-Ray 03/06/17 0000 Signed Impressions: Service Date/Time: Monday, March 06, 2017 11:00 - CONCLUSION: Bilateral airspace disease and cardiomegaly. Eddie Boykin MD Objective Remarks GENERAL: Pale, ill-appearing young female intubated and sedated SKIN: Warm and dry. HEAD: Atraumatic. Normocephalic. EYES: Pupils equal and round. No scleral icterus. No injection or drainage. ENT: No nasal bleeding or discharge. orotracheally intubated NECK: Trachea midline. No orally intubated. CARDIOVASCULAR: Normal rate, regular rhythm. RESPIRATORY: Mechanical ventilation. Bilateral course breath sounds, few crackles. GASTROINTESTINAL: Abdomen soft, non-tender. Protuberant, quiet. MUSCULOSKELETAL: Peripheral pitting edema bilateral upper and lower extremities NEUROLOGICAL: Intubated heavily sedated. Pupils equal. Moves all extremities on lightening sedation. Conversant while extubated. Date of Insertion: Mar 06, 2017 Date of Insertion: Mar 07, 2017 Line: Central Venous Catheter Side: Left Location: Subclavian A/P Assessment and Plan Neurologic: IVDU Benzodiazepine dependence Metabolic encephalopathy Positive urine tox screen-opiates, benzodiazepines, cocaine Neurochecks every 2 hours per ICU protocol Ativan 1 mg every 4 hours PRN, Seizure precautions-in the setting of preeclampsia, and benzodiazepine dependence Dr. Erica Pérez consulted for Suboxone management-Suboxone for 4mg SL every 6 hrs scheduled- Magnesium infusion discontinued Goal RASS -2. D/C Versed 8 mg/hour and increase Fentanyl 400 mcg/hour, add propofol. Respiratory: Acute hypoxic respiratory failure Maintain O2 sat greater than 90%. PRVC with low tidal volume ventilation Bronchodilators every 6 hours scheduled, every 2 hours when necessary Mother reports the patient has a history of chemical lung injury 2014, consult pulmonology once acute problems resolved PFT 03/01/16-mild obstructive lung defect with no improvement postbronchodilator acutely. Cardiovascular: Hypertension secondary to Preeclampsia large RV thrombus, probably infected Echo performed 03/07, mitral mild regurgitation, Mod TR. probable RV thrombus Maintain MAP greater than 65 mmHg-consider vasopressors if necessary Metoprolol 2.5 mg every 6 hours when necessary for systolic blood pressure greater than 160 mmHg Continue Argatroban, hematology following Renal: Renal insufficiency , proteinuria secondary to preeclampsia Maintain Felix Creatinine improving 03/05 Protein creatinine ratio 0.47, urine protein 117-continue to monitor Strict I/Os FEN/GI: Hepatitis C Possible HELLP syndrome Hyponatremia Hypokalemia Normal saline at 84 cc/hour Magnesium discontinued 03/07 OGT, LIWS. Start tube feeds with Jevity Follow-up hepatitis panel Heme/ID: Severe sepsiss Persistent Thrombocytopenia ? secondary to HELLP syndrome vs DIC Anemia secondary to acute blood loss Bandemia H/O MRSA (04/23) Initial platelet count 41, hemoglobin 7.3-patient received 2 units of packed cells, and 1 unit of platelets prior to delivery 03/09 Platelet count 67, transfuse for platelet count less than 50,000 Consider liver ultrasound if hemoglobin continues to decrease, rule out hepatic rupture 03/07 Blood cultures-MSSA Continue Ancef and vancomycin per ID Dr. Rios Follow-up RPR, cultures IV Argatroban for RV thrombus Endocrine: Glucose monitoring per ICU protocol Electrolyte replacement per ICU protocol -- SSI Prophylaxis: GI Prophylaxis Protonix DVT Prophylaxis -- SCDs -- Argatroban for RV thrombus Lines: L sublcavian central line Dispo: Mother Arabella Guerrero [phone] updated at bedside 03/08 and 03/09 This patient remains critically ill with one or more organ systems which are or may become a threat to life. I have spent in excess of 30 minutes discontinuously in the care and management of this patient. This time is exclusive of procedures, and includes, but is not limited to, evaluation of the patient, review of the medical record, discussions with family, consultants, nursing staff, or respiratory therapy, and documentation in the medical record. Overall impression: Now in florid respiratory distress, emergency intubation and ventilation. She is critically ill and has deteriorated rapidly. Re-culture sputum. Critical Care 39 mins aside from procedures. Lj Hamm MD March 11, 2017 08:34
[2017-03-11] MEDS: DOCUSATE SODIUM 50 MG/SENNA 8.6 MG TAB PO SCH ×2 (09:55→19:46)
[2017-03-11] MEDS: PANTOPRAZOLE SODIUM 40 MG VIAL IV SCH (09:55)
[2017-03-11] MEDS: MIDAZOLAM 100 MG/ML INJ 100 ML IV SCH ×2 (09:56→19:41)
[2017-03-11] MEDS: SODIUM CHLORIDE 0.9% FLUSH 10 ML FLUSH IV FLUSH SCH ×2 (09:56→19:46)
[2017-03-11] MEDS: CHLORHEXIDINE 0.12% (ORAL KIT) 15 ML CUP MT SCH ×2 (09:57→19:46)
[2017-03-11] MEDS ORDERED: Vancomycin Consult Pharmacy 1 EA OTHER SCH (13:30)
[2017-03-11] MEDS ORDERED: Gentamicin Consult Pharmacy 1 EA OTHER SCH (13:30)
[2017-03-11] MEDS ORDERED: ROCURONIUM INJ 50 MG/5 ML VIAL IV ONE (13:45)
[2017-03-11 13:52] LABS: HCV RNA PCR LOGIU/ML 4.91 (())
--- NOTE | 2017-03-11 14:39 | PD.PROCEDR ---
Central Line Procedure REASON FOR PROCEDURE Central venous access PROCEDURE PERFORMED Central line placement: R subclavian central line CONSENT Informed consent for procedure was obtained and time our performed. The risks and benefits of the procedure were discussed to include but limited to bleeding , clot formation, infection, and even . ANESTHESIA Local injection of 1% Lidocaine DESCRIPTION OF THE PROCEDURE The patient was placed in supine, mild Trendelenburg position. The area was exposed and cleansed with ChloraPrep, times two. Large sterile drape was used to cover the patient, with the site exposed, under sterile conditions including cap, face mask, sterile gown, and sterile gloves. On single attempt, the introducer needle was inserted with negative pressure in syringe and venous flash was obtained. The guide wire was then advanced without any restriction and the needle was removed. The dilator was used without any complications. Using Seldinger technique the 20 CM 7F triple lumen ABX coated catheter was advanced over the guide wire to a depth of 16 centimeters. The guide wire was removed. All ports were aspirated with dark venous blood return and flushed easily with sterile saline. All ports were capped. Antibiotic disc was placed around central line at puncture site. The central line was secured to the skin with two interrupted 2.0 silk sutures. The area was bandaged with sterile see- through central line bandage. COMPLICATIONS: No apparent complications ESTIMATED BLOOD LOSS: Less than 1 cc. Argatroban was held for procedure, will restart 2 hours post procedure, if no bleeding or other complications Morales García MD March 11, 2017 14:39
--- NOTE | 2017-03-11 15:27 | RADRPT ---
EXAM DATE/TIME: 03/11/2017 14:50 [facility] COMPARISON: CT ABDOMEN & PELVIS W CONTRAST, March 09, 2017, 18:42. CHEST SINGLE AP, March 10, 2017, 17:56. INDICATIONS : Respiratory status. MEDICAL HISTORY : substance abbuse SURGICAL HISTORY : None. ENCOUNTER: Subsequent ACUITY: 4 - 6 days PAIN SCORE: Non-responsive. LOCATION: Bilateral upper chest FINDINGS: The ET tube, left subclavian central line, right subclavian central line and gastric tube are all in good position. The heart is enlarged. There is diffuse interstitial infiltrate throughout both lungs. There are smal l bilateral effusions. CONCLUSION: 1. Support equipment in good position. 2. Cardiomegaly diffuse bilateral infiltrates and small effusions unchanged from previous. Rolando Norris MD on March 11, 2017 at 15:23 Board Certified Radiologist. This report was verified electronically.
--- NOTE | 2017-03-11 16:52 | HHI.IDPN ---
Subjective Subjective Remarks is a 26-year-old 3 para 1 AB 1 at 32-5/7 week gestation with an EDC of 04/28 but was delivered prematurely due to PROM per Ob notes on . Patients mom was in the room at time of my visit and provided me with history and Dad confirmed these findings. 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 Patient admitted to use of Dilaudid and Cocaine per day. The patient incidentally was found to have this . She has had a miscarriage before. Patient currently has 2 active boyfriends according to Mom. She is the only child. 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 She reported that her legs began to swell proximal 5 days CLIENT SUPPORT ASSOCIATE. She denied any headache, visual changes or abdominal pain. The patient was noted to be in preeclampsia with a protein creatinine ratio 0.47, urine protein 117. The patient was also noted to have leukocytosis, and febrile. The patient was placed on a magnesium infusion. 03/07: Afebrile. Noted bacteremia showing gram-positive cocci. On 03/07/17 patient become tachypneic with respiratory rate high 30s-40, on nonrebreather . Chest x-ray was performed, and ABG showing hypoxemia, PaO2 129 on 100%. Plan for emergent intubation. Suboxone was initiated yesterday, magnesium level has been titrated to parameter of 6-7. The patient was noted to be thrombocytopenic today secondary to HELLP syndrome. The patient was emergently intubated for hypoxemia on 03/07/2017. Of note the patient also has a history of a chemical lung injury and had been seen intermittently by rubber tubing splicer. An echo was performed showing mitral valve vegetation, and a large thrombus in the right ventricle, and full anticoagulation was initiated last night with Argatroban in the setting of thrombocytopenia. CVT has been consulted and recommends medical management. The patient was placed on empiric antibiotics,WBC count increasing, ID was consulted for Sepsis and Staph endocarditis. 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 Overnight events reviewed: reintubated Remains in ISC Extubated. Arias secretions small to moderate. UO ok. Persistent fever Persistent leucocytosis. No diarrhea No rash Line placed during bacteremia was changed today. Antibiotics Ancef IV Lines Line sites with no e.o infection. Past Medical History reviewed. Allergies: Coded Allergies: Penicillin (Verified Allergy, Intermediate, hives, 11/21/16) *MDRO Multi-Drug Resistant Organism (Verified Adverse Reaction, Unknown, ) MRSA (breast wound) - 04/30/16 Objective . Vital Signs Date Time Temp Pulse Resp B/P Pulse Ox O2 Delivery O2 Flow Rate FiO2 03/11/17 16:12 97 70 03/11/17 16:00 99.9 84 24 106/55 98 03/11/17 16:00 50 03/11/17 16:00 68 03/11/17 14:00 68 03/11/17 13:30 96.1 03/11/17 12:00 94.8 66 20 104/56 93 03/11/17 12:00 68 03/11/17 12:00 50 03/11/17 11:03 92 50 03/11/17 10:00 69 03/11/17 08:38 92 50 03/11/17 08:00 77 03/11/17 08:00 98.2 77 21 120/69 91 03/11/17 08:00 50 03/11/17 07:00 94 Mechanical Ventilator 50 03/11/17 06:00 84 03/11/17 05:43 50 03/11/17 05:40 96 50 03/11/17 04:07 96 55 03/11/17 04:00 84 03/11/17 04:00 98.8 84 24 117/64 96 03/11/17 04:00 55 03/11/17 02:00 89 03/11/17 01:30 60 03/11/17 01:30 98 60 03/11/17 00:00 70 03/11/17 00:00 99.0 90 24 117/69 98 03/11/17 00:00 90 03/10/17 22:00 95 03/10/17 21:30 70 03/10/17 20:52 99 70 03/10/17 20:00 120 03/10/17 20:00 80 03/10/17 20:00 98.9 100 30 118/56 98 03/10/17 19:00 94 Mechanical Ventilator 80 03/10/17 18:00 132 03/10/17 17:15 95 80 5/3/17 17:15 60 03/10/17 03/10/17 03/11/17 15:00 23:00 07:00 Intake Total 864 ml 808 ml 1834 ml Output Total 450 ml 451 ml 350 ml Balance 414 ml 357 ml 1484 ml IV Total 864 ml 808 ml 1334 ml Tube Feeding 0 ml Packed Cells 500 ml Output Urine Total 450 ml 350 ml 300 ml Stool Total 0 ml 1 ml 0 ml Gastric Drainage Total 100 ml 50 ml # Sanitary Pads 0 Pads 1 Pads 0 Pads 0 Pads 0 Pads 1 Pads 1 Pads 0 Pads 1 Pads 0 Pads 0 Pads 1 Pads . Laboratory Tests Test 03/10/17 03/11/17 04:00 03:55 White Blood Count 20.2 TH/MM3 21.1 TH/MM3 Red Blood Count 3.02 MIL/MM3 2.38 MIL/MM3 Hemoglobin 8.8 GM/DL 6.9 GM/DL Hematocrit 26.7 % 21.5 % Mean Corpuscular Volume 88.4 FL 90.2 FL Mean Corpuscular Hemoglobin 29.1 PG 28.8 PG Mean Corpuscular Hemoglobin 32.9 % 32.0 % Concent Red Cell Distribution Width 15.7 % 15.8 % Platelet Count 86 TH/MM3 83 TH/MM3 Mean Platelet Volume 8.2 FL 8.7 FL Neutrophils (%) (Auto) 82.2 % 86.2 % Lymphocytes (%) (Auto) 11.6 % 9.3 % Monocytes (%) (Auto) 5.2 % 3.9 % Eosinophils (%) (Auto) 0.9 % 0.5 % Basophils (%) (Auto) 0.1 % 0.1 % Neutrophils # (Auto) 16.6 TH/MM3 18.2 TH/MM3 Lymphocytes # (Auto) 2.3 TH/MM3 2.0 TH/MM3 Monocytes # (Auto) 1.1 TH/MM3 0.8 TH/MM3 Eosinophils # (Auto) 0.2 TH/MM3 0.1 TH/MM3 Basophils # (Auto) 0.0 TH/MM3 0.0 TH/MM3 CBC Comment AUTO DIFF AUTO DIFF Differential Total Cells 100 100 Counted Neutrophils % (Manual) 79 % 85 % Band Neutrophils % 9 % 6 % Lymphocytes % 5 % 4 % Monocytes % 3 % Neutrophils # (Manual) 18.6 TH/MM3 20.0 TH/MM3 Metamyelocytes 3 % 3 % Myelocytes 1 % 1 % Nucleated Red Blood Cells 1 /100 WBC Differential Comment FINAL DIFF FINAL DIFF MANUAL MANUAL Toxic Granulation 1+ Dohle Bodies PRESENT Platelet Estimate LOW LOW Platelet Morphology Comment NORMAL NORMAL Eosinophils % 1 % Blood Smear Pathologist Review Laboratory Tests Test 03/09/17 03/10/17 03/11/17 17:25 04:00 03:55 Phosphorus Level 3.6 MG/DL Magnesium Level 3.1 MG/DL 2.9 MG/DL Sodium Level 143 MEQ/L 147 MEQ/L Potassium Level 4.1 MEQ/L 4.4 MEQ/L Chloride Level 112 MEQ/L 117 MEQ/L Carbon Dioxide Level 23.8 MEQ/L 22.2 MEQ/L Anion Gap 7 MEQ/L 8 MEQ/L Blood Urea Nitrogen 18 MG/DL 18 MG/DL Creatinine 0.72 MG/DL 0.58 MG/DL Estimat Glomerular Filtration 100 ML/MIN 128 ML/MIN Rate Random Glucose 82 MG/DL 81 MG/DL Calcium Level 7.2 MG/DL 7.3 MG/DL Protein Corrected Calcium 7.5 MG/DL 8.1 MG/DL Total Bilirubin 1.2 MG/DL 1.0 MG/DL Aspartate Amino Transf 42 U/L (AST/SGOT) Alanine Aminotransferase 8 U/L (ALT/SGPT) Alkaline Phosphatase 278 U/L Total Protein 6.5 GM/DL 5.7 GM/DL Albumin 1.5 GM/DL Direct Bilirubin 0.6 MG/DL Indirect Bilirubin 0.4 MG/DL Microbiology Date/Time Procedure Status Source Growth 03/09/17 17:36 Aerobic Blood Culture Ordered Blood Peripheral Pending 03/09/17 17:36 Anaerobic Blood Culture Ordered Blood Peripheral Pending 03/09/17 19:49 Aerobic Blood Culture - Final Complete Blood Peripheral Staphylococcus Aureus 03/09/17 19:49 Anaerobic Blood Culture - Final Complete Blood Peripheral ONLY AEROBIC CULTURE ORDERED 03/09/17 19:59 Aerobic Blood Culture - Final Complete Blood Peripheral Staphylococcus Aureus 03/09/17 19:59 Anaerobic Blood Culture - Final Complete Blood Peripheral QNS - SEE AEROBE REPORT Imaging Last Impressions Chest X-Ray 03/09/17 0600 Signed Impressions: Service Date/Time: Thursday, March 09, 2017 04:42 - CONCLUSION: 1. Improving diffuse edema versus pneumonia Bertrand Adhikari MD Liver Ultrasound 03/08/17 0000 Signed Impressions: Service Date/Time: Wednesday, March 08, 2017 08:41 - CONCLUSION: Hepatosplenomegaly. Gallbladder filled with sludge. Mild wall thickening and pericholecystic fluid. Minimal nonspecific perinephric fluid on the right Ricky Wilson MD CT Angiography 03/07/17 0000 Signed Impressions: Service Date/Time: Tuesday, March 07, 2017 22:54 - CONCLUSION: 1. No evidence of pulmonary embolism. 2. Diffuse alveolar disease as well as cavitary nodules which may reflect septic emboli. Bertrand Adhikari MD Lower Extremity Ultrasound 03/06/17 0849 Signed Impressions: Service Date/Time: Monday, March 06, 2017 09:09 - CONCLUSION: Normal examination. Eddie Boykin MD Physical Exam GENERAL: This is a well-nourished, well-developed patient, in no apparent distress. SKIN: No rashes, ecchymoses or lesions. Cool and dry. HEAD: Atraumatic. Normocephalic. No temporal or scalp tenderness. EYES: Pupils equal round and reactive. Extraocular motions intact. No scleral icterus. No injection or drainage. ENT: No oral thrush, dry NECK: Trachea midline.Supple, nontender, no meningeal signs. CARDIOVASCULAR: RRR, ? systolic murmur. RESPIRATORY: Clear to auscultation. Breath sounds equal bilaterally. No wheezes , rales, or rhonchi. GASTROINTESTINAL: Abdomen soft, non-tender, nondistended. MUSCULOSKELETAL: Extremities without clubbing, cyanosis. 2-3 plus pedal edema. NEUROLOGICAL: Sedated gets agitated off sedation easily. Psych: could not be assessed. Assessment & Plan Remarks Severe Sepsis MSSA bacteremia/endocarditis, Atrial large thrombus. Pulm Septic emboli. Fetus at risk for infection: recommend sepsis workup in child. Acute metabolic encephalopathy: sepsis, medication withdrawal, at risk for meningitis (will reassess based on follow up clinical exam) Thrombocytopenia: Platelets could have been low from Sepsis, DIC, hep C as well. Post at risk for endometritis. Hepatitis C positive. Recs Continue Ancef IV Start Genta IV consult for synergy. Follow sputum cultures. Repeat blood cultures x 2 today. Nicky Mena RN, MD March 11, 2017 16:52
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
[2017-03-11] MEDS: GENTAMICIN INJ 60 MG in SODIUM CHLORIDE 0.9% INJ 100 ML IV SCH (17:52)
[2017-03-11] MEDS: SODIUM CHLOR 0.9% 1000 ML INJ 1,000 ML IV SCH (17:52)
[2017-03-11] MEDS: RESP: ALBUTEROL 2.5 MG/IPRATROPIUM 0.5 MG NEB (PRN) INH (20:20)
--- NOTE | 2017-03-11 23:04 | PD.ONC.PN ---
Subjective Subjective Remarks was reintubated again remains critically ill no bleeding mother present in room Objective Data Date Time Temp Pulse Resp B/P Pulse Ox O2 Delivery O2 Flow Rate FiO2 03/11/17 22:00 97 03/11/17 20:15 50 03/11/17 20:13 100 50 03/11/17 20:00 85 03/11/17 20:00 70 03/11/17 20:00 100.6 85 28 109/57 100 03/11/17 19:00 99 Mechanical Ventilator 70 03/11/17 18:00 80 03/11/17 16:12 97 70 03/11/17 16:00 99.9 84 24 106/55 98 03/11/17 16:00 50 03/11/17 16:00 68 03/11/17 14:00 68 03/11/17 13:30 96.1 03/11/17 12:00 94.8 66 20 104/56 93 03/11/17 12:00 68 03/11/17 12:00 50 03/11/17 11:03 92 50 03/11/17 10:00 69 03/11/17 08:38 92 50 03/11/17 08:00 77 03/11/17 08:00 98.2 77 21 120/69 91 03/11/17 08:00 50 03/11/17 07:00 94 Mechanical Ventilator 50 03/11/17 06:00 84 03/11/17 05:43 50 03/11/17 05:40 96 50 03/11/17 04:07 96 55 03/11/17 04:00 84 03/11/17 04:00 98.8 84 24 117/64 96 03/11/17 04:00 55 03/11/17 02:00 89 03/11/17 01:30 60 03/11/17 01:30 98 60 03/11/17 00:00 70 03/11/17 00:00 99.0 90 24 117/69 98 03/11/17 00:00 90 03/11/17 03/11/17 03/11/17 07:00 15:00 23:00 Intake Total 1834 ml 1261 ml 1385 ml Output Total 350 ml 350 ml 300 ml Balance 1484 ml 911 ml 1085 ml Result Diagram: 03/11/17 0355 03/11/17 0355 Laboratory Results Laboratory Tests Test 03/11/17 03/11/17 03:55 04:39 White Blood Count 21.1 TH/MM3 Red Blood Count 2.38 MIL/MM3 Hemoglobin 6.9 GM/DL Hematocrit 21.5 % Mean Corpuscular Volume 90.2 FL Mean Corpuscular Hemoglobin 28.8 PG Mean Corpuscular Hemoglobin 32.0 % Concent Red Cell Distribution Width 15.8 % Platelet Count 83 TH/MM3 Mean Platelet Volume 8.7 FL Neutrophils (%) (Auto) 86.2 % Lymphocytes (%) (Auto) 9.3 % Monocytes (%) (Auto) 3.9 % Eosinophils (%) (Auto) 0.5 % Basophils (%) (Auto) 0.1 % Neutrophils # (Auto) 18.2 TH/MM3 Lymphocytes # (Auto) 2.0 TH/MM3 Monocytes # (Auto) 0.8 TH/MM3 Eosinophils # (Auto) 0.1 TH/MM3 Basophils # (Auto) 0.0 TH/MM3 CBC Comment AUTO DIFF Differential Total Cells 100 Counted Neutrophils % (Manual) 85 % Band Neutrophils % 6 % Lymphocytes % 4 % Eosinophils % 1 % Neutrophils # (Manual) 20.0 TH/MM3 Metamyelocytes 3 % Myelocytes 1 % Differential Comment FINAL DIFF MANUAL Platelet Estimate LOW Platelet Morphology Comment NORMAL Blood Smear Pathologist Review Prothrombin Time 42.3 SEC Prothromb Time International 3.6 RATIO Ratio Activated Partial 69.9 SEC Thromboplast Time Fibrinogen 323 mg/dL Sodium Level 147 MEQ/L Potassium Level 4.4 MEQ/L Chloride Level 117 MEQ/L Carbon Dioxide Level 22.2 MEQ/L Anion Gap 8 MEQ/L Blood Urea Nitrogen 18 MG/DL Creatinine 0.58 MG/DL Estimat Glomerular Filtration 128 ML/MIN Rate Random Glucose 81 MG/DL Calcium Level 7.3 MG/DL Protein Corrected Calcium 8.1 MG/DL Total Bilirubin 1.0 MG/DL Direct Bilirubin 0.6 MG/DL Indirect Bilirubin 0.4 MG/DL Total Protein 5.7 GM/DL Blood Type O POSITIVE Crossmatch Leukocyte-Reduced Red Blood Cells Blood Bank Comment Culture Results Microbiology Date/Time Procedure Status Source Growth 03/09/17 17:36 Aerobic Blood Culture Ordered Blood Peripheral Pending 03/09/17 17:36 Anaerobic Blood Culture Ordered Blood Peripheral Pending 03/09/17 19:49 Aerobic Blood Culture - Final Complete Blood Peripheral Staphylococcus Aureus 03/09/17 19:49 Anaerobic Blood Culture - Final Complete Blood Peripheral ONLY AEROBIC CULTURE ORDERED 03/09/17 19:59 Aerobic Blood Culture - Final Complete Blood Peripheral Staphylococcus Aureus 03/09/17 19:59 Anaerobic Blood Culture - Final Complete Blood Peripheral QNS - SEE AEROBE REPORT 03/11/17 15:56 Aerobic Blood Culture Received Blood Peripheral Pending 03/11/17 15:56 Anaerobic Blood Culture Received Blood Peripheral Pending 03/11/17 18:46 Aerobic Blood Culture Received Blood Peripheral Pending 03/11/17 18:46 Anaerobic Blood Culture Received Blood Peripheral Pending Imaging Studies Last 24 hours Impressions Chest X-Ray 03/11/17 0000 Signed Impressions: Service Date/Time: March 14:50 - CONCLUSION: 1. Support equipment in good position. 2. Cardiomegaly diffuse bilateral infiltrates and small effusions unchanged from previous. Rolando Norris MD Administered Medications Medications (Trade) Dose Ordered Sig/Benitez Route PRN Reason Start Time Stop Time Status Last Admin Dose Admin Oxycodone/ Acetaminophen 1 tab 1 tab Q4H PRN PO PAIN SCALE 3 TO 5 03/06/17 08:15 03/06/17 13:34 Sodium Chloride (NS 1000 ml Inj) 1,000 ml @ 84 mls/hr [id number] IV 03/06/17 13:29 03/11/17 17:52 Sodium Chloride (NS Flush) 2 ml BID IV FLUSH 03/06/17 21:00 03/11/17 19:46 Hydromorphone HCl (Dilaudid Pf Inj) 1 mg Q4H PRN IV PAIN SCALE 6 TO 10 03/06/17 13:30 03/10/17 05:12 Pantoprazole Sodium (Protonix Inj) 40 mg DAILY IV 03/07/17 09:00 03/11/17 09:55 Senna/Docusate Sodium (Latosha-Colace) 2 tab BID PO 03/06/17 21:00 03/11/17 19:46 Miscellaneous Information 1 Q361D XX 03/06/17 13:30 03/07/17 20:46 Chlorhexidine Gluconate 3 pack 3 pack Taper DAILY@04 TOP 03/07/17 04:00 03/03/18 03:59 03/11/17 03:45 Potassium Chloride (KCl 20 Meq Premix Inj) 100 ml @ 50 mls/hr Q2H PRN IV For Potassium 2.8 - 3.2 mEq/L 03/06/17 13:30 03/06/17 20:13 Buprenorphine HCl (Buprenorphine) 4 mg Q6HR SL 03/06/17 18:00 03/11/17 17:52 Lorazepam 1 mg 1 mg Q4H PRN IV PUSH MILD ANXIETY OR AGITATION 03/06/17 15:15 03/10/17 05:12 Midazolam HCl 100 ml @ 0 mls/hr TITRATE IV 03/07/17 13:30 03/11/17 19:41 Argatroban 250 mg/ Sodium Chloride 252.5 ml @ 0 mls/hr TITRATE IV 03/07/17 21:00 03/09/17 16:26 Cefazolin Sodium/ Dextrose (Ancef 2 Gm Premix) 50 ml @ 100 mls/hr Q8H IV 03/08/17 11:00 03/11/17 17:52 Chlorhexidine Gluconate 15 ml 15 ml BID@08,20 MT 03/10/17 20:00 03/11/17 19:46 Propofol 100 ml @ 0 mls/hr TITRATE IV 03/10/17 17:30 03/11/17 19:42 Fentanyl Citrate 250 ml @ 0 mls/hr TITRATE IV 03/10/17 17:30 03/11/17 19:42 Gentamicin Sulfate/Sodium Chloride (Gentamicin Inj/ NS Inj) 101.5 ml @ 200 mls/hr Q8H IV 03/11/17 17:00 03/11/17 17:52 Objective Remarks GENERAL: intubated SKIN: Warm and dry. LYMPHATIC: No adenopathy. CARDIOVASCULAR: Regular rate and rhythm without murmurs. RESPIRATORY: Breath sounds equal bilaterally. No accessory muscle use. GASTROINTESTINAL: Abdomen soft, non-tender, nondistended. EXTREMITIES: No cyanosis, or edema. Assessment/Plan Problem List: (1) Infective endocarditis Status: Acute Plan: --on IV antibiotics. --gram-positive cocci bacteremia. --echocardiogram --> hyperdynamic dynamic left ventricle, mitral valve vegetation and echogenic mass in the right ventricle suggestive of a thrombus--> currently on Argatroban --Infectious Disease and Cardiology following (2) Thrombocytopenia Status: Acute Plan: likely multifactorial due to infection+hepatosplenomegaly, h/o hep C, ? no obvious bleeding -- Differential diagnosis also includes HELLP syndrome, although this is questionable since her liver functions are normal and total bilirubin level was not elevated. Other possibilities include TTP and hemolytic/uremic syndrome. --nicholas test negative --LDH elevated, haptoglobin normal, indirect bili normal --HIT pending, but the diagnosis is not favored -- liver ultrasound shows hepatosplenomegaly. --peripheral smear review--> does not show substantial numbers of fragmented cells--microangiopathic hemolytic process unlikely. --Transfuse cryoprecipitate to keep fibrinogen greater than 150. --Transfuse to keep platelet count greater than 30,000 (3) Anemia Status: Acute Plan: --LDH slightly elevated, haptoglobin normal --Transfuse to keep hemoglobin greater than 7. --stool heme-occult pending Assessment 26y/o female, critically ill in respiratory failure in [facility] [place]. Hematology consulted for acute thrombocytopenia and anemia. History (from initial consult) 3, para 1, AB 1 who was at 32.5 weeks gestation with expected delivery of April 28 but delivered prematurely on 2016. After delivery the patient decompensated and became hypoxic and went into respiratory failure. She was intubated and is currently in the intensive care unit. The patient has a known history of IV drug abuse. Her UDS was positive for opiates, benzodiazepine and cocaine. Plan 1. Thrombocytopenia due to sepsis/DIC/consumption: Transfuse to keep platelets greater than 30. Fibrinogen preserved at this time. Transfuse cryoprecipitate to keep Fibrinogen > 150. No evidence of MAHA. HIT negative 2. Anemia-- due to multiple reason. check B12/folate--iron studies not reliable since had received blood transfusion. Obtain stool heme- occult when feasible. 3. Leukocytosis due to sepsis 4. respiratory failure. Andrew Lazo MD March 11, 2017 23:04
[2017-03-12] VITALS (17 sets, daily range): BP systolic 92–157; BP diastolic 55–88; PULSE 70–111; RESP 20–33; TEMP 98.9–100.9; O2SAT 91–98
[2017-03-12] MEDS: fentaNYL DRIP 250 ML IV SCH ×2 (00:15→12:41)
[2017-03-12] MEDS: PROPOFOL 1000 MG/100 ML INJ 100 ML IV SCH ×3 (00:15→23:36)
[2017-03-12] MEDS: BUPRENORPHINE HCL 8 MG SUBLINGUAL TAB SL SCH ×4 (00:15→17:46)
[2017-03-12] MEDS: MIDAZOLAM 100 MG/ML INJ 100 ML IV SCH (00:15)
[2017-03-12] MEDS: SODIUM CHLOR 0.9% 1000 ML INJ 1,000 ML IV SCH ×2 (00:16→12:29)
[2017-03-12] MEDS: GENTAMICIN INJ 60 MG in SODIUM CHLORIDE 0.9% INJ 100 ML IV SCH ×3 (02:05→17:45)
[2017-03-12] MEDS: ceFAZolin 2 GM PREMIX 50 ML IV SCH ×3 (02:06→17:46)
[2017-03-12] MEDS: CHLORHEXIDINE GLUCONATE 2 % 1 PACK (2 CLOTHS) TOP SCH (04:04)
[2017-03-12 04:18] LABS: AUTOMATED NEUTROPHIL # 18.1 TH/MM3 (1.8-7.7); BASOPHIL # 0.1 TH/MM3 (0-0.2); BASOPHIL % 0.4 % (0.0-2.0); EOSINOPHIL # 0.3 TH/MM3 (0-0.4); EOSINOPHIL % 1.3 % (0.0-4.0); HEMATOCRIT 30.5 % (35.0-46.0); LYMPH % 9.2 % (9.0-44.0); LYMPHOCYTE # 1.9 TH/MM3 (1.0-4.8); MEAN CORPUSCULAR HEMOGLOBIN 28.2 PG (27.0-34.0); MONO % 2.7 % (0.0-8.0); NEUT % 86.4 % (16.0-70.0); PLATELET COUNT 117 TH/MM3 (150-450); RED BLOOD COUNT 3.46 MIL/MM3 (4.00-5.30); RED CELL DISTRIBUTION WIDTH 17.8 % (11.6-17.2); WHITE BLOOD COUNT 20.9 TH/MM3 (4.0-11.0)
[2017-03-12 04:27] LABS: HEMO FLAGS AUTO DIFF
[2017-03-12 04:33] LABS: APTT (PATIENT) 50.9 SEC (24.3-30.1); INTERNATIONAL NORMALIZED RATIO 2.2 RATIO; PROTHROMBIN TIME - PATIENT 25.2 SEC (9.8-11.6)
[2017-03-12 05:22] LABS: BANDS 21 % (0-6); EOSINOPHILS 1 % (0-4); METAMYELOCYTES 2 % (0-1); MYELOCYTES 2 % (0-0); NEUTROPHIL # MANUAL DIFF 20.3 TH/MM3 (1.8-7.7); PLATELET ESTIMATE SMEAR LOW (NORMAL); PLATELET MORPHOLOGY NORMAL (NORMAL); POLYS (SEG NEUTROPHILS) 72 % (16-70); SCAN/DIFF FINAL DIFF MANUAL; WBC DIFF SAMPLE 100
[2017-03-12] MEDS: ACETAMINOPHEN 1000 MG/100 ML VIAL IV PRN ×2 (05:52→21:03)
--- NOTE | 2017-03-12 06:26 | RADRPT ---
EXAM DATE/TIME: 03/12/2017 04:40 [facility] COMPARISON: CHEST SINGLE AP, March 11, 2017, 14:50. INDICATIONS : Shortness of breath. MEDICAL HISTORY : Substance abuse. SURGICAL HISTORY : None. ENCOUNTER: Subsequent ACUITY: 4 - 6 days PAIN SCORE: Non-responsive. LOCATION: Bilateral chest FINDINGS: A single view of the chest demonstrates diffuse interstitial and alveolar opacities. Endotracheal tub e, nasogastric tube and right subclavian central line in stable position. Cardiomegaly. Osseous stru ctures are intact. CONCLUSION: 1. Interstitial and alveolar opacities are stable. 2. Cardiomegaly. 3. Support lines and tubes are unchanged. Hector Sesay MD on March 12, 2017 at 6:23 Board Certified Radiologist. This report was verified electronically.
[2017-03-12] MEDS: CHLORHEXIDINE 0.12% (ORAL KIT) 15 ML CUP MT SCH ×2 (08:00→21:02)
[2017-03-12] MEDS: SODIUM CHLORIDE 0.9% FLUSH 10 ML FLUSH IV FLUSH SCH ×2 (09:00→21:02)
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
[2017-03-12] MEDS: PANTOPRAZOLE SODIUM 40 MG VIAL IV SCH (09:37)
[2017-03-12] MEDS: DOCUSATE SODIUM 50 MG/SENNA 8.6 MG TAB PO SCH ×2 (09:38→21:02)
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
[2017-03-12] MEDS ORDERED: PHARMACY ORDERED LAB ONE (16:45)
[2017-03-12 18:19] LABS: LDH SERUM 357 U/L (84-246)
[2017-03-12] MEDS: LORazepam 2 MG/ML VIAL IV PUSH PRN (20:26)
[2017-03-13] VITALS (18 sets, daily range): BP systolic 114–170; BP diastolic 53–91; PULSE 78–111; RESP 22–33; TEMP 98.9–101.7; O2SAT 95–100
--- NOTE | 2017-03-13 00:05 | PD.ONC.PN ---
Subjective Subjective Remarks critically ill on ventilator no bleeding Objective Data Date Time Temp Pulse Resp B/P Pulse Ox O2 Delivery O2 Flow Rate FiO2 03/12/17 19:00 99 Mechanical Ventilator 50 03/12/17 18:00 83 03/12/17 16:39 94 50 03/12/17 16:00 50 03/12/17 16:00 83 03/12/17 16:00 99.3 75 25 120/66 92 03/12/17 14:00 89 03/12/17 12:00 83 03/12/17 12:00 50 03/12/17 12:00 98.9 83 27 124/61 93 03/12/17 10:00 89 03/12/17 09:13 91 50 03/12/17 08:30 50 03/12/17 08:00 98.9 70 20 104/56 94 03/12/17 08:00 50 03/12/17 08:00 71 03/12/17 07:00 93 Mechanical Ventilator 50 03/12/17 06:00 89 03/12/17 04:00 100.0 101 27 92/55 93 03/12/17 04:00 50 03/12/17 04:00 101 03/12/17 03:58 98 50 03/12/17 02:00 74 03/12/17 00:48 93 50 Result Diagram: 03/12/17 0400 03/12/17 0400 Laboratory Results Laboratory Tests Test 03/12/17 03/12/17 04:00 17:00 White Blood Count 20.9 TH/MM3 Red Blood Count 3.46 MIL/MM3 Hemoglobin 9.8 GM/DL Hematocrit 30.5 % Mean Corpuscular Volume 88.0 FL Mean Corpuscular Hemoglobin 28.2 PG Mean Corpuscular Hemoglobin 32.0 % Concent Red Cell Distribution Width 17.8 % Platelet Count 117 TH/MM3 Mean Platelet Volume 8.1 FL Neutrophils (%) (Auto) 86.4 % Lymphocytes (%) (Auto) 9.2 % Monocytes (%) (Auto) 2.7 % Eosinophils (%) (Auto) 1.3 % Basophils (%) (Auto) 0.4 % Neutrophils # (Auto) 18.1 TH/MM3 Lymphocytes # (Auto) 1.9 TH/MM3 Monocytes # (Auto) 0.6 TH/MM3 Eosinophils # (Auto) 0.3 TH/MM3 Basophils # (Auto) 0.1 TH/MM3 CBC Comment AUTO DIFF Differential Total Cells 100 Counted Neutrophils % (Manual) 72 % Band Neutrophils % 21 % Lymphocytes % 2 % Eosinophils % 1 % Neutrophils # (Manual) 20.3 TH/MM3 Metamyelocytes 2 % Myelocytes 2 % Differential Comment FINAL DIFF MANUAL Platelet Estimate LOW Platelet Morphology Comment NORMAL Prothrombin Time 25.2 SEC Prothromb Time International 2.2 RATIO Ratio Activated Partial 50.9 SEC Thromboplast Time Fibrinogen 328 mg/dL Creatinine 0.58 MG/DL Estimat Glomerular Filtration 128 ML/MIN Rate Lactate Dehydrogenase 357 U/L Vitamin B12 Level GREATER THAN 2000 PG/ML Gentamicin Level Trough 1.0 MCG/ML Culture Results Microbiology Date/Time Procedure Status Source Growth 03/11/17 15:56 Aerobic Blood Culture - Preliminary Resulted Blood Peripheral NO GROWTH IN 1 DAY 03/11/17 15:56 Anaerobic Blood Culture - Preliminary Resulted Blood Peripheral NO GROWTH IN 1 DAY 03/11/17 18:46 Aerobic Blood Culture - Preliminary Resulted Blood Peripheral NO GROWTH IN 1 DAY 03/11/17 18:46 Anaerobic Blood Culture - Preliminary Resulted Blood Peripheral NO GROWTH IN 1 DAY Imaging Studies Last 24 hours Impressions Chest X-Ray 03/12/17 0400 Signed Impressions: Service Date/Time: Sunday, March 12, 2017 04:40 - CONCLUSION: 1. Interstitial and alveolar opacities are stable. 2. Cardiomegaly. 3. Support lines and tubes are unchanged. Hector Sesay MD Administered Medications Medications (Trade) Dose Ordered Sig/Benitez Route PRN Reason Start Time Stop Time Status Last Admin Dose Admin Oxycodone/ Acetaminophen 1 tab 1 tab Q4H PRN PO PAIN SCALE 3 TO 5 03/06/17 08:15 03/06/17 13:34 Sodium Chloride (NS 1000 ml Inj) 1,000 ml @ 84 mls/hr [id number] IV 03/06/17 13:29 03/12/17 12:29 Sodium Chloride (NS Flush) 2 ml BID IV FLUSH 03/06/17 21:00 03/12/17 21:02 Hydromorphone HCl (Dilaudid Pf Inj) 1 mg Q4H PRN IV PAIN SCALE 6 TO 10 03/06/17 13:30 03/10/17 05:12 Pantoprazole Sodium (Protonix Inj) 40 mg DAILY IV 03/07/17 09:00 03/12/17 09:37 Senna/Docusate Sodium (Latosha-Colace) 2 tab BID PO 03/06/17 21:00 03/12/17 21:02 Miscellaneous Information 1 Q361D XX 03/06/17 13:30 03/07/17 20:46 Chlorhexidine Gluconate (Chlorhexidine 2% Cloth) Taper DAILY@04 TOP 03/07/17 04:00 03/03/18 03:59 03/12/17 04:04 Buprenorphine HCl (Buprenorphine) 4 mg Q6HR SL 03/06/17 18:00 03/12/17 17:46 Lorazepam 1 mg 1 mg Q4H PRN IV PUSH MILD ANXIETY OR AGITATION 03/06/17 15:15 03/12/17 20:26 Argatroban 250 mg/ Sodium Chloride 252.5 ml @ 0 mls/hr TITRATE IV 03/07/17 21:00 03/09/17 16:26 Cefazolin Sodium/ Dextrose (Ancef 2 Gm Premix) 50 ml @ 100 mls/hr Q8H IV 03/08/17 11:00 03/12/17 17:46 Chlorhexidine Gluconate 15 ml 15 ml BID@08,20 MT 03/10/17 20:00 03/12/17 21:02 Propofol 100 ml @ 0 mls/hr TITRATE IV 03/10/17 17:30 03/12/17 23:36 Fentanyl Citrate 250 ml @ 0 mls/hr TITRATE IV 03/10/17 17:30 03/12/17 12:41 Gentamicin Sulfate/Sodium Chloride (Gentamicin Inj/ NS Inj) 101.5 ml @ 200 mls/hr Q8H IV 03/11/17 17:00 03/12/17 17:45 Acetaminophen (Ofirmev Inj) 1,000 mg Q6H PRN IV fever 03/12/17 00:00 03/12/17 21:03 Objective Remarks GENERAL: acutely ill. on vent SKIN: Warm and dry.. LYMPHATIC: No adenopathy. CARDIOVASCULAR: Regular rate and rhythm without murmurs. RESPIRATORY: Breath sounds equal bilaterally. CTAB GASTROINTESTINAL: Abdomen soft,nondistended. EXTREMITIES: No cyanosis, or edema. Assessment/Plan Problem List: (1) Infective endocarditis Status: Acute Plan: --on IV antibiotics. --gram-positive cocci bacteremia. --echocardiogram --> hyperdynamic dynamic left ventricle, mitral valve vegetation and echogenic mass in the right ventricle suggestive of a thrombus--> currently on Argatroban --Infectious Disease and Cardiology following (2) Thrombocytopenia Status: Acute Plan: likely multifactorial due to infection+hepatosplenomegaly, h/o hep C, ? no obvious bleeding -- Differential diagnosis also includes HELLP syndrome, although this is questionable since her liver functions are normal and total bilirubin level was not elevated. Other possibilities include TTP and hemolytic/uremic syndrome. --nicholas test negative --LDH elevated, haptoglobin normal, indirect bili normal --HIT pending, but the diagnosis is not favored -- liver ultrasound shows hepatosplenomegaly. --peripheral smear review--> does not show substantial numbers of fragmented cells--microangiopathic hemolytic process unlikely. --Transfuse cryoprecipitate to keep fibrinogen greater than 150. --Transfuse to keep platelet count greater than 30,000 (3) Anemia Status: Acute Plan: --LDH slightly elevated, haptoglobin normal --Transfuse to keep hemoglobin greater than 7. --stool heme-occult pending Assessment 26y/o female, critically [place] in [place] [facility] [place] H[place]ology consulted for acute thrombocytopenia and anemia. History (from initial consult) 3, para 1, AB 1 who was at 32.5 weeks gestation with expected delivery of April 28 but delivered prematurely on 2016. After delivery the patient decompensated and became hypoxic and went into respiratory failure. She was intubated and is currently in the intensive care unit. The patient has a known history of IV drug abuse. Her UDS was positive for opiates, benzodiazepine and cocaine. Plan 1. Thrombocytopenia due to sepsis/DIC/consumption: Transfuse to keep platelets greater than 30. Fibrinogen preserved at this time. Transfuse cryoprecipitate to keep Fibrinogen > 150. No evidence of MAHA. HIT negative. PLTS trending up 2. Anemia-- due to multiple reason. check B12/folate Pending --iron studies not reliable since had received blood transfusion. Obtain stool heme- occult when feasible. 3. Leukocytosis due to sepsis 4. respiratory failure. Remains acutely ill. supportive care ongoing Andrew Lazo MD March 13, 2017 00:05
[2017-03-13] MEDS: BUPRENORPHINE HCL 8 MG SUBLINGUAL TAB SL SCH ×2 (00:18→06:24)
[2017-03-13] MEDS: SODIUM CHLOR 0.9% 1000 ML INJ 1,000 ML IV SCH ×3 (00:19→23:31)
[2017-03-13] MEDS: GENTAMICIN INJ 60 MG in SODIUM CHLORIDE 0.9% INJ 100 ML IV SCH ×3 (00:19→16:58)
[2017-03-13] MEDS: LORazepam 2 MG/ML VIAL IV PUSH PRN ×2 (01:20→09:55)
[2017-03-13] MEDS: fentaNYL DRIP 250 ML IV SCH ×4 (02:04→20:42)
[2017-03-13] MEDS: ceFAZolin 2 GM PREMIX 50 ML IV SCH ×3 (03:20→18:54)
[2017-03-13] MEDS: CHLORHEXIDINE GLUCONATE 2 % 1 PACK (2 CLOTHS) TOP SCH (03:21)
[2017-03-13] MEDS: PROPOFOL 1000 MG/100 ML INJ 100 ML IV SCH ×5 (03:54→23:32)
[2017-03-13] MEDS: ARGATROBAN INJ 250 MG in SODIUM CHLOR 0.9% 250 ML INJ 250 ML IV SCH ×2 (03:54→04:17)
[2017-03-13 04:53] LABS: APTT (PATIENT) 48.2 SEC (24.3-30.1)
[2017-03-13 04:56] LABS: AUTOMATED NEUTROPHIL # 20.3 TH/MM3 (1.8-7.7); BASOPHIL # 0.1 TH/MM3 (0-0.2); BASOPHIL % 0.2 % (0.0-2.0); EOSINOPHIL # 0.3 TH/MM3 (0-0.4); EOSINOPHIL % 1.2 % (0.0-4.0); HEMATOCRIT 29.1 % (35.0-46.0); LYMPHOCYTE # 2.4 TH/MM3 (1.0-4.8); MEAN CELL VOLUME 87.9 FL (80.0-100.0); MONO % 2.8 % (0.0-8.0); NEUT % 85.8 % (16.0-70.0); PLATELET COUNT 177 TH/MM3 (150-450); RED BLOOD COUNT 3.31 MIL/MM3 (4.00-5.30); RED CELL DISTRIBUTION WIDTH 17.9 % (11.6-17.2); WHITE BLOOD COUNT 23.6 TH/MM3 (4.0-11.0)
[2017-03-13] MEDS: ACETAMINOPHEN 1000 MG/100 ML VIAL IV PRN (04:59)
[2017-03-13 05:01] LABS: HEMO FLAGS AUTO DIFF
[2017-03-13 07:10] LABS: BANDS 4 % (0-6); EOSINOPHILS 1 % (0-4); METAMYELOCYTES 1 % (0-1); NEUTROPHIL # MANUAL DIFF 21.9 TH/MM3 (1.8-7.7); PLATELET ESTIMATE SMEAR NORMAL (NORMAL); PLATELET MORPHOLOGY NORMAL (NORMAL); POLYS (SEG NEUTROPHILS) 88 % (16-70); SCAN/DIFF FINAL DIFF MANUAL; WBC DIFF SAMPLE 100
[2017-03-13] MEDS: CHLORHEXIDINE 0.12% (ORAL KIT) 15 ML CUP MT SCH ×2 (07:40→20:13)
[2017-03-13] MEDS: SODIUM CHLORIDE 0.9% FLUSH 10 ML FLUSH IV FLUSH SCH ×2 (07:41→20:42)
[2017-03-13] MEDS: DOCUSATE SODIUM 50 MG/SENNA 8.6 MG TAB PO SCH ×2 (07:41→20:42)
[2017-03-13] MEDS: PANTOPRAZOLE SODIUM 40 MG VIAL IV SCH (07:41)
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
[2017-03-13] MEDS ORDERED: LIDOCAINE HCL 1% 50 ML VIAL INFIL ONE (11:15)
[2017-03-13] MEDS: LIDOCAINE HCL 1% PF 5 ML AMPULE E-TRACHE PRN ×2 (11:55→17:33)
[2017-03-13] MEDS: MIDAZOLAM 100 MG/ML INJ 100 ML IV SCH ×2 (12:15→20:42)
[2017-03-13 12:33] LABS: APTT (PATIENT) 54.4 SEC (24.3-30.1)
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
[2017-03-13 15:45] LABS: APTT (PATIENT) 64.1 SEC (24.3-30.1)
[2017-03-13] MEDS: WARFARIN SOD 5 MG TAB PO SCH (16:00)
[2017-03-13 16:05] LABS: BLOOD, URINE LARGE (NEG); GLUCOSE,URINE NEG (NEG); KETONE, URINE 10 mg/dL (NEG); MUCUS URINE FEW /lpf (OCC); NITRITE,URINE NEG (NEG); SQUAMOUS EPITHELIAL CELL URINE 13 /hpf (0-5)
[2017-03-13 16:06] LABS: COMMENT (UR) CATH-CULTURE IND; CULTURE IF INDICATED CATH CULTURE IND; URINE COLOR RED (YELLW/STRAW)
[2017-03-13] MEDS ORDERED: PHARMACY ORDERED LAB ONE (16:45)
[2017-03-13 18:59] LABS: MRSA PCR NEGATIVE (NEGATIVE); STAPH AUREUS PCR POSITIVE (NEGATIVE)
[2017-03-14] VITALS (14 sets, daily range): BP systolic 116–154; BP diastolic 56–90; PULSE 72–96; RESP 18–23; TEMP 98.4–101.2; O2SAT 98–100
[2017-03-14] MEDS: GENTAMICIN INJ 60 MG in SODIUM CHLORIDE 0.9% INJ 100 ML IV SCH ×3 (00:50→17:00)
[2017-03-14] MEDS: CHLORHEXIDINE GLUCONATE 2 % 1 PACK (2 CLOTHS) TOP SCH (00:51)
[2017-03-14] MEDS: fentaNYL DRIP 250 ML IV SCH ×3 (02:44→18:24)
[2017-03-14] MEDS: ceFAZolin 2 GM PREMIX 50 ML IV SCH ×3 (02:44→18:14)
[2017-03-14] MEDS: PROPOFOL 1000 MG/100 ML INJ 100 ML IV SCH ×4 (02:45→18:24)
[2017-03-14] MEDS: ARGATROBAN INJ 250 MG in SODIUM CHLOR 0.9% 250 ML INJ 250 ML IV SCH (02:46)
[2017-03-14] MEDS: MIDAZOLAM 100 MG/ML INJ 100 ML IV SCH ×2 (05:56→14:43)
[2017-03-14 06:55] LABS: APTT (PATIENT) 70.4 SEC (24.3-30.1); INTERNATIONAL NORMALIZED RATIO 3.5 RATIO; PROTHROMBIN TIME - PATIENT 41.2 SEC (9.8-11.6)
[2017-03-14] MEDS: CHLORHEXIDINE 0.12% (ORAL KIT) 15 ML CUP MT SCH ×2 (08:00→20:28)
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
[2017-03-14] MEDS: SODIUM CHLORIDE 0.9% FLUSH 10 ML FLUSH IV FLUSH SCH ×2 (08:24→21:00)
[2017-03-14] MEDS: PANTOPRAZOLE SODIUM 40 MG VIAL IV SCH (08:24)
[2017-03-14] MEDS: DOCUSATE SODIUM 50 MG/SENNA 8.6 MG TAB PO SCH ×2 (08:24→22:01)
[2017-03-14 09:11] LABS: AUTOMATED NEUTROPHIL # 22.8 TH/MM3 (1.8-7.7); BASOPHIL # 0.1 TH/MM3 (0-0.2); BASOPHIL % 0.4 % (0.0-2.0); EOSINOPHIL # 0.2 TH/MM3 (0-0.4); EOSINOPHIL % 0.7 % (0.0-4.0); HEMO FLAGS DIFF FINAL; LYMPH % 7.9 % (9.0-44.0); MEAN CELL VOLUME 88.4 FL (80.0-100.0); MEAN CORPUSCULAR HEMOGLOBIN 28.4 PG (27.0-34.0); MEAN CORPUSCULAR HGB CONC 32.1 % (32.0-36.0); PLATELET COUNT 182 TH/MM3 (150-450); RED BLOOD COUNT 3.05 MIL/MM3 (4.00-5.30); RED CELL DISTRIBUTION WIDTH 17.8 % (11.6-17.2); WHITE BLOOD COUNT 25.9 TH/MM3 (4.0-11.0)
[2017-03-14 09:35] LABS: POTASSIUM 3.8 MEQ/L (3.5-5.1)
[2017-03-14 09:56] LABS: CALCIUM-PROTEIN CORRECTED 7.8 MG/DL (8.5-10.1)
[2017-03-14] MEDS: SODIUM CHLOR 0.9% 1000 ML INJ 1,000 ML IV SCH (11:04)
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
[2017-03-14] MEDS: ACETAMINOPHEN 1000 MG/100 ML VIAL IV PRN (14:44)
[2017-03-14] MEDS: WARFARIN SOD 5 MG TAB PO SCH (15:20)
[2017-03-14] MEDS ORDERED: PHARMACY ORDERED LAB ONE (16:45)
[2017-03-14] MEDS: RESP: ALBUTEROL 2.5 MG/IPRATROPIUM 0.5 MG NEB (PRN) INH (22:43)
[2017-03-14] MEDS: LIDOCAINE HCL 1% PF 5 ML AMPULE E-TRACHE PRN (22:52)
[2017-03-15] VITALS (17 sets, daily range): BP systolic 105–160; BP diastolic 51–87; PULSE 79–124; RESP 18–30; TEMP 98.7–101.6; O2SAT 96–100
[2017-03-15] MEDS: PROPOFOL 1000 MG/100 ML INJ 100 ML IV SCH ×6 (00:05→22:45)
[2017-03-15] MEDS: SODIUM CHLOR 0.9% 1000 ML INJ 1,000 ML IV SCH (00:07)
[2017-03-15] MEDS: ARGATROBAN INJ 250 MG in SODIUM CHLOR 0.9% 250 ML INJ 250 ML IV SCH (00:07)
[2017-03-15] MEDS: ACETAMINOPHEN 1000 MG/100 ML VIAL IV PRN (00:23)
[2017-03-15] MEDS: MIDAZOLAM 100 MG/ML INJ 100 ML IV SCH ×2 (01:11→12:11)
[2017-03-15] MEDS: GENTAMICIN INJ 60 MG in SODIUM CHLORIDE 0.9% INJ 100 ML IV SCH ×3 (01:11→17:12)
[2017-03-15] MEDS: fentaNYL DRIP 250 ML IV SCH ×2 (01:12→12:11)
[2017-03-15] MEDS: ceFAZolin 2 GM PREMIX 50 ML IV SCH ×3 (02:58→18:33)
[2017-03-15] MEDS: CHLORHEXIDINE GLUCONATE 2 % 1 PACK (2 CLOTHS) TOP SCH (02:58)
[2017-03-15 06:26] LABS: AUTOMATED NEUTROPHIL # 20.2 TH/MM3 (1.8-7.7); BASOPHIL # 0.1 TH/MM3 (0-0.2); BASOPHIL % 0.3 % (0.0-2.0); EOSINOPHIL # 0.2 TH/MM3 (0-0.4); EOSINOPHIL % 0.7 % (0.0-4.0); HEMATOCRIT 24.5 % (35.0-46.0); LYMPH % 7.3 % (9.0-44.0); LYMPHOCYTE # 1.7 TH/MM3 (1.0-4.8); MEAN CELL VOLUME 88.1 FL (80.0-100.0); MEAN CORPUSCULAR HEMOGLOBIN 28.9 PG (27.0-34.0); MEAN CORPUSCULAR HGB CONC 32.8 % (32.0-36.0); MONO % 4.3 % (0.0-8.0); NEUT % 87.4 % (16.0-70.0); PLATELET COUNT 171 TH/MM3 (150-450); RED BLOOD COUNT 2.78 MIL/MM3 (4.00-5.30); RED CELL DISTRIBUTION WIDTH 17.8 % (11.6-17.2); WHITE BLOOD COUNT 23.1 TH/MM3 (4.0-11.0)
[2017-03-15 06:39] LABS: HEMO FLAGS AUTO DIFF
[2017-03-15 06:43] LABS: INTERNATIONAL NORMALIZED RATIO 4.6 RATIO
[2017-03-15 06:55] LABS: BICARBONATE 21.6 MEQ/L (21.0-32.0); POTASSIUM 3.8 MEQ/L (3.5-5.1)
[2017-03-15 07:01] LABS: APTT (PATIENT) 82.8 SEC (24.3-30.1)
[2017-03-15 07:16] LABS: CALCIUM-PROTEIN CORRECTED 7.8 MG/DL (8.5-10.1)
[2017-03-15 07:40] LABS: BANDS 9 % (0-6); EOSINOPHILS 1 % (0-4); MYELOCYTES 1 % (0-0); NEUTROPHIL # MANUAL DIFF 20.3 TH/MM3 (1.8-7.7); POLYS (SEG NEUTROPHILS) 78 % (16-70); WBC DIFF SAMPLE 100
[2017-03-15 07:41] LABS: OVALOCYTES 1+ (NORMAL); PLATELET ESTIMATE SMEAR NORMAL (NORMAL); PLATELET MORPHOLOGY NORMAL (NORMAL); SCAN/DIFF FINAL DIFF MANUAL; TEARDROP RBCS 1+ (NORMAL)
[2017-03-15] MEDS: PANTOPRAZOLE SODIUM 40 MG VIAL IV SCH (08:00)
[2017-03-15] MEDS: DOCUSATE SODIUM 50 MG/SENNA 8.6 MG TAB PO SCH ×2 (08:01→20:49)
[2017-03-15 08:17] LABS: TEMP CORR TO 98.6
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
--- NOTE | 2017-03-15 09:21 | RADRPT ---
EXAM DATE/TIME: 03/15/2017 08:53 [facility] COMPARISON: CHEST SINGLE AP, March 12, 2017, 4:40. INDICATIONS : Short of breath. MEDICAL HISTORY : None. SURGICAL HISTORY : None. ENCOUNTER: Initial ACUITY: 3 days PAIN SCORE: Non-responsive. LOCATION: Bilateral chest FINDINGS: A single view of the chest demonstrates diffuse bilateral pulmonary edema. Cardiomegaly. Endotracheal tube, right subclavian central line are stable in position. Nasogastric tube tip in distal esophagus . Osseous structures are intact. CONCLUSION: 1. Diffuse bilateral pulmonary edema. 2. Nasogastric tube with tip in distal esophagus, this should be advanced. Hector Sesay MD on March 15, 2017 at 9:12 Board Certified Radiologist. This report was verified electronically.
[2017-03-15] MEDS: CHLORHEXIDINE 0.12% (ORAL KIT) 15 ML CUP MT SCH ×2 (09:51→20:00)
[2017-03-15] MEDS: SODIUM CHLORIDE 0.9% FLUSH 10 ML FLUSH IV FLUSH SCH ×2 (09:51→20:49)
[2017-03-15] MEDS: LIDOCAINE HCL 1% PF 5 ML AMPULE E-TRACHE PRN (10:47)
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
[2017-03-15] MEDS ORDERED: BUMETANIDE INJ 1 MG/4 ML VIAL IV PUSH ONE (12:00)
[2017-03-15] MEDS: POTASSIUM CHLORIDE 25 MEQ EFFERVESCENT TAB PO SCH (12:11)
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
[2017-03-15] MEDS: BUMETANIDE INJ 1 MG/4 ML VIAL IV PUSH SCH (17:10)
[2017-03-15 17:51] LABS: INTERNATIONAL NORMALIZED RATIO 1.5 RATIO; PROTHROMBIN TIME - PATIENT 17.1 SEC (9.8-11.6)
[2017-03-15] MEDS ORDERED: ROCURONIUM INJ 50 MG/5 ML VIAL IV ONE (18:00)
[2017-03-15] MEDS ORDERED: IOHEXOL 350 MG/ML 10 ML VIAL (for RAD DIAG) IV ONE (18:13)
--- NOTE | 2017-03-15 18:28 | RADRPT ---
EXAM DATE/TIME: 03/15/2017 18:08 [facility] COMPARISON: No previous studies available for comparison. INDICATIONS : Fever; elevated white count. IV CONTRAST: 100 cc Omnipaque 350 (iohexol) IV ; Cumulative dose for multiple exams. ORAL CONTRAST: No oral contrast ingested. RADIATION DOSE: 15.38 CTDIvol (mGy) ; Combined studies - Thorax/Abdomen/Pelvis MEDICAL HISTORY : Drug abuse. SURGICAL HISTORY : None. ENCOUNTER: Initial ACUITY: 1 day PAIN SCALE: Non-responsive LOCATION: Bilateral abdomen. TECHNIQUE: Volumetric scanning of the abdomen and pelvis was performed. Using automated exposure control and ad justment of the mA and/or kV according to patient size, radiation dose was kept as low as reasonably achievable to obtain optimal diagnostic quality images. FINDINGS: LOWER LUNGS: Dense consolidative changes in the lung bases, right worse than left with moderate effusions, right w orse than left. Small pericardial effusion. LIVER: Enlarged with heterogeneously diminished density throughout. No definite ductal dilatation. No mass o r abscess. Sludge present within the gallbladder. SPLEEN: Enlarged without focal mass. PANCREAS: Within normal limits. KIDNEYS: Normal in size and shape. There is no mass, stone or hydronephrosis. ADRENAL GLANDS: Within normal limits. VASCULAR: Variant celiac anatomy. No major vessel occlusion. No aneurysm. BOWEL/MESENTERY: Nonspecific mild fluid distention of bowel throughout. Moderate ascites. ABDOMINAL WALL: Diffuse anasarca RETROPERITONEUM: There is no lymphadenopathy. BLADDER: Decompressed with Felix catheter. REPRODUCTIVE: Uterus prominent with endometrial fluid. INGUINAL: There is no lymphadenopathy or hernia. MUSCULOSKELETAL: Within normal limits for patient age. CONCLUSION: Extensive airspace disease in the lung bases. Cardiac enlargement with small pericardial effusion. Hepatosplenomegaly with diffuse heterogeneity of liver echotexture. Gallbladder sludge. Ascites. Nonspecific distention of bowel throughout. Prominent uterus with endometrial fluid. Anasarca. Ricky Wilson MD on March 15, 2017 at 18:21 Board Certified Radiologist. This report was verified electronically.
[2017-03-15] MEDS: WARFARIN SOD 5 MG TAB PO SCH (18:33)
--- NOTE | 2017-03-15 18:40 | RADRPT ---
EXAM DATE/TIME: 03/15/2017 18:08 [facility] COMPARISON: No previous studies available for comparison. INDICATIONS : Evaluate for septic emboli. IV CONTRAST: 95 cc Omnipaque 350 (iohexol) IV ; Cumulative dose for multiple exams. RADIATION DOSE: 15.68 CTDIvol (mGy) ; Combined studies - Thorax/Abdomen/Pelvis MEDICAL HISTORY : None SURGICAL HISTORY : None. ENCOUNTER: Subsequent ACUITY: 4 - 6 days PAIN SCALE: Non-responsive LOCATION: chest TECHNIQUE: Volumetric scanning of the chest was performed. Using automated exposure control and adjustment of t he mA and/or kV according to patient size, radiation dose was kept as low as reasonably achievable to obtain optimal diagnostic quality images. FINDINGS: LUNGS: Extensive, diffuse, occasionally cavitary bilateral airspace consolidation. This is slightly worse on the right than the left. PLEURA: Bilateral pleural effusions, moderate on the right, small on the left MEDIASTINUM: Heart is enlarged. Small pericardial effusion. Mild prominence of central mediastinal lymph nodes, li bela reactive. AXILLAE: Reactive lymph nodes in the axilla bilaterally. SKELETAL: Within normal limits for patient age. MISCELLANEOUS: See report CONCLUSION: Extensive diffuse bilateral occasionally cavitary airspace disease. Bilateral effusions. Reactive cherelle nopathy. Ricky Wilson MD on March 15, 2017 at 18:35 Board Certified Radiologist. This report was verified electronically.
--- NOTE | 2017-03-15 22:22 | PD.ONC.PN ---
Subjective Subjective Remarks remains intubated argatroban stopped and Warfarin started over the weekend no bleeding. leukocytosis and anemia persists Objective Data Date Time Temp Pulse Resp B/P Pulse Ox O2 Delivery O2 Flow Rate FiO2 03/15/17 19:12 97 40 03/15/17 19:00 100 Mechanical Ventilator 45 03/15/17 18:32 100 100 03/15/17 18:00 124 03/15/17 16:27 100 40 03/15/17 16:00 105 03/15/17 16:00 99.6 97 25 143/71 100 03/15/17 16:00 45 03/15/17 14:00 105 03/15/17 12:00 99.0 100 30 160/87 100 03/15/17 12:00 100 03/15/17 12:00 100 40 03/15/17 12:00 45 03/15/17 10:00 89 03/15/17 08:41 96 45 03/15/17 08:00 98.8 104 28 132/69 100 03/15/17 08:00 45 03/15/17 08:00 104 03/15/17 07:00 96 Mechanical Ventilator 45 03/15/17 06:00 87 03/15/17 04:00 98.7 95 24 111/59 100 03/15/17 04:00 45 03/15/17 04:00 95 03/15/17 02:00 84 03/15/17 00:00 101.6 79 18 105/51 100 03/15/17 00:00 45 03/15/17 00:00 96 03/15/17 03/15/17 03/15/17 07:00 15:00 23:00 Intake Total 1318 ml 1294 ml Output Total 825 ml 3300 ml Balance 493 ml -2006 ml Result Diagram: 03/15/17 0600 03/15/17 1629 Laboratory Results Laboratory Tests Test 03/15/17 03/15/17 03/15/17 03/15/17 06:00 10:36 16:29 17:24 White Blood Count 23.1 TH/MM3 Red Blood Count 2.78 MIL/MM3 Hemoglobin 8.0 GM/DL Hematocrit 24.5 % Mean Corpuscular Volume 88.1 FL Mean Corpuscular Hemoglobin 28.9 PG Mean Corpuscular Hemoglobin 32.8 % Concent Red Cell Distribution Width 17.8 % Platelet Count 171 TH/MM3 Mean Platelet Volume 7.9 FL Neutrophils (%) (Auto) 87.4 % Lymphocytes (%) (Auto) 7.3 % Monocytes (%) (Auto) 4.3 % Eosinophils (%) (Auto) 0.7 % Basophils (%) (Auto) 0.3 % Neutrophils # (Auto) 20.2 TH/MM3 Lymphocytes # (Auto) 1.7 TH/MM3 Monocytes # (Auto) 1.0 TH/MM3 Eosinophils # (Auto) 0.2 TH/MM3 Basophils # (Auto) 0.1 TH/MM3 CBC Comment AUTO DIFF Differential Total Cells 100 Counted Neutrophils % (Manual) 78 % Band Neutrophils % 9 % Lymphocytes % 6 % Monocytes % 5 % Eosinophils % 1 % Neutrophils # (Manual) 20.3 TH/MM3 Myelocytes 1 % Differential Comment FINAL DIFF MANUAL Platelet Estimate NORMAL Platelet Morphology Comment NORMAL Tear Drop Cells 1+ Ovalocytes 1+ Prothrombin Time 54.0 SEC 17.1 SEC Prothromb Time International 4.6 RATIO 1.5 RATIO Ratio Activated Partial 82.8 SEC Thromboplast Time Sodium Level 139 MEQ/L Potassium Level 3.8 MEQ/L 3.8 MEQ/L Chloride Level 107 MEQ/L Carbon Dioxide Level 21.6 MEQ/L Anion Gap 10 MEQ/L Blood Urea Nitrogen 6 MG/DL Creatinine 0.50 MG/DL Estimat Glomerular Filtration 152 ML/MIN Rate Random Glucose 75 MG/DL Calcium Level 7.2 MG/DL Protein Corrected Calcium 7.8 MG/DL Total Protein 5.9 GM/DL Prealbumin 6 MG/DL Fibrinogen 413 mg/dL Culture Results Microbiology Date/Time Procedure Status Source Growth 03/13/17 09:39 Aerobic Blood Culture - Preliminary Resulted Blood Peripheral NO GROWTH IN 2 DAYS 03/13/17 09:39 Anaerobic Blood Culture - Preliminary Resulted Blood Peripheral NO GROWTH IN 2 DAYS 03/13/17 09:45 Aerobic Blood Culture - Preliminary Resulted Blood Peripheral NO GROWTH IN 2 DAYS 03/13/17 09:45 Anaerobic Blood Culture - Preliminary Resulted Blood Peripheral NO GROWTH IN 2 DAYS 03/13/17 14:30 Urine Culture - Final Complete Urine Catheterized Urine NO GROWTH IN 48 HOURS. 03/13/17 14:42 Gram Stain - Final Resulted Sputum Endotracheal 03/13/17 14:42 Sputum Culture - Preliminary Resulted Staphylococcus Aureus Imaging Studies Last 24 hours Impressions Chest X-Ray 03/15/17 0000 Signed Impressions: Service Date/Time: Wednesday, March 15, 2017 08:53 - CONCLUSION: 1. Diffuse bilateral pulmonary edema. 2. Nasogastric tube with tip in distal esophagus, this should be advanced. Hector Sesay MD Chest CT 03/15/17 0000 Signed Impressions: Service Date/Time: Wednesday, March 15, 2017 18:08 - CONCLUSION: Extensive diffuse bilateral occasionally cavitary airspace disease. Bilateral effusions. Reactive adenopathy. Ricky Wilson MD Abdomen/Pelvis CT 03/15/17 0000 Signed Impressions: Service Date/Time: Wednesday, March 15, 2017 18:08 - CONCLUSION: Extensive airspace disease in the lung bases. Cardiac enlargement with small pericardial effusion. Hepatosplenomegaly with diffuse heterogeneity of liver echotexture. Gallbladder sludge. Ascites. Nonspecific distention of bowel throughout. Prominent uterus with endometrial fluid. Anasarca. Ricky Wilson MD Administered Medications Medications (Trade) Dose Ordered Sig/Benitez Route PRN Reason Start Time Stop Time Status Last Admin Dose Admin Oxycodone/ Acetaminophen (Percocet 5-325 Mg) 1 tab Q4H PRN PO PAIN SCALE 3 TO 5 03/06/17 08:15 03/06/17 13:34 Sodium Chloride (NS Flush) 2 ml BID IV FLUSH 03/06/17 21:00 03/15/17 20:49 Hydromorphone HCl (Dilaudid Pf Inj) 1 mg Q4H PRN IV PAIN SCALE 6 TO 10 03/06/17 13:30 03/10/17 05:12 Pantoprazole Sodium (Protonix Inj) 40 mg DAILY IV 03/07/17 09:00 03/15/17 08:00 Senna/Docusate Sodium (Latosha-Colace) 2 tab BID PO 03/06/17 21:00 03/15/17 20:49 Miscellaneous Information 1 Q361D XX 03/06/17 13:30 03/07/17 20:46 Chlorhexidine Gluconate (Chlorhexidine 2% Cloth) Taper DAILY@04 TOP 03/07/17 04:00 03/03/18 03:59 03/12/17 04:04 Lorazepam 1 mg 1 mg Q4H PRN IV PUSH MILD ANXIETY OR AGITATION 03/06/17 15:15 03/13/17 09:55 Cefazolin Sodium/ Dextrose (Ancef 2 Gm Premix) 50 ml @ 100 mls/hr Q8H IV 03/08/17 11:00 03/15/17 18:33 Chlorhexidine Gluconate 15 ml 15 ml BID@08,20 MT 03/10/17 20:00 03/15/17 20:00 Propofol 100 ml @ 0 mls/hr TITRATE IV 03/10/17 17:30 03/15/17 18:32 Midazolam HCl 100 ml @ 0 mls/hr TITRATE IV 03/10/17 17:30 03/15/17 12:11 Fentanyl Citrate 250 ml @ 0 mls/hr TITRATE IV 03/10/17 17:30 03/15/17 12:11 Gentamicin Sulfate/Sodium Chloride (Gentamicin Inj/ NS Inj) 101.5 ml @ 200 mls/hr Q8H IV 03/11/17 17:00 03/15/17 17:12 Acetaminophen (Ofirmev Inj) 1,000 mg Q6H PRN IV fever 03/12/17 00:00 03/15/17 00:23 Lidocaine HCl (Xylocaine-Mpf 1% Inj) 5 ml Q1H PRN E-TRACHE SEVERE COUGH 03/13/17 11:45 03/15/17 10:47 Warfarin Sodium (Coumadin) 5 mg DAILY@16 PO 03/13/17 16:00 03/15/17 18:33 Bumetanide (Bumex Inj) 1 mg BID@09,18 IV PUSH 03/15/17 18:00 03/15/17 17:10 Potassium Bicarb/ Potassium Chloride (K-Lyte Cl Eff) 25 meq DAILY PO 03/15/17 12:00 03/15/17 12:11 Objective Remarks GENERAL: critically ill SKIN: Warm and dry. CARDIOVASCULAR: Regular rate and rhythm without murmurs. RESPIRATORY: on vent. ctab GASTROINTESTINAL: Abdomen soft, non-tender, nondistended. EXTREMITIES: No cyanosis, or edema. Assessment/Plan Problem List: (1) Infective endocarditis Status: Acute Plan: --on IV antibiotics. --gram-positive cocci bacteremia. --echocardiogram --> hyperdynamic dynamic left ventricle, mitral valve vegetation and echogenic mass in the right ventricle suggestive of a thrombus--> currently on Argatroban --Infectious Disease and Cardiology following (2) Thrombocytopenia Status: Acute Plan: likely multifactorial due to infection+hepatosplenomegaly, h/o hep C, ? no obvious bleeding -- Differential diagnosis also includes HELLP syndrome, although this is questionable since her liver functions are normal and total bilirubin level was not elevated. Other possibilities include TTP and hemolytic/uremic syndrome. --nicholas test negative --LDH elevated, haptoglobin normal, indirect bili normal --HIT pending, but the diagnosis is not favored -- liver ultrasound shows hepatosplenomegaly. --peripheral smear review--> does not show substantial numbers of fragmented cells--microangiopathic hemolytic process unlikely. --Transfuse cryoprecipitate to keep fibrinogen greater than 150. --Transfuse to keep platelet count greater than 30,000 (3) Anemia Status: Acute Plan: --LDH slightly elevated, haptoglobin normal --Transfuse to keep hemoglobin greater than 7. --stool heme-occult pending Assessment 26y/o female, critically ill in respiratory failure in [facility] [place]. Hematology consulted for acute thrombocytopenia and anemia. History (from initial consult) 3, para 1, AB 1 who was at 32.5 weeks gestation with expected delivery of April 28 but delivered prematurely on 2016. After delivery the patient decompensated and became hypoxic and went into respiratory failure. She was intubated and is currently in the intensive care unit. The patient has a known history of IV drug abuse. Her UDS was positive for opiates, benzodiazepine and cocaine. Plan 1. Thrombocytopenia due to sepsis/DIC/consumption: Platelets have normalized. . Fibrinogen preserved at this time.. No evidence of MAHA. HIT negative. 2. Anemia-- due to multiple reason. B12/folate normal -- No stool occult done. Transfuse to keep Hb > 7.0 3. Leukocytosis due to sepsis 4. Sepsis/respiratory failure. 5. RV thrombus. on Coumadin now. argatroban stopped. HIT negative. INR may be labile in this acute patient Will consider heparin GTT or fondaparinux treatment dose if this occurs Andrew Lazo MD March 15, 2017 22:22
[2017-03-16] VITALS (21 sets, daily range): BP systolic 105–149; BP diastolic 55–83; PULSE 70–103; RESP 18–28; TEMP 98.4–100.9; O2SAT 97–100
[2017-03-16] MEDS: ACETAMINOPHEN 1000 MG/100 ML VIAL IV PRN (00:42)
[2017-03-16] MEDS: GENTAMICIN INJ 60 MG in SODIUM CHLORIDE 0.9% INJ 100 ML IV SCH ×3 (01:01→17:16)
[2017-03-16] MEDS: ceFAZolin 2 GM PREMIX 50 ML IV SCH ×3 (02:46→18:03)
[2017-03-16] MEDS: PROPOFOL 1000 MG/100 ML INJ 100 ML IV SCH ×5 (03:14→18:38)
[2017-03-16] MEDS: CHLORHEXIDINE GLUCONATE 2 % 1 PACK (2 CLOTHS) TOP SCH (04:00)
[2017-03-16 04:28] LABS: AUTOMATED NEUTROPHIL # 18.5 TH/MM3 (1.8-7.7); BASOPHIL # 0.1 TH/MM3 (0-0.2); BASOPHIL % 0.5 % (0.0-2.0); EOSINOPHIL # 0.2 TH/MM3 (0-0.4); EOSINOPHIL % 0.7 % (0.0-4.0); HEMATOCRIT 24.2 % (35.0-46.0); HEMO FLAGS DIFF FINAL; LYMPH % 9.5 % (9.0-44.0); LYMPHOCYTE # 2.1 TH/MM3 (1.0-4.8); MEAN CELL VOLUME 87.5 FL (80.0-100.0); MEAN CORPUSCULAR HEMOGLOBIN 28.1 PG (27.0-34.0); MEAN CORPUSCULAR HGB CONC 32.1 % (32.0-36.0); MONO % 5.6 % (0.0-8.0); NEUT % 83.7 % (16.0-70.0); PLATELET COUNT 235 TH/MM3 (150-450); RED BLOOD COUNT 2.77 MIL/MM3 (4.00-5.30); RED CELL DISTRIBUTION WIDTH 17.8 % (11.6-17.2); WHITE BLOOD COUNT 22.2 TH/MM3 (4.0-11.0)
[2017-03-16 04:50] LABS: INTERNATIONAL NORMALIZED RATIO 1.4 RATIO; PROTHROMBIN TIME - PATIENT 15.3 SEC (9.8-11.6)
[2017-03-16 04:58] LABS: ALKALINE PHOSPHATASE 161 U/L (45-117); ALT (GPT) LESS THAN 6 U/L (10-53); ANION GAP 8 MEQ/L (5-15); AST (GOT) 12 U/L (15-37); BICARBONATE 26.3 MEQ/L (21.0-32.0); BLOOD UREA NITROGEN 8 MG/DL (7-18); CALCIUM-PROTEIN CORRECTED 7.8 MG/DL (8.5-10.1); CHLORIDE 104 MEQ/L (98-107); GLOMERULAR FILTRATION RATE 121 ML/MIN (>89); MAGNESIUM 1.8 MG/DL (1.5-2.5); POTASSIUM 3.5 MEQ/L (3.5-5.1); SODIUM (NA) 138 MEQ/L (136-145); TOTAL BILIRUBIN ADULT 0.5 MG/DL (0.2-1.0)
[2017-03-16] MEDS: MIDAZOLAM 100 MG/ML INJ 100 ML IV SCH (05:40)
[2017-03-16] MEDS: fentaNYL DRIP 250 ML IV SCH ×2 (05:41→17:17)
--- NOTE | 2017-03-16 06:17 | RADRPT ---
EXAM DATE/TIME: 03/16/2017 04:46 [place] COMPARISON: CHEST SINGLE AP, March 15, 2017, 8:53. INDICATIONS : Shortness of breath. MEDICAL HISTORY : None. SURGICAL HISTORY : None. ENCOUNTER: Subsequent ACUITY: 1 week PAIN SCORE: Non-responsive. LOCATION: Bilateral chest FINDINGS: A single portable frontal view the chest shows the tip of the endotracheal tube 4 cm proximal to the jose l. Tip of the NG tube in the body the stomach. Right subclavian central line. Diffuse bilateral pulmonary infiltrates have shown some improvement. Tiny right effusion is stable. No effusion on the left appreciated. Heart is normal in size. CONCLUSION: 1. Some improvement in the bilateral pulmonary infiltrates. 2. Stable small right effusion. Gigi Dahl Jr., MD on March 16, 2017 at 6:14 Board Certified Radiologist. This report was verified electronically.
[2017-03-16] MEDS: POTASSIUM CHLOR 40 MEQ PREMIX 100 ML IV PRN (06:36)
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
[2017-03-16] MEDS: BUMETANIDE INJ 1 MG/4 ML VIAL IV PUSH SCH ×2 (08:12→17:16)
[2017-03-16] MEDS: PANTOPRAZOLE SODIUM 40 MG VIAL IV SCH (08:13)
[2017-03-16] MEDS: DOCUSATE SODIUM 50 MG/SENNA 8.6 MG TAB PO SCH ×2 (08:13→21:23)
[2017-03-16] MEDS: SODIUM CHLORIDE 0.9% FLUSH 10 ML FLUSH IV FLUSH SCH ×2 (08:13→20:32)
[2017-03-16] MEDS: POTASSIUM CHLORIDE 25 MEQ EFFERVESCENT TAB PO SCH (08:13)
[2017-03-16] MEDS: CHLORHEXIDINE 0.12% (ORAL KIT) 15 ML CUP MT SCH ×2 (08:14→20:00)
[2017-03-16] MEDS ORDERED: MISCELLANEOUS NURSING INFORMATION OTHER PRN (08:30)
[2017-03-16] MEDS ORDERED: ALTEPLASE INJ 50 MG in WATER STERILE FOR INJ 100 ML IV ONE (08:30)
[2017-03-16] MEDS: LIDOCAINE HCL 1% PF 5 ML AMPULE E-TRACHE PRN (11:07)
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
[2017-03-16] MEDS ORDERED: ROCURONIUM INJ 50 MG/5 ML VIAL ONE (14:16)
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
--- NOTE | 2017-03-16 15:41 | RADRPT ---
EXAM DATE/TIME: 03/16/2017 14:46 [facility] COMPARISON: CHEST SINGLE AP, March 16, 2017, 4:46. INDICATIONS : Evaluate line placement MEDICAL HISTORY : None. SURGICAL HISTORY : None. ENCOUNTER: Subsequent ACUITY: 1 week PAIN SCORE: Non-responsive. LOCATION: Bilateral chest FINDINGS: A single view of the chest demonstrates diffuse bilateral airspace disease. Left subclavian central l ine with tip in the cavoatrial junction. Endotracheal tube, nasogastric tube and right subclavian kiley tral line in stable position. Heart borderline enlarged.. Osseous structures are intact. CONCLUSION: Adequate placement left subclavian central line. Bilateral pulmonary opacities. Hector Sesay MD on March 16, 2017 at 15:37 Board Certified Radiologist. This report was verified electronically.
[2017-03-16] MEDS ORDERED: WARFARIN SOD 6 MG TAB PO SCH (16:00)
--- NOTE | 2017-03-16 16:58 | PD.ONC.PN ---
Subjective Subjective Remarks Pt was seen around noon today. This note reflects that encounter. Pt resting in bed currently on CPAP trial. No oozing from lines. She is grimacing, but not following commands. Objective Data Date Time Temp Pulse Resp B/P Pulse Ox O2 Delivery O2 Flow Rate FiO2 03/16/17 14:00 103 03/16/17 12:05 40 03/16/17 12:03 100 40 03/16/17 12:00 98.6 88 28 149/83 100 03/16/17 12:00 88 03/16/17 12:00 40 03/16/17 10:00 89 03/16/17 08:00 45 03/16/17 08:00 98.6 80 19 135/76 100 03/16/17 08:00 80 03/16/17 07:40 100 40 03/16/17 07:00 100 Mechanical Ventilator 45 03/16/17 06:00 70 03/16/17 04:08 98 40 03/16/17 04:00 70 03/16/17 04:00 45 03/16/17 04:00 98.4 70 18 105/57 99 03/16/17 02:00 86 03/16/17 01:06 98 40 03/16/17 00:00 45 03/16/17 00:00 93 03/16/17 00:00 100.9 93 22 111/55 97 03/15/17 22:07 97 40 03/15/17 22:00 103 03/15/17 20:00 99.8 92 21 111/57 97 03/15/17 20:00 92 03/15/17 20:00 45 03/15/17 19:12 97 40 03/15/17 19:00 100 Mechanical Ventilator 45 03/15/17 18:32 100 100 03/15/17 18:00 124 03/16/17 03/16/17 03/16/17 07:00 15:00 23:00 Intake Total 900 ml 1039 ml Output Total 375 ml 2425 ml Balance 525 ml -1386 ml Result Diagram: 03/16/17 0410 03/16/17 0410 Laboratory Results Laboratory Tests Test 03/15/17 03/16/17 17:24 04:10 Prothrombin Time 17.1 SEC 15.3 SEC Prothromb Time International 1.5 RATIO 1.4 RATIO Ratio White Blood Count 22.2 TH/MM3 Red Blood Count 2.77 MIL/MM3 Hemoglobin 7.8 GM/DL Hematocrit 24.2 % Mean Corpuscular Volume 87.5 FL Mean Corpuscular Hemoglobin 28.1 PG Mean Corpuscular Hemoglobin 32.1 % Concent Red Cell Distribution Width 17.8 % Platelet Count 235 TH/MM3 Mean Platelet Volume 7.6 FL Neutrophils (%) (Auto) 83.7 % Lymphocytes (%) (Auto) 9.5 % Monocytes (%) (Auto) 5.6 % Eosinophils (%) (Auto) 0.7 % Basophils (%) (Auto) 0.5 % Neutrophils # (Auto) 18.5 TH/MM3 Lymphocytes # (Auto) 2.1 TH/MM3 Monocytes # (Auto) 1.2 TH/MM3 Eosinophils # (Auto) 0.2 TH/MM3 Basophils # (Auto) 0.1 TH/MM3 CBC Comment DIFF FINAL Differential Comment Fibrinogen 464 mg/dL Sodium Level 138 MEQ/L Potassium Level 3.5 MEQ/L Chloride Level 104 MEQ/L Carbon Dioxide Level 26.3 MEQ/L Anion Gap 8 MEQ/L Blood Urea Nitrogen 8 MG/DL Creatinine 0.61 MG/DL Estimat Glomerular Filtration 121 ML/MIN Rate Random Glucose 87 MG/DL Calcium Level 7.4 MG/DL Protein Corrected Calcium 7.8 MG/DL Magnesium Level 1.8 MG/DL Total Bilirubin 0.5 MG/DL Aspartate Amino Transf 12 U/L (AST/SGOT) Alanine Aminotransferase LESS THAN 6 U/L (ALT/SGPT) Alkaline Phosphatase 161 U/L Total Protein 6.4 GM/DL Albumin 1.1 GM/DL Culture Results Microbiology Date/Time Procedure Status Source Growth 03/16/17 12:20 Aerobic Blood Culture Received Blood Peripheral Pending 03/16/17 12:20 Anaerobic Blood Culture Received Blood Peripheral Pending Imaging Studies Last 24 hours Impressions Chest X-Ray 03/16/17 0600 Signed Impressions: Service Date/Time: Thursday, March 16, 2017 04:46 - CONCLUSION: 1. Some improvement in the bilateral pulmonary infiltrates. 2. Stable small right effusion. Gigi Dahl Jr., MD Chest X-Ray 03/16/17 0000 Signed Impressions: Service Date/Time: Thursday, March 16, 2017 14:46 - CONCLUSION: Adequate placement left subclavian central line. Bilateral pulmonary opacities. Hector Sesay MD Administered Medications Medications (Trade) Dose Ordered Sig/Benitez Route PRN Reason Start Time Stop Time Status Last Admin Dose Admin Oxycodone/ Acetaminophen (Percocet 5-325 Mg) 1 tab Q4H PRN PO PAIN SCALE 3 TO 5 03/06/17 08:15 03/06/17 13:34 Sodium Chloride (NS Flush) 2 ml BID IV FLUSH 03/06/17 21:00 03/16/17 08:13 Hydromorphone HCl (Dilaudid Pf Inj) 1 mg Q4H PRN IV PAIN SCALE 6 TO 10 03/06/17 13:30 03/10/17 05:12 Pantoprazole Sodium (Protonix Inj) 40 mg DAILY IV 03/07/17 09:00 03/16/17 08:13 Senna/Docusate Sodium (Latosha-Colace) 2 tab BID PO 03/06/17 21:00 03/16/17 08:13 Miscellaneous Information 1 Q361D XX 03/06/17 13:30 03/07/17 20:46 Chlorhexidine Gluconate (Chlorhexidine 2% Cloth) Taper DAILY@04 TOP 03/07/17 04:00 03/03/18 03:59 03/12/17 04:04 Lorazepam 1 mg 1 mg Q4H PRN IV PUSH MILD ANXIETY OR AGITATION 03/06/17 15:15 03/13/17 09:55 Cefazolin Sodium/ Dextrose 50 ml @ 100 mls/hr Q8H IV 03/08/17 11:00 03/16/17 11:08 Potassium Chloride (KCl 40 Meq Premix Inj) 100 ml @ 25 mls/hr UNSCH PRN IV For Potassium 3.3 - 3.5 mEq/L 03/09/17 14:00 03/16/17 06:36 Chlorhexidine Gluconate 15 ml 15 ml BID@08,20 MT 03/10/17 20:00 03/16/17 08:14 Propofol 100 ml @ 0 mls/hr TITRATE IV 03/10/17 17:30 03/16/17 15:55 Midazolam HCl 100 ml @ 0 mls/hr TITRATE IV 03/10/17 17:30 03/16/17 05:40 Fentanyl Citrate 250 ml @ 0 mls/hr TITRATE IV 03/10/17 17:30 5/9/17 05:41 Gentamicin Sulfate/Sodium Chloride (Gentamicin Inj/ NS Inj) 101.5 ml @ 200 mls/hr Q8H IV 03/11/17 17:00 03/16/17 08:13 Acetaminophen (Ofirmev Inj) 1,000 mg Q6H PRN IV fever 03/12/17 00:00 03/16/17 00:42 Lidocaine HCl (Xylocaine-Mpf 1% Inj) 5 ml Q1H PRN E-TRACHE SEVERE COUGH 03/13/17 11:45 03/16/17 11:07 Bumetanide (Bumex Inj) 1 mg BID@09,18 IV PUSH 03/15/17 18:00 03/16/17 08:12 Potassium Bicarb/ Potassium Chloride (K-Lyte Cl Eff) 25 meq DAILY PO 03/15/17 12:00 03/16/17 08:13 Objective Remarks GENERAL: Young female, resting in bed sedated and intubated. SKIN: Warm and dry. No oozing from lines. HEAD: Normocephalic. EYES: No scleral icterus. No injection or drainage. NECK: Supple, trachea midline. No JVD or lymphadenopathy. CARDIOVASCULAR: +S1/S2. RESPIRATORY: Mechanically ventilated. Scattered rhonchi. GASTROINTESTINAL: Abdomen soft, non-tender, nondistended. EXTREMITIES: Generalized edema. NEUROLOGICAL: Sedated on propofol, versed and fentanyl. Assessment/Plan Problem List: (1) Infective endocarditis Status: Acute Plan: --on IV antibiotics. --gram-positive cocci bacteremia. --echocardiogram --> hyperdynamic dynamic left ventricle, mitral valve vegetation and echogenic mass in the right ventricle suggestive of a thrombus-- > Currently on Coumadin. --Infectious Disease and Cardiology following (2) Thrombocytopenia Status: Acute Plan: likely multifactorial due to infection+hepatosplenomegaly, h/o hep C, ? no obvious bleeding -- Differential diagnosis also includes HELLP syndrome, although this is questionable since her liver functions are normal and total bilirubin level was not elevated. Other possibilities include TTP and hemolytic/uremic syndrome. --nicholas test negative --LDH elevated, haptoglobin normal, indirect bili normal --HIT negative -- liver ultrasound shows hepatosplenomegaly. --peripheral smear review--> does not show substantial numbers of fragmented cells--microangiopathic hemolytic process unlikely. --Transfuse cryoprecipitate to keep fibrinogen greater than 150. --Transfuse to keep platelet count greater than 30,000 (3) Anemia Status: Acute Plan: --LDH slightly elevated, haptoglobin normal --Transfuse to keep hemoglobin greater than 7. Assessment 26y/o female, critically ill in respiratory failure in [facility]. Hematology consulted for acute thrombocytopenia and anemia. History (from initial consult) 3, para 1, AB 1 who was at 32.5 weeks gestation with expected delivery of April 28 but delivered prematurely on 2016. After delivery the patient decompensated and became hypoxic and went into respiratory failure. She was intubated and is currently in the intensive care unit. The patient has a known history of IV drug abuse. Her UDS was positive for opiates, benzodiazepine and cocaine. Plan 1. Platelets have now normalized. 2. Awaiting hemoccult stool for anemia. Transfuse to keep Hb > 7.0 3. Monitor CBC, PT/INR. 4. Pt now on Coumadin for RV thrombus. The INR has been labile, we will restart the patient on Arixtra for now until her INR is therapeutic. Attending Statement The exam, history, and the medical decision-making described in the above note were completed with the assistance of the mid-level provider. I reviewed and agree with the findings presented. I attest that I had a [id number] encounter with the patient on the same day, and personally performed and documented my assessment and findings in the medical record. INR subtherapeutic. Would d/c Coumadin, as INR will remain labile in this critically ill patient. Start Fondaparinux therapeutic dose PLT count normalized Monitor daily fibrinogen and coags d/w Princess Blood March 16, 2017 16:58 Andrew Lazo MD March 17, 2017 01:04
[2017-03-16] MEDS: FONDAPARINUX SODIUM 7.5 MG/0.6 ML SYRINGE SQ SCH (18:03)
[2017-03-17] VITALS (22 sets, daily range): BP systolic 114–134; BP diastolic 58–71; PULSE 90–116; RESP 18–21; TEMP 98.4–103.1; O2SAT 91–100
[2017-03-17] MEDS: GENTAMICIN INJ 60 MG in SODIUM CHLORIDE 0.9% INJ 100 ML IV SCH ×3 (00:45→17:44)
[2017-03-17] MEDS: fentaNYL DRIP 250 ML IV SCH ×3 (01:00→17:44)
[2017-03-17] MEDS: PROPOFOL 1000 MG/100 ML INJ 100 ML IV SCH ×6 (01:01→23:23)
[2017-03-17] MEDS: ceFAZolin 2 GM PREMIX 50 ML IV SCH ×2 (02:17→11:10)
[2017-03-17 02:25] LABS: AUTOMATED NEUTROPHIL # 15.4 TH/MM3 (1.8-7.7); BASOPHIL # 0.1 TH/MM3 (0-0.2); BASOPHIL % 0.5 % (0.0-2.0); EOSINOPHIL # 0.2 TH/MM3 (0-0.4); EOSINOPHIL % 1.2 % (0.0-4.0); HEMATOCRIT 22.2 % (35.0-46.0); HEMO FLAGS DIFF FINAL; LYMPH % 13.1 % (9.0-44.0); LYMPHOCYTE # 2.6 TH/MM3 (1.0-4.8); MEAN CELL VOLUME 86.4 FL (80.0-100.0); MEAN CORPUSCULAR HEMOGLOBIN 28.1 PG (27.0-34.0); MEAN CORPUSCULAR HGB CONC 32.5 % (32.0-36.0); MONO % 5.8 % (0.0-8.0); NEUT % 79.4 % (16.0-70.0); PLATELET COUNT 314 TH/MM3 (150-450); RED BLOOD COUNT 2.57 MIL/MM3 (4.00-5.30); RED CELL DISTRIBUTION WIDTH 17.8 % (11.6-17.2); WHITE BLOOD COUNT 19.4 TH/MM3 (4.0-11.0)
[2017-03-17 02:30] LABS: INTERNATIONAL NORMALIZED RATIO 1.6 RATIO; PROTHROMBIN TIME - PATIENT 17.7 SEC (9.8-11.6)
[2017-03-17 02:43] LABS: BLOOD UREA NITROGEN 7 MG/DL (7-18)
[2017-03-17 02:44] LABS: ALT (GPT) 10 U/L (10-53); ANION GAP 7 MEQ/L (5-15); AST (GOT) 21 U/L (15-37); BICARBONATE 31.2 MEQ/L (21.0-32.0); CHLORIDE 100 MEQ/L (98-107); GLOMERULAR FILTRATION RATE 148 ML/MIN (>89); MAGNESIUM 1.9 MG/DL (1.5-2.5); POTASSIUM 3.7 MEQ/L (3.5-5.1); SODIUM (NA) 138 MEQ/L (136-145)
[2017-03-17 02:46] LABS: ALKALINE PHOSPHATASE 268 U/L (45-117); TOTAL BILIRUBIN ADULT 0.4 MG/DL (0.2-1.0)
--- NOTE | 2017-03-17 03:59 | RADRPT ---
EXAM DATE/TIME: 03/17/2017 02:52 [facility] COMPARISON: CHEST SINGLE AP, March 16, 2017, 14:46. INDICATIONS : Shortness of breath. MEDICAL HISTORY : None. SURGICAL HISTORY : None. ENCOUNTER: Subsequent ACUITY: 1 week PAIN SCORE: Non-responsive. LOCATION: Bilateral chest FINDINGS: A single portable frontal view the chest shows unchanged bilateral pulmonary infiltrates. Small bilat eral pleural effusions are stable. Tip of the endotracheal tube 3 cm proximal to jose l. Tip of the n asogastric tube courses off the inferior margin of the film. Left subclavian central line. Heart is a t the upper limits of normal in terms of size. CONCLUSION: 1. Unchanged bilateral pulmonary infiltrates and small effusions. 2. Lines and tubes. Gigi Dahl Jr., MD on March 17, 2017 at 3:56 Board Certified Radiologist. This report was verified electronically.
[2017-03-17] MEDS: CHLORHEXIDINE GLUCONATE 2 % 1 PACK (2 CLOTHS) TOP SCH (04:00)
[2017-03-17] MEDS: MIDAZOLAM 100 MG/ML INJ 100 ML IV SCH ×2 (06:18→23:13)
[2017-03-17] MEDS: BUMETANIDE INJ 1 MG/4 ML VIAL IV PUSH SCH ×2 (08:03→17:44)
[2017-03-17] MEDS: PANTOPRAZOLE SODIUM 40 MG VIAL IV SCH (08:04)
[2017-03-17] MEDS: SODIUM CHLORIDE 0.9% FLUSH 10 ML FLUSH IV FLUSH SCH ×2 (08:04→20:26)
[2017-03-17] MEDS: DOCUSATE SODIUM 50 MG/SENNA 8.6 MG TAB PO SCH ×2 (08:04→21:00)
[2017-03-17] MEDS: POTASSIUM CHLORIDE 25 MEQ EFFERVESCENT TAB PO SCH (08:04)
[2017-03-17] MEDS: CHLORHEXIDINE 0.12% (ORAL KIT) 15 ML CUP MT SCH ×2 (08:20→20:00)
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
[2017-03-17] MEDS: DEXMEDETOMIDINE INJ 200 MCG in SODIUM CHLORIDE 0.9% INJ 50 ML IV SCH (09:04)
[2017-03-17] MEDS ORDERED: RESP: LIDOCAINE HCL 4% TOPICAL 4 ML KIT NEB NEB PRN (09:45)
[2017-03-17] MEDS: RESP: LIDOCAINE HCL 4% PF 5 ML NEB NEB PRN ×2 (10:08→11:38)
[2017-03-17] MEDS: RESP: ALBUTEROL 2.5 MG/IPRATROPIUM 0.5 MG NEB (PRN) INH (10:08)
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
[2017-03-17] MEDS: RESP: ALBUTEROL 2.5 MG/IPRATROPIUM 0.5 MG NEB (SCH) INH ×3 (11:38→20:04)
--- NOTE | 2017-03-17 12:31 | PD.ONC.PN ---
Subjective Subjective Remarks Tmax 99.2. Pt remains intubated, sedated. Per RN no bleeding. Objective Data Date Time Temp Pulse Resp B/P Pulse Ox O2 Delivery O2 Flow Rate FiO2 03/17/17 11:38 96 40 03/17/17 10:00 116 03/17/17 09:46 91 40 03/17/17 09:46 40 03/17/17 08:38 98 40 03/17/17 08:38 40 03/17/17 08:00 101 03/17/17 08:00 40 03/17/17 08:00 99.3 101 21 123/62 97 03/17/17 07:00 97 Mechanical Ventilator 40 03/17/17 06:00 95 03/17/17 06:00 95 18 127/66 100 03/17/17 05:18 98 40 03/17/17 05:00 99 03/17/17 05:00 99 18 127/68 100 03/17/17 04:00 98.8 101 18 126/69 100 03/17/17 04:00 40 03/17/17 04:00 101 03/17/17 03:00 105 18 133/68 100 03/17/17 03:00 105 03/17/17 02:00 102 03/17/17 02:00 102 18 134/71 100 03/17/17 01:10 100 40 03/17/17 01:00 99 18 127/70 100 03/17/17 01:00 99 03/17/17 00:00 40 03/17/17 00:00 97 03/17/17 00:00 99.6 97 18 120/59 100 03/16/17 23:00 92 18 121/60 100 03/16/17 23:00 92 03/16/17 22:00 89 18 120/59 100 03/16/17 22:00 89 03/16/17 21:00 87 03/16/17 21:00 87 18 119/59 99 03/16/17 20:41 98 40 03/16/17 20:00 40 03/16/17 20:00 99.6 92 18 119/55 100 03/16/17 20:00 92 03/16/17 19:00 90 19 125/62 99 03/16/17 19:00 90 03/16/17 19:00 100 Mechanical Ventilator 40 03/16/17 18:00 101 03/16/17 17:15 100 40 03/16/17 16:00 100.2 102 22 131/69 100 03/16/17 16:00 102 03/16/17 16:00 40 03/16/17 14:00 103 03/17/17 03/17/17 03/17/17 06:59 14:59 22:59 Intake Total 980 ml Output Total 550 ml Balance 430 ml Result Diagram: 03/17/17 0200 03/17/17 0200 Laboratory Results Laboratory Tests Test 03/17/17 02:00 White Blood Count 19.4 TH/MM3 Red Blood Count 2.57 MIL/MM3 Hemoglobin 7.2 GM/DL Hematocrit 22.2 % Mean Corpuscular Volume 86.4 FL Mean Corpuscular Hemoglobin 28.1 PG Mean Corpuscular Hemoglobin 32.5 % Concent Red Cell Distribution Width 17.8 % Platelet Count 314 TH/MM3 Mean Platelet Volume 7.6 FL Neutrophils (%) (Auto) 79.4 % Lymphocytes (%) (Auto) 13.1 % Monocytes (%) (Auto) 5.8 % Eosinophils (%) (Auto) 1.2 % Basophils (%) (Auto) 0.5 % Neutrophils # (Auto) 15.4 TH/MM3 Lymphocytes # (Auto) 2.6 TH/MM3 Monocytes # (Auto) 1.1 TH/MM3 Eosinophils # (Auto) 0.2 TH/MM3 Basophils # (Auto) 0.1 TH/MM3 CBC Comment DIFF FINAL Differential Comment Prothrombin Time 17.7 SEC Prothromb Time International 1.6 RATIO Ratio Sodium Level 138 MEQ/L Potassium Level 3.7 MEQ/L Chloride Level 100 MEQ/L Carbon Dioxide Level 31.2 MEQ/L Anion Gap 7 MEQ/L Blood Urea Nitrogen 7 MG/DL Creatinine 0.51 MG/DL Estimat Glomerular Filtration 148 ML/MIN Rate Random Glucose 103 MG/DL Calcium Level 7.8 MG/DL Magnesium Level 1.9 MG/DL Total Bilirubin 0.4 MG/DL Aspartate Amino Transf 21 U/L (AST/SGOT) Alanine Aminotransferase 10 U/L (ALT/SGPT) Alkaline Phosphatase 268 U/L Total Protein 6.8 GM/DL Albumin 1.2 GM/DL Culture Results Microbiology Date/Time Procedure Status Source Growth 03/16/17 12:20 Aerobic Blood Culture - Preliminary Resulted Blood Peripheral NO GROWTH IN 1 DAY 03/16/17 12:20 Anaerobic Blood Culture - Preliminary Resulted Blood Peripheral NO GROWTH IN 1 DAY Imaging Studies Last 24 hours Impressions Chest X-Ray 03/17/17 0600 Signed Impressions: Service Date/Time: Friday, March 17, 2017 02:52 - CONCLUSION: 1. Unchanged bilateral pulmonary infiltrates and small effusions. 2. Lines and tubes. Gigi Dahl Jr., MD Administered Medications Medications (Trade) Dose Ordered Sig/Benitez Route PRN Reason Start Time Stop Time Status Last Admin Dose Admin Oxycodone/ Acetaminophen (Percocet 5-325 Mg) 1 tab Q4H PRN PO PAIN SCALE 3 TO 5 03/06/17 08:15 03/06/17 13:34 Sodium Chloride (NS Flush) 2 ml BID IV FLUSH 03/06/17 21:00 03/17/17 08:04 Hydromorphone HCl (Dilaudid Pf Inj) 1 mg Q4H PRN IV PAIN SCALE 6 TO 10 03/06/17 13:30 03/10/17 05:12 Pantoprazole Sodium (Protonix Inj) 40 mg DAILY IV 03/07/17 09:00 03/17/17 08:04 Senna/Docusate Sodium (Latosha-Colace) 2 tab BID PO 03/06/17 21:00 03/16/17 21:23 Miscellaneous Information 1 Q361D XX 03/06/17 13:30 03/07/17 20:46 Chlorhexidine Gluconate (Chlorhexidine 2% Cloth) Taper DAILY@04 TOP 03/07/17 04:00 03/03/18 03:59 03/17/17 04:00 Lorazepam 1 mg 1 mg Q4H PRN IV PUSH MILD ANXIETY OR AGITATION 03/06/17 15:15 03/13/17 09:55 Cefazolin Sodium/ Dextrose 50 ml @ 100 mls/hr Q8H IV 03/08/17 11:00 03/17/17 11:10 Potassium Chloride (KCl 40 Meq Premix Inj) 100 ml @ 25 mls/hr UNSCH PRN IV For Potassium 3.3 - 3.5 mEq/L 03/09/17 14:00 03/16/17 06:36 Chlorhexidine Gluconate 15 ml 15 ml BID@08,20 MT 03/10/17 20:00 03/17/17 08:20 Propofol 100 ml @ 0 mls/hr TITRATE IV 03/10/17 17:30 03/17/17 08:55 Midazolam HCl 100 ml @ 0 mls/hr TITRATE IV 03/10/17 17:30 03/17/17 06:18 Fentanyl Citrate 250 ml @ 0 mls/hr TITRATE IV 03/10/17 17:30 03/17/17 09:04 Gentamicin Sulfate/Sodium Chloride (Gentamicin Inj/ NS Inj) 101.5 ml @ 200 mls/hr Q8H IV 03/11/17 17:00 03/17/17 08:03 Acetaminophen (Ofirmev Inj) 1,000 mg Q6H PRN IV fever 03/12/17 00:00 03/16/17 00:42 Potassium Bicarb/ Potassium Chloride (K-Lyte Cl Eff) 25 meq DAILY PO 03/15/17 12:00 03/17/17 08:04 Fondaparinux 7.5 mg 7.5 mg Q24H SQ 03/16/17 18:00 03/16/17 18:03 Dexmedetomidine HCl/Sodium Chloride (Precedex Inj/NS Inj) 52 ml @ 0 mls/hr TITRATE IV 03/17/17 09:00 03/17/17 09:04 Objective Remarks GENERAL: Young female, resting in bed sedated and intubated. SKIN: Warm and dry. No oozing from lines. HEAD: Normocephalic. EYES: No scleral icterus. No injection or drainage. NECK: Supple, trachea midline. No JVD or lymphadenopathy. CARDIOVASCULAR: +S1/S2. RESPIRATORY: Mechanically ventilated. Scattered rhonchi. GASTROINTESTINAL: Abdomen soft, non-tender, nondistended. EXTREMITIES: Generalized edema. NEUROLOGICAL: Sedated on propofol, versed and fentanyl. Assessment/Plan Problem List: (1) Infective endocarditis Status: Acute Plan: --on IV antibiotics. --gram-positive cocci bacteremia. --echocardiogram --> hyperdynamic dynamic left ventricle, mitral valve vegetation and echogenic mass in the right ventricle suggestive of a thrombus-- > Currently on Arixtra. --Infectious Disease and Cardiology following (2) Thrombocytopenia Status: Acute Plan: likely multifactorial due to infection+hepatosplenomegaly, h/o hep C, ? no obvious bleeding -- Differential diagnosis also includes HELLP syndrome, although this is questionable since her liver functions are normal and total bilirubin level was not elevated. Other possibilities include TTP and hemolytic/uremic syndrome. --nicholas test negative --LDH elevated, haptoglobin normal, indirect bili normal --HIT negative -- liver ultrasound shows hepatosplenomegaly. --peripheral smear review--> does not show substantial numbers of fragmented cells--microangiopathic hemolytic process unlikely. --Transfuse cryoprecipitate to keep fibrinogen greater than 150. --Transfuse to keep platelet count greater than 30,000 (3) Anemia Status: Acute Plan: --LDH slightly elevated, haptoglobin normal --Transfuse to keep hemoglobin greater than 7. Assessment 26y/o female, critically ill in respiratory failure in [facility]. Hematology consulted for acute thrombocytopenia and anemia. History (from initial consult) 3, para 1, AB 1 who was at 32.5 weeks gestation with expected delivery of April 28 but delivered prematurely on 2016. After delivery the patient decompensated and became hypoxic and went into respiratory failure. She was intubated and is currently in the intensive care unit. The patient has a known history of IV drug abuse. Her UDS was positive for opiates, benzodiazepine and cocaine. Plan 1. Will d/c Coumadin for now and keep her on the Arixtra. 2. Per RN no bleeding. Await stool for hemoccult. Transfuse to keep Hb > 7.0 3. Monitor CBC. Attending Statement The exam, history, and the medical decision-making described in the above note were completed with the assistance of the mid-level provider. I reviewed and agree with the findings presented. I attest that I had a [id number] encounter with the patient on the same day, and personally performed and documented my assessment and findings in the medical record. PLT count stable Transfuse 1 unit of pRBC daily coags and fibrinogen d/w Princess Blood March 17, 2017 12:30 Andrew Lazo MD March 18, 2017 00:04
[2017-03-17] MEDS: ACETAMINOPHEN 1000 MG/100 ML VIAL IV PRN (12:42)
--- NOTE | 2017-03-17 16:27 | HHI.IDPN ---
Subjective Subjective Remarks is a 26-year-old 3 para 1 AB 1 at 32-5/7 week gestation with an EDC of 04/28 but was delivered prematurely due to PROM per Ob notes on . Patients mom was in the room at time of my visit and provided me with history and Dad confirmed these findings. 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 Patient admitted to use of Dilaudid and Cocaine per day. The patient incidentally was found to have this . She has had a miscarriage before. Patient currently has 2 active boyfriends according to Mom. She is the only child. 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 She denied any headache, visual changes or abdominal pain. The patient was noted to be in preeclampsia with a protein creatinine ratio 0.47, urine protein 117. The patient was also noted to have leukocytosis, and febrile. The patient was placed on a magnesium infusion. 03/07: Afebrile. Noted bacteremia showing gram-positive cocci. On 03/07/17 patient become tachypneic with respiratory rate high 30s-40, on nonrebreather . Chest x-ray was performed, and ABG showing hypoxemia, PaO2 129 on 100%. Plan for emergent intubation. Suboxone was initiated yesterday, magnesium level has been titrated to parameter of 6-7. The patient was noted to be thrombocytopenic today secondary to HELLP syndrome. The patient was emergently intubated for hypoxemia on 03/07/2017. 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 An echo was performed showing mitral valve vegetation, and a large thrombus in the right ventricle, and full anticoagulation was initiated last night with Argatroban in the setting of thrombocytopenia. CVT has been consulted and recommends medical management. The patient was placed on empiric antibiotics,WBC count increasing, ID was consulted for Sepsis and Staph endocarditis. 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 Overnight events reviewed with RN Remains in ISC Intubated. Arias secretions mostly oral. UO ok. Persistent fever now 103 F Persistent leucocytosis. No diarrhea No rash No vaginal bleed or discharge. No neuro deficit off sedation per discussion with RN. Antibiotics Ancef IV Genta IV Lines Line sites with no e.o infection. Past Medical History reviewed. Allergies: Coded Allergies: Penicillin (Verified Allergy, Intermediate, hives, 11/21/16) *MDRO Multi-Drug Resistant Organism (Verified Adverse Reaction, Unknown, ) Cleared per Infection Control MRSA (breast wound) - 04/30/16 MRSA screens NEGATIVE 03/06/17 & 03/13/17 Objective . Vital Signs Date Time Temp Pulse Resp B/P Pulse Ox O2 Delivery O2 Flow Rate FiO2 03/17/17 16:00 40 03/17/17 16:00 91 03/17/17 15:32 100 40 03/17/17 14:00 92 03/17/17 12:00 40 03/17/17 12:00 103.1 107 18 128/60 95 03/17/17 12:00 107 03/17/17 11:38 96 40 03/17/17 10:00 116 03/17/17 09:46 91 40 03/17/17 09:46 40 03/17/17 08:38 98 40 03/17/17 08:38 40 03/17/17 08:00 101 03/17/17 08:00 40 03/17/17 08:00 99.3 101 21 123/62 97 03/17/17 07:00 97 Mechanical Ventilator 40 03/17/17 06:00 95 03/17/17 06:00 95 18 127/66 100 03/17/17 05:18 98 40 03/17/17 05:00 99 03/17/17 05:00 99 18 127/68 100 03/17/17 04:00 98.8 101 18 126/69 100 03/17/17 04:00 40 03/17/17 04:00 101 03/17/17 03:00 105 18 133/68 100 03/17/17 03:00 105 03/17/17 02:00 102 03/17/17 02:00 102 18 134/71 100 03/17/17 01:10 100 40 03/17/17 01:00 99 18 127/70 100 03/17/17 01:00 99 03/17/17 00:00 40 03/17/17 00:00 97 03/17/17 00:00 99.6 97 18 120/59 100 03/16/17 23:00 92 18 121/60 100 03/16/17 23:00 92 03/16/17 22:00 89 18 120/59 100 03/16/17 22:00 89 03/16/17 21:00 87 03/16/17 21:00 87 18 119/59 99 03/16/17 20:41 98 40 03/16/17 20:00 40 03/16/17 20:00 99.6 92 18 119/55 100 03/16/17 20:00 92 03/16/17 19:00 90 19 125/62 99 03/16/17 19:00 90 03/16/17 19:00 100 Mechanical Ventilator 40 03/16/17 18:00 101 03/16/17 17:15 100 40 03/16/17 03/16/17 03/17/17 15:00 23:00 07:00 Intake Total 1039 ml 1041 ml 980 ml Output Total 2425 ml 1650 ml 550 ml Balance -1386 ml -609 ml 430 ml IV Total 715 ml 726 ml 700 ml Tube Feeding 174 ml 215 ml 180 ml Other 150 ml 100 ml 100 ml Output Urine Total 2425 ml 1650 ml 550 ml # Bowel Movements 0 1 . Laboratory Tests Test 03/16/17 03/17/17 04:10 02:00 White Blood Count 22.2 TH/MM3 19.4 TH/MM3 Red Blood Count 2.77 MIL/MM3 2.57 MIL/MM3 Hemoglobin 7.8 GM/DL 7.2 GM/DL Hematocrit 24.2 % 22.2 % Mean Corpuscular Volume 87.5 FL 86.4 FL Mean Corpuscular Hemoglobin 28.1 PG 28.1 PG Mean Corpuscular Hemoglobin 32.1 % 32.5 % Concent Red Cell Distribution Width 17.8 % 17.8 % Platelet Count 235 TH/MM3 314 TH/MM3 Mean Platelet Volume 7.6 FL 7.6 FL Neutrophils (%) (Auto) 83.7 % 79.4 % Lymphocytes (%) (Auto) 9.5 % 13.1 % Monocytes (%) (Auto) 5.6 % 5.8 % Eosinophils (%) (Auto) 0.7 % 1.2 % Basophils (%) (Auto) 0.5 % 0.5 % Neutrophils # (Auto) 18.5 TH/MM3 15.4 TH/MM3 Lymphocytes # (Auto) 2.1 TH/MM3 2.6 TH/MM3 Monocytes # (Auto) 1.2 TH/MM3 1.1 TH/MM3 Eosinophils # (Auto) 0.2 TH/MM3 0.2 TH/MM3 Basophils # (Auto) 0.1 TH/MM3 0.1 TH/MM3 CBC Comment DIFF FINAL DIFF FINAL Differential Comment Laboratory Tests Test 03/15/17 03/16/17 03/17/17 16:29 04:10 02:00 Potassium Level 3.8 MEQ/L 3.5 MEQ/L 3.7 MEQ/L Sodium Level 138 MEQ/L 138 MEQ/L Chloride Level 104 MEQ/L 100 MEQ/L Carbon Dioxide Level 26.3 MEQ/L 31.2 MEQ/L Anion Gap 8 MEQ/L 7 MEQ/L Blood Urea Nitrogen 8 MG/DL 7 MG/DL Creatinine 0.61 MG/DL 0.51 MG/DL Estimat Glomerular Filtration 121 ML/MIN 148 ML/MIN Rate Random Glucose 87 MG/DL 103 MG/DL Calcium Level 7.4 MG/DL 7.8 MG/DL Protein Corrected Calcium 7.8 MG/DL Magnesium Level 1.8 MG/DL 1.9 MG/DL Total Bilirubin 0.5 MG/DL 0.4 MG/DL Aspartate Amino Transf 12 U/L 21 U/L (AST/SGOT) Alanine Aminotransferase LESS THAN 6 U/L 10 U/L (ALT/SGPT) Alkaline Phosphatase 161 U/L 268 U/L Total Protein 6.4 GM/DL 6.8 GM/DL Albumin 1.1 GM/DL 1.2 GM/DL Microbiology Date/Time Procedure Status Source Growth 03/16/17 12:20 Aerobic Blood Culture - Preliminary Resulted Blood Peripheral NO GROWTH IN 1 DAY 03/16/17 12:20 Anaerobic Blood Culture - Preliminary Resulted Blood Peripheral NO GROWTH IN 1 DAY Imaging Last Impressions Chest X-Ray 03/09/17 0600 Signed Impressions: Service Date/Time: Thursday, March 09, 2017 04:42 - CONCLUSION: 1. Improving diffuse edema versus pneumonia Bertrand Adhikari MD Liver Ultrasound 03/08/17 0000 Signed Impressions: Service Date/Time: Wednesday, March 08, 2017 08:41 - CONCLUSION: Hepatosplenomegaly. Gallbladder filled with sludge. Mild wall thickening and pericholecystic fluid. Minimal nonspecific perinephric fluid on the right Ricky Wilson MD CT Angiography 03/07/17 0000 Signed Impressions: Service Date/Time: Tuesday, March 07, 2017 22:54 - CONCLUSION: 1. No evidence of pulmonary embolism. 2. Diffuse alveolar disease as well as cavitary nodules which may reflect septic emboli. Bertrand Adhikari MD Lower Extremity Ultrasound 03/06/17 0849 Signed Impressions: Service Date/Time: Monday, March 06, 2017 09:09 - CONCLUSION: Normal examination. Eddie Boykin MD Physical Exam GENERAL: This is a well-nourished, well-developed patient, in no apparent distress. SKIN: No rashes, ecchymoses or lesions. Cool and dry. HEAD: Atraumatic. Normocephalic. No temporal or scalp tenderness. EYES: Pupils equal round and reactive. Extraocular motions intact. No scleral icterus. No injection or drainage. ENT: No oral thrush, dry NECK: Trachea midline.Supple, nontender, no meningeal signs. CARDIOVASCULAR: RRR, ? systolic murmur. RESPIRATORY: Clear to auscultation. Breath sounds equal bilaterally. No wheezes , rales, or rhonchi. GASTROINTESTINAL: Abdomen soft, non-tender, nondistended. MUSCULOSKELETAL: Extremities without clubbing, cyanosis. 2-3 plus pedal edema. NEUROLOGICAL: Sedated gets agitated off sedation easily. Psych: could not be assessed. Assessment & Plan Remarks Severe Sepsis MSSA bacteremia/endocarditis, Atrial large thrombus. Pulm Septic emboli. Fetus at risk for infection: recommend sepsis workup in child. Acute metabolic encephalopathy: sepsis, medication withdrawal, at risk for meningitis (will reassess based on follow up clinical exam) Thrombocytopenia: Platelets could have been low from Sepsis, DIC, hep C as well. Post at risk for endometritis. Hepatitis C positive. ? drug rash/fever >? Ancef IV Recs DC Ancef IV Start Teflaro IV q8hrs (pt with PCN allergy, fever and rash on Ancef IV, Need coverage for MSSA endocarditis) Continue Genta IV consult for synergy (for MSSA bacteremia plan on 2 weeks or based on renal function) Start Micafungin IV (ASP criteria: at risk for fungemia, CL, BSA for extended periods of time) Check urine eosinophils. CBC with diff to look for eosinophilia. Doppler UE bilateral including neck. Fine CT negative. Recheck CRP to trend. omid RN d/w Nicky Jackson MD March 17, 2017 16:27
[2017-03-17 17:10] LABS: ALT (GPT) 7 U/L (10-53); ANION GAP 7 MEQ/L (5-15); AST (GOT) 27 U/L (15-37); BICARBONATE 32.2 MEQ/L (21.0-32.0); BLOOD UREA NITROGEN 8 MG/DL (7-18); CHLORIDE 98 MEQ/L (98-107); GLOMERULAR FILTRATION RATE 139 ML/MIN (>89); POTASSIUM 3.4 MEQ/L (3.5-5.1); SODIUM (NA) 137 MEQ/L (136-145)
[2017-03-17 17:13] LABS: ALKALINE PHOSPHATASE 167 U/L (45-117); TOTAL BILIRUBIN ADULT 0.5 MG/DL (0.2-1.0)
[2017-03-17] MEDS: MICAFUNGIN INJ 100 MG in SODIUM CHLORIDE 0.9% INJ 100 ML IV SCH (17:43)
[2017-03-17] MEDS: FONDAPARINUX SODIUM 7.5 MG/0.6 ML SYRINGE SQ SCH (17:43)
[2017-03-17 19:03] LABS: BLOOD, URINE MOD (NEG); GLUCOSE,URINE NEG (NEG); HYALINE CAST, URINE 5 /lpf (RARE); KETONE, URINE NEG (NEG); MUCUS URINE FEW /lpf (OCC); NITRITE,URINE NEG (NEG); SQUAMOUS EPITHELIAL CELL URINE <1 /hpf (0-5); URINE COLOR YELLOW (YELLW/STRAW)
[2017-03-17 19:06] LABS: BACTERIA, URINE FEW /hpf; COMMENT (UR) CATH-CULTURE IND; CULTURE IF INDICATED CATH CULTURE IND
[2017-03-17] MEDS: CEFTAROLINE INJ 600 MG in SODIUM CHLORIDE 0.9% INJ 100 ML IV SCH (19:58)
[2017-03-18] VITALS (24 sets, daily range): BP systolic 15–131; BP diastolic 59–78; PULSE 67–110; RESP 18–43; TEMP 98.9–100.7; O2SAT 87–100
--- NOTE | 2017-03-18 00:05 | RADRPT ---
EXAM DATE/TIME: 03/17/2017 22:19 [facility] COMPARISON: No previous studies available for comparison. INDICATIONS : Bilateral arm swelling. MEDICAL HISTORY : Frequent UTIs. Substance use. Anxiety. SURGICAL HISTORY : . Incision and drainage x2 for cellulitis. ENCOUNTER: Initial ACUITY: 1 day PAIN SCORE: Non-responsive LOCATION: Bilateral arm. FINDINGS: RIGHT UPPER EXTREMITY: There is spontaneous flow documented in the brachial, basilic, cephalic, axillary, and subclavian vei ns. The vessels are compressible and augmentation response is documented. No filling defects are se en. The flow is phasic with respiration. Direction of flow in the jugular vein is caudal. LEFT UPPER EXTREMITY: There is spontaneous flow documented in the brachial, basilic, cephalic, axillary, and subclavian vei ns. The vessels are compressible and augmentation response is documented. No filling defects are se en. The flow is phasic with respiration. Direction of flow in the jugular vein is caudal. CONCLUSION: 1. No DVT. 2. Subcutaneous edema noted. Gigi Dahl Jr., MD on March 18, 2017 at 0:03 Board Certified Radiologist. This report was verified electronically.
[2017-03-18] MEDS: GENTAMICIN INJ 60 MG in SODIUM CHLORIDE 0.9% INJ 100 ML IV SCH ×3 (00:28→16:27)
[2017-03-18] MEDS: ACETAMINOPHEN 1000 MG/100 ML VIAL IV PRN (00:31)
[2017-03-18] MEDS: BUMETANIDE INJ 1 MG/4 ML VIAL IV PUSH SCH ×2 (00:56→12:11)
[2017-03-18] MEDS: RESP: ALBUTEROL 2.5 MG/IPRATROPIUM 0.5 MG NEB (SCH) INH ×7 (01:10→23:14)
[2017-03-18] MEDS: CEFTAROLINE INJ 600 MG in SODIUM CHLORIDE 0.9% INJ 100 ML IV SCH ×3 (01:30→18:00)
[2017-03-18] MEDS: fentaNYL DRIP 250 ML IV SCH ×3 (02:53→16:28)
[2017-03-18] MEDS: PROPOFOL 1000 MG/100 ML INJ 100 ML IV SCH ×2 (03:34→06:56)
[2017-03-18] MEDS: CHLORHEXIDINE GLUCONATE 2 % 1 PACK (2 CLOTHS) TOP SCH (04:00)
--- NOTE | 2017-03-18 06:13 | RADRPT ---
EXAM DATE/TIME: 03/18/2017 04:57 [facility] COMPARISON: CHEST SINGLE AP, March 17, 2017, 2:52. INDICATIONS : Respiratory disease. MEDICAL HISTORY : None. SURGICAL HISTORY : None. ENCOUNTER: Subsequent ACUITY: 1 week PAIN SCORE: Non-responsive. LOCATION: Bilateral chest FINDINGS: Single portable frontal view the chest shows no interval change. Tiny right effusion. Bilateral pulmo nary infiltrates are stable. Heart is mildly enlarged. Tip of the endotracheal tube 4 cm from the car naomie. Nasogastric tube and left subclavian central line. CONCLUSION: Unchanged bilateral pulmonary infiltrates. Small right effusion. Gigi Dahl Jr., MD on March 18, 2017 at 6:11 Board Certified Radiologist. This report was verified electronically.
[2017-03-18 07:00] LABS: AUTOMATED NEUTROPHIL # 10.7 TH/MM3 (1.8-7.7); BASOPHIL # 0.1 TH/MM3 (0-0.2); BASOPHIL % 0.6 % (0.0-2.0); EOSINOPHIL # 0.2 TH/MM3 (0-0.4); EOSINOPHIL % 1.2 % (0.0-4.0); HEMATOCRIT 25.3 % (35.0-46.0); LYMPH % 14.4 % (9.0-44.0); MEAN CELL VOLUME 85.9 FL (80.0-100.0); MEAN CORPUSCULAR HEMOGLOBIN 27.9 PG (27.0-34.0); MEAN CORPUSCULAR HGB CONC 32.5 % (32.0-36.0); MONO % 7.9 % (0.0-8.0); NEUT % 75.9 % (16.0-70.0); PLATELET COUNT 289 TH/MM3 (150-450); RED BLOOD COUNT 2.95 MIL/MM3 (4.00-5.30); RED CELL DISTRIBUTION WIDTH 16.9 % (11.6-17.2); WHITE BLOOD COUNT 14.1 TH/MM3 (4.0-11.0)
[2017-03-18 07:11] LABS: HEMO FLAGS AUTO DIFF
[2017-03-18 07:30] LABS: BICARBONATE 34.9 MEQ/L (21.0-32.0); POTASSIUM 3.6 MEQ/L (3.5-5.1)
[2017-03-18 07:33] LABS: CALCIUM-PROTEIN CORRECTED 7.5 MG/DL (8.5-10.1); TOTAL BILIRUBIN ADULT 0.5 MG/DL (0.2-1.0)
[2017-03-18] MEDS: CHLORHEXIDINE 0.12% (ORAL KIT) 15 ML CUP MT SCH ×2 (08:00→21:00)
[2017-03-18] MEDS: PANTOPRAZOLE SODIUM 40 MG VIAL IV SCH (08:56)
[2017-03-18] MEDS: DOCUSATE SODIUM 50 MG/SENNA 8.6 MG TAB PO SCH ×2 (08:57→21:00)
[2017-03-18] MEDS: POTASSIUM CHLORIDE 25 MEQ EFFERVESCENT TAB PO SCH (08:58)
[2017-03-18] MEDS: SODIUM CHLORIDE 0.9% FLUSH 10 ML FLUSH IV FLUSH SCH ×2 (08:58→21:55)
--- NOTE | 2017-03-18 08:58 | HHI.CCPN ---
Subjective Remarks/Hospital Course 26-year-old 3 para 1 AB 1 at 32-5/7 week gestation with an EDC of 04/28 that she claims was given based on an ultrasound in the local obstetrical office approximately one month ago. She does not have any recollection of her last menstrual period. She has had no care other than the physical ultrasound was obtained. She was to follow up in another office and failed to keep that appointment. The patient reports tonight with generalized discomfort and swelling of her legs for the past 5 days. She reports having used 4 mg of Suboxone at 11:30 PM on 02/02/17. She also admits to 8 mg of Dilaudid per day and proximally $20 of cocaine per day with the most recent use of both of these in the last 12 hours prior to admission to the hospital.She reports that her legs began to swell proximal 5 days ago. She denies any headache, visual changes or abdominal pain. The patient was noted to be in preeclampsia with a protein creatinine ratio 0.47, urine protein 117. The patient was also noted to have leukocytosis , and febrile. The patient was placed on a magnesium infusion. The patient subsequently had a spontaneous vaginal delivery without general or regional anesthesia. Critical care medicine was consulted for management. Upon entering the room the patient was noted to be writhing in pain complaining of left hip left leg pain, BP 90/68 with magnesium infusing. Subjective: 03/07: Afebrile. Noted bacteremia showing gram-positive cocci. Early this morning the patient has become tachypnea respiratory rate high 30s-40, on nonrebreather . Chest x-ray was performed, and ABG showing hypoxemia, PaO2 129 on 100%. Plan for emergent intubation. Suboxone was initiated yesterday, magnesium level has been titrated to parameter of 6-7. The patient was noted to be thrombocytopenic today secondary to HELLP syndrome , plan for transfusion of 2 units of platelets this a.m. .The patient remains normotensive. 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 Patient 's FiO2 has been weaned down to 50% this a.m.. An echo was performed yesterday evening showing mitral valve vegetation, and a large thrombus in the right ventricle, and full anticoagulation was initiated last night with Argatroban in the setting of thrombocytopenia. CVT has been consulted. Hemoglobin results 6.9 , and platelet count 42,000. The patient will be transfused today 1 unit PRBC, 2 units of platelets. Suboxone was placed on hold, patient sedation includes Versed and fentanyl infusions for ventilator synchrony. The patient was placed on empiric antibiotics ,WBC count increasing, ID has been consulted. 03/09: Patient remains intubated heavily sedated, Remains on Argatroban for Large RV thrombus. Platelet count is 67 today. HIT screen pending. Started on Ancef yesterday, tolerating well. On lightening sedation, moves all extremities. 03/10: Having ongoing problems with agitation on ventilator. Will trial extubation (FiO2 35%), use precedex if necessary. 03/11: Required re-intubation about 5 hours after extubation yesterday. Consolidation in lungs worse. Will require at least 2-3 days additional ventilator support. 03/12: Ongoing respiratory failure and diffuse pneumonia. 03/13: Persistent leukocytosis. Gas exchange largely unchanged. 03/14: Coumadin started 03/13, INR 3.5 today; will continue argatroban infusion until INR > 4. Persistent septic picture, gas exchange improving - long way to go. 03/15: INR 4.5 - DC Argatroban gtt. Therapeutic on Coumadin. Chest x-ray shows bilateral pulmonary edema/ARDS. Started with IV Bumex today 03/16: Chest x-ray shows interval improvement with aggressive diuresis, more than 6 L urine output in 24 hours after starting Bumex. Offered Argatroban but Coumadin/INR is subtherapeutic. Ct chest-yesterday persistent bilateral infiltrates with some cavitation. ID requests line change again due to persistent bacteremia. WBC count trending down 03/17: Intubated sedated, but wakes up follows some commands. Chest x-ray essentially unchanged, with bilateral lung infiltrates. Urine output More than 4 L achieving negative balance 03/18: Patient remains intubated sedated, wakes up and follows basic commands. UO >5L. CXR remains unchanged. Will request repeat limited echo to evaluate RV thrombus size Objective Vital Signs Date Time Temp Pulse Resp B/P Pulse Ox O2 Delivery O2 Flow Rate FiO2 03/18/17 08:12 40 03/18/17 08:12 100 03/18/17 06:00 80 03/18/17 04:30 99.9 18 116/67 03/17/17 19:00 Mechanical Ventilator Intake and Output 03/17/17 03/17/17 03/18/17 08:00 16:00 00:00 Intake Total 980 ml 909 ml 864 ml Output Total 550 ml 1750 ml 1800 ml Balance 430 ml -841 ml -936 ml Result Diagram: 03/18/17 0603/18/17 06 Imaging Last Impressions Chest X-Ray 03/08/17 0600 Signed Impressions: Service Date/Time: Wednesday, March 08, 2017 02:07 - CONCLUSION: 1. Patchy alveolar disease characteristic of edema or pneumonia. There has been no significant change when compared to the prior exam. Bertrand Adhikari MD CT Angiography 03/07/17 0000 Signed Impressions: Service Date/Time: Tuesday, March 07, 2017 22:54 - CONCLUSION: 1. No evidence of pulmonary embolism. 2. Diffuse alveolar disease as well as cavitary nodules which may reflect septic emboli. Bertrand Adhikari MD Lower Extremity Ultrasound 03/06/17 0849 Signed Impressions: Service Date/Time: Monday, March 06, 2017 09:09 - CONCLUSION: Normal examination. Eddie Boykin MD Last 24 hours Impressions Lower Extremity Ultrasound 03/06/1749 Signed Impressions: Service Date/Time: Monday, March 06, 2017 09:09 - CONCLUSION: Normal examination. Eddie Boykin MD Chest X-Ray 03/06/17 0000 Signed Impressions: Service Date/Time: Monday, March 06, 2017 11:00 - CONCLUSION: Bilateral airspace disease and cardiomegaly. Eddie Boykin MD Objective Remarks GENERAL: Pale, critically ill-appearing young female intubated and sedated SKIN: Warm and dry. HEAD: Atraumatic. Normocephalic. EYES: Pupils equal and round. No scleral icterus. No injection or drainage. ENT: No nasal bleeding or discharge. orotracheally intubated NECK: Trachea midline. CARDIOVASCULAR: Normal rate, regular rhythm. No JVD. Systolic murmur grade 3 at the apex and left sternal border. Bedside echo large RV thrombus RESPIRATORY: Bilateral course breath sounds, rhonchi. Mobile secretions, large amount. GASTROINTESTINAL: Abdomen soft, non-tender. Protuberant, quiet. No guarding. MUSCULOSKELETAL: Peripheral pitting edema bilateral upper and lower extremities NEUROLOGICAL: Intubated, heavily sedated for vent synchrony, but wakes up follows commands. Pupils equal. Date of Insertion: Mar 06, 2017 Date of Insertion: Mar 07, 2017 Line: Central Venous Catheter Side: Left Location: Subclavian A/P Assessment and Plan Neurologic: Metabolic encephalopathy IVDU Benzodiazepine dependence Positive urine tox screen-opiates, benzodiazepines, cocaine Currently on propofol, fentanyl and Versed. Precedex to facilitate ventilator weaning Ativan 1 mg every 4 hours PRN, Seizure precautions-in the setting of preeclampsia, and benzodiazepine dependence Respiratory: Acute hypoxic respiratory failure ARDS Bilateral septic pulmonary emboli Maintain O2 sat greater than 90%. PRVC with low tidal volume ventilation Initiate daily SBT. Bronchodilators every 6 hours scheduled, every 2 hours when necessary Mother reports the patient has a history of chemical lung injury 2014, consult pulmonology once acute problems resolved PFT 03/01/16-mild obstructive lung defect with no improvement postbronchodilator acutely. Cardiovascular: Large RV thrombus, probably infected Infective endocarditis, MSSA Hypertension secondary to Preeclampsia Fluid overload Echo performed 03/07, mitral mild regurgitation, Mod TR. probable RV thrombus, repeat limited echo 03/09, same findings Repeat limited echo today. Maintain MAP greater than 65 mmHg Heme discontinued Coumadin 03/17, continue Arixtra for now. DCd Argatroban 03/15, as INR subtherapeutic. IV Bumex 1 mg q8. UO excellent, reduce to 1 mg IV q12, and Diamox 500 mg IV daily x 3days Metoprolol 2.5 mg every 6 hours when necessary for systolic blood pressure greater than 160 mmHg Renal: Renal insufficiency , proteinuria secondary to preeclampsia Maintain Felix, Creatinine now normal Strict I/Os Bumex, Diamox as above as above 03/05 Protein creatinine ratio 0.47, urine protein 117-continue to monitor FEN/GI: Hepatitis C Possible HELLP syndrome Hyponatremia Hypokalemia IV to KVO Magnesium discontinued 03/07 Tube feeds with Jevity Follow-up hepatitis panel Heme/ID: Severe sepsis Thrombocytopenia secondary to DIC Infective endocarditis MSSA Large RV thrombus Pulmonary septic emboli Anemia secondary to acute blood loss H/O MRSA (04/23) Platelet count is normalized now 03/06, 03/08, 03/09 Blood cultures-MSSA Continue Ancef and gent per ID Dr. Rios. Micafungin added by ID Follow-up cultures Continue Arixtra Endocrine: Glucose monitoring per ICU protocol Electrolyte replacement per ICU protocol -- SSI Prophylaxis: GI Prophylaxis Protonix DVT Prophylaxis -- SCDs -- Arixtra for RV thrombus Lines: L sublcavian central line-03/16/17 Dispo: Mother Arabella Guerrero [id number] updated at bedside 03/08 and 03/09, 03/16 This patient remains critically ill with one or more organ systems which are or may become a threat to life. This time is exclusive of procedures, and includes , but is not limited to, evaluation of the patient, review of the medical record , discussions with family, consultants, nursing staff, or respiratory therapy, and documentation in the medical record. Overall impression: Sepsis continues but controlled with abx. She remains critically ill with two potentially lethal and presently unstable problems. Critical Care 35 mins Morales García MD March 18, 2017 08:58
[2017-03-18 08:59] LABS: BANDS 1 % (0-6); BASOPHILS 1 % (0-2); EOSINOPHILS 1 % (0-4); NEUTROPHIL # MANUAL DIFF 11.8 TH/MM3 (1.8-7.7); POLYS (SEG NEUTROPHILS) 83 % (16-70); WBC DIFF SAMPLE 100
[2017-03-18 09:00] LABS: PLATELET ESTIMATE SMEAR NORMAL (NORMAL); PLATELET MORPHOLOGY NORMAL (NORMAL); SCAN/DIFF FINAL DIFF MANUAL
[2017-03-18 10:27] LABS: BLOOD GAS BASE EXCESS 8.4 mmol/L (-2-2); BLOOD GAS CARBOXYHEMOGLOBIN 1.4 % (0-4); BLOOD GAS HCO3 33 mmol/L (22-26); BLOOD GAS METHEMOGLOBIN 0.7 % (0-2); BLOOD GAS O2 HGB SATURATION 93 % (90-100); BLOOD GAS OXYGEN CONTENT 13.5 Vol % (12.0-20.0); BLOOD GAS PCO2 47 mmHg (38-42); BLOOD GAS PO2 77 mmHg (61-120); BLOOD GAS TOTAL HGB 10.3 G/DL (12.0-16.0); CRITICAL VALUE NO; DRAW SITE RT RADIAL; FIO2 40 %; NUMBER OF ARTERIAL PUNCTURES 1; OXYGEN DEVICE VENTILATOR; STAT NO; TEMP CORR TO 98.6; VENT SETTINGS CPAPPS10/PEEP5
[2017-03-18] MEDS: HYDROmorphone HCL PF 1 MG/ML VIAL IV PRN ×3 (10:33→15:05)
[2017-03-18] MEDS: RESP: LIDOCAINE HCL 4% PF 5 ML NEB NEB PRN (11:30)
--- NOTE | 2017-03-18 12:02 | PD.ONC.PN ---
Subjective Subjective Remarks Tmax 100.7 overnight. Pt recently extubated, she is currently on 3L NC. Whispers "sore" when asked how she is doing. Objective Data Date Time Temp Pulse Resp B/P Pulse Ox O2 Delivery O2 Flow Rate FiO2 03/18/17 11:22 95 Nasal Cannula 5 03/18/17 10:30 99 40 03/18/17 09:15 Nasal Cannula 40 03/18/17 09:15 100 40 03/18/17 08:12 40 03/18/17 08:12 100 40 03/18/17 08:05 100 40 03/18/17 06:00 80 03/18/17 04:30 99.9 96 18 116/67 100 03/18/17 04:15 98.9 86 18 117/69 100 03/18/17 04:00 40 03/18/17 04:00 98.9 96 18 111/71 100 03/18/17 04:00 96 03/18/17 03:55 100 40 03/18/17 02:00 92 03/18/17 01:06 98 40 03/18/17 00:00 106 03/18/17 00:00 100.7 106 18 111/59 96 03/18/17 00:00 40 03/17/17 22:00 103 03/17/17 20:04 97 40 03/17/17 20:00 99.8 107 18 122/67 97 03/17/17 20:00 40 03/17/17 20:00 107 03/17/17 19:00 95 Mechanical Ventilator 40 03/17/17 18:00 90 03/17/17 16:00 40 03/17/17 16:00 91 03/17/17 16:00 98.4 96 18 114/58 100 03/17/17 15:32 100 40 03/17/17 14:00 92 03/17/17 12:00 40 03/17/17 12:00 103.1 107 18 128/60 95 03/17/17 12:00 107 03/18/17 03/18/17 03/18/17 06:59 14:59 22:59 Intake Total 1544 ml Output Total 1575 ml Balance -31 ml Result Diagram: 03/18/1761903/18/17619 Laboratory Results Laboratory Tests Test 03/17/17 03/17/17 03/18/1711/17 16:40 17:01 02:45 06:20 Sodium Level 137 MEQ/L 137 MEQ/L Potassium Level 3.4 MEQ/L 3.6 MEQ/L Chloride Level 98 MEQ/L 96 MEQ/L Carbon Dioxide Level 32.2 MEQ/L 34.9 MEQ/L Anion Gap 7 MEQ/L 6 MEQ/L Blood Urea Nitrogen 8 MG/DL 8 MG/DL Creatinine 0.54 MG/DL 0.49 MG/DL Estimat Glomerular Filtration 139 ML/MIN 155 ML/MIN Rate Random Glucose 87 MG/DL 104 MG/DL Calcium Level 7.5 MG/DL 7.3 MG/DL Total Bilirubin 0.5 MG/DL 0.5 MG/DL Aspartate Amino Transf 27 U/L 36 U/L (AST/SGOT) Alanine Aminotransferase 7 U/L 9 U/L (ALT/SGPT) Alkaline Phosphatase 167 U/L 194 U/L C-Reactive Protein 25.00 MG/DL Total Protein 6.7 GM/DL 6.7 GM/DL Albumin 1.2 GM/DL 1.2 GM/DL Urine Color YELLOW Urine Turbidity HAZY Urine pH 6.0 Urine Specific [place] 1.019 Urine Protein 30 mg/dL Urine Glucose (UA) NEG mg/dL Urine Ketones NEG mg/dL Urine Occult Blood MOD Urine Nitrite NEG Urine Bilirubin NEG Urine Urobilinogen LESS THAN 2.0 MG/DL Urine Leukocyte Esterase TRACE Urine RBC /hpf Urine WBC 5 /hpf Urine Squamous Epithelial <1 /hpf Cells Urine Bacteria FEW /hpf Urine Hyaline Casts 5 /lpf Urine Mucus FEW /lpf Microscopic Urinalysis Comment CATH-CULTURE IND Urine Eosinophils NONE SEEN /HPF Blood Type O POSITIVE Antibody Screen NEGATIVE Crossmatch Leukocyte-Reduced Red Blood Cells Blood Bank Comment White Blood Count 14.1 TH/MM3 Red Blood Count 2.95 MIL/MM3 Hemoglobin 8.2 GM/DL Hematocrit 25.3 % Mean Corpuscular Volume 85.9 FL Mean Corpuscular Hemoglobin 27.9 PG Mean Corpuscular Hemoglobin 32.5 % Concent Red Cell Distribution Width 16.9 % Platelet Count 289 TH/MM3 Mean Platelet Volume 7.3 FL Neutrophils (%) (Auto) 75.9 % Lymphocytes (%) (Auto) 14.4 % Monocytes (%) (Auto) 7.9 % Eosinophils (%) (Auto) 1.2 % Basophils (%) (Auto) 0.6 % Neutrophils # (Auto) 10.7 TH/MM3 Lymphocytes # (Auto) 2.0 TH/MM3 Monocytes # (Auto) 1.1 TH/MM3 Eosinophils # (Auto) 0.2 TH/MM3 Basophils # (Auto) 0.1 TH/MM3 CBC Comment AUTO DIFF Differential Total Cells 100 Counted Neutrophils % (Manual) 83 % Band Neutrophils % 1 % Lymphocytes % 10 % Monocytes % 4 % Eosinophils % 1 % Basophils % 1 % Neutrophils # (Manual) 11.8 TH/MM3 Differential Comment FINAL DIFF MANUAL Platelet Estimate NORMAL Platelet Morphology Comment NORMAL Protein Corrected Calcium 7.5 MG/DL Test 03/18/17 10:16 Blood Gas Puncture Site RT RADIAL Blood Gas Patient Temperature 98.6 Blood Gas HCO3 33 mmol/L Blood Gas Base Excess 8.4 mmol/L Blood Gas Oxygen Saturation 93 % Arterial Blood pH 7.46 Arterial Blood Partial 47 mmHg Pressure CO2 Arterial Blood Partial 77 mmHg Pressure O2 Arterial Blood Oxygen Content 13.5 Vol % Arterial Blood 1.4 % Carboxyhemoglobin Arterial Blood Methemoglobin 0.7 % Blood Gas Hemoglobin 10.3 G/DL Oxygen Delivery Device VENTILATOR Blood Gas Ventilator Setting [id number] Blood Gas Inspired Oxygen 40 % Culture Results Microbiology Date/Time Procedure Status Source Growth 03/16/17 12:20 Aerobic Blood Culture - Preliminary Resulted Blood Peripheral NO GROWTH IN 2 DAYS 03/16/17 12:20 Anaerobic Blood Culture - Preliminary Resulted Blood Peripheral NO GROWTH IN 2 DAYS 03/17/17 17:01 Urine Culture Received Urine Catheterized Urine Pending Imaging Studies Last 24 hours Impressions Chest X-Ray 03/18/17 0600 Signed Impressions: Service Date/Time: March 04:57 - CONCLUSION: Unchanged bilateral pulmonary infiltrates. Small right effusion. Gigi Dahl Jr., MD Administered Medications Medications (Trade) Dose Ordered Sig/Benitez Route PRN Reason Start Time Stop Time Status Last Admin Dose Admin Oxycodone/ Acetaminophen (Percocet 5-325 Mg) 1 tab Q4H PRN PO PAIN SCALE 3 TO 5 03/06/17 08:15 03/06/17 13:34 Sodium Chloride (NS Flush) 2 ml BID IV FLUSH 03/06/17 21:00 03/18/17 08:58 Hydromorphone HCl (Dilaudid Pf Inj) 1 mg Q4H PRN IV PAIN SCALE 6 TO 10 03/06/17 13:30 03/18/17 10:33 Pantoprazole Sodium (Protonix Inj) 40 mg DAILY IV 03/07/17 09:00 03/18/17 08:56 Senna/Docusate Sodium (Latosha-Colace) 2 tab BID PO 03/06/17 21:00 03/16/17 21:23 Miscellaneous Information 1 Q361D XX 03/06/17 13:30 03/07/17 20:46 Chlorhexidine Gluconate (Chlorhexidine 2% Cloth) Taper DAILY@04 TOP 03/07/17 04:00 03/03/18 03:59 03/17/17 04:00 Lorazepam 1 mg 1 mg Q4H PRN IV PUSH MILD ANXIETY OR AGITATION 03/06/17 15:15 03/13/17 09:55 Potassium Chloride 100 ml @ 50 mls/hr Q2H PRN IV For Potassium 2.8 - 3.2 mEq/L 03/09/17 14:00 03/17/17 18:30 Potassium Chloride (KCl 40 Meq Premix Inj) 100 ml @ 25 mls/hr UNSCH PRN IV For Potassium 3.3 - 3.5 mEq/L 03/09/17 14:00 03/16/17 06:36 Chlorhexidine Gluconate 15 ml 15 ml BID@08,20 MT 03/10/17 20:00 03/18/17 08:00 Propofol 100 ml @ 0 mls/hr TITRATE IV 03/10/17 17:30 03/18/17 06:56 Midazolam HCl 100 ml @ 0 mls/hr TITRATE IV 03/10/17 17:30 03/17/17 23:13 Fentanyl Citrate 250 ml @ 0 mls/hr TITRATE IV 03/10/17 17:30 03/18/17 02:53 Gentamicin Sulfate/Sodium Chloride (Gentamicin Inj/ NS Inj) 101.5 ml @ 200 mls/hr Q8H IV 03/11/17 17:00 03/18/17 08:57 Acetaminophen (Ofirmev Inj) 1,000 mg Q6H PRN IV fever 03/12/17 00:00 03/18/17 00:31 Potassium Bicarb/ Potassium Chloride (K-Lyte Cl Eff) 25 meq DAILY PO 03/15/17 12:00 03/18/17 08:58 Fondaparinux 7.5 mg 7.5 mg Q24H SQ 03/16/17 18:00 03/17/17 17:43 Dexmedetomidine HCl 200 mcg/ Sodium Chloride 52 ml @ 0 mls/hr TITRATE IV 03/17/17 09:00 03/17/17 09:04 Ceftaroline Fosamil 600 mg/ Sodium Chloride 100 ml @ 100 mls/hr Q8H IV 03/17/17 18:00 03/18/17 01:30 Micafungin Sodium/ Sodium Chloride (Mycamine Inj/NS Inj) 100 ml @ 100 mls/hr Q24H IV 03/17/17 17:00 03/17/17 17:43 Objective Remarks GENERAL: Young female resting in bed getting breathing treatment. She was recently extubated. SKIN: Warm and dry. No oozing from lines. HEAD: Normocephalic. EYES: No scleral icterus. No injection or drainage. NECK: Supple, trachea midline. No JVD or lymphadenopathy. CARDIOVASCULAR: +S1/S2. RESPIRATORY: Scattered rhonchi. On 5L NC. GASTROINTESTINAL: Abdomen soft, non-tender, nondistended. EXTREMITIES: Generalized edema. NEUROLOGICAL: Groggy; sedation recently turned off. Follows commands. Assessment/Plan Problem List: (1) Infective endocarditis Status: Acute Plan: --on IV antibiotics. --gram-positive cocci bacteremia. --echocardiogram --> hyperdynamic dynamic left ventricle, mitral valve vegetation and echogenic mass in the right ventricle suggestive of a thrombus-- > Currently on Arixtra. --Infectious Disease and Cardiology following (2) Thrombocytopenia Status: Acute Plan: likely multifactorial due to infection+hepatosplenomegaly, h/o hep C, ? no obvious bleeding -- Differential diagnosis also includes HELLP syndrome, although this is questionable since her liver functions are normal and total bilirubin level was not elevated. Other possibilities include TTP and hemolytic/uremic syndrome. --nicholas test negative --LDH elevated, haptoglobin normal, indirect bili normal --HIT negative -- liver ultrasound shows hepatosplenomegaly. --peripheral smear review--> does not show substantial numbers of fragmented cells--microangiopathic hemolytic process unlikely. --Transfuse cryoprecipitate to keep fibrinogen greater than 150. --Transfuse to keep platelet count greater than 30,000 (3) Anemia Status: Acute Plan: --LDH slightly elevated, haptoglobin normal --Transfuse to keep hemoglobin greater than 7. Assessment 26y/o female, critically ill in respiratory [place] [facility] [place] Hematology consulted for acute thrombocytopenia and anemia. History (from initial consult) 3, para 1, AB 1 who was at 32.5 weeks gestation with expected delivery of April 28 but delivered prematurely on 2016. After delivery the patient decompensated and became hypoxic and went into respiratory failure. She was intubated and is currently in the intensive care unit. The patient has a known history of IV drug abuse. Her UDS was positive for opiates, benzodiazepine and cocaine. Plan 1. Continue Arixtra. 2. Responded well to PRBC infusion yesterday. 3. Monitor CBC. Attending Statement The exam, history, and the medical decision-making described in the above note were completed with the assistance of the mid-level provider. I reviewed and agree with the findings presented. I attest that I had a [id number] encounter with the patient on the same day, and personally performed and documented my assessment and findings in the medical record. continue Arixtra therapeutic dose. Hold Coumadin for now, since remains critically ill and will have labile INR. Princess Frey March 18, 2017 12:01 Andrew Lazo MD March 18, 2017 22:50
--- NOTE | 2017-03-18 15:51 | PD.PROCEDR ---
Procedure Note Procedure Percutaneous Pigtail Tube Thoracostomy Procedure Note, US guided Right-sided lateral 10 Chinese pigtail thoracostomy tube Indication: Moderate right pleural effusion Consent: Written consent was obtained Anesthesia: Precedex IV gtt, Dilaudid IVP Description of the Procedure: The patient was placed in the supine position. The right lateral chest was prepped and draped sterilely, keeping landmark visible. 1% Lidocaine was infiltrated subcutaneously and into the tissues down to the periosteum of the rib. The 4th intercostal space was identified, in the midaxillary line. A small incision was made using a #11 blade. 18G introducer needle was advanced superior to the adjacent rib until fluid fluid was withdrawn. Through this, and J-tip guidewire was easily passed. After dilation , a 10 Chinese Pigtail catheter was inserted again superior to the adjacent rib using Seldinger Technique, without resistance. The catheter was connected to a Pleur-o-vac and connected to -[id number] suction. The catheter was sutured to the skin using a 3-0 silk suture, and StayFix and an occlusive dressing was applied. Initial drainage was slightly blood tinged and mildly cloudy pleural fluid, initial drainage 500 ML. There were no immediate complications noted. There was minimal EBL. The patient tolerated the procedure well. A Chest x-ray has been ordered. I personally performed the procedure. Morales García MD March 18, 2017 15:51
--- NOTE | 2017-03-18 15:59 | HHI.IDPN ---
Subjective Subjective Remarks is a 26-year-old 3 para 1 AB 1 at 32-5/7 week gestation with an EDC of 04/28 but was delivered prematurely due to PROM per Ob notes on . Patients mom was in the room at time of my visit and provided me with history and Dad confirmed these findings. 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 Patient admitted to use of Dilaudid and Cocaine per day. The patient incidentally was found to have this . She has had a miscarriage before. Patient currently has 2 active boyfriends according to Mom. She is the only child. Patient presented to the ED with generalized discomfort and swelling of her legs for 5 days REMITTANCE CLERK. She reported that her legs began to swell proximal 5 days REMITTANCE CLERK. She denied any headache, visual changes or abdominal pain. The patient was noted to be in preeclampsia with a protein creatinine ratio 0.47, urine protein 117. The patient was also noted to have leukocytosis, and febrile. The patient was placed on a magnesium infusion. 03/07: Afebrile. Noted bacteremia showing gram-positive cocci. On 03/07/17 patient become tachypneic with respiratory rate high 30s-40, on nonrebreather . Chest x-ray was performed, and ABG showing hypoxemia, PaO2 129 on 100%. Plan for emergent intubation. Suboxone was initiated yesterday, magnesium level has been titrated to parameter of 6-7. The patient was noted to be thrombocytopenic today secondary to HELLP syndrome. The patient was emergently intubated for hypoxemia on 03/07/2017. Of note the patient also has a history of a chemical lung injury and had been seen intermittently by clinical care leader. An echo was performed showing mitral valve vegetation, and a large thrombus in the right ventricle, and full anticoagulation was initiated last night with Argatroban in the setting of thrombocytopenia. CVT has been consulted and recommends medical management. The patient was placed on empiric antibiotics,WBC count increasing, ID was consulted for Sepsis and Staph endocarditis. 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 Overnight events reviewed with RN Remains in ISC Extubated and doing well so far. Arias secretions mostly oral. UO ok. Persistent fever now 103 F WBC trended downwards. No diarrhea No rash No vaginal bleed or discharge. No neuro deficit off sedation per discussion with RN. Antibiotics Teflaro IV Genta IV Micafungin IV Lines Line sites with no e.o infection. Past Medical History reviewed. Allergies: Coded Allergies: Penicillin (Verified Allergy, Intermediate, hives, 11/21/16) *MDRO Multi-Drug Resistant Organism (Verified Adverse Reaction, Unknown, ) Cleared per Infection Control MRSA (breast wound) - 04/30/16 MRSA screens NEGATIVE 03/06/17 & 03/13/17 Objective . Vital Signs Date Time Temp Pulse Resp B/P Pulse Ox O2 Delivery O2 Flow Rate FiO2 03/18/17 11:22 95 Nasal Cannula 5 03/18/17 10:30 99 40 03/18/17 09:15 Nasal Cannula 40 03/18/17 09:15 100 40 03/18/17 08:12 40 03/18/17 08:12 100 40 03/18/17 08:05 100 40 03/18/17 06:00 80 03/18/17 04:30 99.9 96 18 116/67 100 03/18/17 04:15 98.9 86 18 117/69 100 03/18/17 04:00 40 03/18/17 04:00 98.9 96 18 111/71 100 03/18/17 04:00 96 03/18/17 03:55 100 40 03/18/17 02:00 92 03/18/17 01:06 98 40 03/18/17 00:00 106 03/18/17 00:00 100.7 106 18 111/59 96 03/18/17 00:00 40 03/17/17 22:00 103 03/17/17 20:04 97 40 03/17/17 20:00 99.8 107 18 122/67 97 03/17/17 20:00 40 03/17/17 20:00 107 03/17/17 19:00 95 Mechanical Ventilator 40 03/17/17 18:00 90 03/17/17 16:00 40 03/17/17 16:00 91 03/17/17 16:00 98.4 96 18 114/58 100 03/17/17 03/17/17 03/18/17 15:00 23:00 07:00 Intake Total 909 ml 864 ml 1544 ml Output Total 1750 ml 1800 ml 1575 ml Balance -841 ml -936 ml -31 ml IV Total 699 ml 784 ml 698 ml Tube Feeding 90 ml 80 ml 246 ml Packed Cells 500 ml Other 120 ml 100 ml Output Urine Total 1750 ml 1800 ml 1575 ml # Bowel Movements 1 0 1 . Laboratory Tests Test 03/17/17 03/18/17 02:00 06:20 White Blood Count 19.4 TH/MM3 14.1 TH/MM3 Red Blood Count 2.57 MIL/MM3 2.95 MIL/MM3 Hemoglobin 7.2 GM/DL 8.2 GM/DL Hematocrit 22.2 % 25.3 % Mean Corpuscular Volume 86.4 FL 85.9 FL Mean Corpuscular Hemoglobin 28.1 PG 27.9 PG Mean Corpuscular Hemoglobin 32.5 % 32.5 % Concent Red Cell Distribution Width 17.8 % 16.9 % Platelet Count 314 TH/MM3 289 TH/MM3 Mean Platelet Volume 7.6 FL 7.3 FL Neutrophils (%) (Auto) 79.4 % 75.9 % Lymphocytes (%) (Auto) 13.1 % 14.4 % Monocytes (%) (Auto) 5.8 % 7.9 % Eosinophils (%) (Auto) 1.2 % 1.2 % Basophils (%) (Auto) 0.5 % 0.6 % Neutrophils # (Auto) 15.4 TH/MM3 10.7 TH/MM3 Lymphocytes # (Auto) 2.6 TH/MM3 2.0 TH/MM3 Monocytes # (Auto) 1.1 TH/MM3 1.1 TH/MM3 Eosinophils # (Auto) 0.2 TH/MM3 0.2 TH/MM3 Basophils # (Auto) 0.1 TH/MM3 0.1 TH/MM3 CBC Comment DIFF FINAL AUTO DIFF Differential Comment FINAL DIFF MANUAL Differential Total Cells 100 Counted Neutrophils % (Manual) 83 % Band Neutrophils % 1 % Lymphocytes % 10 % Monocytes % 4 % Eosinophils % 1 % Basophils % 1 % Neutrophils # (Manual) 11.8 TH/MM3 Platelet Estimate NORMAL Platelet Morphology Comment NORMAL Laboratory Tests Test 03/17/17 03/17/17 03/18/17 02:00 16:40 06:20 Sodium Level 138 MEQ/L 137 MEQ/L 137 MEQ/L Potassium Level 3.7 MEQ/L 3.4 MEQ/L 3.6 MEQ/L Chloride Level 100 MEQ/L 98 MEQ/L 96 MEQ/L Carbon Dioxide Level 31.2 MEQ/L 32.2 MEQ/L 34.9 MEQ/L Anion Gap 7 MEQ/L 7 MEQ/L 6 MEQ/L Blood Urea Nitrogen 7 MG/DL 8 MG/DL 8 MG/DL Creatinine 0.51 MG/DL 0.54 MG/DL 0.49 MG/DL Estimat Glomerular Filtration 148 ML/MIN 139 ML/MIN 155 ML/MIN Rate Random Glucose 103 MG/DL 87 MG/DL 104 MG/DL Calcium Level 7.8 MG/DL 7.5 MG/DL 7.3 MG/DL Magnesium Level 1.9 MG/DL Total Bilirubin 0.4 MG/DL 0.5 MG/DL 0.5 MG/DL Aspartate Amino Transf 21 U/L 27 U/L 36 U/L (AST/SGOT) Alanine Aminotransferase 10 U/L 7 U/L 9 U/L (ALT/SGPT) Alkaline Phosphatase 268 U/L 167 U/L 194 U/L Total Protein 6.8 GM/DL 6.7 GM/DL 6.7 GM/DL Albumin 1.2 GM/DL 1.2 GM/DL 1.2 GM/DL C-Reactive Protein 25.00 MG/DL Protein Corrected Calcium 7.5 MG/DL Microbiology Date/Time Procedure Status Source Growth 03/16/17 12:20 Aerobic Blood Culture - Preliminary Resulted Blood Peripheral NO GROWTH IN 2 DAYS 03/16/17 12:20 Anaerobic Blood Culture - Preliminary Resulted Blood Peripheral NO GROWTH IN 2 DAYS 03/17/17 17:01 Urine Culture - Preliminary Resulted Urine Catheterized Urine IMMATURE GROWTH - REINCUBATE Imaging Last Impressions Chest X-Ray 03/09/17 0600 Signed Impressions: Service Date/Time: Thursday, March 09, 2017 04:42 - CONCLUSION: 1. Improving diffuse edema versus pneumonia Bertrand Adhikari MD Liver Ultrasound 03/08/17 0000 Signed Impressions: Service Date/Time: Wednesday, March 08, 2017 08:41 - CONCLUSION: Hepatosplenomegaly. Gallbladder filled with sludge. Mild wall thickening and pericholecystic fluid. Minimal nonspecific perinephric fluid on the right Ricky Wilson MD CT Angiography 03/07/17 0000 Signed Impressions: Service Date/Time: Tuesday, March 07, 2017 22:54 - CONCLUSION: 1. No evidence of pulmonary embolism. 2. Diffuse alveolar disease as well as cavitary nodules which may reflect septic emboli. Bertrand Adhikari MD Lower Extremity Ultrasound 03/06/17 0849 Signed Impressions: Service Date/Time: Monday, March 06, 2017 09:09 - CONCLUSION: Normal examination. Eddie Boykin MD Physical Exam GENERAL: This is a well-nourished, well-developed patient, in no apparent distress. SKIN: No rashes, ecchymoses or lesions. Cool and dry. HEAD: Atraumatic. Normocephalic. No temporal or scalp tenderness. EYES: Pupils equal round and reactive. Extraocular motions intact. No scleral icterus. No injection or drainage. ENT: No oral thrush, dry NECK: Trachea midline.Supple, nontender, no meningeal signs. CARDIOVASCULAR: RRR, ? systolic murmur. RESPIRATORY: Clear to auscultation. Breath sounds equal bilaterally. No wheezes , rales, or rhonchi. GASTROINTESTINAL: Abdomen soft, non-tender, nondistended. MUSCULOSKELETAL: Extremities without clubbing, cyanosis. 2-3 plus pedal edema. NEUROLOGICAL: Opens eyes, follows commands. Moves all 4. Psych: could not be assessed. Assessment & Plan Remarks Severe Sepsis MSSA bacteremia/endocarditis, Atrial large thrombus. Pulm Septic emboli. Fetus at risk for infection: recommend sepsis workup in child. Acute metabolic encephalopathy: sepsis, medication withdrawal, at risk for meningitis (will reassess based on follow up clinical exam) Thrombocytopenia: Platelets could have been low from Sepsis, DIC, hep C as well. Post at risk for endometritis. Hepatitis C positive. ? drug rash/fever >? Ancef IV Recs Continue Teflaro IV q8hrs (pt with PCN allergy, fever and rash on Ancef IV, Need coverage for MSSA endocarditis) Continue Genta IV consult for synergy (for MSSA bacteremia plan on 2 weeks or based on renal function) Continue Micafungin IV (ASP criteria: at risk for fungemia, CL, BSA for extended periods of time) Negative urine eosinophils. CBC with diff to look for eosinophilia. Doppler neck negative for DVT. Fine CT negative. d.w RN d/w , parents of patient. Nicky Rios MD March 18, 2017 15:59 Nicky Rios MD March 18, 2017 15:59
[2017-03-18] MEDS: MICAFUNGIN INJ 100 MG in SODIUM CHLORIDE 0.9% INJ 100 ML IV SCH (16:26)
[2017-03-18] MEDS ORDERED: HYDROmorphone HCL PF 2 MG/ML VIAL IV ONE (17:00)
--- NOTE | 2017-03-18 17:04 | RADRPT ---
EXAM DATE/TIME: 03/18/2017 16:15 [facility] COMPARISON: CHEST SINGLE AP, March 18, 2017, 4:57. INDICATIONS : S/p right pigtail catheter placement. MEDICAL HISTORY : None. SURGICAL HISTORY : None. ENCOUNTER: Initial ACUITY: 1 week PAIN SCORE: Non-responsive. LOCATION: Bilateral chest FINDINGS: A single view of the chest demonstrates placement of a right-sided small bore thoracostomy tube withi n the pleural space. There is no evidence of pneumothorax post placement. Extensive air space disease remains throughout both lungs without significant improvement. Endotracheal and nasogastric tubes have been removed. Left subclavian line remains in stable position. CONCLUSION: Interval placement of a small bore right-sided thoracostomy tube. No evidence of pneumothorax. Status post extubation. Extensive diffuse airspace disease without significant improvement. Eliseo Vigil MD on March 18, 2017 at 16:58 Board Certified Radiologist. This report was verified electronically.
[2017-03-18] MEDS: FONDAPARINUX SODIUM 7.5 MG/0.6 ML SYRINGE SQ SCH (18:12)
[2017-03-18] MEDS: DEXMEDETOMIDINE INJ 200 MCG in SODIUM CHLORIDE 0.9% INJ 50 ML IV SCH ×2 (18:13→21:18)
[2017-03-18] MEDS ORDERED: ALTEPLASE RECOMBINANT 2 MG VIAL IV FLUSH ONE (19:45)
[2017-03-18 19:59] LABS: TOTAL PROTEIN,PLEURAL FLUID 4.4 GM/DL
[2017-03-18 20:30] LABS: PLEURAL FLUID LYMPHS 11 %
[2017-03-19] VITALS (19 sets, daily range): BP systolic 98–110; BP diastolic 51–66; PULSE 68–100; RESP 20–30; TEMP 97.8–99; O2SAT 96–100
[2017-03-19] MEDS: DEXMEDETOMIDINE INJ 200 MCG in SODIUM CHLORIDE 0.9% INJ 50 ML IV SCH ×3 (02:07→07:46)
[2017-03-19] MEDS: GENTAMICIN INJ 60 MG in SODIUM CHLORIDE 0.9% INJ 100 ML IV SCH ×3 (02:08→16:51)
[2017-03-19] MEDS: BUMETANIDE INJ 1 MG/4 ML VIAL IV PUSH SCH ×2 (02:08→13:23)
[2017-03-19] MEDS: fentaNYL DRIP 250 ML IV SCH ×3 (02:24→19:15)
[2017-03-19] MEDS: MIDAZOLAM 100 MG/ML INJ 100 ML IV SCH (02:24)
[2017-03-19] MEDS: CEFTAROLINE INJ 600 MG in SODIUM CHLORIDE 0.9% INJ 100 ML IV SCH ×3 (03:13→18:13)
[2017-03-19] MEDS: CHLORHEXIDINE GLUCONATE 2 % 1 PACK (2 CLOTHS) TOP SCH (03:14)
[2017-03-19] MEDS: RESP: ALBUTEROL 2.5 MG/IPRATROPIUM 0.5 MG NEB (SCH) INH ×6 (03:29→23:33)
[2017-03-19 05:54] LABS: AUTOMATED NEUTROPHIL # 11.3 TH/MM3 (1.8-7.7); BASOPHIL # 0.1 TH/MM3 (0-0.2); BASOPHIL % 0.7 % (0.0-2.0); EOSINOPHIL # 0.2 TH/MM3 (0-0.4); EOSINOPHIL % 1.2 % (0.0-4.0); HEMATOCRIT 27.2 % (35.0-46.0); HEMO FLAGS DIFF FINAL; LYMPH % 14.1 % (9.0-44.0); LYMPHOCYTE # 2.1 TH/MM3 (1.0-4.8); MEAN CELL VOLUME 85.8 FL (80.0-100.0); MEAN CORPUSCULAR HEMOGLOBIN 27.8 PG (27.0-34.0); MEAN CORPUSCULAR HGB CONC 32.4 % (32.0-36.0); MONO % 7.1 % (0.0-8.0); NEUT % 76.9 % (16.0-70.0); PLATELET COUNT 369 TH/MM3 (150-450); RED BLOOD COUNT 3.17 MIL/MM3 (4.00-5.30); RED CELL DISTRIBUTION WIDTH 16.5 % (11.6-17.2); WHITE BLOOD COUNT 14.7 TH/MM3 (4.0-11.0)
--- NOTE | 2017-03-19 06:04 | RADRPT ---
EXAM DATE/TIME: 03/19/2017 04:27 [facility] COMPARISON: CHEST SINGLE AP, March 18, 2017, 16:15. INDICATIONS : Evaluate for respiratory disease. MEDICAL HISTORY : None. SURGICAL HISTORY : None. ENCOUNTER: Subsequent ACUITY: 2 weeks PAIN SCORE: Non-responsive. LOCATION: chest FINDINGS: The support devices remain in place. There is no pneumothorax. There continues to be diffuse bilatera l pulmonary infiltrates without significant change. The heart size is stable. CONCLUSION: No significant interval change. Gonzalez Hernandez MD on March 19, 2017 at 6:02 Board Certified Radiologist. This report was verified electronically.
[2017-03-19 06:06] LABS: INTERNATIONAL NORMALIZED RATIO 1.1 RATIO; PROTHROMBIN TIME - PATIENT 12.7 SEC (9.8-11.6)
[2017-03-19 06:22] LABS: BICARBONATE 34.1 MEQ/L (21.0-32.0); CALCIUM-PROTEIN CORRECTED 7.5 MG/DL (8.5-10.1); MAGNESIUM 2.1 MG/DL (1.5-2.5); POTASSIUM 3.2 MEQ/L (3.5-5.1); TOTAL BILIRUBIN ADULT 0.6 MG/DL (0.2-1.0)
[2017-03-19] MEDS: PANTOPRAZOLE SODIUM 40 MG VIAL IV SCH (07:46)
[2017-03-19] MEDS: POTASSIUM CHLORIDE 25 MEQ EFFERVESCENT TAB PO SCH (07:47)
[2017-03-19] MEDS: SODIUM CHLORIDE 0.9% FLUSH 10 ML FLUSH IV FLUSH SCH ×2 (07:48→21:08)
[2017-03-19] MEDS: DOCUSATE SODIUM 50 MG/SENNA 8.6 MG TAB PO SCH ×2 (07:48→21:00)
[2017-03-19] MEDS: CHLORHEXIDINE 0.12% (ORAL KIT) 15 ML CUP MT SCH ×2 (07:48→21:08)
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
[2017-03-19] MEDS: DEXMEDETOMIDINE INJ 1,000 MCG in SODIUM CHLOR 0.9% 250 ML INJ 240 ML IV SCH ×2 (09:48→21:09)
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
[2017-03-19] MEDS ORDERED: DEXMEDETOMIDINE INJ 400 MCG in SODIUM CHLORIDE 0.9% INJ 100 ML IV SCH (10:00)
[2017-03-19] MEDS: REMOVE OLD PATCH T-DERMAL SCH (10:57)
[2017-03-19] MEDS: fentaNYL 50 MCG/HR PATCH TOPICAL SCH (10:57)
[2017-03-19] MEDS ORDERED: fentaNYL 100 MCG/HR PATCH TOPICAL SCH (11:00)
--- NOTE | 2017-03-19 11:21 | PD.ONC.PN ---
Subjective Subjective Remarks Afebrile overnight. On bipap this morning. Per nurse, they are going to attempt to wean her off bipap today. No overnight events. Objective Data Date Time Temp Pulse Resp B/P Pulse Ox O2 Delivery O2 Flow Rate FiO2 03/19/17 10:00 96 03/19/17 08:00 87 03/19/17 08:00 97.8 87 24 98/56 97 03/19/17 08:00 40 03/19/17 07:00 97 Bi-Pap 40 03/19/17 06:00 68 03/19/17 04:06 97 40 03/19/17 04:00 77 03/19/17 04:00 98.3 79 27 109/56 96 03/19/17 04:00 40 03/19/17 02:00 79 03/19/17 01:05 97 40 03/19/17 00:00 98.5 90 30 110/66 97 03/19/17 00:00 40 03/19/17 00:00 90 03/18/17 22:02 98 40 03/18/17 22:00 78 03/18/17 20:00 67 03/18/17 20:00 40 03/18/17 20:00 98.9 82 26 117/67 96 03/18/17 19:37 97 40 03/18/17 19:37 97 BiPAP 40 03/18/17 19:00 95 Bi-Pap 40 03/18/17 18:00 80 03/18/17 17:19 95 40 03/18/17 16:00 40 03/18/17 16:00 80 03/18/17 16:00 99.8 108 43 15/63 87 03/18/17 14:00 80 03/18/17 12:00 40 03/18/17 12:00 80 03/18/17 12:00 100.0 110 32 131/78 94 03/18/17 11:22 95 Nasal Cannula 5 03/19/17 03/19/17 03/19/17 06:59 14:59 22:59 Intake Total 541 ml Output Total 1570 ml Balance -1029 ml Result Diagram: 03/19/17 0520 03/19/17 0520 Laboratory Results Laboratory Tests Test 03/18/17 03/19/17 16:00 05:20 Pleural Fluid pH 8.0 Pleural Fluid WBC 1944 /MM3 Pleural Fluid RBC 98206 /MM3 Pleural Fluid Neutrophils 85 % Pleural Fluid Lymphocytes 11 % Pleural Fluid Monocytes 1 % Pleural Fluid Eosinophils 3 % Pleural Fluid Total Protein 4.4 GM/DL Pleural Fluid LDH 865 U/L Pleural Fluid Glucose 79 MG/DL Pleural Fluid Amylase 20 U/L White Blood Count 14.7 TH/MM3 Red Blood Count 3.17 MIL/MM3 Hemoglobin 8.8 GM/DL Hematocrit 27.2 % Mean Corpuscular Volume 85.8 FL Mean Corpuscular Hemoglobin 27.8 PG Mean Corpuscular Hemoglobin 32.4 % Concent Red Cell Distribution Width 16.5 % Platelet Count 369 TH/MM3 Mean Platelet Volume 7.1 FL Neutrophils (%) (Auto) 76.9 % Lymphocytes (%) (Auto) 14.1 % Monocytes (%) (Auto) 7.1 % Eosinophils (%) (Auto) 1.2 % Basophils (%) (Auto) 0.7 % Neutrophils # (Auto) 11.3 TH/MM3 Lymphocytes # (Auto) 2.1 TH/MM3 Monocytes # (Auto) 1.0 TH/MM3 Eosinophils # (Auto) 0.2 TH/MM3 Basophils # (Auto) 0.1 TH/MM3 CBC Comment DIFF FINAL Differential Comment Prothrombin Time 12.7 SEC Prothromb Time International 1.1 RATIO Ratio Fibrinogen 499 mg/dL Sodium Level 137 MEQ/L Potassium Level 3.2 MEQ/L Chloride Level 97 MEQ/L Carbon Dioxide Level 34.1 MEQ/L Anion Gap 6 MEQ/L Blood Urea Nitrogen 6 MG/DL Creatinine 0.49 MG/DL Estimat Glomerular Filtration 155 ML/MIN Rate Random Glucose 85 MG/DL Calcium Level 7.4 MG/DL Protein Corrected Calcium 7.5 MG/DL Magnesium Level 2.1 MG/DL Total Bilirubin 0.6 MG/DL Aspartate Amino Transf 29 U/L (AST/SGOT) Alanine Aminotransferase 11 U/L (ALT/SGPT) Alkaline Phosphatase 143 U/L Lactate Dehydrogenase 272 U/L Total Protein 7.0 GM/DL Albumin 1.2 GM/DL Culture Results Microbiology Date/Time Procedure Status Source Growth 03/16/17 12:20 Aerobic Blood Culture - Preliminary Resulted Blood Peripheral NO GROWTH IN 3 DAYS 03/16/17 12:20 Anaerobic Blood Culture - Preliminary Resulted Blood Peripheral NO GROWTH IN 3 DAYS 03/17/17 17:01 Urine Culture - Preliminary Resulted Urine Catheterized Urine Gram Negative Vishal Group D Enterococcus 03/18/17 16:00 Gram Stain - Final Resulted Fluid Pleural Fluid 03/18/17 16:00 Body Fluid Culture Resulted Fluid Pleural Fluid Pending 03/18/17 16:00 Acid Fast Stain Received Fluid Pleural Fluid Pending 03/18/17 16:00 Mycobacterial Culture Received Fluid Pleural Fluid Pending 03/18/17 16:00 Fungal Smear - Final Resulted Fluid Pleural Fluid NO FUNGAL ELEMENTS SEEN. 03/18/17 16:00 Fungal Culture Resulted Fluid Pleural Fluid Pending Imaging Studies Last 24 hours Impressions Chest X-Ray 03/19/17 0600 Signed Impressions: Service Date/Time: Sunday, March 19, 2017 04:27 - CONCLUSION: No significant interval change. Gonzalez Hernandez MD Administered Medications Medications (Trade) Dose Ordered Sig/Benitez Route PRN Reason Start Time Stop Time Status Last Admin Dose Admin Oxycodone/ Acetaminophen (Percocet 5-325 Mg) 1 tab Q4H PRN PO PAIN SCALE 3 TO 5 03/06/17 08:15 03/06/17 13:34 Sodium Chloride (NS Flush) 2 ml BID IV FLUSH 03/06/17 21:00 03/18/17 21:55 Hydromorphone HCl (Dilaudid Pf Inj) 1 mg Q4H PRN IV PAIN SCALE 6 TO 10 03/06/17 13:30 03/18/17 15:05 Pantoprazole Sodium (Protonix Inj) 40 mg DAILY IV 03/07/17 09:00 03/19/17 07:46 Senna/Docusate Sodium (Latosha-Colace) 2 tab BID PO 03/06/17 21:00 03/16/17 21:23 Miscellaneous Information 1 Q361D XX 03/06/17 13:30 03/07/17 20:46 Chlorhexidine Gluconate (Chlorhexidine 2% Cloth) Taper DAILY@04 TOP 03/07/17 04:00 03/03/18 03:59 03/19/17 03:14 Lorazepam 1 mg 1 mg Q4H PRN IV PUSH MILD ANXIETY OR AGITATION 03/06/17 15:15 03/13/17 09:55 Potassium Chloride 100 ml @ 50 mls/hr Q2H PRN IV For Potassium 2.8 - 3.2 mEq/L 03/09/17 14:00 03/17/17 18:30 Potassium Chloride (KCl 40 Meq Premix Inj) 100 ml @ 25 mls/hr UNSCH PRN IV For Potassium 3.3 - 3.5 mEq/L 03/09/17 14:00 03/16/17 06:36 Chlorhexidine Gluconate 15 ml 15 ml BID@08,20 MT 03/10/17 20:00 03/19/17 07:48 Fentanyl Citrate 250 ml @ 0 mls/hr TITRATE IV 03/10/17 17:30 03/19/17 09:54 Gentamicin Sulfate/Sodium Chloride (Gentamicin Inj/ NS Inj) 101.5 ml @ 200 mls/hr Q8H IV 03/11/17 17:00 03/19/17 07:46 Acetaminophen (Ofirmev Inj) 1,000 mg Q6H PRN IV fever 03/12/17 00:00 03/18/17 00:31 Potassium Bicarb/ Potassium Chloride (K-Lyte Cl Eff) 25 meq DAILY PO 03/15/17 12:00 03/19/17 07:47 Fondaparinux 7.5 mg 7.5 mg Q24H SQ 03/16/17 18:00 03/18/17 18:12 Ceftaroline Fosamil/Sodium Chloride (Teflaro Inj/NS Inj) 100 ml @ 100 mls/hr Q8H IV 03/17/17 18:00 03/19/17 09:47 Bumetanide (Bumex Inj) 1 mg Q12H IV PUSH 03/18/17 13:00 03/19/17 02:08 Acetazolamide Sodium 500 mg 500 mg DAILY IV PUSH 03/18/17 09:00 03/20/17 08:59 03/19/17 07:48 Dexmedetomidine HCl/Sodium Chloride (Precedex Inj/NS 250 ml Inj) 250 ml @ 0 mls/hr TITRATE IV 03/19/17 09:15 03/19/17 09:48 Fentanyl (Duragesic 100 Mcg Patch.72 Hr) 1 patch Q3H TOPICAL 03/19/17 11:00 03/19/17 10:58 Fentanyl (Duragesic 50 Mcg Patch.72 Hr) 1 patch Q3D TOPICAL 03/19/17 11:00 03/19/17 10:57 Objective Remarks GENERAL: Young woman, lying supine in bed, on bipap SKIN: Warm and dry. HEAD: Normocephalic. EYES: No injection or drainage. NECK: Supple, trachea midline. CARDIOVASCULAR: Regular rate and rhythm RESPIRATORY: anterior mathews with scattered rhonchi. on bipap GASTROINTESTINAL: Abdomen soft, non-tender, nondistended. EXTREMITIES: No cyanosis NEUROLOGICAL: lethargic but awake. follows commands. Assessment/Plan Problem List: (1) Infective endocarditis Status: Acute Plan: --on IV antibiotics. --gram-positive cocci bacteremia. --echocardiogram --> hyperdynamic dynamic left ventricle, mitral valve vegetation and echogenic mass in the right ventricle suggestive of a thrombus-- > Currently on Arixtra. --Infectious Disease and Cardiology following (2) Anemia Status: Acute Plan: --LDH slightly elevated, haptoglobin normal --Transfuse to keep hemoglobin greater than 7. Assessment 26y/o female, now extubated but remains in guarded condition in [facility]. Hematology following for acute thrombocytopenia and anemia. History (from initial consult) 3, para 1, AB 1 who was at 32.5 weeks gestation with expected delivery of April 28 but delivered prematurely on 2016. After delivery the patient decompensated and became hypoxic and went into respiratory failure. She was intubated and is currently in the intensive care unit. The patient has a known history of IV drug abuse. Her UDS was positive for opiates, benzodiazepine and cocaine. Plan 1. Continue Arixtra. 2. monitor CBC, no transfusion today Attending Statement The exam, history, and the medical decision-making described in the above note were completed with the assistance of the mid-level provider. I reviewed and agree with the findings presented. I attest that I had a [id number] encounter with the patient on the same day, and personally performed and documented my assessment and findings in the medical record. daily coags and fibrinogen Rosemary Tovar March 19, 2017 11:21 Andrew Lazo MD March 19, 2017 22:58
[2017-03-19] MEDS: LORazepam 1 MG TAB PO SCH ×2 (11:29→18:13)
--- NOTE | 2017-03-19 13:10 | HHI.IDPN ---
Subjective Subjective Remarks is a 26-year-old 3 para 1 AB 1 at 32-5/7 week gestation with an EDC of 6 but was delivered prematurely due to PROM per Ob notes on . Patients mom was in the room at time of my visit and provided me with history and Dad confirmed these findings. 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 Patient admitted to use of Dilaudid and Cocaine per day. The patient incidentally was found to have this . She has had a miscarriage before. Patient currently has 2 active boyfriends according to Mom. She is the only child. 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 She denied any headache, visual changes or abdominal pain. The patient was noted to be in preeclampsia with a protein creatinine ratio 0.47, urine protein 117. The patient was also noted to have leukocytosis, and febrile. The patient was placed on a magnesium infusion. 03/07: Afebrile. Noted bacteremia showing gram-positive cocci. On 03/07/17 patient become tachypneic with respiratory rate high 30s-40, on nonrebreather . Chest x-ray was performed, and ABG showing hypoxemia, PaO2 129 on 100%. Plan for emergent intubation. Suboxone was initiated yesterday, magnesium level has been titrated to parameter of 6-7. The patient was noted to be thrombocytopenic today secondary to HELLP syndrome. The patient was emergently intubated for hypoxemia on 03/07/2017. Of note the patient also has a history of a chemical lung injury and had been seen intermittently by coat checker. An echo was performed showing mitral valve vegetation, and a large thrombus in the right ventricle, and full anticoagulation was initiated last night with Argatroban in the setting of thrombocytopenia. CVT has been consulted and recommends medical management. The patient was placed on empiric antibiotics,WBC count increasing, ID was consulted for Sepsis and Staph endocarditis. 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 Overnight events reviewed with RN Remains in ISC s/p right side thoracentesis appears to be transudative based on lab. Await cultures. Arias secretions mostly oral. UO ok. Tmax 100.3, defervescing last few temps. WBC trended downwards. No diarrhea No rash No vaginal bleed or discharge. No neuro deficit off sedation per discussion with RN. Antibiotics Teflaro IV Genta IV Lines Line sites with no e.o infection. Past Medical History reviewed. Allergies: Coded Allergies: Penicillin (Verified Allergy, Intermediate, hives, 11/21/16) *MDRO Multi-Drug Resistant Organism (Verified Adverse Reaction, Unknown, ) Cleared per Infection Control MRSA (breast wound) - 04/30/16 MRSA screens NEGATIVE 03/06/17 & 03/13/17 Objective . Vital Signs Date Time Temp Pulse Resp B/P Pulse Ox O2 Delivery O2 Flow Rate FiO2 03/19/17 12:15 98 Venturi Mask 6.00 50 03/19/17 12:00 50 03/19/17 12:00 92 03/19/17 12:00 99.0 92 20 103/51 100 03/19/17 11:57 20 03/19/17 11:57 20 03/19/17 10:00 96 03/19/17 08:00 87 03/19/17 08:00 97.8 87 24 98/56 97 03/19/17 08:00 40 03/19/17 07:00 97 Bi-Pap 40 03/19/17 06:00 68 03/19/17 04:06 97 40 03/19/17 04:00 77 03/19/17 04:00 98.3 79 27 109/56 96 03/19/17 04:00 40 03/19/17 02:00 79 03/19/17 01:05 97 40 03/19/17 00:00 98.5 90 30 110/66 97 03/19/17 00:00 40 03/19/17 00:00 90 03/18/17 22:02 98 40 03/18/17 22:00 78 03/18/17 20:00 67 03/18/17 20:00 40 03/18/17 20:00 98.9 82 26 117/67 96 03/18/17 19:37 97 40 03/18/17 19:37 97 BiPAP 40 03/18/17 19:00 95 Bi-Pap 40 03/18/17 18:00 80 03/18/17 17:19 95 40 03/18/17 16:00 40 03/18/17 16:00 80 03/18/17 16:00 99.8 108 43 15/63 87 03/18/17 14:00 80 03/18/17 03/18/17 03/19/17 15:00 23:00 07:00 Intake Total 1478 ml 537 ml 541 ml Output Total 3220 ml 1000 ml 1570 ml Balance -1742 ml -463 ml -1029 ml IV Total 698 ml 537 ml 541 ml Tube Feeding 160 ml Packed Cells 500 ml Other 120 ml Output Urine Total 2720 ml 1000 ml 1550 ml Chest Tube Drainage Total 500 ml 20 ml # Bowel Movements 1 1 . Laboratory Tests Test 03/18/17 03/19/17 06:20 05:20 White Blood Count 14.1 TH/MM3 14.7 TH/MM3 Red Blood Count 2.95 MIL/MM3 3.17 MIL/MM3 Hemoglobin 8.2 GM/DL 8.8 GM/DL Hematocrit 25.3 % 27.2 % Mean Corpuscular Volume 85.9 FL 85.8 FL Mean Corpuscular Hemoglobin 27.9 PG 27.8 PG Mean Corpuscular Hemoglobin 32.5 % 32.4 % Concent Red Cell Distribution Width 16.9 % 16.5 % Platelet Count 289 TH/MM3 369 TH/MM3 Mean Platelet Volume 7.3 FL 7.1 FL Neutrophils (%) (Auto) 75.9 % 76.9 % Lymphocytes (%) (Auto) 14.4 % 14.1 % Monocytes (%) (Auto) 7.9 % 7.1 % Eosinophils (%) (Auto) 1.2 % 1.2 % Basophils (%) (Auto) 0.6 % 0.7 % Neutrophils # (Auto) 10.7 TH/MM3 11.3 TH/MM3 Lymphocytes # (Auto) 2.0 TH/MM3 2.1 TH/MM3 Monocytes # (Auto) 1.1 TH/MM3 1.0 TH/MM3 Eosinophils # (Auto) 0.2 TH/MM3 0.2 TH/MM3 Basophils # (Auto) 0.1 TH/MM3 0.1 TH/MM3 CBC Comment AUTO DIFF DIFF FINAL Differential Total Cells 100 Counted Neutrophils % (Manual) 83 % Band Neutrophils % 1 % Lymphocytes % 10 % Monocytes % 4 % Eosinophils % 1 % Basophils % 1 % Neutrophils # (Manual) 11.8 TH/MM3 Differential Comment FINAL DIFF MANUAL Platelet Estimate NORMAL Platelet Morphology Comment NORMAL Laboratory Tests Test 03/17/17 03/18/17 03/19/17 16:40 06:20 05:20 Sodium Level 137 MEQ/L 137 MEQ/L 137 MEQ/L Potassium Level 3.4 MEQ/L 3.6 MEQ/L 3.2 MEQ/L Chloride Level 98 MEQ/L 96 MEQ/L 97 MEQ/L Carbon Dioxide Level 32.2 MEQ/L 34.9 MEQ/L 34.1 MEQ/L Anion Gap 7 MEQ/L 6 MEQ/L 6 MEQ/L Blood Urea Nitrogen 8 MG/DL 8 MG/DL 6 MG/DL Creatinine 0.54 MG/DL 0.49 MG/DL 0.49 MG/DL Estimat Glomerular Filtration 139 ML/MIN 155 ML/MIN 155 ML/MIN Rate Random Glucose 87 MG/DL 104 MG/DL 85 MG/DL Calcium Level 7.5 MG/DL 7.3 MG/DL 7.4 MG/DL Total Bilirubin 0.5 MG/DL 0.5 MG/DL 0.6 MG/DL Aspartate Amino Transf 27 U/L 36 U/L 29 U/L (AST/SGOT) Alanine Aminotransferase 7 U/L 9 U/L 11 U/L (ALT/SGPT) Alkaline Phosphatase 167 U/L 194 U/L 143 U/L C-Reactive Protein 25.00 MG/DL Total Protein 6.7 GM/DL 6.7 GM/DL 7.0 GM/DL Albumin 1.2 GM/DL 1.2 GM/DL 1.2 GM/DL Protein Corrected Calcium 7.5 MG/DL 7.5 MG/DL Magnesium Level 2.1 MG/DL Lactate Dehydrogenase 272 U/L Microbiology Date/Time Procedure Status Source Growth 03/17/17 17:01 Urine Culture - Preliminary Resulted Urine Catheterized Urine Gram Negative Vishal Group D Enterococcus 03/18/17 16:00 Gram Stain - Final Resulted Fluid Pleural Fluid 03/18/17 16:00 Body Fluid Culture Resulted Fluid Pleural Fluid Pending 03/18/17 16:00 Acid Fast Stain Received Fluid Pleural Fluid Pending 03/18/17 16:00 Mycobacterial Culture Received Fluid Pleural Fluid Pending 03/18/17 16:00 Fungal Smear - Final Resulted Fluid Pleural Fluid NO FUNGAL ELEMENTS SEEN. 03/18/17 16:00 Fungal Culture Resulted Fluid Pleural Fluid Pending Imaging Last Impressions Chest X-Ray 03/09/17 0600 Signed Impressions: Service Date/Time: Thursday, March 09, 2017 04:42 - CONCLUSION: 1. Improving diffuse edema versus pneumonia Bertrand Adhikari MD Liver Ultrasound 03/08/17 0000 Signed Impressions: Service Date/Time: Wednesday, March 08, 2017 08:41 - CONCLUSION: Hepatosplenomegaly. Gallbladder filled with sludge. Mild wall thickening and pericholecystic fluid. Minimal nonspecific perinephric fluid on the right Ricky Wilson MD CT Angiography 03/07/17 0000 Signed Impressions: Service Date/Time: Tuesday, March 07, 2017 22:54 - CONCLUSION: 1. No evidence of pulmonary embolism. 2. Diffuse alveolar disease as well as cavitary nodules which may reflect septic emboli. Bertrand Adhikari MD Lower Extremity Ultrasound 03/06/17 0849 Signed Impressions: Service Date/Time: Monday, March 06, 2017 09:09 - CONCLUSION: Normal examination. Eddie Boykin MD Physical Exam GENERAL: This is a well-nourished, well-developed patient, in no apparent distress. SKIN: No rashes, ecchymoses or lesions. Cool and dry. HEAD: Atraumatic. Normocephalic. No temporal or scalp tenderness. EYES: Pupils equal round and reactive. Extraocular motions intact. No scleral icterus. No injection or drainage. ENT: No oral thrush, dry NECK: Trachea midline.Supple, nontender, no meningeal signs. CARDIOVASCULAR: RRR, ? systolic murmur. RESPIRATORY: Clear to auscultation. Breath sounds equal bilaterally. No wheezes , rales, or rhonchi. GASTROINTESTINAL: Abdomen soft, non-tender, nondistended. MUSCULOSKELETAL: Extremities without clubbing, cyanosis. 2-3 plus pedal edema. NEUROLOGICAL: Opens eyes, follows commands. Moves all 4. Psych: could not be assessed. Assessment & Plan Remarks Severe Sepsis MSSA bacteremia/endocarditis,RV large thrombus plus ? Tricuspid vegetation. Pulm Septic emboli. GNR and Grp D Enterococcus in urine : ? CAUTI: On genta IV. Follow ID. Acute metabolic encephalopathy: sepsis, medication withdrawal, at risk for meningitis (will reassess based on follow up clinical exam) Thrombocytopenia: Platelets could have been low from Sepsis, DIC, hep C as well. Post at risk for endometritis. Hepatitis C positive. ? drug rash/fever ? Ancef IV Recs Continue Teflaro IV q8hrs (pt with PCN allergy, fever and rash on Ancef IV, Need coverage for MSSA endocarditis) Continue Genta IV consult for synergy (for MSSA bacteremia plan on 2 weeks or based on renal function) GNR and Grp D Enterococcus in urine : ? CAUTI: On genta IV. Follow ID. Negative urine eosinophils. CBC with diff to look for eosinophilia. Doppler neck negative for DVT. Fine CT negative. d.w RN d/w ,. [email or web address] patient her current ID problems. She shows remorse and promises not to do drugs. She reports 2 boyfriends one of them is her baby's father. covering for me this weekend. Nicky Rios MD March 19, 2017 13:10
[2017-03-19] MEDS: FONDAPARINUX SODIUM 7.5 MG/0.6 ML SYRINGE SQ SCH (18:14)
[2017-03-20] VITALS (17 sets, daily range): BP systolic 105–130; BP diastolic 56–74; PULSE 82–114; RESP 25–35; TEMP 98.6–99.2; O2SAT 93–99
[2017-03-20] MEDS: GENTAMICIN INJ 60 MG in SODIUM CHLORIDE 0.9% INJ 100 ML IV SCH ×3 (01:35→16:29)
[2017-03-20] MEDS: BUMETANIDE INJ 1 MG/4 ML VIAL IV PUSH SCH ×2 (01:35→12:52)
[2017-03-20] MEDS: CEFTAROLINE INJ 600 MG in SODIUM CHLORIDE 0.9% INJ 100 ML IV SCH ×3 (02:17→17:09)
[2017-03-20] MEDS: RESP: ALBUTEROL 2.5 MG/IPRATROPIUM 0.5 MG NEB (SCH) INH ×5 (03:40→20:55)
[2017-03-20] MEDS: CHLORHEXIDINE GLUCONATE 2 % 1 PACK (2 CLOTHS) TOP SCH (04:00)
[2017-03-20] MEDS: oxyCODONE/ACETAMINOPHEN 5 MG/325 MG TAB PO PRN ×3 (04:37→22:33)
[2017-03-20 05:15] LABS: AUTOMATED NEUTROPHIL # 11.4 TH/MM3 (1.8-7.7); BASOPHIL # 0.1 TH/MM3 (0-0.2); BASOPHIL % 0.9 % (0.0-2.0); EOSINOPHIL # 0.1 TH/MM3 (0-0.4); EOSINOPHIL % 0.9 % (0.0-4.0); HEMO FLAGS DIFF FINAL; LYMPH % 14.3 % (9.0-44.0); LYMPHOCYTE # 2.1 TH/MM3 (1.0-4.8); MEAN CELL VOLUME 86.1 FL (80.0-100.0); MEAN CORPUSCULAR HEMOGLOBIN 28.7 PG (27.0-34.0); MEAN CORPUSCULAR HGB CONC 33.3 % (32.0-36.0); MONO % 6.4 % (0.0-8.0); NEUT % 77.5 % (16.0-70.0); PLATELET COUNT 380 TH/MM3 (150-450); RED BLOOD COUNT 3.25 MIL/MM3 (4.00-5.30); RED CELL DISTRIBUTION WIDTH 16.6 % (11.6-17.2); WHITE BLOOD COUNT 14.7 TH/MM3 (4.0-11.0)
--- NOTE | 2017-03-20 05:46 | RADRPT ---
EXAM DATE/TIME: 03/20/2017 04:33 [facility] COMPARISON: CHEST SINGLE AP, March 19, 2017, 4:27. INDICATIONS : Shortness of breath. MEDICAL HISTORY : None. SURGICAL HISTORY : None. ENCOUNTER: Subsequent ACUITY: 2 weeks PAIN SCORE: Non-responsive. LOCATION: Bilateral chest FINDINGS: There continues to be bilateral pulmonary infiltrates without significant change compared to the prio r study. Small right chest tube in place. No pneumothorax. Heart size is stable. CONCLUSION: No significant change. Gonzalez Hernandez MD on March 20, 2017 at 5:44 Board Certified Radiologist. This report was verified electronically.
[2017-03-20 05:56] LABS: ALKALINE PHOSPHATASE 163 U/L (45-117); ALT (GPT) 35 U/L (10-53); ANION GAP 7 MEQ/L (5-15); AST (GOT) 78 U/L (15-37); BLOOD UREA NITROGEN 5 MG/DL (7-18); CHLORIDE 98 MEQ/L (98-107); GLOMERULAR FILTRATION RATE 196 ML/MIN (>89); MAGNESIUM 2.1 MG/DL (1.5-2.5); POTASSIUM 3.3 MEQ/L (3.5-5.1); SODIUM (NA) 138 MEQ/L (136-145); TOTAL BILIRUBIN ADULT 0.6 MG/DL (0.2-1.0)
[2017-03-20] MEDS: LORazepam 1 MG TAB PO SCH ×4 (06:16→17:09)
[2017-03-20] MEDS: POTASSIUM CHLOR 40 MEQ PREMIX 100 ML IV PRN ×2 (06:17→23:31)
[2017-03-20] MEDS: CHLORHEXIDINE 0.12% (ORAL KIT) 15 ML CUP MT SCH ×2 (08:07→20:00)
[2017-03-20] MEDS: PANTOPRAZOLE SODIUM 40 MG VIAL IV SCH (08:08)
[2017-03-20] MEDS: DOCUSATE SODIUM 50 MG/SENNA 8.6 MG TAB PO SCH ×2 (08:08→21:00)
[2017-03-20] MEDS: SODIUM CHLORIDE 0.9% FLUSH 10 ML FLUSH IV FLUSH SCH ×2 (08:08→21:00)
[2017-03-20] MEDS: POTASSIUM CHLORIDE 25 MEQ EFFERVESCENT TAB PO SCH (08:08)
[2017-03-20] MEDS ORDERED: ASP: Path resistant to other antimicrobials, culture proven PRN (13:00)
[2017-03-20] MEDS ORDERED: MISCELLANEOUS PHARMACY INFORMATION XX PRN ×2 (13:00)
[2017-03-20] MEDS: ERTAPENEM INJ 1,000 MG in SODIUM CHLORIDE 0.9% INJ 100 ML IV SCH (14:28)
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
[2017-03-20] MEDS: ACETAMINOPHEN 325 MG TAB PO PRN (14:57)
[2017-03-20] MEDS: HYDROmorphone HCL PF 1 MG/ML VIAL IV PRN (16:44)
[2017-03-20] MEDS: FONDAPARINUX SODIUM 7.5 MG/0.6 ML SYRINGE SQ SCH (17:09)
[2017-03-20] MEDS: LORazepam 2 MG/ML VIAL IV PUSH PRN (20:32)
[2017-03-21] VITALS (17 sets, daily range): BP systolic 103–127; BP diastolic 60–74; PULSE 90–114; RESP 20–39; TEMP 98.5–100.3; O2SAT 93–99
[2017-03-21] MEDS: RESP: ALBUTEROL 2.5 MG/IPRATROPIUM 0.5 MG NEB (SCH) INH ×6 (00:10→19:49)
[2017-03-21] MEDS: GENTAMICIN INJ 60 MG in SODIUM CHLORIDE 0.9% INJ 100 ML IV SCH ×3 (01:01→18:48)
[2017-03-21] MEDS: BUMETANIDE INJ 1 MG/4 ML VIAL IV PUSH SCH ×2 (01:01→12:22)
[2017-03-21] MEDS: LORazepam 1 MG TAB PO SCH ×6 (01:38→23:58)
[2017-03-21] MEDS: CEFTAROLINE INJ 600 MG in SODIUM CHLORIDE 0.9% INJ 100 ML IV SCH ×3 (02:25→18:48)
[2017-03-21] MEDS: oxyCODONE/ACETAMINOPHEN 5 MG/325 MG TAB PO PRN ×3 (03:58→20:57)
[2017-03-21] MEDS: CHLORHEXIDINE GLUCONATE 2 % 1 PACK (2 CLOTHS) TOP SCH (03:58)
[2017-03-21] MEDS: SODIUM CHLORIDE 0.9% FLUSH 10 ML FLUSH IV FLUSH SCH ×2 (09:00→20:27)
[2017-03-21] MEDS: POTASSIUM CHLORIDE 25 MEQ EFFERVESCENT TAB PO SCH (09:00)
[2017-03-21 09:14] LABS: C. DIFF EPI 027 PRESUMPTIVE NEGATIVE (NEGATIVE); C. DIFF TOXIN PCR NEGATIVE (NEGATIVE)
[2017-03-21] MEDS: PANTOPRAZOLE SODIUM 40 MG VIAL IV SCH (09:27)
[2017-03-21] MEDS: CHLORHEXIDINE 0.12% (ORAL KIT) 15 ML CUP MT SCH ×2 (09:27→20:00)
[2017-03-21] MEDS: DOCUSATE SODIUM 50 MG/SENNA 8.6 MG TAB PO SCH ×2 (09:28→20:25)
[2017-03-21] MEDS: HYDROmorphone HCL PF 1 MG/ML VIAL IV PRN (09:29)
[2017-03-21] MEDS: ACETAMINOPHEN 325 MG TAB PO PRN (12:46)
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
[2017-03-21] MEDS: ERTAPENEM INJ 1,000 MG in SODIUM CHLORIDE 0.9% INJ 100 ML IV SCH (15:00)
[2017-03-21] MEDS: KETOROLAC TROMETHAMINE 10 MG TAB PO PRN (18:48)
[2017-03-21] MEDS: FONDAPARINUX SODIUM 7.5 MG/0.6 ML SYRINGE SQ SCH (18:48)
[2017-03-22] VITALS (29 sets, daily range): BP systolic 101–119; BP diastolic 6–72; PULSE 80–126; RESP 16–24; TEMP 97.9–98.6; O2SAT 9–98
[2017-03-22] MEDS: KETOROLAC TROMETHAMINE 10 MG TAB PO PRN ×3 (01:21→15:45)
[2017-03-22] MEDS: GENTAMICIN INJ 60 MG in SODIUM CHLORIDE 0.9% INJ 100 ML IV SCH ×2 (01:21→08:36)
[2017-03-22] MEDS: BUMETANIDE INJ 1 MG/4 ML VIAL IV PUSH SCH ×2 (01:21→13:00)
[2017-03-22] MEDS: CEFTAROLINE INJ 600 MG in SODIUM CHLORIDE 0.9% INJ 100 ML IV SCH ×2 (01:22→10:57)
[2017-03-22] MEDS: RESP: ALBUTEROL 2.5 MG/IPRATROPIUM 0.5 MG NEB (SCH) INH ×7 (03:53→23:22)
[2017-03-22] MEDS: CHLORHEXIDINE GLUCONATE 2 % 1 PACK (2 CLOTHS) TOP SCH (04:00)
[2017-03-22] MEDS: oxyCODONE/ACETAMINOPHEN 5 MG/325 MG TAB PO PRN ×5 (04:01→21:23)
[2017-03-22 04:29] LABS: AUTOMATED NEUTROPHIL # 8.5 TH/MM3 (1.8-7.7); BASOPHIL # 0.1 TH/MM3 (0-0.2); BASOPHIL % 1.1 % (0.0-2.0); EOSINOPHIL # 0.2 TH/MM3 (0-0.4); EOSINOPHIL % 1.6 % (0.0-4.0); HEMATOCRIT 29.8 % (35.0-46.0); HEMO FLAGS DIFF FINAL; LYMPH % 16.6 % (9.0-44.0); LYMPHOCYTE # 1.9 TH/MM3 (1.0-4.8); MEAN CELL VOLUME 84.5 FL (80.0-100.0); MEAN CORPUSCULAR HEMOGLOBIN 28.7 PG (27.0-34.0); MONO % 6.9 % (0.0-8.0); NEUT % 73.8 % (16.0-70.0); PLATELET COUNT 501 TH/MM3 (150-450); RED BLOOD COUNT 3.53 MIL/MM3 (4.00-5.30); RED CELL DISTRIBUTION WIDTH 16.4 % (11.6-17.2); WHITE BLOOD COUNT 11.5 TH/MM3 (4.0-11.0)
[2017-03-22 04:54] LABS: ANION GAP 7 MEQ/L (5-15); AST (GOT) 31 U/L (15-37); BICARBONATE 33.9 MEQ/L (21.0-32.0); BLOOD UREA NITROGEN 8 MG/DL (7-18); CHLORIDE 97 MEQ/L (98-107); GLOMERULAR FILTRATION RATE 142 ML/MIN (>89); MAGNESIUM 2.4 MG/DL (1.5-2.5); POTASSIUM 3.4 MEQ/L (3.5-5.1); SODIUM (NA) 138 MEQ/L (136-145)
[2017-03-22 04:57] LABS: ALKALINE PHOSPHATASE 141 U/L (45-117); ALT (GPT) 26 U/L (10-53); TOTAL BILIRUBIN ADULT 0.4 MG/DL (0.2-1.0)
[2017-03-22] MEDS: LORazepam 1 MG TAB PO SCH ×3 (06:34→19:37)
[2017-03-22] MEDS: PANTOPRAZOLE SODIUM 40 MG VIAL IV SCH (08:35)
[2017-03-22] MEDS: DOCUSATE SODIUM 50 MG/SENNA 8.6 MG TAB PO SCH ×2 (08:36→21:00)
[2017-03-22] MEDS: POTASSIUM CHLORIDE 25 MEQ EFFERVESCENT TAB PO SCH ×2 (08:36→21:23)
[2017-03-22] MEDS: SODIUM CHLORIDE 0.9% FLUSH 10 ML FLUSH IV FLUSH SCH ×2 (08:36→21:23)
--- NOTE | 2017-03-22 09:47 | HHI.PR ---
Subjective Remarks no complaints.resting in bed. Objective Vitals nad heart reg lung diminished right lung chest tube abd s/nt ext no edema Vital Signs Date Time Temp Pulse Resp B/P Pulse Ox O2 Delivery O2 Flow Rate FiO2 03/22/17 09:00 92 Nasal Cannula 21 03/22/17 06:00 92 03/22/17 05:01 23 03/22/17 05:00 92 03/22/17 04:00 98.5 98 24 119/6 9 03/22/17 04:00 99 03/22/17 03:00 98 03/22/17 02:21 20 03/22/17 02:00 98 03/22/17 01:00 92 03/22/17 00:00 98.0 90 21 101/59 9 03/22/17 00:00 90 03/21/17 23:00 90 03/21/17 22:00 104 03/21/17 21:00 110 03/21/17 20:00 98.9 112 21 124/68 97 03/21/17 20:00 112 03/21/17 19:54 94 Nasal Cannula 2.50 03/21/17 19:00 96 03/21/17 19:00 97 Nasal Cannula 3.00 03/21/17 18:00 98.5 101 20 126/73 93 03/21/17 16:00 98.8 97 31 103/62 99 03/21/17 16:00 93 03/21/17 14:00 108 03/21/17 12:00 100.3 114 39 116/71 98 03/21/17 12:00 114 03/21/17 10:00 101 03/21/17 03/21/17 03/22/17 15:00 23:00 07:00 Intake Total 750 ml 436 ml 385 ml Output Total 1375 ml 300 ml 630 ml Balance -625 ml 136 ml -245 ml Intake Oral 480 ml 240 ml IV Total 270 ml 196 ml 385 ml Output Urine Total 1375 ml 300 ml 600 ml Chest Tube Drainage Total 0 ml 30 ml # Bowel Movements 2 Result Diagram: 03/22/17 0400 03/22/17 0400 Date of Insertion: Mar 06, 2017 Date of Insertion: Mar 07, 2017 Line: Central Venous Catheter Side: Left Location: Subclavian A/P Problem List: (1) Infective endocarditis Status: Acute Plan: Pt presented and delivered 03/06 polysubstance abuse and no care acute hypoxic respiratory failure. 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 large RV thrombus. septic emboli bilaterally to lungs parapneumonic right pleural effusion. pigtail catheter placed 03/18 metabolic encephalopathy improved benzodiazepine dependence preeclampsia and htn with bella/proteinuria and volume overload hepatitis c hyponatremia thrombocytopenia sepsis h/o mrsa urine cx less 10k enterococcus and esbl ecoli left subclavian cvl 03/16 cont abx per ID. currently on ceftarolin/gent. ertapenem added over the weekend. blood cx 03/16 ngtd arixtra for rv thrombus pigtail catheter per pulmonary. d/c when drainage stops or minimal wean ativan and fentanyl as tolerated. Seizure precautions-in the setting of preeclampsia, and benzodiazepine dependence Maintain O2 sat greater than 90%. BiPAP 10/12. Wean slowly as tolerated. Bronchodilators every 4 hours scheduled, every 2 hours when necessary. EzPAP, Acapella IV Bumex 1 mg q12. UO excellent, Diamox 500 mg IV daily x 3days for metabolic alkalosis .replace kcl Mother Arabella Guerrero [phone] updated at bedside 03/08 and 03/09, 03/16, 03/18 (2) IV drug user Status: Acute Plan: see above Yang Marcus MD March 22, 2017 09:46 Renal: Renal insufficiency , proteinuria secondary to preeclampsia Maintain Felix, Creatinine now normal Strict I/Os Bumex, Diamox as above 03/05 Protein creatinine ratio 0.47, urine protein 117-continue to monitor FEN/GI: Hepatitis C Possible HELLP syndrome Hyponatremia Hypokalemia IV to KVO Magnesium discontinued 03/07 Speech for swallow eval Follow-up hepatitis panel Heme/ID: Severe sepsis Thrombocytopenia secondary to DIC Infective endocarditis MSSA Large RV thrombus Pulmonary septic emboli Anemia secondary to acute blood loss H/O MRSA (04/23) Platelet count is normalized now 03/06, 03/08, 03/09 Blood cultures-MSSA Continue Teflaro IV q8hrs, Genta IV consult for synergy and Micafungin IV Follow-up cultures, urine with ESBL Escherichia coli. Started on ertapenem by ID - Dr. Smith on 03/20 Continue Arixtra Endocrine: Glucose monitoring per ICU protocol Electrolyte replacement per ICU protocol -- SSI Prophylaxis: GI Prophylaxis Protonix DVT Prophylaxis -- SCDs -- Arixtra for RV thrombus Lines: L sublcavian central line-03/16/17 Dispo: Mother Arabella Guerrero [phone] updated at bedside 03/08 and 03/09, 03/16, 03/18 Transferred to hospitalist service for further medical management. Patient will be transferred out of ICU. Consulted pulmonary to assist with management of respiratory failure secondary to septic emboli as well as right effusion status post pigtail catheter placement. If right pigtail catheter has minimal output over the next few days it can probably be removed. Critical care signing off, please reconsult if needed. Please reconsult OB if needed to follow-up following recent vaginal delivery on 03/06. Tadeo Rios MD March 21, 2017 13:19 <Electronically signed by Tadeo Rios MD> 03/21/17 1319 (2) IV drug user Status: Acute Yang Marcus MD March 22, 2017 09:46
[2017-03-22] MEDS: fentaNYL 50 MCG/HR PATCH TOPICAL SCH (10:58)
[2017-03-22] MEDS: fentaNYL 100 MCG/HR PATCH TOPICAL SCH (10:59)
[2017-03-22] MEDS: REMOVE OLD PATCH T-DERMAL SCH (11:00)
--- NOTE | 2017-03-22 14:08 | PD.ONC.PN ---
Subjective Subjective Remarks Afebrile overnight. Patient resting comfortably. Denies pain or bleeding. Objective Data Date Time Temp Pulse Resp B/P Pulse Ox O2 Delivery O2 Flow Rate FiO2 03/22/17 13:01 88 03/22/17 12:00 98 03/22/17 12:00 16 03/22/17 12:00 16 03/22/17 11:30 98.3 88 18 105/67 91 03/22/17 11:00 113 03/22/17 10:20 18 03/22/17 10:00 126 03/22/17 09:35 18 03/22/17 09:00 114 03/22/17 09:00 92 Nasal Cannula 21 03/22/17 08:30 92 Nasal Cannula 2.00 03/22/17 08:30 98.2 88 18 119/72 92 03/22/17 08:00 90 03/22/17 07:00 84 03/22/17 06:00 92 03/22/17 05:00 92 03/22/17 04:00 98.5 98 24 119/6 9 03/22/17 04:00 99 03/22/17 03:00 98 03/22/17 02:00 98 03/22/17 01:00 92 03/22/17 00:00 98.0 90 21 101/59 9 03/22/17 00:00 90 03/21/17 23:00 90 03/21/17 22:00 104 03/21/17 21:00 110 03/21/17 20:00 98.9 112 21 124/68 97 03/21/17 20:00 112 03/21/17 19:54 94 Nasal Cannula 2.50 03/21/17 19:00 96 03/21/17 19:00 97 Nasal Cannula 3.00 03/21/17 18:00 98.5 101 20 126/73 93 03/21/17 16:00 98.8 97 31 103/62 99 03/21/17 16:00 93 03/22/17 03/22/17 03/22/17 06:59 14:59 22:59 Intake Total 385 ml Output Total 630 ml Balance -245 ml Result Diagram: 03/22/17 0400 03/22/17 0400 Laboratory Results Laboratory Tests Test 03/22/17 04:00 White Blood Count 11.5 TH/MM3 Red Blood Count 3.53 MIL/MM3 Hemoglobin 10.1 GM/DL Hematocrit 29.8 % Mean Corpuscular Volume 84.5 FL Mean Corpuscular Hemoglobin 28.7 PG Mean Corpuscular Hemoglobin 34.0 % Concent Red Cell Distribution Width 16.4 % Platelet Count 501 TH/MM3 Mean Platelet Volume 6.3 FL Neutrophils (%) (Auto) 73.8 % Lymphocytes (%) (Auto) 16.6 % Monocytes (%) (Auto) 6.9 % Eosinophils (%) (Auto) 1.6 % Basophils (%) (Auto) 1.1 % Neutrophils # (Auto) 8.5 TH/MM3 Lymphocytes # (Auto) 1.9 TH/MM3 Monocytes # (Auto) 0.8 TH/MM3 Eosinophils # (Auto) 0.2 TH/MM3 Basophils # (Auto) 0.1 TH/MM3 CBC Comment DIFF FINAL Differential Comment Sodium Level 138 MEQ/L Potassium Level 3.4 MEQ/L Chloride Level 97 MEQ/L Carbon Dioxide Level 33.9 MEQ/L Anion Gap 7 MEQ/L Blood Urea Nitrogen 8 MG/DL Creatinine 0.53 MG/DL Estimat Glomerular Filtration 142 ML/MIN Rate Random Glucose 96 MG/DL Calcium Level 8.1 MG/DL Magnesium Level 2.4 MG/DL Total Bilirubin 0.4 MG/DL Aspartate Amino Transf 31 U/L (AST/SGOT) Alanine Aminotransferase 26 U/L (ALT/SGPT) Alkaline Phosphatase 141 U/L Total Protein 7.7 GM/DL Albumin 1.7 GM/DL Administered Medications Medications (Trade) Dose Ordered Sig/Benitez Route PRN Reason Start Time Stop Time Status Last Admin Dose Admin Acetaminophen (Tylenol) 650 mg Q4H PRN PO PAIN SCALE 1 TO 2 03/06/17 08:15 03/21/17 12:46 Oxycodone/ Acetaminophen (Percocet 5-325 Mg) 1 tab Q4H PRN PO PAIN SCALE 3 TO 5 03/06/17 08:15 03/22/17 08:35 Oxycodone/ Acetaminophen (Percocet 5-325 Mg) 2 tab Q4H PRN PO PAIN SCALE 6 TO 10 03/06/17 08:15 03/22/17 12:37 Sodium Chloride (NS Flush) 2 ml BID IV FLUSH 03/06/17 21:00 03/22/17 08:36 Pantoprazole Sodium (Protonix Inj) 40 mg DAILY IV 03/07/17 09:00 03/22/17 08:35 Senna/Docusate Sodium (Latosha-Colace) 2 tab BID PO 03/06/17 21:00 03/22/17 08:36 Miscellaneous Information 1 Q361D XX 03/06/17 13:30 03/07/17 20:46 Chlorhexidine Gluconate (Chlorhexidine 2% Cloth) Taper DAILY@04 TOP 03/07/17 04:00 03/03/18 03:59 03/19/17 03:14 Lorazepam (Ativan Inj) 1 mg Q4H PRN IV PUSH MILD ANXIETY OR AGITATION 03/06/17 15:15 03/20/17 20:32 Chlorhexidine Gluconate 15 ml 15 ml BID@08,20 MT 03/10/17 20:00 03/21/17 09:27 Gentamicin Sulfate/Sodium Chloride (Gentamicin Inj/ NS Inj) 101.5 ml @ 200 mls/hr Q8H IV 03/11/17 17:00 03/22/17 08:36 Acetaminophen (Ofirmev Inj) 1,000 mg Q6H PRN IV fever 03/12/17 00:00 03/18/17 00:31 Fondaparinux 7.5 mg 7.5 mg Q24H SQ 03/16/17 18:00 03/21/17 18:48 Ceftaroline Fosamil/Sodium Chloride (Teflaro Inj/NS Inj) 100 ml @ 100 mls/hr Q8H IV 03/17/17 18:00 03/22/17 10:57 Bumetanide (Bumex Inj) 1 mg Q12H IV PUSH 03/18/17 13:00 03/22/17 01:21 Lorazepam (Ativan) 1 mg Q6HR PO 03/19/17 12:00 03/22/17 12:37 Fentanyl (Duragesic 50 Mcg Patch.72 Hr) 1 patch Q3D TOPICAL 03/19/17 11:00 03/22/17 10:58 Miscellaneous Information 1 Q3D T-DERMAL 03/19/17 11:00 03/22/17 11:00 Fentanyl 1 patch 1 patch Q3D TOPICAL 03/22/17 11:00 03/22/17 10:59 Ertapenem/Sodium Chloride (INVanz INJ/NS Inj) 100 ml @ 200 mls/hr Q24H IV 03/20/17 14:00 03/21/17 15:00 Ketorolac Tromethamine (Toradol) 10 mg Q6H PRN PO pain 1 TO 10 03/21/17 14:30 03/25/17 14:00 03/22/17 09:20 Objective Remarks GENERAL: Young woman, lying in bed in nad. SKIN: Warm and dry. left SC line, no bleeding. HEAD: Normocephalic. EYES: No injection or drainage. NECK: Supple, trachea midline. CARDIOVASCULAR: Regular rate and rhythm RESPIRATORY: Breath sounds equal bilaterally. No accessory muscle use. pigtail catheter right chest wall GASTROINTESTINAL: Abdomen soft, non-tender, nondistended. EXTREMITIES: No cyanosis MUSCULOSKELETAL: Adequate muscle tone. NEUROLOGICAL: No obvious focal deficit. Awake, alert, and oriented x3. Assessment/Plan Problem List: (1) Infective endocarditis Status: Acute Plan: --on IV antibiotics. --gram-positive cocci bacteremia. --echocardiogram --> hyperdynamic dynamic left ventricle, mitral valve vegetation and echogenic mass in the right ventricle suggestive of a thrombus-- > Currently on Arixtra. --Infectious Disease and Cardiology following (2) Anemia Status: Acute Plan: --LDH slightly elevated, haptoglobin normal --Transfuse to keep hemoglobin greater than 7. Assessment 26y/o female, now extubated but remains in guarded condition in [facility]. Hematology following for acute thrombocytopenia and anemia. History (from initial consult) 3, para 1, AB 1 who was at 32.5 weeks gestation with expected delivery of April 28 but delivered prematurely on 2016. After delivery the patient decompensated and became hypoxic and went into respiratory failure. She was intubated and is currently in the intensive care unit. The patient has a known history of IV drug abuse. Her UDS was positive for opiates, benzodiazepine and cocaine. Plan 1. Continue Arixtra. can be bridged to coumadin when no other procedures planned. 2. monitor CBC. 3. antibiotics per ID. Attending Statement The exam, history, and the medical decision-making described in the above note were completed with the assistance of the mid-level provider. I reviewed and agree with the findings presented. I attest that I had a [id number] encounter with the patient on the same day, and personally performed and documented my assessment and findings in the medical record. check anemia studies. PLT counts stable--no elevated which is reactive Rosemary Tovar March 22, 2017 14:08 Andrew Lzao MD March 22, 2017 21:45
--- NOTE | 2017-03-22 15:23 | HHI.IDPN ---
Subjective Subjective Remarks is a 26-year-old 3 para 1 AB 1 at 32-5/7 week gestation with an EDC of 04/28 but was delivered prematurely due to PROM per Ob notes on . Patients mom was in the room at time of my visit and provided me with history and Dad confirmed these findings. 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 Patient admitted to use of Dilaudid and Cocaine per day. The patient incidentally was found to have this . She has had a miscarriage before. Patient currently has 2 active boyfriends according to Mom. She is the only child. Patient presented to the ED with generalized discomfort and swelling of her legs for 5 days ORTHOPEDIC PODIATRIST. She reported that her legs began to swell proximal 5 days ORTHOPEDIC PODIATRIST. She denied any headache, visual changes or abdominal pain. The patient was noted to be in preeclampsia with a protein creatinine ratio 0.47, urine protein 117. The patient was also noted to have leukocytosis, and febrile. The patient was placed on a magnesium infusion. 03/07: Afebrile. Noted bacteremia showing gram-positive cocci. On 03/07/17 patient become tachypneic with respiratory rate high 30s-40, on nonrebreather . Chest x-ray was performed, and ABG showing hypoxemia, PaO2 129 on 100%. Plan for emergent intubation. Suboxone was initiated yesterday, magnesium level has been titrated to parameter of 6-7. The patient was noted to be thrombocytopenic today secondary to HELLP syndrome. The patient was emergently intubated for hypoxemia on 03/07/2017. 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 An echo was performed showing mitral valve vegetation, and a large thrombus in the right ventricle, and full anticoagulation was initiated last night with Argatroban in the setting of thrombocytopenia. CVT has been consulted and recommends medical management. The patient was placed on empiric antibiotics,WBC count increasing, ID was consulted for Sepsis and Staph endocarditis. 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 Overnight events reviewed with RN Remains in ISC s/p right side thoracentesis. has a CT. Arias secretions mostly oral. Will DC moore as patient now ambulating. Good UO. Tmax 100.3, defervescing last few temps. WBC trended downwards. 2-3 loose BMs but is on stool softeners. No rash Antibiotics Teflaro IV Genta IV Lines Line sites with no e.o infection. Past Medical History reviewed. Allergies: Coded Allergies: Penicillin (Verified Allergy, Intermediate, hives, 11/21/16) *MDRO Multi-Drug Resistant Organism (Verified Adverse Reaction, Unknown, ) ESBL (urine)-03/17/17 MRSA (breast wound) - 04/30/16 MRSA screens NEGATIVE 03/06/17 & 03/13/17 Objective . Vital Signs Date Time Temp Pulse Resp B/P Pulse Ox O2 Delivery O2 Flow Rate FiO2 03/22/17 13:01 88 03/22/17 12:00 98 03/22/17 12:00 16 03/22/17 12:00 16 03/22/17 11:30 98.3 88 18 105/67 91 03/22/17 11:00 113 03/22/17 10:20 18 03/22/17 10:00 126 03/22/17 09:35 18 03/22/17 09:00 114 03/22/17 09:00 92 Nasal Cannula 21 03/22/17 08:30 92 Nasal Cannula 2.00 03/22/17 08:30 98.2 88 18 119/72 92 03/22/17 08:00 90 03/22/17 07:00 84 03/22/17 06:00 92 03/22/17 05:00 92 03/22/17 04:00 98.5 98 24 119/6 9 03/22/17 04:00 99 03/22/17 03:00 98 03/22/17 02:00 98 03/22/17 01:00 92 03/22/17 00:00 98.0 90 21 101/59 9 03/22/17 00:00 90 03/21/17 23:00 90 03/21/17 22:00 104 03/21/17 21:00 110 03/21/17 20:00 98.9 112 21 124/68 97 03/21/17 20:00 112 03/21/17 19:54 94 Nasal Cannula 2.50 03/21/17 19:00 96 03/21/17 19:00 97 Nasal Cannula 3.00 03/21/17 18:00 98.5 101 20 126/73 93 03/21/17 16:00 98.8 97 31 103/62 99 03/21/17 16:00 93 03/21/17 03/21/17 03/22/17 15:00 23:00 07:00 Intake Total 750 ml 436 ml 385 ml Output Total 1375 ml 300 ml 630 ml Balance -625 ml 136 ml -245 ml Intake Oral 480 ml 240 ml IV Total 270 ml 196 ml 385 ml Output Urine Total 1375 ml 300 ml 600 ml Chest Tube Drainage Total 0 ml 30 ml # Bowel Movements 2 . Laboratory Tests Test 03/22/17 04:00 White Blood Count 11.5 TH/MM3 Red Blood Count 3.53 MIL/MM3 Hemoglobin 10.1 GM/DL Hematocrit 29.8 % Mean Corpuscular Volume 84.5 FL Mean Corpuscular Hemoglobin 28.7 PG Mean Corpuscular Hemoglobin 34.0 % Concent Red Cell Distribution Width 16.4 % Platelet Count 501 TH/MM3 Mean Platelet Volume 6.3 FL Neutrophils (%) (Auto) 73.8 % Lymphocytes (%) (Auto) 16.6 % Monocytes (%) (Auto) 6.9 % Eosinophils (%) (Auto) 1.6 % Basophils (%) (Auto) 1.1 % Neutrophils # (Auto) 8.5 TH/MM3 Lymphocytes # (Auto) 1.9 TH/MM3 Monocytes # (Auto) 0.8 TH/MM3 Eosinophils # (Auto) 0.2 TH/MM3 Basophils # (Auto) 0.1 TH/MM3 CBC Comment DIFF FINAL Differential Comment Laboratory Tests Test 03/20/17 03/21/17 03/22/17 22:00 05:45 04:00 Potassium Level 3.4 MEQ/L 3.7 MEQ/L 3.4 MEQ/L Sodium Level 138 MEQ/L Chloride Level 97 MEQ/L Carbon Dioxide Level 33.9 MEQ/L Anion Gap 7 MEQ/L Blood Urea Nitrogen 8 MG/DL Creatinine 0.53 MG/DL Estimat Glomerular Filtration 142 ML/MIN Rate Random Glucose 96 MG/DL Calcium Level 8.1 MG/DL Magnesium Level 2.4 MG/DL Total Bilirubin 0.4 MG/DL Aspartate Amino Transf 31 U/L (AST/SGOT) Alanine Aminotransferase 26 U/L (ALT/SGPT) Alkaline Phosphatase 141 U/L Total Protein 7.7 GM/DL Albumin 1.7 GM/DL Imaging Last Impressions Chest X-Ray 03/09/17 0600 Signed Impressions: Service Date/Time: Thursday, March 09, 2017 04:42 - CONCLUSION: 1. Improving diffuse edema versus pneumonia Bertrand Adhikari MD Liver Ultrasound 03/08/17 0000 Signed Impressions: Service Date/Time: Wednesday, March 08, 2017 08:41 - CONCLUSION: Hepatosplenomegaly. Gallbladder filled with sludge. Mild wall thickening and pericholecystic fluid. Minimal nonspecific perinephric fluid on the right Ricky Wilson MD CT Angiography 03/07/17 0000 Signed Impressions: Service Date/Time: Tuesday, March 07, 2017 22:54 - CONCLUSION: 1. No evidence of pulmonary embolism. 2. Diffuse alveolar disease as well as cavitary nodules which may reflect septic emboli. Bertrand Adhikari MD Lower Extremity Ultrasound 03/06/17 0849 Signed Impressions: Service Date/Time: Monday, March 06, 2017 09:09 - CONCLUSION: Normal examination. Eddie Boykin MD Physical Exam GENERAL: This is a well-nourished, well-developed patient, in no apparent distress. SKIN: No rashes, ecchymoses or lesions. Cool and dry. HEAD: Atraumatic. Normocephalic. No temporal or scalp tenderness. EYES: Pupils equal round and reactive. Extraocular motions intact. No scleral icterus. No injection or drainage. ENT: No oral thrush, dry NECK: Trachea midline.Supple, nontender, no meningeal signs. CARDIOVASCULAR: RRR, ? systolic murmur. RESPIRATORY: Clear to auscultation. Breath sounds equal bilaterally. No wheezes , rales, or rhonchi. GASTROINTESTINAL: Abdomen soft, non-tender, nondistended. MUSCULOSKELETAL: Extremities without clubbing, cyanosis. 2-3 plus pedal edema. NEUROLOGICAL: Opens eyes, follows commands. Moves all 4. Psych: could not be assessed. Assessment & Plan Remarks Severe Sepsis MSSA bacteremia/endocarditis,RV large thrombus plus ? Tricuspid vegetation. Pulm Septic emboli. GNR and Grp D Enterococcus in urine : ? CAUTI: On genta IV. Follow ID. Acute metabolic encephalopathy: sepsis, medication withdrawal, at risk for meningitis (will reassess based on follow up clinical exam) Thrombocytopenia: Platelets could have been low from Sepsis, DIC, hep C as well. Post at risk for endometritis. Hepatitis C positive. ? drug rash/fever ? Ancef IV Recs DC Teflaro IV DC Genta IV Rechallenge to Ancef IV (pt was on several other meds not entirely clear if Ancef caused prior rash in ICU) No urinary symptoms. DC moore. ESBL in urine < 10,000 colonies with Enterococcus ? non pathogenic as patient asymptomatic. arelisw RN d.w patient she will go with her parents and cooperate with us to complete IV antibiotics at home. She promises to not use IVDA anymore and shows remorse. Nicky Rios MD March 22, 2017 15:23
[2017-03-22] MEDS: ceFAZolin 2 GM PREMIX 50 ML IV SCH (15:45)
[2017-03-22] MEDS: FONDAPARINUX SODIUM 7.5 MG/0.6 ML SYRINGE SQ SCH (19:49)
[2017-03-22] MEDS: CHLORHEXIDINE 0.12% (ORAL KIT) 15 ML CUP MT SCH (20:00)
[2017-03-23] VITALS (28 sets, daily range): BP systolic 102–123; BP diastolic 58–74; PULSE 68–122; RESP 16–22; TEMP 98–99.5; O2SAT 90–97
[2017-03-23] MEDS: ceFAZolin 2 GM PREMIX 50 ML IV SCH ×4 (00:25→23:15)
[2017-03-23] MEDS: LORazepam 1 MG TAB PO SCH ×5 (00:25→23:15)
[2017-03-23] MEDS: BUMETANIDE INJ 1 MG/4 ML VIAL IV PUSH SCH (00:25)
[2017-03-23] MEDS: RESP: ALBUTEROL 2.5 MG/IPRATROPIUM 0.5 MG NEB (SCH) INH ×5 (02:29→20:00)
[2017-03-23] MEDS: CHLORHEXIDINE GLUCONATE 2 % 1 PACK (2 CLOTHS) TOP SCH (04:00)
[2017-03-23] MEDS: oxyCODONE/ACETAMINOPHEN 5 MG/325 MG TAB PO PRN ×3 (05:58→20:44)
--- NOTE | 2017-03-23 06:35 | RADRPT ---
EXAM DATE/TIME: 03/23/2017 05:22 [place] COMPARISON: CHEST SINGLE AP, March 20, 2017, 4:33. INDICATIONS : Shortness of breath. Pulmonary infiltrates. MEDICAL HISTORY : None. SURGICAL HISTORY : None. ENCOUNTER: Subsequent ACUITY: 3 weeks PAIN SCORE: 0/10 LOCATION: Bilateral chest FINDINGS: A single AP portable semierect view the chest was obtained and again demonstrates a left subclavian c entral venous line in place. Opacities are noted in both lungs with consolidation at the right lung b ase and left perihilar region. The heart size remains mildly prominent. The bony thorax is intact. A small bore right-sided chest tube is present projected over the lung base. There is no pneumothorax. CONCLUSION: 1. The right-sided small bore chest tube remains in place with no pneumothorax. 2. Consolidative opacity in both lungs without significant change. Jorge Aguirre MD on March 23, 2017 at 6:32 Board Certified Radiologist. This report was verified electronically.
[2017-03-23 07:50] LABS: ANION GAP 5 MEQ/L (5-15); BICARBONATE 36.4 MEQ/L (21.0-32.0); BLOOD UREA NITROGEN 10 MG/DL (7-18); CHLORIDE 97 MEQ/L (98-107); GLOMERULAR FILTRATION RATE 114 ML/MIN (>89); MAGNESIUM 2.2 MG/DL (1.5-2.5); POTASSIUM 3.7 MEQ/L (3.5-5.1); SODIUM (NA) 138 MEQ/L (136-145)
[2017-03-23 08:24] LABS: TRANSFERRIN IRON PROFILE 116 MG/DL (200-360)
[2017-03-23] MEDS: POTASSIUM CHLORIDE 25 MEQ EFFERVESCENT TAB PO SCH (08:33)
[2017-03-23] MEDS: PANTOPRAZOLE SODIUM 40 MG VIAL IV SCH (08:33)
[2017-03-23] MEDS: SODIUM CHLORIDE 0.9% FLUSH 10 ML FLUSH IV FLUSH SCH ×2 (08:33→20:46)
[2017-03-23] MEDS: KETOROLAC TROMETHAMINE 10 MG TAB PO PRN ×2 (08:45→18:27)
[2017-03-23] MEDS ORDERED: PHARMACY ORDERED LAB ONE (08:45)
[2017-03-23] MEDS: DOCUSATE SODIUM 50 MG/SENNA 8.6 MG TAB PO SCH ×2 (09:00→20:45)
--- NOTE | 2017-03-23 12:29 | HHI.PR ---
Subjective Remarks doing ok no new complaints Objective Vitals heart reg lung good air entry right chest tube abd s/nt ext no edema Vital Signs Date Time Temp Pulse Resp B/P Pulse Ox O2 Delivery O2 Flow Rate FiO2 03/23/17 12:01 96 03/23/17 11:44 98.7 96 16 102/58 97 03/23/17 11:44 97 Nasal Cannula 2.00 03/23/17 11:01 92 03/23/17 10:00 112 03/23/17 09:01 68 03/23/17 08:30 93 Nasal Cannula 2.00 03/23/17 08:30 98.0 95 16 118/68 93 03/23/17 08:00 78 03/23/17 07:24 93 Nasal Cannula 2.00 03/23/17 07:01 89 03/23/17 06:00 88 03/23/17 05:00 84 03/23/17 04:00 88 03/23/17 03:00 74 03/23/17 03:00 95 Nasal Cannula 2.00 03/23/17 03:00 98.8 88 16 122/73 95 03/23/17 02:00 82 03/23/17 01:00 114 03/23/17 00:00 84 03/22/17 23:24 98 Nasal Cannula 2.00 03/22/17 23:00 97.9 80 16 109/57 97 03/22/17 23:00 82 03/22/17 23:00 97 Nasal Cannula 2.00 03/22/17 22:28 18 03/22/17 22:00 86 03/22/17 21:00 88 03/22/17 20:27 18 03/22/17 20:26 18 03/22/17 20:00 94 03/22/17 19:32 97 Nasal Cannula 1.50 03/22/17 19:00 98.6 88 16 111/69 96 03/22/17 19:00 96 Nasal Cannula 2.00 03/22/17 19:00 114 03/22/17 18:01 113 03/22/17 17:01 106 03/22/17 16:00 100 03/22/17 15:30 98.4 104 16 110/64 97 03/22/17 15:00 120 03/22/17 14:00 100 03/22/17 13:01 88 03/22/17 03/22/17 03/23/17 15:00 23:00 07:00 Intake Total 839 ml Output Total 345 ml Balance 494 ml Intake Oral 600 ml IV Total 239 ml Output Urine Total 345 ml # Bowel Movements 0 Result Diagram: 03/22/17 0400 03/23/17 0601 Date of Insertion: Mar 06, 2017 Date of Insertion: Mar 07, 2017 Line: Central Venous Catheter Side: Left Location: Subclavian A/P Problem List: (1) Infective endocarditis Status: Acute Plan: Pt presented and delivered 03/06 polysubstance abuse and no care acute hypoxic respiratory failure. 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 large RV thrombus. septic emboli bilaterally to lungs parapneumonic right pleural effusion. pigtail catheter placed 03/18 metabolic encephalopathy improved benzodiazepine dependence preeclampsia and htn with bella/proteinuria and volume overload hepatitis c hyponatremia thrombocytopenia sepsis h/o mrsa urine cx less 10k enterococcus and esbl ecoli left subclavian cvl 03/16 cont abx per ID. currently changed to cefazolin and off ceftarolin/gent/ ertapenem. blood cx 03/16 ngtd arixtra for rv thrombus. change to coumadin when ok with hem/onc pigtail catheter per pulmonary. d/c when drainage stops or minimal wean ativan and fentanyl as tolerated. Seizure precautions-in the setting of preeclampsia, and benzodiazepine dependence Maintain O2 sat greater than 90%. BiPAP 10/12. Wean slowly as tolerated. Bronchodilators every 4 hours scheduled, every 2 hours when necessary. EzPAP, Acapella stop iv diuretics and observe plan to d/c home with family when stable. Mother Arabella Guerrero [phone] updated at bedside 03/08 and 03/09, 03/16, 03/18 (2) IV drug user Status: Acute Plan: see above Yang Marcus MD March 23, 2017 12:29
--- NOTE | 2017-03-23 16:11 | MB ---
cc: RICHARD DOVE DATE OF CONSULTATION 03/22/2017 REASON FOR CONSULTATION Pulmonary infiltrates and chest tube management. HISTORY OF THE PRESENT ILLNESS This a 26-year-old lady who was 32 weeks with an expected delivery date of April 28 was prematurely delivered on 03/06. The patient apparently has been an IV drug abuser and has been in rehab and was admitted after use of Dilaudid and cocaine. She was admitted with complaints of increasing leg edema and weakness and fever with leukocytosis. She had blood cultures done which showed evidence of gram-positive cocci and the patient went into progressive respiratory failure on 03/07 and the patient needed urgent intubation. Subsequently she was on multiple antibiotics and was hypoxemic and had bilateral extensive pulmonary infiltrates. Apparently she does have a past history of some chemical injury to her lungs which had been intermittently treated by a project scientist. This time she had an echocardiogram which showed mitral valve vegetation and a thrombus in the right ventricle. She was placed on antibiotics and anticoagulants. Cardiovascular surgery was consulted but medical management was continued. The patient remained on ventilator support and she became afebrile and was gradually weaned off the ventilator over the past one week and had been extubated on 03/10 but had to be re-intubated for bilateral pulmonary infiltrates and progressive respiratory failure. Since then the patient did improve and now extubated and on oxygen via nasal cannula and is transferred to the telemetry unit. Chest x-ray had shown significant improvement and she did have a chest tube in place on the right side for pleural effusion and the chest tube now is draining less, however, she still has bilateral lung infiltrates. Her O2 sats are over 95% on 3 liters of oxygen. Briefly she had been on BiPap after being extubated on 03/18 and she sometimes needs more than 3 liters of oxygen to maintain her sats over 92%. PAST MEDICAL HISTORY Has included: 1. history of MRSA infection. 2. She has had a history for miscarriages. 3. And history of rehab for drug use. 4. And abscess drainage. ALLERGIES PENICILLIN. SOCIAL HISTORY Habits, history of IV drug use. No significant smoking. REVIEW OF SYSTEMS The patient is a poor historian. She complains of aching all over. Some shortness breath and occasional cough. No leg swelling. She has some abdominal pains and loss of appetite. FAMILY HISTORY Noncontributory PHYSICAL EXAMINATION GENERAL: This averagely built young lady, pale and in no acute distress. VITAL SIGNS: Blood pressure 112/50, heart rate 106, respiratory rate 22, temperature 98.1. HEENT: Head normocephalic. Pupils reactive. Sclerae anicteric. Throat was dry. NECK: Supple. No bruits. No venous distension. CHEST: Equal movements with scattered wheezes bilaterally with occasional crackles in the right lung field. HEART: The heart sounds are regular S1-S2 with a soft apical systolic murmur 1/6. ABDOMEN: Soft and scaphoid without masses. No organomegaly or tenderness. Bowel sounds are active. EXTREMITIES: Muscle wasting with minimal edema. Pulses are well felt. NEUROLOGIC: She is moving all extremities with no gross motor or sensory deficits. Cranial nerves grossly intact. SKIN: No lesions noted. IMPRESSION 1. Severe sepsis, resolved. 2. ARDS resolving. 3. Pulmonary septic emboli. 4. History of IV drug use. 5. History of mitral valve endocarditis and left atrial thrombus. 6. Hepatitis C. 7. Metabolic encephalopathy, resolving. 8. Right pleural effusion, resolving. PLAN The patient will be placed on O2 at 2 liters. Incentive spirometry four times daily and Acapella q.2h. Nebulized albuterol solution four times daily as needed. And also a chest tube to drainage and a repeat chest x-ray this week. We will continue with antibiotic coverage per infectious disease service. And have pulmonary function studies done when she is clinically stable. Thank you Dr. Marcus for this consultation. MD ANGELA Flores/TONI /1:12 PM /3:51 PM
[2017-03-23] MEDS: FONDAPARINUX SODIUM 7.5 MG/0.6 ML SYRINGE SQ SCH (18:27)
--- NOTE | 2017-03-23 19:02 | PD.ONC.PN ---
Subjective Subjective Remarks resting comfortably no fevers no bleeding breathing slowly improving Objective Data Date Time Temp Pulse Resp B/P Pulse Ox O2 Delivery O2 Flow Rate FiO2 03/23/17 18:01 122 03/23/17 17:01 100 03/23/17 16:00 102 03/23/17 15:30 98.3 115 16 123/74 90 03/23/17 15:30 90 Room Air 03/23/17 15:00 106 03/23/17 14:00 94 03/23/17 13:00 100 03/23/17 12:01 96 03/23/17 11:44 98.7 96 16 102/58 97 03/23/17 11:44 97 Nasal Cannula 2.00 03/23/17 11:01 92 03/23/17 10:00 112 03/23/17 09:45 16 03/23/17 09:01 68 03/23/17 08:30 93 Nasal Cannula 2.00 03/23/17 08:30 98.0 95 16 118/68 93 03/23/17 08:00 78 03/23/17 07:24 93 Nasal Cannula 2.00 03/23/17 07:01 89 03/23/17 06:00 88 03/23/17 05:00 84 03/23/17 04:00 88 03/23/17 03:00 74 03/23/17 03:00 95 Nasal Cannula 2.00 03/23/17 03:00 98.8 88 16 122/73 95 03/23/17 02:00 82 03/23/17 01:00 114 03/23/17 00:00 84 03/22/17 23:24 98 Nasal Cannula 2.00 03/22/17 23:00 97.9 80 16 109/57 97 03/22/17 23:00 82 03/22/17 23:00 97 Nasal Cannula 2.00 03/22/17 22:28 18 03/22/17 22:00 86 03/22/17 21:00 88 03/22/17 20:26 18 03/22/17 20:00 94 03/22/17 19:32 97 Nasal Cannula 1.50 03/23/17 03/23/17 03/23/17 07:00 15:00 23:00 Intake Total 810 ml Output Total 1130 ml Balance -320 ml Result Diagram: 03/22/17 0400 03/23/17 0601 Laboratory Results Laboratory Tests Test 03/23/17 06:01 Sodium Level 138 MEQ/L Potassium Level 3.7 MEQ/L Chloride Level 97 MEQ/L Carbon Dioxide Level 36.4 MEQ/L Anion Gap 5 MEQ/L Blood Urea Nitrogen 10 MG/DL Creatinine 0.64 MG/DL Estimat Glomerular Filtration 114 ML/MIN Rate Random Glucose 79 MG/DL Calcium Level 8.5 MG/DL Magnesium Level 2.2 MG/DL Iron Level 36 MCG/DL Total Iron Binding Capacity 162 MCG/DL Percent Iron Saturation 22.2 % Transferrin 116 MG/DL Vitamin B12 Level GREATER THAN 2000 PG/ML Imaging Studies Last 24 hours Impressions Chest X-Ray 03/23/17 0600 Signed Impressions: Service Date/Time: Thursday, March 23, 2017 05:22 - CONCLUSION: 1. The right-sided small bore chest tube remains in place with no pneumothorax. 2. Consolidative opacity in both lungs without significant change. Jorge Aguirre MD Administered Medications Medications (Trade) Dose Ordered Sig/Benitez Route PRN Reason Start Time Stop Time Status Last Admin Dose Admin Acetaminophen (Tylenol) 650 mg Q4H PRN PO PAIN SCALE 1 TO 2 03/06/17 08:15 03/21/17 12:46 Oxycodone/ Acetaminophen (Percocet 5-325 Mg) 1 tab Q4H PRN PO PAIN SCALE 3 TO 5 03/06/17 08:15 03/22/17 08:35 Oxycodone/ Acetaminophen (Percocet 5-325 Mg) 2 tab Q4H PRN PO PAIN SCALE 6 TO 10 03/06/17 08:15 03/23/17 15:09 Sodium Chloride (NS Flush) 2 ml BID IV FLUSH 03/06/17 21:00 03/23/17 08:33 Senna/Docusate Sodium (Latosha-Colace) 2 tab BID PO 03/06/17 21:00 03/22/17 08:36 Miscellaneous Information 1 Q361D XX 03/06/17 13:30 03/07/17 20:46 Chlorhexidine Gluconate (Chlorhexidine 2% Cloth) Taper DAILY@04 TOP 03/07/17 04:00 03/03/18 03:59 03/19/17 03:14 Lorazepam (Ativan Inj) 1 mg Q4H PRN IV PUSH MILD ANXIETY OR AGITATION 03/06/17 15:15 03/20/17 20:32 Chlorhexidine Gluconate (Peridex 0.12% Liq) 15 ml BID@08,20 MT 03/10/17 20:00 03/21/17 09:27 Acetaminophen (Ofirmev Inj) 1,000 mg Q6H PRN IV fever 03/12/17 00:00 03/18/17 00:31 Fondaparinux (Arixtra Inj) 7.5 mg Q24H SQ 03/16/17 18:00 03/23/17 18:27 Lorazepam (Ativan) 1 mg Q6HR PO 03/19/17 12:00 03/23/17 18:26 Fentanyl (Duragesic 50 Mcg Patch.72 Hr) 1 patch Q3D TOPICAL 03/19/17 11:00 03/22/17 10:58 Miscellaneous Information 1 Q3D T-DERMAL 03/19/17 11:00 03/22/17 11:00 Fentanyl (Duragesic 100 Mcg Patch.72 Hr) 1 patch Q3D TOPICAL 03/22/17 11:00 03/22/17 10:59 Ketorolac Tromethamine 10 mg 10 mg Q6H PRN PO pain 1 TO 10 03/21/17 14:30 03/25/17 14:00 03/23/17 18:27 Cefazolin Sodium/ Dextrose (Ancef 2 Gm Premix) 50 ml @ 100 mls/hr Q8H IV 03/22/17 15:00 03/23/17 15:08 Objective Remarks GENERAL: nad SKIN: Warm and dry.. NECK: Supple, trachea midline. No JVD or lymphadenopathy. LYMPHATIC: No adenopathy. CARDIOVASCULAR: Regular rate and rhythm RESPIRATORY: Breath sounds equal bilaterally. No accessory muscle use. GASTROINTESTINAL: Abdomen soft, non-tender, nondistended. EXTREMITIES: No cyanosis, or edema. Assessment/Plan Problem List: (1) Infective endocarditis Status: Acute Plan: --on IV antibiotics. --gram-positive cocci bacteremia. --echocardiogram --> hyperdynamic dynamic left ventricle, mitral valve vegetation and echogenic mass in the right ventricle suggestive of a thrombus-- > Currently on Arixtra. --Infectious Disease and Cardiology following (2) Anemia Status: Acute Plan: --LDH slightly elevated, haptoglobin normal --Transfuse to keep hemoglobin greater than 7. Assessment 26y/o female, now extubated but remains in guarded condition in [facility]. Hematology following for acute thrombocytopenia and anemia. History (from initial consult) 3, para 1, AB 1 who was at 32.5 weeks gestation with expected delivery of April 28 but delivered prematurely on 2016. After delivery the patient decompensated and became hypoxic and went into respiratory failure. She was intubated and is currently in the intensive care unit. The patient has a known history of IV drug abuse. Her UDS was positive for opiates, benzodiazepine and cocaine. Plan 1. Continue Arixtra. start Coumadin. monitor daily INR. will need to keep arxtra intile INR > 2.0 for at least 72 hours. 2. Anemia studies shows Iron deficiency. Will give iron infusion 3. Platelet count normalized d/w Andrew Solomon MD March 23, 2017 19:02
--- NOTE | 2017-03-23 19:46 | HHI.PR ---
Subjective Remarks Alert and breathing OK. On o2 2L. Good output. No fever. Objective Vital Signs Date Time Temp Pulse Resp B/P Pulse Ox O2 Delivery O2 Flow Rate FiO2 03/23/17 18:01 122 03/23/17 17:01 100 03/23/17 16:00 102 03/23/17 15:30 98.3 115 16 123/74 90 03/23/17 15:30 90 Room Air 03/23/17 15:00 106 03/23/17 14:00 94 03/23/17 13:00 100 03/23/17 12:01 96 03/23/17 11:44 98.7 96 16 102/58 97 03/23/17 11:44 97 Nasal Cannula 2.00 03/23/17 11:01 92 03/23/17 10:00 112 03/23/17 09:45 16 03/23/17 09:01 68 03/23/17 08:30 93 Nasal Cannula 2.00 03/23/17 08:30 98.0 95 16 118/68 93 03/23/17 08:00 78 03/23/17 07:24 93 Nasal Cannula 2.00 03/23/17 07:01 89 03/23/17 06:00 88 03/23/17 05:00 84 03/23/17 04:00 88 03/23/17 03:00 74 03/23/17 03:00 95 Nasal Cannula 2.00 03/23/17 03:00 98.8 88 16 122/73 95 03/23/17 02:00 82 03/23/17 01:00 114 03/23/17 00:00 84 03/22/17 23:24 98 Nasal Cannula 2.00 03/22/17 23:00 97.9 80 16 109/57 97 03/22/17 23:00 82 03/22/17 23:00 97 Nasal Cannula 2.00 03/22/17 22:28 18 03/22/17 22:00 86 03/22/17 21:00 88 03/22/17 20:26 18 03/22/17 20:00 94 I/O 03/22/17 03/22/17 03/22/17 03/23/17 03/23/17 03/23/17 07:00 15:00 23:00 07:00 15:00 23:00 Intake Total 385 ml 839 ml 810 ml Output Total 630 ml 345 ml 1130 ml Balance -245 ml 494 ml -320 ml Intake Oral 600 ml 760 ml IV Total 385 ml 239 ml 50 ml Output Urine Total 600 ml 345 ml 1100 ml Chest Tube Drainage Total 30 ml 30 ml # Bowel Movements 0 Result Diagram: 03/22/17 0400 03/23/17 0601 Objective Remarks GENERAL: This averagely built young lady, pale and in no acute distress. HEENT: Head normocephalic. Pupils reactive. Sclerae anicteric. Throat was dry. NECK: Supple. No bruits. No venous distension. CHEST: Equal movements with scattered wheezes bilaterally with occasional crackles in the right lung field. HEART: The heart sounds are regular S1-S2 with a soft apical systolic murmur 1/6. ABDOMEN: Soft and scaphoid without masses. No organomegaly or tenderness. Bowel sounds are active. EXTREMITIES: Muscle wasting with no edema. Pulses are well felt. NEUROLOGIC: She is moving all extremities with no gross motor or sensory deficits. Cranial nerves grossly intact. SKIN: No lesions noted. Assessment and Plan Assessment and Plan IMPRESSION 1. Severe sepsis, resolved. 2. ARDS resolving. 3. Pulmonary septic emboli. 4. History of IV drug use. 5. History of mitral valve endocarditis and left atrial thrombus. 6. Hepatitis C. 7. Metabolic encephalopathy, resolving. 8. Right pleural effusion, resolving. Plan : 1. Wean O2 to RA. 2. Cont Antibiotics per ID. 3. IS at bedside qid. 4. Nebs tid prn , Duoneb. 5. Chest Tube to drainage. 6. Rpt CXR this week Kamar Sprague MD March 23, 2017 19:46
[2017-03-23] MEDS: CHLORHEXIDINE 0.12% (ORAL KIT) 15 ML CUP MT SCH (20:00)
[2017-03-23] MEDS: IRON SUCROSE INJ 200 MG in SODIUM CHLORIDE 0.9% INJ 100 ML IV SCH (22:11)
[2017-03-23] MEDS ORDERED: WARFARIN SOD 2.5 MG TAB PO ONE (23:45)
[2017-03-24] VITALS (26 sets, daily range): BP systolic 106–119; BP diastolic 57–68; PULSE 75–107; RESP 18–24; TEMP 98–99.2; O2SAT 92–96
[2017-03-24] MEDS: CHLORHEXIDINE GLUCONATE 2 % 1 PACK (2 CLOTHS) TOP SCH (04:00)
[2017-03-24] MEDS: ceFAZolin 2 GM PREMIX 50 ML IV SCH ×3 (05:46→22:37)
[2017-03-24] MEDS: LORazepam 1 MG TAB PO SCH ×4 (05:46→22:37)
[2017-03-24] MEDS: oxyCODONE/ACETAMINOPHEN 5 MG/325 MG TAB PO PRN ×4 (06:06→20:33)
[2017-03-24] MEDS: RESP: ALBUTEROL 2.5 MG/IPRATROPIUM 0.5 MG NEB (SCH) INH ×5 (07:45→23:35)
[2017-03-24] MEDS: CHLORHEXIDINE 0.12% (ORAL KIT) 15 ML CUP MT SCH ×2 (08:00→20:00)
[2017-03-24 08:33] LABS: BICARBONATE 34.1 MEQ/L (21.0-32.0); POTASSIUM 3.7 MEQ/L (3.5-5.1)
[2017-03-24] MEDS: PANTOPRAZOLE SOD 40 MG DELAYED RELEASE TAB PO SCH (08:54)
[2017-03-24] MEDS: DOCUSATE SODIUM 50 MG/SENNA 8.6 MG TAB PO SCH ×2 (08:55→20:35)
[2017-03-24] MEDS: SODIUM CHLORIDE 0.9% FLUSH 10 ML FLUSH IV FLUSH SCH ×2 (08:56→20:35)
[2017-03-24] MEDS: IRON SUCROSE INJ 200 MG in SODIUM CHLORIDE 0.9% INJ 100 ML IV SCH (09:00)
[2017-03-24] MEDS: FONDAPARINUX SODIUM 7.5 MG/0.6 ML SYRINGE SQ SCH (17:45)
--- NOTE | 2017-03-24 17:56 | HHI.PR ---
Subjective Remarks no new complaints Objective Vitals heart reg lung right chest tube abd s/nt ext no edema Vital Signs Date Time Temp Pulse Resp B/P Pulse Ox O2 Delivery O2 Flow Rate FiO2 03/24/17 17:11 101 03/24/17 16:54 18 03/24/17 16:53 96 03/24/17 15:32 92 Room Air 03/24/17 15:32 98.0 89 18 115/68 92 03/24/17 15:32 89 03/24/17 13:30 97 03/24/17 12:39 88 03/24/17 11:20 98.1 96 20 119/67 94 03/24/17 11:20 94 Room Air 03/24/17 11:00 102 03/24/17 09:02 97 03/24/17 08:59 18 03/24/17 08:15 98 03/24/17 07:45 95 Nasal Cannula 1.00 03/24/17 07:24 94 Nasal Cannula 2.00 03/24/17 07:24 84 03/24/17 07:24 98.2 84 20 111/64 94 03/24/17 06:00 89 03/24/17 05:54 88 03/24/17 04:11 93 03/24/17 03:10 99.0 88 24 112/65 93 03/24/17 03:00 93 Nasal Cannula 1.00 03/24/17 03:00 107 03/24/17 02:00 100 03/24/17 01:00 97 03/24/17 00:00 94 03/23/17 23:25 99.5 109 22 115/63 91 03/23/17 23:25 91 Nasal Cannula 1.00 03/23/17 23:00 101 03/23/17 22:00 94 03/23/17 21:00 98 03/23/17 20:22 121 03/23/17 20:22 93 Nasal Cannula 1.00 03/23/17 20:22 98.6 109 20 110/62 93 03/23/17 18:01 122 03/23/17 03/23/17 03/24/17 15:00 23:00 07:00 Intake Total 810 ml 770 ml 510 ml Output Total 1130 ml 350 ml 360 ml Balance -320 ml 420 ml 150 ml Intake Oral 760 ml 720 ml 360 ml IV Total 50 ml 50 ml 150 ml Output Urine Total 1100 ml 350 ml 350 ml Chest Tube Drainage Total 30 ml 0 ml 10 ml # Voids 2 # Bowel Movements 0 Result Diagram: 03/22/17 0400 03/24/17 0510 Date of Insertion: Mar 06, 2017 Date of Insertion: Mar 07, 2017 Line: Central Venous Catheter Side: Left Location: Subclavian A/P Problem List: (1) Infective endocarditis Status: Acute Plan: Pt presented and delivered 03/06 polysubstance abuse and no care acute hypoxic respiratory failure. 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 large RV thrombus. septic emboli bilaterally to lungs parapneumonic right pleural effusion. pigtail catheter placed 03/18 metabolic encephalopathy improved benzodiazepine dependence preeclampsia and htn with bella/proteinuria and volume overload hepatitis c hyponatremia thrombocytopenia sepsis h/o mrsa urine cx less 10k enterococcus and esbl ecoli left subclavian cvl 03/16 cont abx per ID. currently changed to cefazolin and off ceftarolin/gent/ ertapenem. blood cx 03/16 ngtd arixtra for rv thrombus. change to coumadin pigtail catheter per pulmonary. d/c when drainage stops or minimal. currently at 10cc/day wean ativan and fentanyl as tolerated. Seizure precautions-in the setting of preeclampsia, and benzodiazepine dependence Maintain O2 sat greater than 90%. BiPAP 10/12. Wean slowly as tolerated. Bronchodilators every 4 hours scheduled, every 2 hours when necessary. EzPAP, Acapella stopped iv diuretics and observe picc line on Wednesday plan for d/c home Wednesday or Wednesday next week. Mother Arabella Guerrero [phone] updated at bedside 03/08 and 03/09, 03/16, 03/18 (2) IV drug user Status: Acute Plan: see above Yang Marcus MD March 24, 2017 17:56
--- NOTE | 2017-03-24 19:02 | HHI.PR ---
Subjective Remarks Alert and breathing well and On o2 2L. Chest tube output was only 10 CC last nite. No fever. Objective Vital Signs Date Time Temp Pulse Resp B/P Pulse Ox O2 Delivery O2 Flow Rate FiO2 03/24/17 18:11 92 03/24/17 17:11 101 03/24/17 16:54 18 03/24/17 16:53 96 03/24/17 15:32 92 Room Air 03/24/17 15:32 98.0 89 18 115/68 92 03/24/17 15:32 89 03/24/17 13:30 97 03/24/17 12:39 88 03/24/17 11:20 98.1 96 20 119/67 94 03/24/17 11:20 94 Room Air 03/24/17 11:00 102 03/24/17 09:02 97 03/24/17 08:59 18 03/24/17 08:15 98 03/24/17 07:45 95 Nasal Cannula 1.00 03/24/17 07:24 94 Nasal Cannula 2.00 03/24/17 07:24 84 03/24/17 07:24 98.2 84 20 111/64 94 03/24/17 06:00 89 03/24/17 05:54 88 03/24/17 04:11 93 03/24/17 03:10 99.0 88 24 112/65 93 03/24/17 03:00 93 Nasal Cannula 1.00 03/24/17 03:00 107 03/24/17 02:00 100 03/24/17 01:00 97 03/24/17 00:00 94 03/23/17 23:25 99.5 109 22 115/63 91 03/23/17 23:25 91 Nasal Cannula 1.00 03/23/17 23:00 101 03/23/17 22:00 94 03/23/17 21:00 98 03/23/17 20:22 121 03/23/17 20:22 93 Nasal Cannula 1.00 03/23/17 20:22 98.6 109 20 110/62 93 I/O 03/23/17 03/23/17 03/23/17 03/24/17 03/24/17 03/24/17 07:00 15:00 23:00 07:00 15:00 23:00 Intake Total 810 ml 770 ml 510 ml 640 ml Output Total 1130 ml 350 ml 360 ml 760 ml Balance -320 ml 420 ml 150 ml -120 ml Intake Oral 760 ml 720 ml 360 ml 640 ml IV Total 50 ml 50 ml 150 ml Output Urine Total 1100 ml 350 ml 350 ml 750 ml Chest Tube Drainage Total 30 ml 0 ml 10 ml 10 ml # Voids 2 # Bowel Movements 0 Result Diagram: 03/22/17 0400 03/24/17 0510 Objective Remarks GENERAL: This averagely built young lady, pale and in no acute distress. HEENT: Head normocephalic. Pupils reactive. Sclerae anicteric. Throat was clear. NECK: Supple. No bruits. No venous distension. CHEST: Equal movements with scattered wheezes bilaterally with occasional crackles at bases HEART: The heart sounds are regular S1-S2 with a soft apical systolic murmur 1/6. ABDOMEN: Soft and scaphoid without masses. No organomegaly or tenderness. Bowel sounds are active. EXTREMITIES: Muscle wasting with no edema. Pulses are well felt. NEUROLOGIC: She is moving all extremities with no gross motor or sensory deficits. Cranial nerves grossly intact. SKIN: No lesions noted. Assessment and Plan Assessment and Plan IMPRESSION 1. Severe sepsis, resolved. 2. ARDS resolving. 3. Pulmonary septic emboli. 4. History of IV drug use. 5. History of mitral valve endocarditis and left atrial thrombus. 6. Hepatitis C. 7. Metabolic encephalopathy, resolving. 8. Right pleural effusion, resolving. Plan : 1. Wean O2 to RA. 2. Cont Antibiotics per ID. 3. IS at bedside qid. 4. Nebs tid prn , Duoneb. 5. Clamp Chest Tube in am 6. CXR in am with tube clamped Kamar Sprague MD March 24, 2017 19:02
[2017-03-24] MEDS: KETOROLAC TROMETHAMINE 10 MG TAB PO PRN (22:37)
--- NOTE | 2017-03-24 23:27 | PD.ONC.PN ---
Subjective Subjective Remarks awake and laert no bleeding chest tube in place. minimal drainage Objective Data Date Time Temp Pulse Resp B/P Pulse Ox O2 Delivery O2 Flow Rate FiO2 03/24/17 20:15 21 03/24/17 19:20 103 03/24/17 19:20 99.2 98 20 106/57 95 03/24/17 19:20 95 Nasal Cannula 1.00 03/24/17 18:11 92 03/24/17 17:11 101 03/24/17 16:54 18 03/24/17 16:53 96 03/24/17 15:32 92 Room Air 03/24/17 15:32 98.0 89 18 115/68 92 03/24/17 15:32 89 03/24/17 13:30 97 03/24/17 12:39 88 03/24/17 11:20 98.1 96 20 119/67 94 03/24/17 11:20 94 Room Air 03/24/17 11:00 102 03/24/17 09:02 97 03/24/17 08:59 18 03/24/17 08:15 98 03/24/17 07:45 95 Nasal Cannula 1.00 03/24/17 07:24 94 Nasal Cannula 2.00 03/24/17 07:24 84 03/24/17 07:24 98.2 84 20 111/64 94 03/24/17 06:00 89 03/24/17 05:54 88 03/24/17 04:11 93 03/24/17 03:10 99.0 88 24 112/65 93 03/24/17 03:00 93 Nasal Cannula 1.00 03/24/17 03:00 107 03/24/17 02:00 100 03/24/17 01:00 97 03/24/17 00:00 94 03/24/17 03/24/17 03/24/17 07:00 15:00 23:00 Intake Total 510 ml 640 ml Output Total 360 ml 760 ml Balance 150 ml -120 ml Result Diagram: 03/22/17 0400 03/24/17 0510 Laboratory Results Laboratory Tests Test 03/24/17 05:10 Sodium Level 139 MEQ/L Potassium Level 3.7 MEQ/L Chloride Level 96 MEQ/L Carbon Dioxide Level 34.1 MEQ/L Anion Gap 9 MEQ/L Blood Urea Nitrogen 10 MG/DL Creatinine 0.62 MG/DL Estimat Glomerular Filtration 118 ML/MIN Rate Random Glucose 75 MG/DL Calcium Level 8.2 MG/DL Administered Medications Medications (Trade) Dose Ordered Sig/Benitez Route PRN Reason Start Time Stop Time Status Last Admin Dose Admin Acetaminophen (Tylenol) 650 mg Q4H PRN PO PAIN SCALE 1 TO 2 03/06/17 08:15 03/21/17 12:46 Oxycodone/ Acetaminophen (Percocet 5-325 Mg) 1 tab Q4H PRN PO PAIN SCALE 3 TO 5 03/06/17 08:15 03/24/17 14:52 Oxycodone/ Acetaminophen (Percocet 5-325 Mg) 2 tab Q4H PRN PO PAIN SCALE 6 TO 10 03/06/17 08:15 03/24/17 20:33 Sodium Chloride (NS Flush) 2 ml BID IV FLUSH 03/06/17 21:00 03/24/17 20:35 Senna/Docusate Sodium (Latosha-Colace) 2 tab BID PO 03/06/17 21:00 03/22/17 08:36 Miscellaneous Information 1 Q361D XX 03/06/17 13:30 03/07/17 20:46 Chlorhexidine Gluconate (Chlorhexidine 2% Cloth) Taper DAILY@04 TOP 03/07/17 04:00 03/03/18 03:59 03/19/17 03:14 Lorazepam (Ativan Inj) 1 mg Q4H PRN IV PUSH MILD ANXIETY OR AGITATION 03/06/17 15:15 03/20/17 20:32 Chlorhexidine Gluconate (Peridex 0.12% Liq) 15 ml BID@08,20 MT 03/10/17 20:00 03/21/17 09:27 Acetaminophen (Ofirmev Inj) 1,000 mg Q6H PRN IV fever 03/12/17 00:00 03/18/17 00:31 Fondaparinux (Arixtra Inj) 7.5 mg Q24H SQ 03/16/17 18:00 03/24/17 17:45 Lorazepam (Ativan) 1 mg Q6HR PO 03/19/17 12:00 03/24/17 22:37 Fentanyl (Duragesic 50 Mcg Patch.72 Hr) 1 patch Q3D TOPICAL 03/19/17 11:00 03/22/17 10:58 Miscellaneous Information 1 Q3D T-DERMAL 03/19/17 11:00 03/22/17 11:00 Fentanyl (Duragesic 100 Mcg Patch.72 Hr) 1 patch Q3D TOPICAL 03/22/17 11:00 03/22/17 10:59 Ketorolac Tromethamine 10 mg 10 mg Q6H PRN PO pain 1 TO 10 03/21/17 14:30 03/25/17 14:00 03/24/17 22:37 Cefazolin Sodium/ Dextrose (Ancef 2 Gm Premix) 50 ml @ 100 mls/hr Q8H IV 03/22/17 15:00 03/24/17 22:37 Pantoprazole Sodium 40 mg 40 mg DAILY PO 03/24/17 09:00 03/24/17 08:54 Iron Sucrose/ Sodium Chloride (Venofer Inj/NS Inj) 110 ml @ 110 mls/hr DAILY IV 03/23/17 19:15 03/25/17 09:59 03/24/17 09:00 Objective Remarks GENERAL:nad SKIN: Warm and dry. NECK: Supple, trachea midline. No JVD or lymphadenopathy. LYMPHATIC: No adenopathy. CARDIOVASCULAR: Regular rate and rhythm without murmurs. RESPIRATORY: Breath sounds equal bilaterally. No accessory muscle use. GASTROINTESTINAL: Abdomen soft, non-tender, nondistended. EXTREMITIES: No cyanosis, or edema. Assessment/Plan Problem List: (1) Infective endocarditis Status: Acute Plan: --on IV antibiotics. --gram-positive cocci bacteremia. --echocardiogram --> hyperdynamic dynamic left ventricle, mitral valve vegetation and echogenic mass in the right ventricle suggestive of a thrombus-- > Currently on Arixtra. --Infectious Disease and Cardiology following (2) Anemia Status: Acute Plan: --LDH slightly elevated, haptoglobin normal --Transfuse to keep hemoglobin greater than 7. Assessment 26y/o female, now extubated but remains in guarded condition in [facility]. Hematology following for acute thrombocytopenia and anemia. History (from initial consult) 3, para 1, AB 1 who was at 32.5 weeks gestation with expected delivery of April 28 but delivered prematurely on 2016. After delivery the patient decompensated and became hypoxic and went into respiratory failure. She was intubated and is currently in the intensive care unit. The patient has a known history of IV drug abuse. Her UDS was positive for opiates, benzodiazepine and cocaine. Plan 1. Continue Arixtra. On Coumadin. monitor daily INR. will need to keep arxtra in until INR > 2.0 for at least 72 hours. 2. Anemia studies shows Iron deficiency. tolerating iron 3. Platelet count normalized d/w Andrew Solomon MD March 24, 2017 23:27
[2017-03-25] VITALS (29 sets, daily range): BP systolic 106–127; BP diastolic 54–84; PULSE 68–120; RESP 16–23; TEMP 97.8–99.1; O2SAT 90–98
[2017-03-25] MEDS: WARFARIN SOD 5 MG TAB PO SCH ×2 (01:44→17:15)
[2017-03-25] MEDS: CHLORHEXIDINE GLUCONATE 2 % 1 PACK (2 CLOTHS) TOP SCH (01:44)
[2017-03-25] MEDS: RESP: ALBUTEROL 2.5 MG/IPRATROPIUM 0.5 MG NEB (SCH) INH ×6 (03:03→23:34)
[2017-03-25] MEDS: oxyCODONE/ACETAMINOPHEN 5 MG/325 MG TAB PO PRN ×4 (03:34→20:52)
[2017-03-25] MEDS: ceFAZolin 2 GM PREMIX 50 ML IV SCH ×3 (06:11→23:14)
[2017-03-25] MEDS: LORazepam 1 MG TAB PO SCH ×4 (06:11→23:14)
[2017-03-25 06:23] LABS: HEMATOCRIT 28.9 % (35.0-46.0); MEAN CELL VOLUME 85.3 FL (80.0-100.0); MEAN CORPUSCULAR HEMOGLOBIN 28.5 PG (27.0-34.0); MEAN CORPUSCULAR HGB CONC 33.4 % (32.0-36.0); PLATELET COUNT 535 TH/MM3 (150-450); RED BLOOD COUNT 3.38 MIL/MM3 (4.00-5.30); RED CELL DISTRIBUTION WIDTH 16.4 % (11.6-17.2); REVIEW FLAG FINAL
[2017-03-25 06:28] LABS: INTERNATIONAL NORMALIZED RATIO 1.2 RATIO; PROTHROMBIN TIME - PATIENT 13.4 SEC (9.8-11.6)
[2017-03-25] MEDS: CHLORHEXIDINE 0.12% (ORAL KIT) 15 ML CUP MT SCH ×2 (08:00→20:00)
[2017-03-25] MEDS: SODIUM CHLORIDE 0.9% FLUSH 10 ML FLUSH IV FLUSH SCH ×2 (08:52→20:54)
[2017-03-25] MEDS: IRON SUCROSE INJ 200 MG in SODIUM CHLORIDE 0.9% INJ 100 ML IV SCH (08:52)
[2017-03-25] MEDS: PANTOPRAZOLE SOD 40 MG DELAYED RELEASE TAB PO SCH (08:52)
[2017-03-25] MEDS: DOCUSATE SODIUM 50 MG/SENNA 8.6 MG TAB PO SCH ×2 (09:00→20:58)
--- NOTE | 2017-03-25 09:55 | RADRPT ---
EXAM DATE/TIME: 03/25/2017 08:59 [facility] COMPARISON: 03/23/2017. INDICATIONS : Pneumonia, Effusion MEDICAL HISTORY : Frequent UTIs, anxiety. SURGICAL HISTORY : None. ENCOUNTER: Initial ACUITY: 2 weeks PAIN SCORE: 0/10 LOCATION: Bilateral chest FINDINGS: A single view of the chest demonstrates left subclavian central line is in good position. There is p atchy air space consolidation left mid lung zone and the right lung base. There is a small right pig tail catheter chest tube in good position. No significant pleural effusion remaining. CONCLUSION: Patchy airspace disease, left greater than right. Right side chest tube in good position. No visibl e pneumothorax. Neel Anders MD on March 25, 2017 at 9:42 Board Certified Radiologist. This report was verified electronically.
[2017-03-25] MEDS: REMOVE OLD PATCH T-DERMAL SCH (11:00)
[2017-03-25] MEDS: fentaNYL 100 MCG/HR PATCH TOPICAL SCH (12:07)
[2017-03-25] MEDS: fentaNYL 50 MCG/HR PATCH TOPICAL SCH (12:07)
--- NOTE | 2017-03-25 12:44 | HHI.PR ---
Subjective Remarks Alert and breathing well and Off O2 Chest tube output was only 5 CC last nite. No fever. CXR was good with tube clamped .No Pneumo. Objective Vital Signs Date Time Temp Pulse Resp B/P Pulse Ox O2 Delivery O2 Flow Rate FiO2 03/25/17 08:30 93 Room Air 03/25/17 08:30 97.9 99 16 106/54 93 03/25/17 07:01 93 03/25/17 06:42 92 03/25/17 05:43 84 03/25/17 04:11 89 03/25/17 03:30 98.7 88 23 127/84 90 03/25/17 03:30 90 Room Air 03/25/17 03:00 84 03/25/17 02:07 77 03/25/17 01:28 68 03/25/17 00:00 78 03/24/17 23:30 96 Room Air 03/24/17 23:30 99.0 76 22 107/59 96 03/24/17 23:00 75 03/24/17 22:00 84 03/24/17 21:00 94 03/24/17 20:15 21 03/24/17 20:00 96 03/24/17 19:20 103 03/24/17 19:20 99.2 98 20 106/57 95 03/24/17 19:20 95 Nasal Cannula 1.00 03/24/17 18:11 92 03/24/17 17:11 101 03/24/17 16:54 18 03/24/17 16:53 96 03/24/17 15:32 92 Room Air 03/24/17 15:32 98.0 89 18 115/68 92 03/24/17 15:32 89 03/24/17 13:30 97 I/O 03/24/17 03/24/17 03/24/17 03/25/17 03/25/17 03/25/17 07:00 15:00 23:00 07:00 15:00 23:00 Intake Total 510 ml 640 ml 508 ml Output Total 360 ml 760 ml 320 ml Balance 150 ml -120 ml 188 ml Intake Oral 360 ml 640 ml 458 ml IV Total 150 ml 50 ml Output Urine Total 350 ml 750 ml 300 ml Chest Tube Drainage Total 10 ml 10 ml 20 ml # Voids 1 Result Diagram: 03/25/17 0600 03/24/17 0510 Objective Remarks GENERAL: This averagely built young lady, pale and in no acute distress. HEENT: Head normocephalic. Pupils reactive. Sclerae anicteric. Throat was clear. NECK: Supple. No bruits. No venous distension. CHEST: Equal movements with scattered wheezes bilaterally HEART: The heart sounds are regular S1-S2 with no murmur ABDOMEN: Soft and scaphoid without masses. No organomegaly or tenderness. Bowel sounds are active. EXTREMITIES: Muscle wasting with no edema. Pulses are well felt. NEUROLOGIC: She is moving all extremities with no gross motor or sensory deficits. Cranial nerves grossly intact. SKIN: No lesions noted. Assessment and Plan Assessment and Plan IMPRESSION 1. Severe sepsis, resolved. 2. ARDS resolving. 3. Pulmonary septic emboli. 4. History of IV drug use. 5. History of mitral valve endocarditis and left atrial thrombus. 6. Hepatitis C. 7. Metabolic encephalopathy, resolving. 8. Right pleural effusion, resolved Plan : 1. D/C O2 . 2. Cont Antibiotics per ID. 3. IS at bedside qid. 4. Nebs tid prn , Duoneb. 5. D/C Chest Tube 6. CXR in am . Kamar Sprague MD March 25, 2017 12:44
[2017-03-25] MEDS: KETOROLAC TROMETHAMINE 10 MG TAB PO PRN (12:54)
[2017-03-25] MEDS: FONDAPARINUX SODIUM 7.5 MG/0.6 ML SYRINGE SQ SCH (18:10)
--- NOTE | 2017-03-25 21:55 | HHI.PR ---
Subjective Remarks no new problems Objective Vitals heart reg lung right chest tube abd s/nt ext no edema Vital Signs Date Time Temp Pulse Resp B/P Pulse Ox O2 Delivery O2 Flow Rate FiO2 03/25/17 21:10 90 Room Air 03/25/17 21:04 99.1 116 16 108/68 90 03/25/17 19:48 21 03/25/17 18:01 92 03/25/17 17:00 114 03/25/17 16:00 108 03/25/17 16:00 18 03/25/17 15:15 96 Room Air 03/25/17 15:15 98.2 98 18 118/73 98 03/25/17 15:00 106 03/25/17 14:01 115 03/25/17 13:10 18 03/25/17 13:10 18 03/25/17 13:00 96 03/25/17 12:00 94 03/25/17 11:15 97.8 94 16 112/68 96 03/25/17 11:15 96 Room Air 03/25/17 11:00 103 03/25/17 10:00 120 03/25/17 09:00 100 03/25/17 08:30 93 Room Air 03/25/17 08:30 97.9 99 16 106/54 93 03/25/17 08:00 102 03/25/17 07:01 93 03/25/17 06:42 92 03/25/17 05:43 84 03/25/17 04:11 89 03/25/17 03:30 98.7 88 23 127/84 90 03/25/17 03:30 90 Room Air 03/25/17 03:00 84 03/25/17 02:07 77 03/25/17 01:28 68 03/25/17 00:00 78 03/24/17 23:30 96 Room Air 03/24/17 23:30 99.0 76 22 107/59 96 03/24/17 23:00 75 03/24/17 22:00 84 03/24/17 03/24/17 03/25/17 15:00 23:00 07:00 Intake Total 640 ml 508 ml Output Total 760 ml 320 ml Balance -120 ml 188 ml Intake Oral 640 ml 458 ml IV Total 50 ml Output Urine Total 750 ml 300 ml Chest Tube Drainage Total 10 ml 20 ml # Voids 1 Result Diagram: 5/18/17 0600 03/24/17 0510 Date of Insertion: Mar 06, 2017 Date of Insertion: Mar 07, 2017 Line: Central Venous Catheter Side: Left Location: Subclavian A/P Problem List: (1) Infective endocarditis Status: Acute Plan: Pt presented and delivered 03/06 polysubstance abuse and no care acute hypoxic respiratory failure. 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 large RV thrombus. septic emboli bilaterally to lungs parapneumonic right pleural effusion. pigtail catheter placed 03/18 metabolic encephalopathy improved benzodiazepine dependence preeclampsia and htn with bella/proteinuria and volume overload hepatitis c hyponatremia thrombocytopenia sepsis h/o mrsa urine cx less 10k enterococcus and esbl ecoli left subclavian cvl 03/16 cont abx per ID. currently changed to cefazolin and off ceftarolin/gent/ ertapenem. blood cx 03/16 ngtd arixtra for rv thrombus. change to coumadin pigtail catheter per pulmonary. d/c when drainage stops or minimal. currently at 10cc/day wean ativan and fentanyl Seizure precautions-in the setting of preeclampsia, and benzodiazepine dependence Maintain O2 sat greater than 90%. BiPAP 10/12. Wean slowly as tolerated. Bronchodilators every 4 hours scheduled, every 2 hours when necessary. EzPAP, Acapella stopped iv diuretics and observe picc line on Wednesday plan for d/c home Wednesday or Wednesday next week. Mother Arabella Guerrero [phone] updated at bedside 03/08 and 03/09, 03/16, 03/18 (2) IV drug user Status: Acute Plan: see above Yang Marcus MD March 25, 2017 21:55
--- NOTE | 2017-03-25 22:49 | PD.ONC.PN ---
Subjective Subjective Remarks doing better no bleeding chest tube clamped Objective Data Date Time Temp Pulse Resp B/P Pulse Ox O2 Delivery O2 Flow Rate FiO2 03/25/17 21:10 90 Room Air 03/25/17 21:04 99.1 116 16 108/68 90 03/25/17 19:48 21 03/25/17 18:01 92 03/25/17 17:00 114 03/25/17 16:00 108 03/25/17 16:00 18 03/25/17 15:15 96 Room Air 03/25/17 15:15 98.2 98 18 118/73 98 03/25/17 15:00 106 03/25/17 14:01 115 03/25/17 13:10 18 03/25/17 13:10 18 03/25/17 13:00 96 03/25/17 12:00 94 03/25/17 11:15 97.8 94 16 112/68 96 03/25/17 11:15 96 Room Air 03/25/17 11:00 103 03/25/17 10:00 120 03/25/17 09:00 100 03/25/17 08:30 93 Room Air 03/25/17 08:30 97.9 99 16 106/54 93 03/25/17 08:00 102 03/25/17 07:01 93 03/25/17 06:42 92 03/25/17 05:43 84 03/25/17 04:11 89 03/25/17 03:30 98.7 88 23 127/84 90 03/25/17 03:30 90 Room Air 03/25/17 03:00 84 03/25/17 02:07 77 03/25/17 01:28 68 03/25/17 00:00 78 03/24/17 23:30 96 Room Air 03/24/17 23:30 99.0 76 22 107/59 96 03/24/17 23:00 75 03/25/17 03/25/17 03/25/17 07:00 15:00 23:00 Intake Total 508 ml 1110 ml Output Total 320 ml 300 ml Balance 188 ml 810 ml Result Diagram: 03/25/17 0600 03/24/17 0510 Laboratory Results Laboratory Tests Test 03/25/17 06:00 White Blood Count 12.0 TH/MM3 Red Blood Count 3.38 MIL/MM3 Hemoglobin 9.6 GM/DL Hematocrit 28.9 % Mean Corpuscular Volume 85.3 FL Mean Corpuscular Hemoglobin 28.5 PG Mean Corpuscular Hemoglobin 33.4 % Concent Red Cell Distribution Width 16.4 % Platelet Count 535 TH/MM3 Mean Platelet Volume 6.0 FL Prothrombin Time 13.4 SEC Prothromb Time International 1.2 RATIO Ratio Imaging Studies Last 24 hours Impressions Chest X-Ray 03/25/17 0900 Signed Impressions: Service Date/Time: March 08:59 - CONCLUSION: Patchy airspace disease, left greater than right. Right side chest tube in good position. No visible pneumothorax. Neel Anders MD Administered Medications Medications (Trade) Dose Ordered Sig/Benitez Route PRN Reason Start Time Stop Time Status Last Admin Dose Admin Acetaminophen (Tylenol) 650 mg Q4H PRN PO PAIN SCALE 1 TO 2 03/06/17 08:15 03/21/17 12:46 Oxycodone/ Acetaminophen (Percocet 5-325 Mg) 1 tab Q4H PRN PO PAIN SCALE 3 TO 5 03/06/17 08:15 03/24/17 14:52 Oxycodone/ Acetaminophen (Percocet 5-325 Mg) 2 tab Q4H PRN PO PAIN SCALE 6 TO 10 03/06/17 08:15 03/25/17 20:52 Sodium Chloride (NS Flush) 2 ml BID IV FLUSH 03/06/17 21:00 03/25/17 20:54 Senna/Docusate Sodium (Latosha-Colace) 2 tab BID PO 03/06/17 21:00 03/22/17 08:36 Miscellaneous Information 1 Q361D XX 03/06/17 13:30 03/07/17 20:46 Chlorhexidine Gluconate (Chlorhexidine 2% Cloth) Taper DAILY@04 TOP 03/07/17 04:00 03/03/18 03:59 03/19/17 03:14 Lorazepam (Ativan Inj) 1 mg Q4H PRN IV PUSH MILD ANXIETY OR AGITATION 03/06/17 15:15 03/20/17 20:32 Chlorhexidine Gluconate (Peridex 0.12% Liq) 15 ml BID@08,20 MT 03/10/17 20:00 03/21/17 09:27 Acetaminophen (Ofirmev Inj) 1,000 mg Q6H PRN IV fever 03/12/17 00:00 03/18/17 00:31 Fondaparinux (Arixtra Inj) 7.5 mg Q24H SQ 03/16/17 18:00 03/25/17 18:10 Miscellaneous Information 1 Q3D T-DERMAL 03/19/17 11:00 03/25/17 11:00 Fentanyl 1 patch 1 patch Q3D TOPICAL 03/22/17 11:00 03/25/17 12:07 Cefazolin Sodium/ Dextrose (Ancef 2 Gm Premix) 50 ml @ 100 mls/hr Q8H IV 03/22/17 15:00 03/25/17 17:15 Pantoprazole Sodium (Protonix) 40 mg DAILY PO 03/24/17 09:00 03/25/17 08:52 Warfarin Sodium (Coumadin) 5 mg DAILY@1600 PO 03/25/17 00:00 03/25/17 17:15 Objective Remarks GENERAL: nad SKIN: Warm and dry. NECK: Supple, trachea midline. No JVD or lymphadenopathy. LYMPHATIC: No adenopathy. CARDIOVASCULAR: Regular rate and rhythm without murmurs. RESPIRATORY: Breath sounds equal bilaterally. No accessory muscle use. GASTROINTESTINAL: Abdomen soft, non-tender, nondistended. EXTREMITIES: No cyanosis, or edema. Assessment/Plan Problem List: (1) Infective endocarditis Status: Acute Plan: --on IV antibiotics. --gram-positive cocci bacteremia. --echocardiogram --> hyperdynamic dynamic left ventricle, mitral valve vegetation and echogenic mass in the right ventricle suggestive of a thrombus-- > Currently on Arixtra. --Infectious Disease and Cardiology following (2) Anemia Status: Acute Plan: --LDH slightly elevated, haptoglobin normal --Transfuse to keep hemoglobin greater than 7. Assessment 26y/o female, now extubated but remains in guarded condition in [facility]. Hematology following for acute thrombocytopenia and anemia. History (from initial consult) 3, para 1, AB 1 who was at 32.5 weeks gestation with expected delivery of April 28 but delivered prematurely on 2016. After delivery the patient decompensated and became hypoxic and went into respiratory failure. She was intubated and is currently in the intensive care unit. The patient has a known history of IV drug abuse. Her UDS was positive for opiates, benzodiazepine and cocaine. Plan 1. Continue Arixtra. On Coumadin 5mg daily. monitor daily INR. will need to keep arxtra in until INR > 2.0 for at least 72 hours. 2. Anemia studies shows Iron deficiency. additional Iron infusions ordered. 3. Platelet count normalized d/w Andrew Solomon MD March 25, 2017 22:49
[2017-03-26] VITALS (21 sets, daily range): BP systolic 97–134; BP diastolic 60–78; PULSE 71–122; RESP 16–24; TEMP 98–100.4; O2SAT 90–94
[2017-03-26] MEDS: RESP: ALBUTEROL 2.5 MG/IPRATROPIUM 0.5 MG NEB (SCH) INH ×5 (03:19→19:49)
[2017-03-26] MEDS: CHLORHEXIDINE GLUCONATE 2 % 1 PACK (2 CLOTHS) TOP SCH (04:00)
[2017-03-26] MEDS: ceFAZolin 2 GM PREMIX 50 ML IV SCH ×2 (05:36→15:27)
[2017-03-26] MEDS: oxyCODONE/ACETAMINOPHEN 5 MG/325 MG TAB PO PRN ×4 (05:36→19:38)
[2017-03-26] MEDS: LORazepam 1 MG TAB PO SCH ×3 (05:36→21:57)
[2017-03-26 06:02] LABS: AUTOMATED NEUTROPHIL # 6.6 TH/MM3 (1.8-7.7); BASOPHIL # 0.2 TH/MM3 (0-0.2); BASOPHIL % 2.1 % (0.0-2.0); EOSINOPHIL # 0.5 TH/MM3 (0-0.4); EOSINOPHIL % 4.3 % (0.0-4.0); HEMATOCRIT 27.7 % (35.0-46.0); HEMO FLAGS DIFF FINAL; LYMPHOCYTE # 3.5 TH/MM3 (1.0-4.8); MEAN CELL VOLUME 85.3 FL (80.0-100.0); MEAN CORPUSCULAR HEMOGLOBIN 28.3 PG (27.0-34.0); MEAN CORPUSCULAR HGB CONC 33.1 % (32.0-36.0); NEUT % 56.6 % (16.0-70.0); PLATELET COUNT 513 TH/MM3 (150-450); RED BLOOD COUNT 3.24 MIL/MM3 (4.00-5.30); RED CELL DISTRIBUTION WIDTH 16.6 % (11.6-17.2); WHITE BLOOD COUNT 11.7 TH/MM3 (4.0-11.0)
[2017-03-26 06:11] LABS: INTERNATIONAL NORMALIZED RATIO 1.8 RATIO; PROTHROMBIN TIME - PATIENT 19.9 SEC (9.8-11.6)
--- NOTE | 2017-03-26 06:39 | HHI.PR ---
Addendum to Inpatient Note Addendum Reason: Additional Documentation Additional Information Repeat 2D ECHO to follow up on large thrombus occupying entire ventricle on last ECHO. Check CRP (added to am labs) Will see patient on Wednesday next. If any interim new issues or change in clinical condition please call today. covering for me this weekend. Nicky Rios MD March 26, 2017 06:39
[2017-03-26] MEDS: CHLORHEXIDINE 0.12% (ORAL KIT) 15 ML CUP MT SCH ×2 (08:00→20:00)
--- NOTE | 2017-03-26 08:32 | HHI.PR ---
Subjective Remarks no new problems Objective Vitals heart reg lung cta abd s/nt ext n edema Vital Signs Date Time Temp Pulse Resp B/P Pulse Ox O2 Delivery O2 Flow Rate FiO2 03/26/17 07:32 18 03/26/17 07:00 81 03/26/17 06:36 98.1 84 16 103/62 94 03/26/17 06:00 83 03/26/17 05:00 75 03/26/17 04:27 96 Room Air 03/26/17 04:00 76 03/26/17 03:00 72 03/26/17 02:00 76 03/26/17 01:00 71 03/26/17 00:47 94 Room Air 03/26/17 00:46 98.0 73 16 103/60 94 03/26/17 00:00 74 03/25/17 23:00 82 03/25/17 22:00 94 03/25/17 21:10 90 Room Air 03/25/17 21:04 99.1 116 16 108/68 90 03/25/17 21:00 118 03/25/17 20:00 108 03/25/17 19:48 21 03/25/17 19:00 110 03/25/17 18:01 92 03/25/17 17:00 114 03/25/17 16:00 108 03/25/17 15:15 96 Room Air 03/25/17 15:15 98.2 98 18 118/73 98 03/25/17 15:00 106 03/25/17 14:01 115 03/25/17 13:10 18 03/25/17 13:10 18 03/25/17 13:00 96 03/25/17 12:00 94 03/25/17 11:15 97.8 94 16 112/68 96 03/25/17 11:15 96 Room Air 03/25/17 11:00 103 03/25/17 10:00 120 03/25/17 09:00 100 03/25/17 03/25/17 03/26/17 15:00 23:00 07:00 Intake Total 1110 ml 580 ml Output Total 300 ml Balance 810 ml 580 ml Intake Oral 960 ml 480 ml IV Total 150 ml 100 ml Output Urine Total 300 ml # Voids 2 3 # Bowel Movements 1 0 Result Diagram: 03/26/17 0545 03/24/17 0510 Date of Insertion: Mar 06, 2017 Date of Insertion: Mar 07, 2017 Line: Central Venous Catheter Side: Left Location: Subclavian A/P Problem List: (1) Infective endocarditis Status: Acute Plan: Pt presented and delivered 03/06 polysubstance abuse and no care acute hypoxic respiratory failure. 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 large RV thrombus. septic emboli bilaterally to lungs parapneumonic right pleural effusion. pigtail catheter placed 03/18 metabolic encephalopathy improved benzodiazepine dependence preeclampsia and htn with bella/proteinuria and volume overload hepatitis c hyponatremia thrombocytopenia sepsis h/o mrsa urine cx less 10k enterococcus and esbl ecoli left subclavian cvl 03/16 cont abx per ID. currently changed to cefazolin and off ceftarolin/gent/ ertapenem. blood cx 03/16 ngtd ..plan for picc on Wednesday arixtra for rv thrombus. changed to coumadin . stop arixtra when therapeutic pigtail catheter removed from right chest 03/25 weaning ativan and fentanyl Seizure precautions-in the setting of preeclampsia, and benzodiazepine dependence Maintain O2 sat greater than 90%. BiPAP 10/12. Wean slowly as tolerated. Bronchodilators every 4 hours scheduled, every 2 hours when necessary. EzPAP, Acapella stopped iv diuretics and observe plan for d/c Wednesday or Wednesday next week. Mother Arabella Guerrero [phone] updated at bedside 03/08 and 03/09, 03/16, 03/18 (2) IV drug user Status: Acute Plan: see above Yang Marcus MD March 26, 2017 08:32
[2017-03-26] MEDS: SODIUM CHLORIDE 0.9% FLUSH 10 ML FLUSH IV FLUSH SCH ×2 (08:55→21:57)
[2017-03-26] MEDS: DOCUSATE SODIUM 50 MG/SENNA 8.6 MG TAB PO SCH ×3 (08:55→21:00)
[2017-03-26] MEDS: PANTOPRAZOLE SOD 40 MG DELAYED RELEASE TAB PO SCH (08:55)
[2017-03-26] MEDS: IRON SUCROSE INJ 200 MG in SODIUM CHLORIDE 0.9% INJ 100 ML IV SCH (08:56)
[2017-03-26] MEDS: WARFARIN SOD 5 MG TAB PO SCH (17:39)
[2017-03-26] MEDS: FONDAPARINUX SODIUM 7.5 MG/0.6 ML SYRINGE SQ SCH (17:40)
--- NOTE | 2017-03-26 19:41 | HHI.PR ---
Subjective Remarks Alert and breathing well and Off O2 Chest tube is out and Chest X ray was stable.On Antibiotics a Arixtra Objective Vital Signs Date Time Temp Pulse Resp B/P Pulse Ox O2 Delivery O2 Flow Rate FiO2 03/26/17 17:00 99 03/26/17 16:00 94 Room Air 03/26/17 16:00 102 03/26/17 15:40 18 03/26/17 15:00 98.4 106 18 112/73 94 03/26/17 15:00 103 03/26/17 14:00 105 03/26/17 13:00 122 03/26/17 12:00 100 03/26/17 12:00 99.4 103 16 134/78 90 03/26/17 12:00 88 Nasal Cannula 1.50 03/26/17 11:00 103 03/26/17 10:00 94 03/26/17 09:00 102 03/26/17 08:00 98.1 88 18 102/63 92 03/26/17 08:00 88 03/26/17 08:00 92 Room Air 03/26/17 07:00 81 03/26/17 06:36 98.1 84 16 103/62 94 03/26/17 06:00 83 03/26/17 05:00 75 03/26/17 04:27 96 Room Air 03/26/17 04:00 76 03/26/17 03:00 72 03/26/17 02:00 76 03/26/17 01:00 71 03/26/17 00:47 94 Room Air 03/26/17 00:46 98.0 73 16 103/60 94 03/26/17 00:00 74 03/25/17 23:00 82 03/25/17 22:00 94 03/25/17 21:10 90 Room Air 03/25/17 21:04 99.1 116 16 108/68 90 03/25/17 21:00 118 03/25/17 20:00 108 03/25/17 19:48 21 I/O 03/25/17 03/25/17 03/25/17 03/26/17 03/26/17 03/26/17 07:00 15:00 23:00 07:00 15:00 23:00 Intake Total 508 ml 1110 ml 580 ml 870 ml Output Total 320 ml 300 ml 1200 ml Balance 188 ml 810 ml 580 ml -330 ml Intake Oral 458 ml 960 ml 480 ml 720 ml IV Total 50 ml 150 ml 100 ml 150 ml Output Urine Total 300 ml 300 ml 1200 ml Chest Tube Drainage Total 20 ml # Voids 1 2 3 # Bowel Movements 1 0 Result Diagram: 03/26/17 0545 03/24/17 0510 Objective Remarks GENERAL: This averagely built young lady, pale and in no acute distress. HEENT: Head normocephalic. Pupils reactive. Sclerae anicteric. Throat was clear. NECK: Supple. No bruits. No venous distension. CHEST: Equal movements with scattered wheezes bilaterally. Occ Crackles right side HEART: The heart sounds are regular S1-S2 with no murmur ABDOMEN: Soft and scaphoid without masses. No organomegaly or tenderness. Bowel sounds are active. EXTREMITIES: Muscle wasting with no edema. Pulses are well felt. NEUROLOGIC: She is moving all extremities with no gross motor or sensory deficits. Cranial nerves grossly intact. SKIN: No lesions noted. Assessment and Plan Assessment and Plan IMPRESSION 1. Severe sepsis, resolved. 2. ARDS resolving. 3. Pulmonary septic emboli. 4. History of IV drug use. 5. History of mitral valve endocarditis and left atrial thrombus. 6. Hepatitis C. 7. Metabolic encephalopathy, resolving. 8. Right pleural effusion, resolved Plan : 1. O2 PRN at HS 2. Cont Antibiotics per ID. 3. IS at bedside qid. 4. Nebs tid prn , Duoneb. 5. Continue anticoagulants 6. CBC in am . Kamar Sprague MD March 26, 2017 19:41
--- NOTE | 2017-03-26 22:50 | PD.ONC.PN ---
Subjective Subjective Remarks sitting up in chair awake and alert discussed the need for mcc anticoagulation due to RV thrombus heparin GTT ongoing INR coming up Objective Data Date Time Temp Pulse Resp B/P Pulse Ox O2 Delivery O2 Flow Rate FiO2 03/26/17 17:00 99 03/26/17 16:00 94 Room Air 03/26/17 16:00 102 03/26/17 15:40 18 03/26/17 15:00 98.4 106 18 112/73 94 03/26/17 15:00 103 03/26/17 14:00 105 03/26/17 13:00 122 03/26/17 12:00 100 03/26/17 12:00 99.4 103 16 134/78 90 03/26/17 12:00 88 Nasal Cannula 1.50 03/26/17 11:00 103 03/26/17 10:00 94 03/26/17 09:00 102 03/26/17 08:00 98.1 88 18 102/63 92 03/26/17 08:00 88 03/26/17 08:00 92 Room Air 03/26/17 07:00 81 03/26/17 06:36 98.1 84 16 103/62 94 03/26/17 06:00 83 03/26/17 05:00 75 03/26/17 04:27 96 Room Air 03/26/17 04:00 76 03/26/17 03:00 72 03/26/17 02:00 76 03/26/17 01:00 71 03/26/17 00:47 94 Room Air 03/26/17 00:46 98.0 73 16 103/60 94 03/26/17 00:00 74 03/25/17 23:00 82 03/26/17 03/26/17 03/26/17 07:00 15:00 23:00 Intake Total 580 ml 870 ml Output Total 1200 ml Balance 580 ml -330 ml Result Diagram: 03/26/17 0545 03/24/17 0510 Laboratory Results Laboratory Tests Test 03/26/17 03/26/17 05:45 10:43 White Blood Count 11.7 TH/MM3 Red Blood Count 3.24 MIL/MM3 Hemoglobin 9.2 GM/DL Hematocrit 27.7 % Mean Corpuscular Volume 85.3 FL Mean Corpuscular Hemoglobin 28.3 PG Mean Corpuscular Hemoglobin 33.1 % Concent Red Cell Distribution Width 16.6 % Platelet Count 513 TH/MM3 Mean Platelet Volume 6.2 FL Neutrophils (%) (Auto) 56.6 % Lymphocytes (%) (Auto) 30.0 % Monocytes (%) (Auto) 7.0 % Eosinophils (%) (Auto) 4.3 % Basophils (%) (Auto) 2.1 % Neutrophils # (Auto) 6.6 TH/MM3 Lymphocytes # (Auto) 3.5 TH/MM3 Monocytes # (Auto) 0.8 TH/MM3 Eosinophils # (Auto) 0.5 TH/MM3 Basophils # (Auto) 0.2 TH/MM3 CBC Comment DIFF FINAL Differential Comment Prothrombin Time 19.9 SEC Prothromb Time International 1.8 RATIO Ratio C-Reactive Protein 6.40 MG/DL Administered Medications Medications (Trade) Dose Ordered Sig/Benitez Route PRN Reason Start Time Stop Time Status Last Admin Dose Admin Acetaminophen (Tylenol) 650 mg Q4H PRN PO PAIN SCALE 1 TO 2 03/06/17 08:15 03/21/17 12:46 Oxycodone/ Acetaminophen (Percocet 5-325 Mg) 1 tab Q4H PRN PO PAIN SCALE 3 TO 5 03/06/17 08:15 03/24/17 14:52 Oxycodone/ Acetaminophen (Percocet 5-325 Mg) 2 tab Q4H PRN PO PAIN SCALE 6 TO 10 03/06/17 08:15 03/26/17 19:38 Sodium Chloride (NS Flush) 2 ml BID IV FLUSH 03/06/17 21:00 03/26/17 21:57 Senna/Docusate Sodium (Latosha-Colace) 2 tab BID PO 03/06/17 21:00 03/22/17 08:36 Miscellaneous Information 1 Q361D XX 03/06/17 13:30 03/07/17 20:46 Chlorhexidine Gluconate (Chlorhexidine 2% Cloth) 3 pack Taper DAILY@04 TOP 03/07/17 04:00 03/03/18 03:59 03/19/17 03:14 Lorazepam (Ativan Inj) 1 mg Q4H PRN IV PUSH MILD ANXIETY OR AGITATION 03/06/17 15:15 03/20/17 20:32 Chlorhexidine Gluconate (Peridex 0.12% Liq) 15 ml BID@08,20 MT 03/10/17 20:00 03/21/17 09:27 Acetaminophen (Ofirmev Inj) 1,000 mg Q6H PRN IV fever 03/12/17 00:00 03/18/17 00:31 Fondaparinux (Arixtra Inj) 7.5 mg Q24H SQ 03/16/17 18:00 03/26/17 17:40 Miscellaneous Information 1 Q3D T-DERMAL 03/19/17 11:00 03/25/17 11:00 Fentanyl 1 patch 1 patch Q3D TOPICAL 03/22/17 11:00 03/25/17 12:07 Cefazolin Sodium/ Dextrose (Ancef 2 Gm Premix) 50 ml @ 100 mls/hr Q8H IV 03/22/17 15:00 03/26/17 15:27 Pantoprazole Sodium (Protonix) 40 mg DAILY PO 03/24/17 09:00 03/26/17 08:55 Warfarin Sodium (Coumadin) 5 mg DAILY@1600 PO 03/25/17 00:00 03/26/17 17:39 Lorazepam 1 mg 1 mg Q8HR PO 03/25/17 22:00 03/26/17 21:57 Iron Sucrose/ Sodium Chloride (Venofer Inj/NS Inj) 110 ml @ 110 mls/hr DAILY IV 03/26/17 09:00 03/28/17 09:59 03/26/17 08:56 Objective Remarks GENERAL: nad SKIN: Warm and dry. NECK: Supple, trachea midline. No JVD or lymphadenopathy. LYMPHATIC: No adenopathy. CARDIOVASCULAR: Regular rate and rhythm without murmurs. RESPIRATORY: Breath sounds equal bilaterally. No accessory muscle use. GASTROINTESTINAL: Abdomen soft, non-tender, nondistended. EXTREMITIES: No cyanosis, or edema. Assessment/Plan Problem List: (1) Infective endocarditis Status: Acute Plan: --on IV antibiotics. --gram-positive cocci bacteremia. --echocardiogram --> hyperdynamic dynamic left ventricle, mitral valve vegetation and echogenic mass in the right ventricle suggestive of a thrombus-- > Currently on Arixtra. --Infectious Disease and Cardiology following (2) Anemia Status: Acute Plan: --LDH slightly elevated, haptoglobin normal --Transfuse to keep hemoglobin greater than 7. Assessment 26y/o female, now extubated but remains in guarded condition in [facility]. Hematology following for acute thrombocytopenia and anemia. History (from initial consult) 3, para 1, AB 1 who was at 32.5 weeks gestation with expected delivery of April 28 but delivered prematurely on 2016. After delivery the patient decompensated and became hypoxic and went into respiratory failure. She was intubated and is currently in the intensive care unit. The patient has a known history of IV drug abuse. Her UDS was positive for opiates, benzodiazepine and cocaine. Plan 1. Continue Arixtra. On Coumadin 5mg daily. monitor daily INR. will need to keep arxtra in until INR > 2.0 for at least 72 hours. 2. Anemia studies shows Iron deficiency. tolerating iron infusions 3. Platelet count normalized 4. outpatient f/u with PCP for Coumadin monitoring, d/w Andrew Solomon MD March 26, 2017 22:50
[2017-03-27] VITALS (11 sets, daily range): BP systolic 95–106; BP diastolic 55–65; PULSE 82–114; RESP 18–25; TEMP 97.6–101.5; O2SAT 91–98
[2017-03-27] MEDS: ceFAZolin 2 GM PREMIX 50 ML IV SCH ×4 (00:20→22:25)
[2017-03-27] MEDS: RESP: ALBUTEROL 2.5 MG/IPRATROPIUM 0.5 MG NEB (SCH) INH ×6 (03:41→21:15)
[2017-03-27] MEDS: CHLORHEXIDINE GLUCONATE 2 % 1 PACK (2 CLOTHS) TOP SCH (04:00)
[2017-03-27] MEDS: LORazepam 1 MG TAB PO SCH ×3 (05:01→22:25)
[2017-03-27] MEDS: oxyCODONE/ACETAMINOPHEN 5 MG/325 MG TAB PO PRN ×5 (05:01→22:26)
[2017-03-27 05:40] LABS: INTERNATIONAL NORMALIZED RATIO 1.6 RATIO; PROTHROMBIN TIME - PATIENT 17.9 SEC (9.8-11.6)
[2017-03-27] MEDS: DOCUSATE SODIUM 50 MG/SENNA 8.6 MG TAB PO SCH ×2 (09:27→21:00)
[2017-03-27] MEDS: PANTOPRAZOLE SOD 40 MG DELAYED RELEASE TAB PO SCH (09:27)
[2017-03-27] MEDS: IRON SUCROSE INJ 200 MG in SODIUM CHLORIDE 0.9% INJ 100 ML IV SCH (09:28)
[2017-03-27] MEDS: CHLORHEXIDINE 0.12% (ORAL KIT) 15 ML CUP MT SCH ×2 (09:28→20:00)
[2017-03-27] MEDS: SODIUM CHLORIDE 0.9% FLUSH 10 ML FLUSH IV FLUSH SCH ×2 (09:28→22:27)
--- NOTE | 2017-03-27 14:33 | HHI.PR ---
Subjective Remarks no new problems Objective Vitals heent neg heat reg lung course bs abd s/nt ext no edema Vital Signs Date Time Temp Pulse Resp B/P Pulse Ox O2 Delivery O2 Flow Rate FiO2 03/27/17 12:11 97.6 103 18 100/65 91 03/27/17 09:30 Room Air 03/27/17 08:32 98 Nasal Cannula 2.00 03/27/17 08:09 98.2 82 18 100/65 98 03/27/17 06:00 98.5 100 20 96/60 95 03/27/17 04:10 95 Nasal Cannula 2.00 03/27/17 04:00 101.5 114 22 95/55 91 03/27/17 00:00 99.6 95 25 103/56 03/26/17 20:00 100.4 96 24 97/63 94 03/26/17 17:00 99 03/26/17 16:00 94 Room Air 03/26/17 16:00 102 03/26/17 15:40 18 03/26/17 15:00 98.4 106 18 112/73 94 03/26/17 15:00 103 03/26/17 03/26/17 03/27/17 15:00 23:00 07:00 Intake Total 870 ml Output Total 1200 ml Balance -330 ml Intake Oral 720 ml IV Total 150 ml Output Urine Total 1200 ml Result Diagram: 03/26/17 0545 03/24/17 0510 Date of Insertion: Mar 06, 2017 Date of Insertion: Mar 07, 2017 Line: Central Venous Catheter Side: Left Location: Subclavian A/P Problem List: (1) Infective endocarditis Status: Acute Plan: Pt presented and delivered 03/06 polysubstance abuse and no care acute hypoxic respiratory failure. 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 large RV thrombus. septic emboli bilaterally to lungs parapneumonic right pleural effusion. pigtail catheter placed 03/18 metabolic encephalopathy improved benzodiazepine dependence preeclampsia and htn with bella/proteinuria and volume overload hepatitis c hyponatremia thrombocytopenia sepsis h/o mrsa urine cx less 10k enterococcus and esbl ecoli left subclavian cvl 03/16 cont abx per ID. currently changed to cefazolin and off ceftarolin/gent/ ertapenem. blood cx 03/16 ngtd ..plan for picc and remove the cvl next week. We are still trying to decide if home with picc line the best option. Will need to discuss this again with her family. If not then call [facility] to see if any other facility options for her to get narcotic addiction counseling, tapering of her narcotics, iv abx therapy. arixtra for rv thrombus. changed to coumadin . stop arixtra when therapeutic pigtail catheter removed from right chest 03/25 weaning ativan and fentanyl Seizure precautions-in the setting of preeclampsia, and benzodiazepine dependence Maintain O2 sat greater than 90%. BiPAP 10/12. Wean slowly as tolerated. Bronchodilators every 4 hours scheduled, every 2 hours when necessary. EzPAP, Acapella stopped iv diuretics and observe Mother Arabella Guerrero [phone] updated at bedside 03/08 and 03/09, 03/16, 03/18 (2) IV drug user Status: Acute Plan: see above Yang Marcus MD March 27, 2017 14:33
[2017-03-27] MEDS: WARFARIN SOD 5 MG TAB PO SCH (15:50)
[2017-03-27] MEDS: ACETAMINOPHEN 325 MG TAB PO PRN (15:55)
[2017-03-27] MEDS: FONDAPARINUX SODIUM 7.5 MG/0.6 ML SYRINGE SQ SCH (17:06)
[2017-03-28] VITALS (9 sets, daily range): BP systolic 98–105; BP diastolic 54–71; PULSE 82–118; RESP 18; TEMP 94.4–99.6; O2SAT 94–100
[2017-03-28] MEDS: oxyCODONE/ACETAMINOPHEN 5 MG/325 MG TAB PO PRN ×5 (03:50→21:07)
[2017-03-28] MEDS: RESP: ALBUTEROL 2.5 MG/IPRATROPIUM 0.5 MG NEB (SCH) INH ×7 (04:00→23:56)
[2017-03-28] MEDS: CHLORHEXIDINE GLUCONATE 2 % 1 PACK (2 CLOTHS) TOP SCH (04:00)
[2017-03-28] MEDS: LORazepam 1 MG TAB PO SCH ×2 (04:58→21:07)
[2017-03-28] MEDS: ceFAZolin 2 GM PREMIX 50 ML IV SCH ×3 (04:59→21:07)
[2017-03-28] MEDS: SODIUM CHLORIDE 0.9% FLUSH 10 ML FLUSH IV FLUSH PRN (04:59)
[2017-03-28 05:11] LABS: HEMATOCRIT 27.4 % (35.0-46.0); MEAN CORPUSCULAR HGB CONC 34.1 % (32.0-36.0); PLATELET COUNT 463 TH/MM3 (150-450); RED BLOOD COUNT 3.23 MIL/MM3 (4.00-5.30); RED CELL DISTRIBUTION WIDTH 16.9 % (11.6-17.2); REVIEW FLAG FINAL
[2017-03-28] MEDS: DOCUSATE SODIUM 50 MG/SENNA 8.6 MG TAB PO SCH (08:32)
[2017-03-28] MEDS: SODIUM CHLORIDE 0.9% FLUSH 10 ML FLUSH IV FLUSH SCH ×2 (08:32→21:06)
[2017-03-28] MEDS: IRON SUCROSE INJ 200 MG in SODIUM CHLORIDE 0.9% INJ 100 ML IV SCH (08:32)
[2017-03-28] MEDS: CHLORHEXIDINE 0.12% (ORAL KIT) 15 ML CUP MT SCH (08:32)
[2017-03-28] MEDS: PANTOPRAZOLE SOD 40 MG DELAYED RELEASE TAB PO SCH (08:32)
[2017-03-28] MEDS: fentaNYL 100 MCG/HR PATCH TOPICAL SCH (10:20)
--- NOTE | 2017-03-28 13:34 | HHI.PR ---
Subjective Remarks no new complaints Objective Vitals heart reg lung course bs abd s/nt ext no edema left cvl Vital Signs Date Time Temp Pulse Resp B/P Pulse Ox O2 Delivery O2 Flow Rate FiO2 03/28/17 12:30 97.9 95 18 99/61 100 03/28/17 08:40 Room Air 03/28/17 08:06 98.5 87 18 105/71 96 03/28/17 07:49 96 21 03/28/17 04:00 97.8 91 18 98/62 94 03/28/17 00:00 94.4 86 18 103/54 96 03/27/17 21:18 95 21 03/27/17 20:00 97.6 95 18 106/56 96 03/27/17 18:00 107 03/27/17 16:34 100.4 107 18 99/60 92 03/27/17 16:29 85 03/27/17 03/27/17 03/28/17 14:59 22:59 06:59 Intake Total 240 ml 500 ml Balance 240 ml 500 ml Intake Oral 240 ml 500 ml # Voids 2 4 Result Diagram: 03/28/17 0500 03/24/17 0510 Date of Insertion: Mar 06, 2017 Date of Insertion: Mar 07, 2017 Line: Central Venous Catheter Side: Left Location: Subclavian A/P Problem List: (1) Infective endocarditis Status: Acute Plan: Pt presented and delivered 03/06 polysubstance abuse and no care acute hypoxic respiratory failure. 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 large RV thrombus. septic emboli bilaterally to lungs parapneumonic right pleural effusion. pigtail catheter placed 03/18 metabolic encephalopathy improved benzodiazepine dependence preeclampsia and htn with bella/proteinuria and volume overload hepatitis c hyponatremia thrombocytopenia sepsis h/o mrsa urine cx less 10k enterococcus and esbl ecoli left subclavian cvl 03/16 cont abx per ID. currently changed to cefazolin and off ceftarolin/gent/ ertapenem. blood cx 03/16 ngtd ..plan for picc and remove the cvl next week. We are still trying to decide if home with picc line the best option. Will need to discuss this again with her family. ...I had long conversation with patient today about placement into a drug addiction program that could handle administration of her iv antibiotics. She seemed open to the idea. She seemed fixated on [facility] in [place]. We will need to call [facility] tomorrow and find out what programs, if any are available to her in this situation. ...Pt did have some fever over the weekend...?related to cvl vs her known infection. again the plan is for removal hopefully tomorrow and insert the picc line. repeat echo pending and repeat cxr for 03/29 ordered arixtra for rv thrombus. changed to coumadin . stop arixtra when therapeutic. 3 day overlap per hem/onc pigtail catheter removed from right chest 03/25 weaning ativan and fentanyl ...lower again today.....pt says at home she was injecting 16-24mg dilaudid per day plus crack Seizure precautions-in the setting of preeclampsia, and benzodiazepine dependence Maintain O2 sat greater than 90%. BiPAP 10/12. Wean slowly as tolerated. Bronchodilators every 4 hours scheduled, every 2 hours when necessary. EzPAP, Acapella stopped iv diuretics and observe Mother Arabella Guerrero [phone] (2) IV drug user Status: Acute Plan: see above Yang Marcus MD March 28, 2017 13:34
[2017-03-28 15:27] LABS: INTERNATIONAL NORMALIZED RATIO 1.7 RATIO
[2017-03-28] MEDS: FONDAPARINUX SODIUM 7.5 MG/0.6 ML SYRINGE SQ SCH (17:53)
[2017-03-28] MEDS: WARFARIN SOD 7.5 MG TAB PO SCH (17:53)
[2017-03-29] VITALS (9 sets, daily range): BP systolic 95–104; BP diastolic 50–69; PULSE 93–107; RESP 15–21; TEMP 98–100; O2SAT 94–98
[2017-03-29] MEDS: CHLORHEXIDINE GLUCONATE 2 % 1 PACK (2 CLOTHS) TOP SCH (02:14)
[2017-03-29] MEDS: RESP: ALBUTEROL 2.5 MG/IPRATROPIUM 0.5 MG NEB (SCH) INH ×2 (02:47→08:00)
[2017-03-29] MEDS: oxyCODONE/ACETAMINOPHEN 5 MG/325 MG TAB PO PRN ×5 (02:56→22:31)
[2017-03-29] MEDS: ceFAZolin 2 GM PREMIX 50 ML IV SCH ×3 (05:04→22:32)
[2017-03-29 05:31] LABS: INTERNATIONAL NORMALIZED RATIO 1.9 RATIO; PROTHROMBIN TIME - PATIENT 22.1 SEC (9.8-11.6)
[2017-03-29] MEDS: PANTOPRAZOLE SOD 40 MG DELAYED RELEASE TAB PO SCH (08:22)
[2017-03-29] MEDS: LORazepam 1 MG TAB PO SCH ×2 (08:22→22:30)
[2017-03-29] MEDS: fentaNYL 50 MCG/HR PATCH T-DERMAL SCH (08:31)
[2017-03-29] MEDS: REMOVE OLD PATCH T-DERMAL SCH (09:00)
[2017-03-29] MEDS: SODIUM CHLORIDE 0.9% FLUSH 10 ML FLUSH IV FLUSH SCH ×2 (09:00→22:32)
--- NOTE | 2017-03-29 09:49 | RADRPT ---
EXAM DATE/TIME: 03/29/2017 08:46 [facility] COMPARISON: CHEST SINGLE AP, March 25, 2017, 8:59. INDICATIONS : Fever; pneumonia with pulmonary opacities and pleural effusions.. MEDICAL HISTORY : None. SURGICAL HISTORY : None. ENCOUNTER: Subsequent ACUITY: 2 days PAIN SCORE: 0/10 LOCATION: Bilateral chest FINDINGS: The PA and lateral views of the chest were obtained and again demonstrate bilateral small pleural eff usions left greater than right with blunting of the lateral and posterior costophrenic angles. There is coarse infiltrate in both lungs greatest in the left perihilar region and left lung base. The hear t size remains within normal limits. The bony thorax is intact. The left subclavian central venous ca theter remains in place. CONCLUSION: 1. Small bilateral pleural effusions left greater than right without significant change. 2. Course bilateral pulmonary infiltrates without significant change. Jorge Aguirre MD on March 29, 2017 at 9:46 Board Certified Radiologist. This report was verified electronically.
--- NOTE | 2017-03-29 11:58 | HHI.PR ---
Subjective Remarks No new complaints. Pt interviewed and examined in the presence of pt's nurse and Shira Mcgowan. Objective Vitals Vital Signs Date Time Temp Pulse Resp B/P Pulse Ox O2 Delivery O2 Flow Rate FiO2 03/29/17 10:45 Room Air 03/29/17 10:43 98 03/29/17 08:41 98.3 93 15 97/55 95 03/29/17 07:30 98 03/29/17 06:24 98.3 97 18 104/57 94 03/29/17 03:56 20 03/29/17 01:05 Room Air 03/29/17 01:05 98.3 94 20 104/69 97 03/28/17 21:32 99.6 115 18 99/58 96 03/28/17 21:32 Room Air 03/28/17 20:00 115 03/28/17 19:37 21 03/28/17 17:06 82 03/28/17 15:56 98.9 118 18 103/66 95 03/28/17 12:30 97.9 95 18 99/61 100 03/28/17 03/28/17 03/29/17 14:59 22:59 06:59 Intake Total 120 ml 100 ml Balance 120 ml 100 ml Intake Oral 120 ml IV Total 100 ml # Voids 4 # Bowel Movements 1 Result Diagram: 03/28/17 0500 Imaging Last Impressions Chest X-Ray 03/29/17 0600 Signed Impressions: Service Date/Time: Wednesday, March 29, 2017 08:46 - CONCLUSION: 1. Small bilateral pleural effusions left greater than right without significant change. 2. Course bilateral pulmonary infiltrates without significant change. Jorge Aguirre MD Upper Extremity Ultrasound 03/17/17 0000 Signed Impressions: Service Date/Time: Friday, March 17, 2017 22:19 - CONCLUSION: 1. No DVT. 2. Subcutaneous edema noted. Gigi Dahl Jr., MD Chest CT 03/15/17 0000 Signed Impressions: Service Date/Time: Wednesday, March 15, 2017 18:08 - CONCLUSION: Extensive diffuse bilateral occasionally cavitary airspace disease. Bilateral effusions. Reactive adenopathy. Ricky Wilson MD Abdomen/Pelvis CT 03/15/17 0000 Signed Impressions: Service Date/Time: Wednesday, March 15, 2017 18:08 - CONCLUSION: Extensive airspace disease in the lung bases. Cardiac enlargement with small pericardial effusion. Hepatosplenomegaly with diffuse heterogeneity of liver echotexture. Gallbladder sludge. Ascites. Nonspecific distention of bowel throughout. Prominent uterus with endometrial fluid. Anasarca. Ricky Wilson MD Head CT 03/09/17 0000 Signed Impressions: Service Date/Time: Thursday, March 09, 2017 18:38 - CONCLUSION: No acute disease. Ricky Rodas MD Liver Ultrasound 03/08/17 0000 Signed Impressions: Service Date/Time: Wednesday, March 08, 2017 08:41 - CONCLUSION: Hepatosplenomegaly. Gallbladder filled with sludge. Mild wall thickening and pericholecystic fluid. Minimal nonspecific perinephric fluid on the right Ricky Wilson MD CT Angiography 03/07/17 0000 Signed Impressions: Service Date/Time: Tuesday, March 07, 2017 22:54 - CONCLUSION: 1. No evidence of pulmonary embolism. 2. Diffuse alveolar disease as well as cavitary nodules which may reflect septic emboli. Bertrand Adhikari MD Lower Extremity Ultrasound 03/06/17 0849 Signed Impressions: Service Date/Time: Monday, March 06, 2017 09:09 - CONCLUSION: Normal examination. Eddie Boykin MD Objective Remarks GENERAL: This is a well-nourished, well-developed patient, in no apparent distress. CARDIOVASCULAR: Regular rate and rhythm without murmurs, gallops, or rubs. RESPIRATORY: Clear to auscultation. Breath sounds equal bilaterally. No wheezes , rales, or rhonchi. GASTROINTESTINAL: Abdomen soft, non-tender, nondistended. Normal active bowel sounds MUSCULOSKELETAL: Extremities without clubbing, cyanosis, or edema. NEURO: Alert & Oriented x4 to person, place, time, situation. Moves all ext x4 Date of Insertion: Mar 06, 2017 Date of Insertion: Mar 07, 2017 Line: Central Venous Catheter Side: Left Location: Subclavian A/P Problem List: (1) Infective endocarditis Status: Acute Plan: - comgmt with ID, Pulm Med - Pt presented and delivered 03/06 - polysubstance abuse and no care - acute hypoxic respiratory failure. extubated 03/18 - ards - mssa endocarditis. large RV thrombus. septic emboli bilaterally to lungs - parapneumonic right pleural effusion. pigtail catheter placed 03/18 - metabolic encephalopathy improved - benzodiazepine dependence - preeclampsia and htn with bella/proteinuria and volume overload - hepatitis c - hyponatremia --> resolved - thrombocytopenia --> resolved, now thrombocytosis - likely reactive - sepsis - h/o mrsa urine cx less 10k enterococcus and esbl ecoli left subclavian cvl 03/16 pigtail catheter removed from right chest 03/25 Seizure precautions-in the setting of preeclampsia, and benzodiazepine dependence - cont abx per ID. currently changed to cefazolin and off ceftarolin/gent/ ertapenem. blood cx 03/16 ngtd - Given pt's history and the severity of her admission, I am NOT comfortable with discharge to home with PICC - I have discussed the case with [facility] Case Mgmt to see if we can arrange for SNF during the course of her IV antibiotic treatment - Pt has now been afebrile for over 48 hours - will place PICC and remove CVL - arixtra for rv thrombus. changed to coumadin . stop arixtra when therapeutic. 3 day overlap per hem/onc - continue to gradually wean ativan and fentanyl - pt says at home she was injecting 16-24mg dilaudid per day plus crack - duonebs q2h prn, Ezpap, acapell, - Case d/w Dr. Rios (03/29/17) - repeat echocardiogram (03/26/17) to assess if improvement in right ventricular thrombus. Will d/w [facility] Cardiology Mother Arabella Guerrero [phone] - I attempted to reach the pt's mother per pt/mother's request. I tried several times at 2 different provided numbers. NO answer. (2) IV drug user Status: Acute Plan: see above Kevin Carcamo DO March 29, 2017 11:58
--- NOTE | 2017-03-29 12:10 | ECHLIM ---
Study Study Date:03/26/2017 STUDY CONCLUSIONS SUMMARY - Left ventricle: The cavity size was normal. Wall thickness was normal. Systolic function was normal. The estimated ejection fraction was in the range of 55% to 60%. Wall motion was normal; there were no regional wall motion abnormalities. - Mitral valve: There was a small vegetation. There was a vegetation; the abnormality has not changed since the previous study. Mild regurgitation. - Right ventricle: There was a thrombus. - Tricuspid valve: Severe regurgitation. If LV function is below 40, please consider prescribing an ACEI or ARB or document rationale for non-use. PROCEDURE DATA STUDY STATUS: Elective. Procedure: Transthoracic echocardiography. Image quality was good. Scanning was performed from the parasternal, apical, and subcostal acoustic windows. Study completion: The patient tolerated the procedure well. Transthoracic echocardiography. M-mode, complete 2D, complete spectral Doppler, and color Doppler. Patient status: Inpatient. CARDIAC ANATOMY LEFT VENTRICLE: The cavity size was normal. Wall thickness was normal. Systolic function was normal. The estimated ejection fraction was in the range of 55% to 60%. Wall motion was normal; there were no regional wall motion abnormalities. AORTIC VALVE: Trileaflet; normal thickness leaflets. Doppler: Transvalvular velocity was within the normal range. There was no stenosis. No regurgitation. AORTA: Aortic root: The aortic root was normal in size. MITRAL VALVE: Structurally normal valve. There was a small vegetation. There was a vegetation; the abnormality has not changed since the previous study. Doppler: Transvalvular velocity was within the normal range. There was no evidence for stenosis. Mild regurgitation. LEFT ATRIUM: The atrium was normal in size. RIGHT VENTRICLE: The cavity size was normal. Wall thickness was normal. There was a thrombus. PULMONIC VALVE: Doppler: Transvalvular velocity was within the normal range. There was no evidence for stenosis. No regurgitation. TRICUSPID VALVE: Structurally normal valve. Doppler: Transvalvular velocity was within the normal range. Severe regurgitation. PULMONARY ARTERY: The main pulmonary artery was normal-sized. Systolic pressure was within the normal range. RIGHT ATRIUM: The atrium was normal in size. PERICARDIUM: There was no pericardial effusion. SYSTEMIC VEINS: Inferior vena cava: The vessel was normal in size. Prepared and signed by Nik Rodriguez [id number]
--- NOTE | 2017-03-29 14:49 | HHI.PR ---
Addendum to Inpatient Note Addendum Reason: Additional Documentation Additional Information Recd call from : he is trying to get [facility] to approve inpatient rehab for patient for IV antibiotics. Will place orders when decision by [facility] made. Drug of choice: ancef 2 gm IV q8hrs for 6 additional weeks Needs follow up with Dr.Reba Casas Needs follow up with Cardiology to follow up on ECHO and large Ventricular vegetation/thrombus. Needs either inpatient or outpatient rehab to be set up by [facility] plans. Nicky Rios MD March 29, 2017 14:49
--- NOTE | 2017-03-29 16:22 | MB ---
cc: NEMO PARK M.D. DATE OF CONSULTATION: 03/29/2017 HISTORY OF PRESENT ILLNESS This 26-year-old white female was admitted due to liver pain and she delivered a baby on March 06, 2017. Psychiatric consultation is requested by Dr. Carcamo for evaluation and assistance in the management of "poly drug abuse". SIGNIFICANT LAB WORKUP CBC with differential repeated on different dates and showed elevated WBC count 14.7 on 03/20 and on 03/28 it was 13.0. RBC count low, hemoglobin count also low, the latest on the 03/28 was 9.4, hematocrit also low and on 03/28/2017 it was 27.4. CMP was also done on different dates. Liver enzymes are normal. Alkaline phosphatase elevated at 141. Serum B12 normal. Serum folate levels are normal. C-reactive protein 6.4. Urine drug screen positive for opiates, benzodiazepines and cocaine. Hepatitis induced platelet AB RASHAD negative. [place]. [place] [address]. HCV RNA 4.9 high. HIV 1 and 2 antibodies negative. Staph aureus positive. Urinalysis done on different dates indicative of urinary tract infection. Chest x-ray done on different dates, the latest one on 03/29 demonstrated bilateral small pleural effusion, left greater than right and blunting of the lateral and posterior costophrenic angles. The heart size remains within normal limits. CT abdomen and pelvis shows extensive air space disease in the lung bases, cardiac enlargement with small pericardial effusion, hepatosplenomegaly with diffuse heterogeneity of liver echotexture, gallbladder sludge, ascites, nonspecific distension of bowel throughout, prominent uterus with endometrial fluid, anasarca. CT scan of the head negative for any intracranial process. Several other imaging studies including lower extremity ultrasound, liver ultrasound were done and the reports were reviewed. MEDICATIONS Current medications are: 1. Fentanyl patch. 2. Ativan 1 mg b.i.d. 3. Coumadin. 4. Protonix. 5. Cephazolin. 6. Arixtra. 7. DuoNeb. 8. Percocet. Ms. Moreno is known to me from her previous admission to this hospital in April of last year when she reported due to right breast abscess secondary to intravenous drug use. At that time she had indicated that she was in the process of obtaining a residential drug rehab treatment through [facility] or through [facility]. At that time also she was and had indicated to me that she planned to abort the baby. Psychiatric hospitalization was felt not indicated. Please refer to my previous consult for details. Ms. Moreno was able to recognize me and was quite pleasant and cooperative during this evaluation. She was able to give clear account of the circumstances leading to this hospitalization, "I know you when I was here last year. I aborted the child and got again. I had a baby on the of last month. The baby is with my mom and step-dad". She went on to state that since April of last year she was admitted at [facility] for 12 days and stayed clean for sometime but then started abusing illicit drugs again which included opiates which she would use intravenously and also would use cocaine. She acknowledged that she continued to abuse drugs throughout her . She mentioned that DCF is involved but the baby is currently with her mother and stepfather. She stated that initially she was not too happy with the but after being sober for sometime her thinking changed and she decided to give to this child and raise with the assistance of her parents. She stated the relationship with her mother also has improved. She has continued to have good relationship with her stepfather. She verbalized optimism about her ability to raise the child "I'm gonna re-invent my life. I'm gonna go to NA meetings, find a job and try to raise this child". However, she was not in favor of any residential program. Specifically, she was opposed to enrolling in [facility] [employer] because "it is too long 8 months program". On direct questioning she denied any persistent feeling of sadness, sleep or appetite disturbance. She denied any change in her memory or concentration. She denied entertaining any suicidal thoughts or any previous suicide attempts. However, as a teenager she has had history of self-mutilation. 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 She has history of MRSA skin abscess, hepatitis C, history of right breast abscess secondary to intravenous drug abuse. FAMILY/PERSONAL HISTORY Please refer to my previous evaluation for details. CLINICAL OBSERVATION AND MENTAL STATUS EXAMINATION At the time of this evaluation Ms. Moreno presented as a thinly built, reasonably well-groomed white female who looked her stated age. She was pleasant, polite and cooperative with this interviewer and volunteered information spontaneously. She displayed positive attitude in regards to her drug addiction and verbalized motivation to raise her child. Her responses to questions were relevant and logical. No overt anger or hostility was noticed. No bizarre behavior or mannerisms were noticed. Her speech was coherent and appropriate. Her affect was appropriate, pleasant, she showed full range of emotions i.e. smiled and laughed frequently. Subjectively, she described her mood as "I am feeling good". There was no evidence of any thought disorder. No [place] delusions, auditory or visual hallucinations were noticed or reported. She denied active suicidal or homicidal ideations or intent at this time. She denied any previous suicide attempts. She has history of self-mutilation. Cognitive functions, she was alert, oriented to time, place, person and situation. Memory: Immediate, she could do 5 digits forward and 4 digits backward. Recent she could recall 3/3 objects after 10 minutes. Remote, she could recall presidents up to President B[place] Jr. Her attention and concentration was somewhat impaired. She could do serial sevens up to 79. Her judgment and insight was felt to be fair. DIAGNOSTIC IMPRESSION Adjustment reaction with mixed emotional features. Polysubstance abuse including intravenous abuse of opiates. Panic disorder by history. Hepatitis C by history. Recent delivery. Status post right breast abscess. Infective endocarditis, status post acute hypoxic respiratory failure, MRSA endocarditis, large right ventricular thrombus, septic emboli bilateral to lungs, bilateral pleural effusion, metabolic encephalopathy, improved, benzodiazepine dependence, preeclampsia and hypertension with acute proteinuria, thrombocytopenia, resolved, sepsis. FORMULATION AND RECOMMENDATIONS Based on this evaluation and the background information available to me at this time, Ms. Moreno has a serious substance abuse issue. She has been in drug rehab programs but has not been able to maintain a significant chemically free lifestyle. However, at this time she seems more motivated to work on this very serious issue. According to her to a great extent it is due to the baby who she plans to raise with the help from her parents. Whether or not this would happen or not remains to be seen. According to her the [facility] is involved. I encouraged her to enroll in [facility] or go back to [facility]. However, she was not supportive at this time. She is not sure whether [facility] will take her back due to the insurance reasons. She is however, motivated to attend NA meetings and follow up in the outpatient program through [facility]. She is not exhibiting any significant depressive symptoms and as such no antidepressants are indicated. However, she was recommended to follow up with a therapist at [facility] and also psychiatrist as well. She was receptive to it. She does not meet the Ro[place] Act criteria at this time and as such can be discharged when medically stable. According to the patient she might be going to a usp. Thank you Dr. Carcamo for allowing me to participate in the care of Ms. Moreno. MD AMANDA Davidson/TLEmir /3:07 PM /3:34 PM
--- NOTE | 2017-03-29 17:23 | RADRPT ---
EXAM DATE/TIME: 03/29/2017 17:09 [facility] COMPARISON: CHEST PA & LAT, March 29, 2017, 8:46. INDICATIONS : PICC line placement. MEDICAL HISTORY : None. SURGICAL HISTORY : None. ENCOUNTER: Subsequent ACUITY: 3 weeks PAIN SCORE: Non-responsive. LOCATION: Bilateral chest FINDINGS: There has been interval placement of a right arm PICC line which is in good position with tip overlyi ng the SVC. Left subclavian central catheter is again noted. Patchy bilateral infiltrates are again n oted, not significantly changed with small bilateral effusions. Cardiac contour is grossly stable. CONCLUSION: Satisfactory PICC line position Ricky Wilson MD on March 29, 2017 at 17:20 Board Certified Radiologist. This report was verified electronically.
[2017-03-29] MEDS ORDERED: SODIUM CHLORIDE 0.9% FLUSH 10 ML FLUSH IV FLUSH PRN (17:30)
[2017-03-29] MEDS: WARFARIN SOD 7.5 MG TAB PO SCH (17:34)
[2017-03-29] MEDS: FONDAPARINUX SODIUM 7.5 MG/0.6 ML SYRINGE SQ SCH (17:40)
[2017-03-30] VITALS (7 sets, daily range): BP systolic 90–105; BP diastolic 52–59; PULSE 65–106; RESP 17–19; TEMP 96.9–99.3; O2SAT 93–96
[2017-03-30] MEDS: CHLORHEXIDINE GLUCONATE 2 % 1 PACK (2 CLOTHS) TOP SCH (03:19)
[2017-03-30] MEDS: oxyCODONE/ACETAMINOPHEN 5 MG/325 MG TAB PO PRN ×5 (03:22→22:07)
[2017-03-30] MEDS: ceFAZolin 2 GM PREMIX 50 ML IV SCH ×3 (06:32→22:07)
[2017-03-30 06:56] LABS: AUTOMATED NEUTROPHIL # 6.5 TH/MM3 (1.8-7.7); BASOPHIL # 0.2 TH/MM3 (0-0.2); BASOPHIL % 1.4 % (0.0-2.0); EOSINOPHIL # 0.3 TH/MM3 (0-0.4); HEMATOCRIT 28.5 % (35.0-46.0); HEMO FLAGS DIFF FINAL; LYMPH % 28.8 % (9.0-44.0); LYMPHOCYTE # 3.1 TH/MM3 (1.0-4.8); MEAN CELL VOLUME 86.2 FL (80.0-100.0); MEAN CORPUSCULAR HEMOGLOBIN 28.9 PG (27.0-34.0); MEAN CORPUSCULAR HGB CONC 33.5 % (32.0-36.0); MONO % 6.7 % (0.0-8.0); NEUT % 60.1 % (16.0-70.0); PLATELET COUNT 509 TH/MM3 (150-450); RED CELL DISTRIBUTION WIDTH 16.9 % (11.6-17.2); WHITE BLOOD COUNT 10.7 TH/MM3 (4.0-11.0)
[2017-03-30 07:20] LABS: BICARBONATE 31.2 MEQ/L (21.0-32.0); MAGNESIUM 2.1 MG/DL (1.5-2.5); POTASSIUM 4.5 MEQ/L (3.5-5.1)
[2017-03-30] MEDS: PANTOPRAZOLE SOD 40 MG DELAYED RELEASE TAB PO SCH (09:01)
[2017-03-30] MEDS: SODIUM CHLORIDE 0.9% FLUSH 10 ML FLUSH IV FLUSH SCH ×3 (09:01→22:08)
[2017-03-30] MEDS: LORazepam 1 MG TAB PO SCH ×2 (09:02→22:06)
--- NOTE | 2017-03-30 13:34 | HHI.PR ---
Subjective Remarks No new complaints. Objective Vitals Vital Signs Date Time Temp Pulse Resp B/P Pulse Ox O2 Delivery O2 Flow Rate FiO2 03/30/17 10:55 Room Air 03/30/17 10:45 98.7 106 19 105/58 96 03/30/17 08:52 98.1 106 17 95/59 95 03/30/17 08:15 65 03/30/17 06:07 96.9 76 18 90/54 95 03/30/17 00:43 98.8 98 18 91/53 93 03/29/17 23:40 103 03/29/17 23:40 Room Air 03/29/17 23:40 18 03/29/17 22:01 98.0 105 21 102/52 98 03/29/17 16:30 100.0 107 19 102/54 95 03/29/17 03/29/17 03/30/17 15:00 23:00 07:00 Intake Total 120 ml 600 ml 740 ml Balance 120 ml 600 ml 740 ml Intake Oral 120 ml 600 ml 740 ml # Voids 3 3 # Bowel Movements 1 Result Diagram: 03/30/17 0635 03/30/17 0635 Imaging Last Impressions Chest X-Ray 03/29/17 0600 Signed Impressions: Service Date/Time: Wednesday, March 29, 2017 08:46 - CONCLUSION: 1. Small bilateral pleural effusions left greater than right without significant change. 2. Course bilateral pulmonary infiltrates without significant change. Jorge Aguirre MD Upper Extremity Ultrasound 03/17/17 0000 Signed Impressions: Service Date/Time: Friday, March 17, 2017 22:19 - CONCLUSION: 1. No DVT. 2. Subcutaneous edema noted. Gigi Dahl Jr., MD Chest CT 03/15/17 0000 Signed Impressions: Service Date/Time: Wednesday, March 15, 2017 18:08 - CONCLUSION: Extensive diffuse bilateral occasionally cavitary airspace disease. Bilateral effusions. Reactive adenopathy. Ricky Wilson MD Abdomen/Pelvis CT 03/15/17 0000 Signed Impressions: Service Date/Time: Wednesday, March 15, 2017 18:08 - CONCLUSION: Extensive airspace disease in the lung bases. Cardiac enlargement with small pericardial effusion. Hepatosplenomegaly with diffuse heterogeneity of liver echotexture. Gallbladder sludge. Ascites. Nonspecific distention of bowel throughout. Prominent uterus with endometrial fluid. Anasarca. Ricky Wilson MD Head CT 03/09/17 0000 Signed Impressions: Service Date/Time: Thursday, March 09, 2017 18:38 - CONCLUSION: No acute disease. Ricky Rodas MD Liver Ultrasound 03/08/17 0000 Signed Impressions: Service Date/Time: Wednesday, March 08, 2017 08:41 - CONCLUSION: Hepatosplenomegaly. Gallbladder filled with sludge. Mild wall thickening and pericholecystic fluid. Minimal nonspecific perinephric fluid on the right Ricky Wilson MD CT Angiography 03/07/17 0000 Signed Impressions: Service Date/Time: Tuesday, March 07, 2017 22:54 - CONCLUSION: 1. No evidence of pulmonary embolism. 2. Diffuse alveolar disease as well as cavitary nodules which may reflect septic emboli. Bertrand Adhikari MD Lower Extremity Ultrasound 03/06/17 0849 Signed Impressions: Service Date/Time: Monday, March 06, 2017 09:09 - CONCLUSION: Normal examination. Eddie Boykin MD Objective Remarks GENERAL: This is a well-nourished, well-developed patient, in no apparent distress. CARDIOVASCULAR: Regular rate and rhythm without murmurs, gallops, or rubs. RESPIRATORY: Clear to auscultation. Breath sounds equal bilaterally. No wheezes , rales, or rhonchi. GASTROINTESTINAL: Abdomen soft, non-tender, nondistended. Normal active bowel sounds MUSCULOSKELETAL: Extremities without clubbing, cyanosis, or edema. NEURO: Alert & Oriented x4 to person, place, time, situation. Moves all ext x4 Date of Insertion: Mar 06, 2017 Date of Insertion: Mar 07, 2017 Line: Central Venous Catheter Side: Left Location: Subclavian A/P Problem List: (1) Infective endocarditis Status: Acute Plan: - comgmt with ID, Pulm Med - Pt presented and delivered 03/06 - polysubstance abuse and no care - acute hypoxic respiratory failure. extubated 03/18 - ards - mssa endocarditis. large RV thrombus. septic emboli bilaterally to lungs - parapneumonic right pleural effusion. pigtail catheter placed 03/18 - metabolic encephalopathy improved - benzodiazepine dependence - preeclampsia and htn with bella/proteinuria and volume overload - hepatitis c - hyponatremia --> resolved - thrombocytopenia --> resolved, now thrombocytosis - likely reactive - sepsis - h/o mrsa urine cx less 10k enterococcus and esbl ecoli left subclavian cvl 03/16 pigtail catheter removed from right chest 03/25 Seizure precautions-in the setting of preeclampsia, and benzodiazepine dependence - cont abx per ID. currently changed to cefazolin and off ceftarolin/gent/ ertapenem. blood cx 03/16 ngtd - Given pt's history and the severity of her admission, I am NOT comfortable with discharge to home with PICC - I have discussed the case with [facility] Case Mgmt to see if we can arrange for SNF during the course of her IV antibiotic treatment - Pt has now been afebrile for over 48 hours - will place PICC and remove CVL - arixtra for rv thrombus. changed to coumadin . stop arixtra when therapeutic. 3 day overlap per hem/onc - INR 1.9 (03/29/17) - await repeat INR - continue to gradually wean ativan and fentanyl - pt says at home she was injecting 16-24mg dilaudid per day plus crack - duonebs q2h prn, Ezpap, acapell, - Echocardiograms reviewed with Cardiology, Dr. Neff (03/29/17) - pt's large LV thrombus is basically unchanged when comparing echocardiogram of 03/09/17 to echocardiogram of 03/26/17 - Case d/w Dr. Rios (03/30/17) - continue IV ancef at least 6 weeks - pt to f/u with Dr. Rupal Rahman in 6 week - repeat Echocardiogram in approximately 6 weeks - if no improvement in LV thrombus in 6 weeks then pt may require surgical evaluation - Case informally d/w Cardiothoracic surgery, Dr. Tito Aaron. He agrees with 6 weeks of anticoagulation with IV antibiotic therapy. If continued thrombus/vegetation on repeat echocardiogram, then will request surgical consultation. Pt would need to be committed to drug free lifestyle and case might need to go to committee before surgery would consider intervening with any procedure. Mother Arabella Guerrero [phone] - I attempted to reach the pt's mother per pt/mother's request. I tried several times at 2 different provided numbers. NO answer. (2) IV drug user Status: Acute Plan: see above (3) Effusion, right knee Status: Acute Plan: - pt c/o pain at right knee - obvious effusion of right knee, but erythema or warmth - NO fever, no Leukocytosis - obtain x-ray series of pt's right knee - request Orthopedic consult Kevin Carcamo DO March 30, 2017 13:34
--- NOTE | 2017-03-30 15:06 | RADRPT ---
EXAM DATE/TIME: 03/30/2017 14:54 [facility] COMPARISON: No previous studies available for comparison. INDICATIONS : Right knee swelling, no injury. MEDICAL HISTORY : None. SURGICAL HISTORY : None. ENCOUNTER: Initial ACUITY: 3 days PAIN SCORE: 5/10 LOCATION: Right knee. FINDINGS: There is a large suprapatellar effusion. No evidence of fracture, dislocation or bony destruction. Di latation and alignment are normal. No significant arthropathy is noted. CONCLUSION: Large joint effusion. No acute bony findings Ricky Wilson MD on March 30, 2017 at 15:03 Board Certified Radiologist. This report was verified electronically.
[2017-03-30 15:45] LABS: INTERNATIONAL NORMALIZED RATIO 2.2 RATIO; PROTHROMBIN TIME - PATIENT 24.7 SEC (9.8-11.6)
[2017-03-30] MEDS: WARFARIN SOD 7.5 MG TAB PO SCH (16:00)
[2017-03-30] MEDS: FONDAPARINUX SODIUM 7.5 MG/0.6 ML SYRINGE SQ SCH (18:00)
[2017-03-30 18:02] LABS: WBC, SYNOVIAL FLUID 1400 /MM3 (0-200)
--- NOTE | 2017-03-30 20:49 | HHI.PR ---
Subjective Remarks Alert and C/O Right knee pain Chest tube is out and Chest X ray was stable.On Antibiotics and Arixtra Objective Vital Signs Date Time Temp Pulse Resp B/P Pulse Ox O2 Delivery O2 Flow Rate FiO2 03/30/17 20:00 99.3 94 18 99/57 94 03/30/17 16:52 98.5 100 18 97/52 96 03/30/17 10:55 Room Air 03/30/17 10:45 98.7 106 19 105/58 96 03/30/17 08:52 98.1 106 17 95/59 95 03/30/17 08:15 65 03/30/17 06:07 96.9 76 18 90/54 95 03/30/17 00:43 98.8 98 18 91/53 93 03/29/17 23:40 103 03/29/17 23:40 Room Air 03/29/17 23:40 18 03/29/17 22:01 98.0 105 21 102/52 98 I/O 03/29/17 03/29/17 03/29/17 03/30/17 03/30/17 03/30/17 07:00 15:00 23:00 07:00 15:00 23:00 Intake Total 100 ml 120 ml 600 ml 740 ml 300 ml Balance 100 ml 120 ml 600 ml 740 ml 300 ml Intake Oral 120 ml 600 ml 740 ml 300 ml IV Total 100 ml # Voids 3 3 2 # Bowel Movements 1 Result Diagram: 03/30/17 0635 03/30/17 0635 Objective Remarks GENERAL: This averagely built young lady, pale and in no acute distress. HEENT: Head normocephalic. Pupils reactive. Sclerae anicteric. Throat was clear. NECK: Supple. No bruits. No venous distension. CHEST: Equal movements with scattered wheezes bilaterally. HEART: The heart sounds are regular S1-S2 with no murmur ABDOMEN: Soft and scaphoid without masses. No organomegaly or tenderness. Bowel sounds are active. EXTREMITIES: Muscle wasting with no edema. Right knee swelling. Pulses are well felt. NEUROLOGIC: She is moving all extremities with no gross motor or sensory deficits. Cranial nerves grossly intact. SKIN: No lesions noted. Assessment and Plan Assessment and Plan IMPRESSION 1. Severe sepsis, resolved. 2. ARDS resolving. 3. Pulmonary septic emboli. 4. History of IV drug use. 5. History of mitral valve endocarditis and left atrial thrombus. 6. Hepatitis C. 7. Metabolic encephalopathy, resolving. 8. Right pleural effusion, resolved Plan : 1. D/C O2 2. Cont Antibiotics per ID. 3. IS at bedside qid. 4. Nebs tid prn , Duoneb. 5. Continue anticoagulants 6. Knee surgery per Kamar Perdue MD March 30, 2017 20:49
[2017-03-31] VITALS (7 sets, daily range): BP systolic 96–124; BP diastolic 52–68; PULSE 84–110; RESP 16–20; TEMP 96.2–99.1; O2SAT 94–97
[2017-03-31] MEDS: oxyCODONE/ACETAMINOPHEN 5 MG/325 MG TAB PO PRN ×5 (01:53→22:17)
[2017-03-31] MEDS: CHLORHEXIDINE GLUCONATE 2 % 1 PACK (2 CLOTHS) TOP SCH (04:00)
[2017-03-31] MEDS: ceFAZolin 2 GM PREMIX 50 ML IV SCH ×3 (05:59→22:18)
[2017-03-31 06:43] LABS: HEMATOCRIT 28.4 % (35.0-46.0); MEAN CELL VOLUME 86.3 FL (80.0-100.0); MEAN CORPUSCULAR HEMOGLOBIN 28.1 PG (27.0-34.0); MEAN CORPUSCULAR HGB CONC 32.6 % (32.0-36.0); PLATELET COUNT 479 TH/MM3 (150-450); RED BLOOD COUNT 3.29 MIL/MM3 (4.00-5.30); RED CELL DISTRIBUTION WIDTH 16.6 % (11.6-17.2); REVIEW FLAG FINAL; WHITE BLOOD COUNT 11.6 TH/MM3 (4.0-11.0)
--- NOTE | 2017-03-31 08:35 | MB ---
cc: JESSE HERNANDEZ DATE OF CONSULTATION: 03/30/2017 CHIEF COMPLAINT Right knee pain and swelling. HISTORY OF PRESENT ILLNESS This is a 26-year-old female who was initially admitted to the hospital for delivery of her baby. The patient has a extensive history of drug abuse including opioids, cocaine, and benzodiazepines. The patient admits to IV drug use. The patient while in the hospital became short of breath and tachycardic. The patient ended up in respiratory failure and was placed on a ventilator for a period of time. It was found that the patient had pulmonary septic emboli and infective endocarditis and methicillin-sensitive Staphylococcus aureus (MSSA) The patient has been on antibiotics per infectious disease. Approximately 5 days ago the patient began having some right knee pain with no specific injury to the right knee. The patient reports moderate to severe pain with limited range of motion. The patient does report some improvement in her symptoms with rest and pain medication. The patient has no prior history of knee injury. The patient denies any tingling or numbness about the right lower extremity. PAST MEDICAL HISTORY: 1. Includes polysubstance abuse 2. History of MRSA from a skin abscess. PAST SURGICAL HISTORY Includes skin abscesses. SOCIAL HISTORY: Social history includes alcohol use, tobacco use, and substance abuse including cocaine, Dilaudid, and benzodiazepines. REVIEW OF SYSTEMS Negative times 12 except what is stated in the history of present illness. ALLERGIES PENICILLIN MEDICATIONS: Wellbutrin 100 mg tablets twice a day. PHYSICAL EXAMINATION VITAL SIGNS: Vitals are as follows temperature is 98.7, heart rate 106, respirations 19, blood pressure 105/58, pulse ox 96% on room air. GENERAL: The patient is a well-developed female who is alert and oriented. SKIN: Skin is intact. HEAD: Head is normocephalic and atraumatic. Eyes are Pupils equal, round, reactive to light and accommodation with extraocular muscles intact. Ear, nose, and throat there is no nasal drainage and mucous membranes are pink. NECK: Neck is supple and trachea is midline. CARDIOVASCULAR SYSTEM: Regular rate and rhythm. The patient has 2+ radial and pedal pulses bilaterally. RESPIRATORY: There is symmetric chest wall rise with nonlabored breathing. ABDOMEN: Abdomen is soft and nontender. MUSCULOSKELETAL: The patient moves the bilateral ankles, left knee and bilateral hips within normal limits with no tenderness to palpation. The patient does have some moderate swelling to the right knee. The patient has a moderate joint effusion. The patient's range of motion is limited due to the swelling. The patient has tenderness to palpation about the knee. Skin is intact about the right knee. There is warmth to the knee. The patient moves the bilateral wrists, elbows and shoulders within normal limits. There is no tenderness to palpation. NEUROLOGIC: The patient is awake and oriented x3. There are no obvious cranial nerve deficits. LABORATORY FINDINGS: Labs taken on March 30, 2017 shows white blood cells of 10.7, hemoglobin 9.5, hematocrit 28.5, platelets 509, creatinine is 0.61, glucose is 79 and normal. IMAGING STUDIES There was a knee x-ray taken on 03/30/2017 four views of the right knee. The radiologist's interpretation is a large joint effusion with no acute bony findings. I did review the above imaging and agree with the radiologist's interpretation. IMPRESSION: Impression is right knee effusion, rule out septic knee versus hematoma. MEDICAL DECISION MAKING Based on the patient's recent history of sepsis and her history of endocarditis. I do feel that the patient could have an infected knee. I am going to proceed with a right knee aspiration to definitively rule out infection versus hematoma. We will send the aspiration for cell count, Gram stain, culture, and crystals. In the meantime I have asked that her blood thinners be held and in case the knee is septic and we would need to take her to the OR for irrigation and debridement of the right knee. We began discussing this option with the patient today. I am also going to have the patient be n.p.o. past midnight until we have a definitive result to the knee aspiration. The patient should use ice and pain medication for management of her symptoms. We will follow up with the patient with the results and talk more about proceeding with surgical management if necessary. I have discussed the above impression and plan of care with Dr. Abad and he agrees with this documentation. DICTATED BY: MELISSA Brown MD KAVEH Pinzon/ramsey /4:50 PM /8:34 AM
[2017-03-31 08:39] LABS: INTERNATIONAL NORMALIZED RATIO 1.9 RATIO; PROTHROMBIN TIME - PATIENT 21.7 SEC (9.8-11.6)
[2017-03-31] MEDS: SODIUM CHLORIDE 0.9% FLUSH 10 ML FLUSH IV FLUSH SCH ×3 (09:00→22:18)
[2017-03-31] MEDS: PANTOPRAZOLE SOD 40 MG DELAYED RELEASE TAB PO SCH (09:20)
[2017-03-31] MEDS: LORazepam 1 MG TAB PO SCH ×2 (09:20→22:16)
--- NOTE | 2017-03-31 12:17 | HHI.PR ---
Subjective Remarks Right knee is less painful since arthrocentesis. Pt denies fever or chills. Objective Vitals Vital Signs Date Time Temp Pulse Resp B/P Pulse Ox O2 Delivery O2 Flow Rate FiO2 03/31/17 08:00 98.0 84 17 114/68 95 03/31/17 07:00 99 Room Air 03/31/17 04:00 98.8 89 16 96/56 97 03/31/17 00:00 99.1 96 16 99/55 94 03/30/17 23:45 Room Air 03/30/17 20:00 99.3 94 18 99/57 94 03/30/17 16:52 98.5 100 18 97/52 96 03/30/17 03/30/17 03/31/17 15:00 23:00 07:00 Intake Total 540 ml 960 ml Balance 540 ml 960 ml Intake Oral 540 ml 960 ml # Voids 3 4 # Sanitary Pads 0 Pads Result Diagram: 03/31/17 0555 03/30/17 0635 Imaging Last Impressions Chest X-Ray 03/29/17 0600 Signed Impressions: Service Date/Time: Wednesday, March 29, 2017 08:46 - CONCLUSION: 1. Small bilateral pleural effusions left greater than right without significant change. 2. Course bilateral pulmonary infiltrates without significant change. Jroge Aguirre MD Upper Extremity Ultrasound 03/17/17 0000 Signed Impressions: Service Date/Time: Friday, March 17, 2017 22:19 - CONCLUSION: 1. No DVT. 2. Subcutaneous edema noted. Gigi Dahl Jr., MD Chest CT 03/15/17 0000 Signed Impressions: Service Date/Time: Wednesday, March 15, 2017 18:08 - CONCLUSION: Extensive diffuse bilateral occasionally cavitary airspace disease. Bilateral effusions. Reactive adenopathy. Ricky Wilson MD Abdomen/Pelvis CT 03/15/17 0000 Signed Impressions: Service Date/Time: Wednesday, March 15, 2017 18:08 - CONCLUSION: Extensive airspace disease in the lung bases. Cardiac enlargement with small pericardial effusion. Hepatosplenomegaly with diffuse heterogeneity of liver echotexture. Gallbladder sludge. Ascites. Nonspecific distention of bowel throughout. Prominent uterus with endometrial fluid. Anasarca. Ricky Wilson MD Head CT 03/09/17 0000 Signed Impressions: Service Date/Time: Thursday, March 09, 2017 18:38 - CONCLUSION: No acute disease. Ricky Rodas MD Liver Ultrasound 03/08/17 0000 Signed Impressions: Service Date/Time: Wednesday, March 08, 2017 08:41 - CONCLUSION: Hepatosplenomegaly. Gallbladder filled with sludge. Mild wall thickening and pericholecystic fluid. Minimal nonspecific perinephric fluid on the right Ricky Wilson MD CT Angiography 03/07/17 0000 Signed Impressions: Service Date/Time: Tuesday, March 07, 2017 22:54 - CONCLUSION: 1. No evidence of pulmonary embolism. 2. Diffuse alveolar disease as well as cavitary nodules which may reflect septic emboli. Bertrand Adhikari MD Lower Extremity Ultrasound 03/06/17 0849 Signed Impressions: Service Date/Time: Monday, March 06, 2017 09:09 - CONCLUSION: Normal examination. Eddie Boykin MD Objective Remarks GENERAL: This is a well-nourished, well-developed patient, in no apparent distress. CARDIOVASCULAR: Regular rate and rhythm without murmurs, gallops, or rubs. RESPIRATORY: Clear to auscultation. Breath sounds equal bilaterally. No wheezes , rales, or rhonchi. GASTROINTESTINAL: Abdomen soft, non-tender, nondistended. Normal active bowel sounds MUSCULOSKELETAL: Extremities without clubbing, cyanosis, or edema. NEURO: Alert & Oriented x4 to person, place, time, situation. Moves all ext x4 Date of Insertion: Mar 06, 2017 Date of Insertion: Mar 07, 2017 Line: Central Venous Catheter Side: Left Location: Subclavian A/P Problem List: (1) Infective endocarditis Status: Acute Plan: - comgmt with ID, Pulm Med - Pt presented and delivered 03/06 - polysubstance abuse and no care - acute hypoxic respiratory failure. extubated 03/18 - ards - mssa endocarditis. large RV thrombus. septic emboli bilaterally to lungs - parapneumonic right pleural effusion. pigtail catheter placed 03/18 - metabolic encephalopathy improved - benzodiazepine dependence - preeclampsia and htn with bella/proteinuria and volume overload - hepatitis c - hyponatremia --> resolved - thrombocytopenia --> resolved, now thrombocytosis - likely reactive - sepsis - h/o mrsa urine cx less 10k enterococcus and esbl ecoli left subclavian cvl 03/16 pigtail catheter removed from right chest 03/25 Seizure precautions-in the setting of preeclampsia, and benzodiazepine dependence - arixtra for rv thrombus. changed to coumadin . stop arixtra when therapeutic. 3 day overlap per hem/onc - INR 1.9 (03/29/17), I.9 (03/31/17) - repeat INR, 04/01 - continue to gradually wean ativan and fentanyl - pt says at home she was injecting 16-24mg dilaudid per day plus crack - duonebs q2h prn, Ezpap, acapell, - Echocardiograms reviewed with Cardiology, Dr. Neff (03/29/17) - pt's large LV thrombus is basically unchanged when comparing echocardiogram of 03/09/17 to echocardiogram of 03/26/17 - Case d/w Dr. Rios (03/30/17) - continue IV ancef at least 6 weeks by PICC at [facility] off ceftarolin/gent/ertapenem. blood cx 03/16 ngtd - pt to f/u with Dr. Rupal Rahman in 6 week - repeat Echocardiogram in approximately 6 weeks - if no improvement in LV thrombus in 6 weeks then pt may require surgical evaluation - Case informally d/w Cardiothoracic surgery, Dr. Tito Aaron. He agrees with 6 weeks of anticoagulation with IV antibiotic therapy. If continued thrombus/vegetation on repeat echocardiogram, then will request surgical consultation. Pt would need to be committed to drug free lifestyle and case might need to go to committee before surgery would consider intervening with any procedure. - Case d/w Dr. Ralph Abad, Orthopedist (03/31/17) - cytology of right knee fluid is NOT c/w septic joint - follow culture results - No plans for surgery at this time. Anticoagulants were resumed. Mother Arabella Guerrero [phone] - I attempted to reach the pt's mother per pt/mother's request. I tried several times at 2 different provided numbers. NO answer. (2) IV drug user Status: Acute Plan: see above (3) Effusion, right knee Status: Acute Plan: - see above Kevin Carcamo DO March 31, 2017 12:17
[2017-03-31] MEDS: WARFARIN SOD 7.5 MG TAB PO SCH (16:00)
[2017-03-31] MEDS: FONDAPARINUX SODIUM 7.5 MG/0.6 ML SYRINGE SQ SCH (17:31)
--- NOTE | 2017-03-31 17:38 | HHI.IDPN ---
Subjective Subjective Remarks is a 26-year-old 3 para 1 AB 1 at 32-5/7 week gestation with an EDC of 04/28 but was delivered prematurely due to PROM per Ob notes on . Patients mom was in the room at time of my visit and provided me with history and Dad confirmed these findings. 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 Patient admitted to use of Dilaudid and Cocaine per day. The patient incidentally was found to have this . She has had a miscarriage before. Patient currently has 2 active boyfriends according to Mom. She is the only child. Patient presented to the ED with generalized discomfort and swelling of her legs for 5 days GENETIC COUNSELLOR. She reported that her legs began to swell proximal 5 days GENETIC COUNSELLOR. She denied any headache, visual changes or abdominal pain. The patient was noted to be in preeclampsia with a protein creatinine ratio 0.47, urine protein 117. The patient was also noted to have leukocytosis, and febrile. The patient was placed on a magnesium infusion. 03/07: Afebrile. Noted bacteremia showing gram-positive cocci. On 03/07/17 patient become tachypneic with respiratory rate high 30s-40, on nonrebreather . Chest x-ray was performed, and ABG showing hypoxemia, PaO2 129 on 100%. Plan for emergent intubation. Suboxone was initiated yesterday, magnesium level has been titrated to parameter of 6-7. The patient was noted to be thrombocytopenic today secondary to HELLP syndrome. The patient was emergently intubated for hypoxemia on 03/07/2017. Of note the patient also has a history of a chemical lung injury and had been seen intermittently by tube drawer. An echo was performed showing mitral valve vegetation, and a large thrombus in the right ventricle, and full anticoagulation was initiated last night with Argatroban in the setting of thrombocytopenia. CVT has been consulted and recommends medical management. The patient was placed on empiric antibiotics,WBC count increasing, ID was consulted for Sepsis and Staph endocarditis. 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 Overnight events reviewed with RN No rash No diarrhea No fevers Had a right knee swelling that was tapped. Patient reports injury to right knee while in hospital (she bumped into something) Antibiotics Ancef IV Lines Line sites with no e.o infection. Past Medical History reviewed. Allergies: Coded Allergies: Penicillin (Verified Allergy, Intermediate, hives, 11/21/16) *MDRO Multi-Drug Resistant Organism (Verified Adverse Reaction, Unknown, ) ESBL (urine)-03/17/17 MRSA (breast wound) - 04/30/16 MRSA screens NEGATIVE 03/06/17 & 03/13/17 Objective . Vital Signs Date Time Temp Pulse Resp B/P Pulse Ox O2 Delivery O2 Flow Rate FiO2 03/31/17 16:00 96.2 96 16 97/62 97 03/31/17 12:00 97.8 99 17 97/62 97 03/31/17 08:00 98.0 84 17 114/68 95 03/31/17 07:00 99 Room Air 03/31/17 04:00 98.8 89 16 96/56 97 03/31/17 00:00 99.1 96 16 99/55 94 03/30/17 23:45 Room Air 03/30/17 20:00 99.3 94 18 99/57 94 03/30/17 03/30/17 03/31/17 15:00 23:00 07:00 Intake Total 540 ml 960 ml Balance 540 ml 960 ml Intake Oral 540 ml 960 ml # Voids 3 4 # Sanitary Pads 0 Pads . Laboratory Tests Test 03/30/17 03/31/17 06:35 05:55 White Blood Count 10.7 TH/MM3 11.6 TH/MM3 Red Blood Count 3.30 MIL/MM3 3.29 MIL/MM3 Hemoglobin 9.5 GM/DL 9.2 GM/DL Hematocrit 28.5 % 28.4 % Mean Corpuscular Volume 86.2 FL 86.3 FL Mean Corpuscular Hemoglobin 28.9 PG 28.1 PG Mean Corpuscular Hemoglobin 33.5 % 32.6 % Concent Red Cell Distribution Width 16.9 % 16.6 % Platelet Count 509 TH/MM3 479 TH/MM3 Mean Platelet Volume 6.2 FL 6.7 FL Neutrophils (%) (Auto) 60.1 % Lymphocytes (%) (Auto) 28.8 % Monocytes (%) (Auto) 6.7 % Eosinophils (%) (Auto) 3.0 % Basophils (%) (Auto) 1.4 % Neutrophils # (Auto) 6.5 TH/MM3 Lymphocytes # (Auto) 3.1 TH/MM3 Monocytes # (Auto) 0.7 TH/MM3 Eosinophils # (Auto) 0.3 TH/MM3 Basophils # (Auto) 0.2 TH/MM3 CBC Comment DIFF FINAL Differential Comment Laboratory Tests Test 03/30/17 06:35 Sodium Level 136 MEQ/L Potassium Level 4.5 MEQ/L Chloride Level 99 MEQ/L Carbon Dioxide Level 31.2 MEQ/L Anion Gap 6 MEQ/L Blood Urea Nitrogen 10 MG/DL Creatinine 0.61 MG/DL Estimat Glomerular Filtration 121 ML/MIN Rate Random Glucose 79 MG/DL Calcium Level 8.9 MG/DL Magnesium Level 2.1 MG/DL Microbiology Date/Time Procedure Status Source Growth 03/30/17 16:30 Gram Stain - Final Resulted Fluid Synovial Fluid 03/30/17 16:30 Body Fluid Culture - Preliminary Resulted Fluid Synovial Fluid NO GROWTH IN 24 HOURS. Imaging Last Impressions Chest X-Ray 03/09/17 0600 Signed Impressions: Service Date/Time: Thursday, March 09, 2017 04:42 - CONCLUSION: 1. Improving diffuse edema versus pneumonia Bertrand Adhikari MD Liver Ultrasound 03/08/17 0000 Signed Impressions: Service Date/Time: Wednesday, March 08, 2017 08:41 - CONCLUSION: Hepatosplenomegaly. Gallbladder filled with sludge. Mild wall thickening and pericholecystic fluid. Minimal nonspecific perinephric fluid on the right Ricky Wilson MD CT Angiography 03/07/17 0000 Signed Impressions: Service Date/Time: Tuesday, March 07, 2017 22:54 - CONCLUSION: 1. No evidence of pulmonary embolism. 2. Diffuse alveolar disease as well as cavitary nodules which may reflect septic emboli. Bertrand Adhikari MD Lower Extremity Ultrasound 03/06/17 0849 Signed Impressions: Service Date/Time: Monday, March 06, 2017 09:09 - CONCLUSION: Normal examination. Eddie Boykin MD Physical Exam GENERAL: This is a well-nourished, well-developed patient, in no apparent distress. SKIN: No rashes, ecchymoses or lesions. Cool and dry. HEAD: Atraumatic. Normocephalic. No temporal or scalp tenderness. EYES: Pupils equal round and reactive. Extraocular motions intact. No scleral icterus. No injection or drainage. ENT: No oral thrush, dry NECK: Trachea midline.Supple, nontender, no meningeal signs. CARDIOVASCULAR: RRR, ? systolic murmur. RESPIRATORY: Clear to auscultation. Breath sounds equal bilaterally. No wheezes , rales, or rhonchi. GASTROINTESTINAL: Abdomen soft, non-tender, nondistended. MUSCULOSKELETAL: Extremities without clubbing, cyanosis. 2-3 plus pedal edema. NEUROLOGICAL: Opens eyes, follows commands. Moves all 4. Psych: could not be assessed. Assessment & Plan Remarks Severe Sepsis MSSA bacteremia/endocarditis,RV large thrombus plus ? Tricuspid vegetation. Pulm Septic emboli. Right knee effusion: ? partially treated septic arthritis vs traumatic. ESBL in urine likely colonized. Acute metabolic encephalopathy: sepsis, medication withdrawal, at risk for meningitis (will reassess based on follow up clinical exam) Thrombocytopenia: Platelets could have been low from Sepsis, DIC, hep C as well. Post at risk for endometritis. Hepatitis C positive. Recs Continue Ancef IV (pt was on several other meds not entirely clear if Ancef caused prior rash in ICU) d/w patient and : plan of care on discharge which includes ID follow up with Dr.Reba Casas and Cardiothoracic Surgery. Included in this plan is outpatient de-addiction appointments. Due to large nature of the clot patient is at risk for recurrent endocarditis as the nidus of the thrombus could be infection and may dissolve at later date after completion of therapy. She also stands at risk for secondary complications from the sheer size of the clot. Explained to the patient importance of abstaining from using the PICC line for anything other than prescribed medications for that route of administration (antibiotics in this case). Post hospital infusion orders in chart. Will sign off please call back if any change in clinical condition or questions. Nicky Rios MD March 31, 2017 17:38
[2017-03-31] MEDS ORDERED: SOLU250I IV PUSH (17:42)
[2017-03-31] MEDS ORDERED: CEFA2SOL IV (17:42)
[2017-03-31] MEDS ORDERED: EPIN1INJ21 IV PUSH (17:42)
[2017-03-31] MEDS ORDERED: EPIN1INJ21 SQ (17:42)
--- NOTE | 2017-03-31 17:50 | HHI.FF ---
cc: Rupal Casas MD; Nita Dawn MD Infusion Therapy Location of Infusion Therapy: [facility] Infusion Therapy Order Patient Information Appointment Date: March 31, 2017 Patient Weight 50.3 kg Diagnosis: Diagnosis MSSA infective endocarditis Right knee effusion ? septic arthritis partially treated. Large infective ventricular thrombus Coded Allergies: Penicillin (Verified Allergy, Intermediate, hives, 11/21/16) *MDRO Multi-Drug Resistant Organism (Verified Adverse Reaction, Unknown, ) ESBL (urine)-03/17/17 MRSA (breast wound) - 04/30/16 MRSA screens NEGATIVE 03/06/17 & 03/13/17 Administer Medication Cefazolin 2 grams IV q 8 hours Start Treatment: March 31, 2017 Stop Treatment: May 31, 2017 Additional Information Venous access: PICC Line Additional Instructions [x] Peripheral flush and dressing changes per protocol [x] Implanted port and central belt line feeder: * Implanted port: 10 ml Normal Saline followed by 5 ml Heparin 100 units/ml Heparin flush after each use and monthly to maintain. [] May leave port accessed during therapy. [] May leave peripheral site accessed for duration of therapy. [x] If patient has SOB or respiratory distress, check oxygen saturation. If less than 90% or clinical signs of respiratory distress, administer oxygen at 2 L/min. via nasal cannula and notify physician. [x] Anaphylaxis/Reaction orders: * Stop infusion. * Keep IV line open with saline flush. * Notify physician. * Monitor vital signs every 15 minutes until symptoms resolve. * Check Oxygen saturation; Oxygen at 2 L/min. via nasal cannula if less than 90% or clinical signs of respiratory distress. * Administer diphenhydramine (Benadryl) 25 mg IV STAT, (unless patient has received as pre-med). May repeat once, if necessary. * Solu-Cortef 250 mg IVP over 30-60 seconds, use 100 mg vials for each dissolution. * Epinephrine (1mg/1 ml) 0.3 mg subcutaneously or IVP now with any signs of respiratory distress. * Check with physician for new additional pre-med orders if patient is re- challenged or re-treated. [x] May remove PICC line when treatment complete, after confirming with Physician. [x] If the patient is admitted to the hospital, the ED, or transferred via [facility] , complete transfer form including medication reconciliation order sheet. Laboratory Tests Weekly Labs: CBC w/diff, Creatinine, CRP, LFT's (Hepatic function test) Additional Information Please draw weekly labs, fax labs to numbers below and Call with abnormals, change in clinical condition or problems to: Dr.Reba Casas or or covering ID Physician Follow up appt: Patient to schedule follow up appt with Dr.Reba Casas within 10 days post discharge. Follow up with PCP Follow up with other MDs as planned. Counseling: Counseled about medication side effects Counseled about PICC line care and hand hygiene. Nicky Rios MD March 31, 2017 17:50
[2017-03-31] MEDS: ACETAMINOPHEN 325 MG TAB PO PRN (18:05)
--- NOTE | 2017-03-31 20:45 | PD.ORT.PN ---
Subjective Subjective Remarks The patient was resting comfortably in bed in NAD. Patient states the right knee does feel better since having fluid removed from the knee yesterday. Patient denies N/V, SOB, CP, Fevers, or Chills. Objective Vitals Vital Signs Date Time Temp Pulse Resp B/P Pulse Ox O2 Delivery O2 Flow Rate FiO2 03/31/17 16:00 96.2 96 16 97/62 97 03/31/17 12:00 97.8 99 17 97/62 97 03/31/17 08:00 98.0 84 17 114/68 95 03/31/17 07:00 99 Room Air 03/31/17 04:00 98.8 89 16 96/56 97 03/31/17 00:00 99.1 96 16 99/55 94 03/30/17 23:45 Room Air I/O 03/30/17 03/30/17 03/30/17 03/31/17 03/31/17 03/31/17 07:00 15:00 23:00 07:00 15:00 23:00 Intake Total 740 ml 540 ml 960 ml 480 ml Balance 740 ml 540 ml 960 ml 480 ml Intake Oral 740 ml 540 ml 960 ml 480 ml # Voids 3 3 4 3 # Bowel Movements 1 # Sanitary Pads 0 Pads Result Diagram: 03/31/17 0555 03/30/17 0635 Other Results Laboratory Tests Test 03/31/17 08:07 Prothrombin Time 21.7 SEC (9.8-11.6) Prothromb Time International 1.9 RATIO Ratio Objective Remarks Last 48 hours Impressions Knee X-Ray 03/30/17 0000 Signed Impressions: Service Date/Time: Thursday, March 30, 2017 14:54 - CONCLUSION: Large joint effusion. No acute bony findings Ricky Wilson MD The patient has mild swelling to the knee. Mild joint effusion. Improved ROM. Mild tenderness to the knee. No redness or warmth. 2+ pedal pulse. No calf tenderness or swelling. Cell count: WBCs 1400, RBCs 49500 Crystals: Negative Gram Stain and Culture: No growth in 24 hours Assessment & Plan Assessment and Plan Right knee effusion Knee aspirate consistent with hematoma with no indication of infection I took time to discuss and review the results of the recent knee aspiration with the patient. Based on the lab work I do not feel the effusion is consistent with infection, however I am still following the cultures for a final reading. The patient's 24 hour results show no growth. It is likely based on the amount of RBCs that the patient had a hematoma from being on anticoagulants. The patient should continue with supportive care including pain medication and ice until swelling and subjective complaints have completely resolved. The patient's anticoagulants were resumed form management of previously diagnosed thrombus. As of now I am signing off on the patient from an orthopaedic stand point but will f/u with patient if final cultures indicate infection. Rolando Villarreal March 31, 2017 20:45
[2017-04-01] VITALS: BP 92/52; PULSE 89; RESP 20; TEMP 98.1; O2SAT 97
[2017-04-01] MEDS: oxyCODONE/ACETAMINOPHEN 5 MG/325 MG TAB PO PRN ×4 (03:04→16:34)
[2017-04-01 03:50] LABS: AUTOMATED NEUTROPHIL # 6.1 TH/MM3 (1.8-7.7); BASOPHIL # 0.1 TH/MM3 (0-0.2); BASOPHIL % 1.4 % (0.0-2.0); EOSINOPHIL # 0.3 TH/MM3 (0-0.4); EOSINOPHIL % 3.3 % (0.0-4.0); HEMATOCRIT 27.7 % (35.0-46.0); HEMO FLAGS DIFF FINAL; LYMPH % 31.2 % (9.0-44.0); LYMPHOCYTE # 3.3 TH/MM3 (1.0-4.8); MEAN CORPUSCULAR HEMOGLOBIN 28.2 PG (27.0-34.0); MEAN CORPUSCULAR HGB CONC 32.8 % (32.0-36.0); MONO % 6.9 % (0.0-8.0); NEUT % 57.2 % (16.0-70.0); PLATELET COUNT 453 TH/MM3 (150-450); RED BLOOD COUNT 3.22 MIL/MM3 (4.00-5.30); RED CELL DISTRIBUTION WIDTH 17.1 % (11.6-17.2); WHITE BLOOD COUNT 10.7 TH/MM3 (4.0-11.0)
[2017-04-01 04:00] VITALS: BP 100/60; PULSE 85; RESP 20; TEMP 97.8; O2SAT 97
[2017-04-01] MEDS: CHLORHEXIDINE GLUCONATE 2 % 1 PACK (2 CLOTHS) TOP SCH (04:00)
[2017-04-01 04:06] LABS: INTERNATIONAL NORMALIZED RATIO 1.7 RATIO; PROTHROMBIN TIME - PATIENT 19.4 SEC (9.8-11.6)
[2017-04-01] MEDS: ceFAZolin 2 GM PREMIX 50 ML IV SCH ×2 (05:03→15:00)
[2017-04-01] MEDS: SODIUM CHLORIDE 0.9% FLUSH 10 ML FLUSH IV FLUSH PRN (05:03)
[2017-04-01 08:00] VITALS: BP 103/56; PULSE 93; RESP 16; TEMP 98; O2SAT 96
[2017-04-01] MEDS: REMOVE OLD PATCH T-DERMAL SCH (09:00)
[2017-04-01] MEDS: SODIUM CHLORIDE 0.9% FLUSH 10 ML FLUSH IV FLUSH SCH ×2 (09:07→09:08)
[2017-04-01] MEDS: LORazepam 1 MG TAB PO SCH (09:08)
[2017-04-01] MEDS: PANTOPRAZOLE SOD 40 MG DELAYED RELEASE TAB PO SCH (09:08)
[2017-04-01] MEDS: fentaNYL 50 MCG/HR PATCH T-DERMAL SCH (09:08)
[2017-04-01 09:55] VITALS: PULSE 62
[2017-04-01 12:00] VITALS: BP 105/63; PULSE 103; RESP 16; TEMP 96.9; O2SAT 97
[2017-04-01] MEDS ORDERED: FENT25T T-DERMAL (13:19)
[2017-04-01] MEDS ORDERED: HYDR-3580 PO (13:19)
[2017-04-01] MEDS ORDERED: LORA-474 PO (13:19)
[2017-04-01] MEDS ORDERED: COUM7.5T PO (13:24)
[2017-04-01] MEDS ORDERED: ENOX60P SQ (13:26)
[2017-04-01] MEDS ORDERED: HYDR-3516 PO (13:43)
--- NOTE | 2017-04-01 14:16 | HHI.DS ---
Discharge Summary Admission Date Mar 06, 2017 at 02:45 Discharge Date: April 01, 2017 Admitting Diagnosis (1) Infective endocarditis Diagnosis: Principal (2) IV drug user Diagnosis: Principal (3) Effusion, right knee Diagnosis: Principal (4) Intrauterine Diagnosis: Principal (5) Substance abuse Diagnosis: Principal Consultants Dr. Andree Moore, Critical Care Dr. Nik Enamorado, Cardiology Dr. Ttio Aaron, Cardiothoracic Surgeon Dr. Andrew Lazo, Hematology Dr. Ricky Sprague, Pulmonary Medicine Dr. Sebastian Chaves, Psychiatry Dr. Ralph Abad, Orthopedic Surgeon Brief History 26-year-old 3 para 1 AB 1 at 32-5/7 week gestation with an EDC of 04/28 that she claims was given based on an ultrasound in the local obstetrical office approximately one month ago. She does not have any recollection of her last menstrual period. She has had no care other than the physical ultrasound was obtained. She was to follow up in another office and failed to keep that appointment. The patient reports tonight with generalized discomfort and swelling of her legs for the past 5 days. She reports having used 4 mg of Suboxone at 11:30 PM. She also admits to 8 mg of Dilaudid per day and proximally $20 of cocaine per day with the most recent use of both of these in the last 12 hours. She reports that her legs began to swell proximal 5 days ago. She denies any headache, visual changes or abdominal pain until this evening. She now has intermittent abdominal pain coinciding with contractions on the monitor. CBC/BMP: 04/01/17 0330 03/30/17 0635 Significant Findings Laboratory Tests Test 03/30/17 03/30/17 03/30/17 03/31/17 06:35 15:16 16:30 05:55 Red Blood Count 3.30 MIL/MM3 3.29 MIL/MM3 (4.00-5.30) (4.00-5.30) Hemoglobin 9.5 GM/DL 9.2 GM/DL (11.6-15.3) (11.6-15.3) Hematocrit 28.5 % 28.4 % (35.0-46.0) (35.0-46.0) Platelet Count 509 TH/MM3 479 TH/MM3 (150-450) (150-450) Mean Platelet Volume 6.2 FL 6.7 FL (7.0-11.0) (7.0-11.0) Prothrombin Time 24.7 SEC (9.8-11.6) Synovial Fluid Color RED (STRAW) Synovial Fluid Appearance BLOODY (CLEAR) Synovial Fluid WBC 1400 /MM3 (0-200) Synovial Fluid RBC 83940 /MM3 (0-0) Synovial Fluid Neutrophils 94 % (0-25) White Blood Count 11.6 TH/MM3 (4.0-11.0) Test 03/31/17 04/01/17 08:07 03:30 Prothrombin Time 21.7 SEC 19.4 SEC (9.8-11.6) (9.8-11.6) Red Blood Count 3.22 MIL/MM3 (4.00-5.30) Hemoglobin 9.1 GM/DL (11.6-15.3) Hematocrit 27.7 % (35.0-46.0) Platelet Count 453 TH/MM3 (150-450) Mean Platelet Volume 6.4 FL (7.0-11.0) PE at Discharge GENERAL: This is a well-nourished, well-developed patient, in no apparent distress. CARDIOVASCULAR: Regular rate and rhythm without murmurs, gallops, or rubs. RESPIRATORY: Clear to auscultation. Breath sounds equal bilaterally. No wheezes , rales, or rhonchi. GASTROINTESTINAL: Abdomen soft, non-tender, nondistended. Normal active bowel sounds MUSCULOSKELETAL: Extremities without clubbing, cyanosis, or edema. NEURO: Alert & Oriented x4 to person, place, time, situation. Moves all ext x4 Hospital Course (1) Infective endocarditis - Pt presented and delivered 03/06 - polysubstance abuse and no care - acute hypoxic respiratory failure. extubated 03/18 - ards - mssa endocarditis. large RV thrombus. septic emboli bilaterally to lungs - parapneumonic right pleural effusion. pigtail catheter placed 03/18 - metabolic encephalopathy improved - benzodiazepine and narcotic dependence - preeclampsia and htn with bella/proteinuria and volume overload - hepatitis c - hyponatremia --> resolved - thrombocytopenia --> resolved, now thrombocytosis - likely reactive - sepsis - h/o mrsa urine cx less 10k enterococcus and esbl ecoli left subclavian cvl 03/16 pigtail catheter removed from right chest 03/25 Seizure precautions-in the setting of preeclampsia, and benzodiazepine dependence - arixtra for rv thrombus. changed to coumadin - INR 1.9 (03/29/17), I.9 (03/31/17), 1.7 (04/01/17) - Case d/w Dr. Lazo (04/01/17) - will change anticoagulation therapy to coumdin 7.5mg daily and lovenox 50mcg daily Pt will stop lovenox once her coumadin is therapeutic - continue to gradually wean ativan and fentanyl - pt says at home she was injecting 16-24mg dilaudid per day plus crack - Pt will be discharge on fentanyl 25mcg, norco 5/325mg q6h prn, and ativan 1mg BID prn. with plan to continue weaning off controlled substances - Case d/w Dr. Abrams by phone (04/01/17) - Pt will f/u with Dr. Abrams for post care Sunday, April 09, 2017 - Echocardiograms reviewed with Cardiology, Dr. Neff (03/29/17) - pt's large LV thrombus is basically unchanged when comparing echocardiogram of 03/09/17 to echocardiogram of 03/26/17 - Case d/w Dr. Rios (03/30/17) - continue IV ancef at least 6 weeks by PICC at [facility] off ceftarolin/gent/ertapenem. blood cx 03/16 ngtd - pt to f/u with Dr. Rupal Rahman in 6 week - repeat Echocardiogram in approximately 6 weeks - if no improvement in LV thrombus in 6 weeks then pt may require surgical evaluation - Case informally d/w Cardiothoracic surgery, Dr. Tito Aaron. He agrees with 6 weeks of anticoagulation with IV antibiotic therapy. If continued thrombus/vegetation on repeat echocardiogram, then will request surgical consultation. Pt would need to be committed to drug free lifestyle and case might need to go to committee before surgery would consider intervening with any procedure. - Case d/w Dr. Ralph Abad, Orthopedist (03/31/17) - cytology of right knee fluid is NOT c/w septic joint - joint fluid culture results --> negative - NOTE: Pt had a prolonged and serious hospitalization. Pt is grecia to have survived this hospitalization. Pt still has a large LV clot, likely both vegetation and thrombus. Pt will need at least 6 weeks of IV antibiotics and anticoagulation Pt will have f/u echocardiogram in 6 weeks. Pt will f/u with ID in 6 weeks, Dr. Rahman. If pt LV clot persists, pt may require reassessment by Cardiothoracic surgery. Pt is at high risk fo readmission. Pt is still at high risk of both morbidity and mortality. If pt resumes using illicit drugs, she will worsen her clinical course and this may lead to . I have explained the above to the patient on multiple occasions. I explained the above to the pt again on 04/01/17 in the presence of Shira Henrandez PA-C (2) IV drug user Status: Acute Plan: see above (3) Effusion, right knee Status: Acute Plan: - see above Pt Condition on Discharge: Stable Discharge Disposition: Discharge to SNF Discharge Instructions DIET: Follow Instructions for: As Tolerated, No Restrictions Speech Therapy-Diet Recommends: Regular Activities you can perform: Regular-No Restrictions Follow up Referrals: Infectious Disease - 04/10/17 @ [facility] with MD Dr.Reba Augusto Hedrick ABSTRACT MANAGER - 1 Week with Daphne Abrams MD Pt has scheduled f/u apt with Dr. Abrams for April 09 at 9AM Orthopedics - 2 Weeks with Ralph Abad MD PCP Follow-up with Dr. Nita Dawn f/u with Dr. Dawn in 1 week after discharge from SNF New Medications: Cefazolin Inj (Cefazolin Inj) 2 Gm/50 Ml Bagp 2 GM IV Q8H MSSA endocarditis Days 60 Ref 0 BAG Enoxaparin Inj (Lovenox Inj) 60 Mg/0.6 Ml Syr 50 MG SQ DAILY stop when INR is above 2 Blood Clot Prevention Days 7 Ref 0 SYRINGE Epinephrine Inj (Epinephrine Inj) 1 Mg/Ml Inj 0.3 MG IV PUSH ONCE PRN ALLERGIC REACTION #1 VIAL Epinephrine Inj (Epinephrine Inj) 1 Mg/Ml Inj 0.3 MG SQ ONCE Give with any signs of respiratory distress. PRN ALLERGIC REACTION #1 VIAL Fentanyl Patch 72 HR (Duragesic Patch 72 HR) 25 Mcg/Hr Patch 25 MCG T-DERMAL Q72H Remove old patch when new one placed. Pain Management #10 Ref 0 PATCH Hydrocodone-Acetaminophen (Hydrocodone-Acetaminophen) 5-325 mg Tab 1 TAB PO Q6H PRN PAIN #30 Ref 0 TAB Hydrocortisone Inj (Solu-Cortef Inj) 250 Mg Inj 250 MG IV PUSH ONCE Give over 30-60 seconds. PRN ALLERGIC REACTION #1 Ref 0 VIAL Lorazepam (Ativan) 1 Mg Tab 1 MG PO BID anxiety #30 Ref 0 TAB Warfarin (Coumadin) 7.5 Mg Tab 7.5 MG PO DAILY@16 right ventricular thrombus #30 TAB Kevin Carcamo DO April 01, 2017 14:16
[2017-04-01] MEDS: WARFARIN SOD 7.5 MG TAB PO SCH (16:33)
[2017-04-01] MEDS ORDERED: ENOXAPARIN SODIUM 60 MG/0.6 ML SYRINGE SQ SCH (17:00)
== END 2017-04-01 17:25 | DRG 774 ==
LOC: HOBED 01:34 → EEVIPCON 02:45 → H2EA 02:45 → N03A 12:31 → HCIN 03-21 17:58 → N05A 03-26 19:53
PROVIDERS: ADMIT Obstetrics & Gynecology; ATTEND Obstetrics & Gynecology
PROC: 10E0XZZ Delivery of Products of Conception, External Approach (ICD-10-PCS; principal; 2017-03-06)
PROC: 30233R1 Transfusion of Nonautologous Platelets into Peripheral Vein, Percutaneous Approach (ICD-10-PCS; 2017-03-06)
PROC: 30233N1 Transfusion of Nonautologous Red Blood Cells into Peripheral Vein, Percutaneous Approach (ICD-10-PCS; 2017-03-06)
PROC: 5A1945Z Respiratory Ventilation, 24-96 Consecutive Hours (ICD-10-PCS; 2017-03-07)
PROC: 0BH18EZ Insertion of Endotracheal Airway into Trachea, Via Natural or Artificial Opening Endoscopic (ICD-10-PCS; 2017-03-07)
PROC: 02HV33Z Insertion of Infusion Device into Superior Vena Cava, Percutaneous Approach (ICD-10-PCS; 2017-03-07)
PROC: 5A1955Z Respiratory Ventilation, Greater than 96 Consecutive Hours (ICD-10-PCS; 2017-03-10)
PROC: 0BH17EZ Insertion of Endotracheal Airway into Trachea, Via Natural or Artificial Opening (ICD-10-PCS; 2017-03-10)
PROC: 05H533Z Insertion of Infusion Device into Right Subclavian Vein, Percutaneous Approach (ICD-10-PCS; 2017-03-11)
PROC: 0W9930Z Drainage of Right Pleural Cavity with Drainage Device, Percutaneous Approach (ICD-10-PCS; 2017-03-18)
PROC: 5A09457 Assistance with Respiratory Ventilation, 24-96 Consecutive Hours, Continuous Positive Airway Pressure (ICD-10-PCS; 2017-03-18)
PROC: 0S9C3ZX Drainage of Right Knee Joint, Percutaneous Approach, Diagnostic (ICD-10-PCS; 2017-03-30)
DX: O75.3 Other infection during labor (principal); A41.01 Sepsis due to Methicillin susceptible Staphylococcus aureus; I26.90 Septic pulmonary embolism without acute cor pulmonale; J96.01 Acute respiratory failure with hypoxia; I33.0 Acute and subacute infective endocarditis; O88.3 Obstetric pyemic and septic embolism; J90 Pleural effusion, not elsewhere classified; G93.41 Metabolic encephalopathy; J80 Acute respiratory distress syndrome; O60.14X0 Preterm labor third trimester with preterm delivery third trimester, not applicable or unspecified; J18.9 Pneumonia, unspecified organism; R65.20 Severe sepsis without septic shock; O45.023 Premature separation of placenta with disseminated intravascular coagulation, third trimester; E87.1 Hypo-osmolality and hyponatremia; F11.20 Opioid dependence, uncomplicated; F13.20 Sedative, hypnotic or anxiolytic dependence, uncomplicated; O99.324 Drug use complicating childbirth; O99.12 Other diseases of the blood and blood-forming organs and certain disorders involving the immune mechanism complicating childbirth; I76 Septic arterial embolism; N17.9 Acute kidney failure, unspecified; O98.42 Viral hepatitis complicating childbirth; O86.20 Urinary tract infection following delivery, unspecified; O14.24 HELLP syndrome, complicating childbirth; Z37.0 Single live birth; Z3A.32 32 weeks gestation of pregnancy; E87.6 Hypokalemia; B95.61 Methicillin susceptible Staphylococcus aureus infection as the cause of diseases classified elsewhere; M25.461 Effusion, right knee; F14.10 Cocaine abuse, uncomplicated; B19.20 Unspecified viral hepatitis C without hepatic coma; E83.51 Hypocalcemia; E87.70 Fluid overload, unspecified; F43.23 Adjustment disorder with mixed anxiety and depressed mood; B95.2 Enterococcus as the cause of diseases classified elsewhere; B96.20 Unspecified Escherichia coli [E. coli] as the cause of diseases classified elsewhere; O99.02 Anemia complicating childbirth; D50.9 Iron deficiency anemia, unspecified; O99.334 Smoking (tobacco) complicating childbirth; O99.344 Other mental disorders complicating childbirth; Z86.14 Personal history of Methicillin resistant Staphylococcus aureus infection; Z88.0 Allergy status to penicillin
CPT/HCPCS: 31500; 32551; 36430; 36556; 36569; 36600; 59025; 70450; 71010; 71020; 71260; 71275; 73564; 74177; 76705; 76937; 80048; 80053; 80074; 80170; 80202; 80307; 81001; 82150; 82247; 82248; 82550; 82565; 82570; 82607; 82731; 82747; 82805; 82945; 83010; 83540; 83550; 83605; 83615; 83735; 83986; 84100; 84132; 84134; 84155; 84156; 84157; 84466; 85007; 85014; 85018; 85025; 85027; 85049; 85060; 85384; 85610; 85730; 86022; 86140; 86403; 86592; 86703; 86705; 86762; 86803; 86850; 86880; 86900; 86901; 86920; 87015; 87040; 87070; 87077; 87081; 87086; 87102; 87116; 87147; 87150; 87186; 87205; 87206; 87210; 87340; 87491; 87493; 87522; 87591; 87640; 87641; 88307; 89051; 89060; 93005; 93306; 93308; 93970; 94002; 94003; 94150; 94640; 94664; 99285; C9113; J0131; J0610; J0690; J0702; J0712; J0883; J1120; J1170; J1335; J1580; J1642; J1650; J1652; J1756; J1940; J2060; J2248; J2250; J2543; J2590; J2997; J3010; J3105; J3370; J3475; J3480; J7030; J7050; J7120; P9016; P9035; Q9967

== ENCOUNTER 2017-05-31 12:07 | Emergency (ER) | payer OTHER ==
[~2017-05-31] VITALS: Ht 162.6 cm; Wt 54.0 kg
[~2017-05-31 12:07] MED LIST changes: -BUPR100CR PO; +CEFA2SOL IV; +COUM7.5T PO; +ENOX60P SQ; +EPIN1INJ21 IV PUSH; +EPIN1INJ21 SQ; +FENT25T T-DERMAL; +HYDR-3516 PO; +LORA-474 PO; +SOLU250I IV PUSH
[2017-05-31 12:10] VITALS: BP 110/72; PULSE 102; RESP 20; TEMP 98.8; O2SAT 98
[2017-05-31] MEDS ORDERED: CIPROFLOXACIN 400 MG PREMIX 200 ML IV ONE (14:15)
[2017-05-31] MEDS ORDERED: metroNIDAZOLE 500 MG TAB PO ONE (14:15)
[2017-05-31 14:41] LABS: AUTOMATED NEUTROPHIL # 4.7 TH/MM3 (1.8-7.7); BASOPHIL % 0.4 % (0.0-2.0); EOSINOPHIL # 0.2 TH/MM3 (0-0.4); EOSINOPHIL % 2.5 % (0.0-4.0); HEMATOCRIT 38.2 % (35.0-46.0); HEMO FLAGS DIFF FINAL; LYMPH % 32.4 % (9.0-44.0); LYMPHOCYTE # 2.7 TH/MM3 (1.0-4.8); MEAN CELL VOLUME 91.4 FL (80.0-100.0); MEAN CORPUSCULAR HEMOGLOBIN 31.3 PG (27.0-34.0); MEAN CORPUSCULAR HGB CONC 34.2 % (32.0-36.0); MONO % 8.7 % (0.0-8.0); PLATELET COUNT 267 TH/MM3 (150-450); RED BLOOD COUNT 4.18 MIL/MM3 (4.00-5.30); RED CELL DISTRIBUTION WIDTH 15.5 % (11.6-17.2); WHITE BLOOD COUNT 8.5 TH/MM3 (4.0-11.0)
[2017-05-31] MEDS ORDERED: METR-1 PO (14:57)
[2017-05-31] MEDS ORDERED: CIPR-9 PO (14:57)
--- NOTE | 2017-05-31 14:58 | PD ---
HPI . Dental abscess Chief Complaint: Oral / Dental Pain or Problem Time Seen by Provider: 14:00 Travel History International Travel<30 days: No Contact w/Intl Traveler<30days: No Traveled to known affect area: No History of Present Illness HPI Patient presents with a chief complaint of a dental abscess. She states that she had the onset of the dental abscess maybe a week ago. She was seen by her dentist and patient on clindamycin. She states her symptoms initially improved but then became acutely worse again today. She is not running fever. Her pain level was initially 0/10 but is now 8/10. The patient is concerned because she has had a recent history of SBE and is still on Ancef. She states that her last dose of Ancef is tomorrow. PFSH Past Medical History Hx Anticoagulant Therapy: Yes (COUMADIN) Autoimmune Disease: No Blood Disorders: No Anxiety: Yes Depression: No Heart Rhythm Problems: No Cancer: No Cardiovascular Problems: Yes (ENDOCARDITIS) High Cholesterol: No Chest Pain: No Congestive Heart Failure: No Diminished Hearing: No Endocrine: No Genitourinary: No Hypertension: No Immune Disorder: No Implanted Vascular Access Dvce: No Musculoskeletal: No Neurologic: No Psychiatric: Yes Reproductive: No Respiratory: No Immunizations Current: No Tetanus Vaccination: < 5 Years ?: Not : 4 Para: 1 Miscarriage: 2 : 1 Past Surgical History AICD: No Arteriovenous Shunt: No Gynecologic Surgery: Yes () Insulin Pump: No Joint Replacement: No Pacemaker: No Other Surgery: Yes (cellulitis - I&D X 2) Social History Alcohol Use: Yes Tobacco Use: Yes Substance Use: Yes (dilaudid - PT STATES "I'M TRYING TO QUIT") Allergies-Medications (Allergen,Severity, Reaction): Coded Allergies: Penicillin (Verified Allergy, Intermediate, hives, 05/31/17) *MDRO Multi-Drug Resistant Organism (Verified Adverse Reaction, Unknown, ) ESBL (urine)-03/17/17 MRSA (breast wound) - 04/30/16 MRSA screens NEGATIVE 03/06/17 & 03/13/17 Reported Meds & Prescriptions Reported Meds & Active Scripts Active Hydrocodone-Acetaminophen 5-325 mg Tab 1 Tab PO Q6H PRN Lovenox Inj (Enoxaparin Sodium) 60 Mg/0.6 Ml Syr 50 Mg SQ DAILY 7 Days stop when INR is above 2 Coumadin (Warfarin) 7.5 Mg Tab 7.5 Mg PO DAILY@16 Ativan (Lorazepam) 1 Mg Tab 1 Mg PO BID Duragesic Patch 72 HR (Fentanyl) 25 Mcg/Hr Patch 25 Mcg T-DERMAL Q72H Remove old patch when new one placed. Epinephrine Inj 1 Mg/Ml Inj 0.3 Mg SQ ONCE PRN Give with any signs of respiratory distress. Epinephrine Inj 1 Mg/Ml Inj 0.3 Mg IV PUSH ONCE PRN Solu-Cortef Inj (Hydrocortisone Sodium Succinate) 250 Mg Inj 250 Mg IV PUSH ONCE PRN Give over 30-60 seconds. Cefazolin Inj (Cefazolin Sodium/Dextrose) 2 Gm/50 Ml Bagp 2 Gm IV Q8H 60 Days Review of Systems Except as stated in HPI: all other systems reviewed are Neg General / Constitutional: No: Fever, Chills HENT: Positive: Dental Difficulties Physical Exam Narrative GENERAL: Awake and alert and in no acute distress. SKIN: Warm and dry. HEAD: Atraumatic. Normocephalic. Swelling of the right jaw. EYES: Pupils equal and round. ENT: Significant dental caries of tooth #31. Approximately one third of the enamel is missing. She has tenderness to percussion. NECK: Trachea midline. No cervical lymphadenopathy. CARDIOVASCULAR: Regular rate and rhythm. RESPIRATORY: No accessory muscle use. MUSCULOSKELETAL: No obvious deformities. No edema. NEUROLOGICAL: Awake and alert. No obvious cranial nerve deficits. Motor grossly within normal limits. Normal speech. PSYCHIATRIC: Appropriate mood and affect; insight and judgment normal. Data Data Last Documented VS Vital Signs Date Time Temp Pulse Resp B/P Pulse Ox O2 Delivery O2 Flow Rate FiO2 05/31/17 12:10 98.8 102 20 110/72 98 Room Air Orders Complete Blood Count With Diff (05/31/17 14:11) Blood Culture (05/31/17 14:11) Ciprofloxacin 400 Mg Premix (Cipro 400 M (05/31/17 14:15) Metronidazole (Flagyl) (05/31/17 14:15) Labs Laboratory Tests Test 05/31/17 14:24 White Blood Count 8.5 TH/MM3 Red Blood Count 4.18 MIL/MM3 Hemoglobin 13.1 GM/DL Hematocrit 38.2 % Mean Corpuscular Volume 91.4 FL Mean Corpuscular Hemoglobin 31.3 PG Mean Corpuscular Hemoglobin 34.2 % Concent Red Cell Distribution Width 15.5 % Platelet Count 267 TH/MM3 Mean Platelet Volume 6.0 FL Neutrophils (%) (Auto) 56.0 % Lymphocytes (%) (Auto) 32.4 % Monocytes (%) (Auto) 8.7 % Eosinophils (%) (Auto) 2.5 % Basophils (%) (Auto) 0.4 % Neutrophils # (Auto) 4.7 TH/MM3 Lymphocytes # (Auto) 2.7 TH/MM3 Monocytes # (Auto) 0.7 TH/MM3 Eosinophils # (Auto) 0.2 TH/MM3 Basophils # (Auto) 0.0 TH/MM3 CBC Comment DIFF FINAL Differential Comment MDM Medical Decision Making Medical Screen Exam Complete: Yes Emergency Medical Condition: Yes Medical Record Reviewed: Yes (in early March, a urine culture positive for Escherichia coli and both blood and sputum cultures positive for staph. She was hospitalized at that time for SBE. She was eventually discharged on Ancef.) Differential Diagnosis Differential diagnosis of a toothache includes but is not limited to dental caries, dental abscess, gingivitis, drug-seeking behavior. Narrative Course Patient presents with the chief complaint of a dental abscess. She is currently on clindamycin for this. She had initially improved but is now worsening. She is also currently on Ancef for SBE. Unfortunately, she is allergic to penicillin. I have queried up-to-date regarding treatment of dental abscess. It looks like the next logical choice of antibiotics will be Flagyl and Cipro. Because of her history of SBE, I have ordered a CBC and blood cultures. Her white count is normal. CBC Diagram 05/31/17 14:24 I will discharge the patient with prescriptions for Cipro and Flagyl. She can stop the clindamycin. Follow up with a dentist. Diagnosis Primary Impression: Dental abscess Patient Instructions: Dental Abscess (ED), General Instructions Med/Other Pt SpecificInfo: Prescription(s) given Scripts Metronidazole (Flagyl)500 Mg Lis069 Mg PO twice a day 10 Days Ref 0 Prov:Moriah Lee MD 05/31/17 Ciprofloxacin (Cipro)500 Mg [id number] Mg PO BID 10 Days Ref 0 Prov:Moriah Lee MD 05/31/17 Disposition: 01 DISCHARGE HOME Condition: Stable Moriha Lee MD May 31, 2017 14:58
== END 2017-05-31 15:41 | disposition home or self-care (01) ==
LOC: NEPD 12:07
DX: K04.7 Periapical abscess without sinus (principal); K02.9 Dental caries, unspecified; F41.9 Anxiety disorder, unspecified; F17.200 Nicotine dependence, unspecified, uncomplicated; Z79.01 Long term (current) use of anticoagulants; Z79.899 Other long term (current) drug therapy; Z88.0 Allergy status to penicillin
CPT/HCPCS: 85025; 87040; 96374; 99284; J0744